=== PATIENT | female | born 1950 | race Caucasian/White ===

== ENCOUNTER 2016-10-19 22:05 | Inpatient (IN) | payer MEDICARE, OTHER ==
--- NOTE | 2016-10-19 22:26 | ERPHSYRPT ---
- History of Present Illness Time Seen by Provider: 10/19/16 22:09 Source: patient, family (grand-daughter), EMS Patient Subjective Stated Complaint: reports with c/o headache x 3 days ago et subsequent vomiting x 3-4 episodes today - reports also some dizziness et possible syncope Triage Nursing Assessment: ambulance to treatment area - lifted to cart - moves all extremities with profound weakness et discomfort. alert/oriented - grimmacing affect. skin pale/dry - no rash/injury. resps easy - non-labored Physician History: CC: headache Hx: 66 y/o patient of Dr Navarrete with hx of rheumatoid arthritis. She was brought to ER per EMS. Grand-daughter states patient has 3-4 day hx of nausea and vomiting. She has some headache that was gradual for 2-3 days. Reports some dizziness today. No fever. She has felt poorly. called family telling them she was on floor and not breathing. She was alert when the help arrived. She is mildly confused. Has taken prednisone in the past but does not take currently as best ascertained. Pt has some neck pain. Some diarrhea. No abd pain. No chest pain. Timing/Duration: day(s) (3-4) Allergies/Adverse Reactions: infliximab [From Remicade] Adverse Reaction (Intermediate, Verified 10/19/16 22: 07) MUSCLE SPASMS Home Medications: Ergocalciferol (Vitamin D2) [Vitamin D] 50,000 unit PO WEEKLY 02/11/13 [History] Methotrexate Sodium [Methotrexate] 15 mg PO WEEKLY 06/04/13 [History] Ibuprofen 200 mg [Motrin 200 mg] 800 mg PO Q12H PRN 11/05/13 [History] Adalimumab [Humira] 40 mg SQ UD 04/03/14 [History] Prednisone 20 mg [Deltasone 20 mg] 20 mg PO TID PRN 04/03/14 [History] Hx Tetanus, Diphtheria Vaccination/Date Given: Yes Hx Influenza Vaccination/Date Given: No Hx Pneumococcal Vaccination/Date Given: No Immunizations Up to Date: Yes - Review of Systems Constitutional: Chills, Fatigue, Malaise, Weakness Eyes: No Symptoms Ears, Nose, & Throat: No Symptoms Respiratory: No Cough Cardiac: Syncope, No Chest Pain Abdominal/Gastrointestinal: Nausea, Vomiting, Diarrhea, No Abdominal Pain Genitourinary Symptoms: No Dysuria Musculoskeletal: Neck Pain, Fall (?), No Joint Pain Skin: No Rash Neurological: Dizziness, Headache, No Focal Weakness, No Parasthesia All Other Systems: Reviewed and Negative - Past Medical History Pertinent Past Medical History: Yes Neurological History: No Pertinent History ENT History: No Pertinent History Cardiac History: No Pertinent History Respiratory History: Bronchitis, Pneumonia Endocrine Medical History: No Pertinent History Musculoskeletal History: Rheumatoid Arthritis GI Medical History: No Pertinent History History: No Pertinent History Psycho-Social History: No Pertinent History Female Reproductive Disorders: Other Other Medical History: right ovary fibroid - Past Surgical History Past Surgical History: Yes Neuro Surgical History: No Pertinent History Cardiac: Cardiac Catheterization Respiratory: No Pertinent History Gastrointestinal: No Pertinent History Genitourinary: No Pertinent History Musculoskeletal: No Pertinent History Female Surgical History: Other Other Surgical History: right oopherectomy - Social History Smoking Status: Former smoker How long have you smoked: 5 Exposure to second hand smoke: No Drug Use: none Patient Lives Alone: No - Female History Hx Last Menstrual Period: n/a - Nursing Vital Signs Nursing Vital Signs: Initial Vital Signs Temperature 100.8 F Temperature Source Rectal Pulse Rate 80 Respiratory Rate 16 Blood Pressure [] 101/57 Pain Intensity 6 - Physical Exam General Appearance: alert, other (lethargic, pale) Eye Exam: PERRL/EOMI Ears, Nose, Throat Exam: dry mucous membranes Neck Exam: midline tenderness Respiratory Exam: normal breath sounds Cardiovascular Exam: regular rate/rhythm Gastrointestinal/Abdomen Exam: soft, No tenderness, No distention, No mass, No guarding Extremity Exam: normal inspection, limited range of motion (due to general weakness, worse in legs) Neurologic Exam: alert, other (disoriented to year, more weakness in right leg, general weakness all over, face symmetric) Skin Exam: pale, No rash SpO2 Interpretation: normal SpO2: 98 Oxygen Delivery: Nasal Cannula - Course Nursing assessment & vital signs reviewed: Yes EKG Interpreted by Me: RATE (92), Sinus Rhythm, NORMAL AXIS, NORMAL INTERVALS ( QTc 443), Non-specific ST Changes (wity poor R wave progression) - Radiology Exams cxr X-ray Interpretation: Reviewed by me (poor inspiration, congestion) - CT Exams cervical CT Interpretation: Negative, Tele-radiologist Report head CT Interpretation: Tele-radiologist Report, No/Intracranial Hemorrhag, Other ( tiny lacunar infarct left of indeterminant age, air fluid levels i maxiallary sinuses) Ordered Tests: Active Orders 24 hr Category Date Time Status Attraction Attendant STAT Care 10/19/16 22:16 Active Cath for Specimen-Straight STAT Care 10/19/16 22:16 Active Cervical Collar Application STAT Care 10/19/16 22:18 Completed EKG-ER Only STAT Care 10/19/16 22:17 Active IV Insertion STAT Care 10/19/16 22:16 Active NPO (ED) STAT Care 10/19/16 22:17 Active Pulse Oximetry (ED) STAT Care 10/19/16 22:16 Active Rectal Temperature STAT Care 10/19/16 22:19 Active CERVICAL SPINE WO CONTRAST [CT] Stat Exams 10/19/16 22:15 Taken CHEST 1 VIEW (PORTABLE) Stat Exams 10/19/16 22:18 Taken HEAD WITHOUT CONTRAST [CT] Stat Exams 10/19/16 22:15 Taken BLOOD CULTURE Stat Lab 10/19/16 23:10 Received CBC W DIFF Stat Lab 10/19/16 22:30 Completed CK-Creatinine Phosphokinase Stat Lab 10/19/16 22:30 Completed CMP Stat Lab 10/19/16 22:30 Completed Erythrocyte Sedimentation Rate Stat Lab 10/19/16 22:30 Completed Lactic Acid Urgent Lab 10/19/16 22:16 Completed MAGNESIUM Stat Lab 10/19/16 22:30 Completed Manual Differential NC Stat Lab 10/19/16 22:30 Completed PROTIME WITH INR Stat Lab 10/19/16 22:30 Completed PTT Stat Lab 10/19/16 22:30 Completed UA W/ MICROSCOPIC Stat Lab 10/19/16 23:20 Completed VENOUS BLOOD GAS Urgent Lab 10/19/16 22:16 Completed Medication Summary Generic Name Dose Route Start Last Admin Trade Name Freq PRN Reason Stop Dose Admin Sodium Chloride 1,000 mls @ 100 mls/hr 10/19/16 22:30 10/19/16 23:10 Sodium Chloride 0.9% 1000 Ml IV 11/18/16 22:29 100 mls/hr .Q10H MARNI Administration Oseltamivir Phosphate 75 mg 10/20/16 10:00 10/20/16 00:22 Tamiflu 75mg Capsule PO 11/19/16 09:59 75 mg BID MARNI Administration Discontinued Medications Generic Name Dose Route Start Last Admin Trade Name Freq PRN Reason Stop Dose Admin Acetaminophen 650 mg 10/19/16 22:30 10/19/16 23:10 [place] 650 Mg CO 10/19/16 22:31 650 mg STAT STA Administration Acetaminophen Confirm 10/19/16 23:05 Feverall 650 Mg Administered 10/19/16 23:06 Dose 650 mg .ROUTE .STK-MED ONE Fentanyl Citrate 50 mcg 10/19/16 23:03 10/19/16 23:09 Sublimaze 100 Mcg/2 Ml IV 10/19/16 23:04 50 mcg STAT ONE Administration Fentanyl Citrate Confirm 10/19/16 23:05 Sublimaze 100 Mcg/2 Ml Administered 10/19/16 23:06 Dose 100 mcg .ROUTE .STK-MED ONE Sodium Chloride Confirm 10/19/16 23:06 Sodium Chloride 0.9% 1000 Ml Administered 10/19/16 23:07 Dose 1,000 mls @ ud .ROUTE .STK-MED ONE Ondansetron HCl 4 mg 10/19/16 22:30 10/19/16 23:10 Zofran 4 Mg/2 Ml Vial IV 10/19/16 22:31 4 mg STAT STA Administration Ondansetron HCl Confirm 10/19/16 23:05 Zofran 4 Mg/2 Ml Vial Administered 10/19/16 23:06 Dose 4 mg .ROUTE .STK-MED ONE Oseltamivir Phosphate Confirm 10/20/16 00:18 Tamiflu 75mg Capsule Administered 10/20/16 00:19 Dose 75 mg PO .STK-MED ONE Lab/Rad Data: Laboratory Result Diagrams 10/19/16 22:30 10/19/16 22:30 Laboratory Results 10/19/16 10/19/16 10/19/16 Range/Units 23:20 22:30 22:30 WBC (4.0-10.5) K/mm3 RBC (4.1-5.4) M/mm3 Hgb (12.0-16.0) gm/dl Hct (35-47) % MCV (78-100) fl MCH (26-32) pg MCHC (32-36) g/dl RDW (11.5-14.0) % Plt Count (150-450) K/mm3 MPV (6-9.5) fl Segmented Neutrophils (36.0-66.0) % Lymphocytes (Manual) (24-44) % Monocytes (Manual) (0.0-12.0) % Eosinophils (Manual) (0.00-3.0) % Differential Comment Platelet Estimate (NORMAL) ESR (0-20) mm/hr INR 1.05 (0.8-3.0) PTT 33.5 (25.3-37.0) SECONDS VBG pH (7.32-7.42) VBG pCO2 at Pat Temp (42-55) mm/Hg VBG pO2 at Pat Temp (25-40) mm/Hg VBG HCO3 (22-28) meq/L VBG O2 Sat (Milo) (95-100) VBG Base Excess (-2.0-2.0) VBG Hemoglobin VBG Carboxyhemoglobin (0.0-6.9) % T HGB POC Potassium (3.5-5.1) Sodium 134 L (136-145) mEq/L Potassium 3.7 (3.5-5.1) mEq/L Chloride 102 (98-107) mEq/L Carbon Dioxide 20.3 L (21-32) mEq/L Anion Gap 14.9 (5-15) MEQ/L BUN 21 H (9-20) mg/dL Creatinine 1.23 (0.55-1.30) mg/dl Estimated GFR 46 ML/MIN Glucose 113 H (70-110) MG/DL Lactic Acid (0.4-2.0) Calcium 8.3 L (8.5-10.1) mg/dL Magnesium 1.9 (1.8-2.4) mg/dL Total Bilirubin 0.5 (0.2-1.0) mg/dL AST 30 (15-37) U/L ALT 18 (12-78) U/L Alkaline Phosphatase 120 H (46-116) U/L Creatine Kinase 92 (26-192) U/L Serum Total Protein 6.4 (6.4-8.2) gm/dL Albumin 3.1 L (3.4-5.0) g/dL Ur Collection Type CATH Urine Color YELLOW (YELLOW) Urine Appearance CLEAR (CLEAR) Urine pH 5.5 (5-6) Ur Specific [place] >=1.030 (1.005-1.025) Urine Protein 30 (Negative) Urine Glucose (UA) NEGATIVE (NEGATIVE) mg/dL Urine Ketones SMALL-15 (NEGATIVE) Urine Nitrite NEGATIVE (NEGATIVE) Urine Bilirubin SMALL (NEGATIVE) Urine Urobilinogen 1 (0-1) mg/dL Urine WBC (Auto) NEGATIVE (NEGATIVE) Urine RBC (Auto) NEGATIVE (0-5) Beau/ul Ur Epithelial Cells RARE (FEW) /HPF Urine Bacteria FEW (NEGATIVE) /HPF Urine Mucus SLIGHT (NEGATIVE) /HPF Influenza Type A Ag (NEGATIVE) Influenza Type B Ag (NEGATIVE) RSV (PCR) (Negative) Specimen Received 10/19/16:2320 10/19/16 10/19/16 10/19/16 Range/Units 22:30 22:20 22:16 WBC 8.5 (4.0-10.5) K/mm3 RBC 5.15 (4.1-5.4) M/mm3 Hgb 15.7 (12.0-16.0) gm/dl Hct 44.8 (35-47) % MCV 87.0 (78-100) fl MCH 30.5 (26-32) pg MCHC 35.0 (32-36) g/dl RDW 14.3 H (11.5-14.0) % Plt Count 256 (150-450) K/mm3 MPV 10.3 H (6-9.5) fl Segmented Neutrophils 89 H (36.0-66.0) % Lymphocytes (Manual) 4 L (24-44) % Monocytes (Manual) 6 (0.0-12.0) % Eosinophils (Manual) 1 (0.00-3.0) % Differential Comment NORMAL Platelet Estimate NORMAL (NORMAL) ESR 12 (0-20) mm/hr INR (0.8-3.0) PTT (25.3-37.0) SECONDS VBG pH 7.38 (7.32-7.42) VBG pCO2 at Pat Temp 33 L (42-55) mm/Hg VBG pO2 at Pat Temp 63 H (25-40) mm/Hg VBG HCO3 19.5 L (22-28) meq/L VBG O2 Sat (Milo) 94.0 L (95-100) VBG Base Excess -4.6 L (-2.0-2.0) VBG Hemoglobin 15.2 VBG Carboxyhemoglobin 3.8 (0.0-6.9) % T HGB POC Potassium 3.8 (3.5-5.1) Sodium (136-145) mEq/L Potassium (3.5-5.1) mEq/L Chloride (98-107) mEq/L Carbon Dioxide (21-32) mEq/L Anion Gap (5-15) MEQ/L BUN (9-20) mg/dL Creatinine (0.55-1.30) mg/dl Estimated GFR ML/MIN Glucose (70-110) MG/DL Lactic Acid 1.1 (0.4-2.0) Calcium (8.5-10.1) mg/dL Magnesium (1.8-2.4) mg/dL Total Bilirubin (0.2-1.0) mg/dL AST (15-37) U/L ALT (12-78) U/L Alkaline Phosphatase (46-116) U/L Creatine Kinase (26-192) U/L Serum Total Protein (6.4-8.2) gm/dL Albumin (3.4-5.0) g/dL Ur Collection Type Urine Color (YELLOW) Urine Appearance (CLEAR) Urine pH (5-6) Ur Specific [place] (1.005-1.025) Urine Protein (Negative) Urine Glucose (UA) (NEGATIVE) mg/dL Urine Ketones (NEGATIVE) Urine Nitrite (NEGATIVE) Urine Bilirubin (NEGATIVE) Urine Urobilinogen (0-1) mg/dL Urine WBC (Auto) (NEGATIVE) Urine RBC (Auto) (0-5) Beau/ul Ur Epithelial Cells (FEW) /HPF Urine Bacteria (NEGATIVE) /HPF Urine Mucus (NEGATIVE) /HPF Influenza Type A Ag POSITIVE (NEGATIVE) Influenza Type B Ag NEGATIVE (NEGATIVE) RSV (PCR) NEGATIVE (Negative) Specimen Received - Progress Progress Note: 10/20/16 00:25 Shehas improved with IVF, meds. Still ill appearing. Meningitis not suspected at this time. She is at risk for infectious complications due to her rheumatoid meds. She has a fair amount of sinus disease so will cover with abtx. Called Dr Navarrete for observation. She is dehydrated. 10/20/16 00:28 She apparently is on chronic steroids at home so will cover with stress dose hydrocortisone. Will see patient in: hospital (observation) Counseled pt/family regarding: lab results, diagnosis, need for follow-up, rad results - Departure Time of Disposition: 00:27 Departure Disposition: Observation Clinical Impression: Influenza A, Syncope, Dehydration, Maxillary sinusitis, acute, Rheumatoid arthritis Condition: Fair Critical Care Time: No Referrals: KYARA NAVARRETE [Primary Care Provider] -
[2016-10-19] MEDS ORDERED: Zofran 4 MG/2 ML VIAL IV STA (22:30)
[2016-10-19] MEDS ORDERED: Sodium Chloride 0.9% 1000 ML 1,000 ML IV SCH (22:30)
[2016-10-19] MEDS ORDERED: FEVERALL 650 MG PR STA (22:30)
[2016-10-19 22:40] LABS: Mean Corpuscular Hemoglobin 30.5 pg (26-32); Mean Platelet Volume 10.3 fl (6-9.5); Platelet Count 256 K/mm3 (150-450); Red Blood Count 5.15 M/mm3 (4.1-5.4); Red Cell Distribution Width 14.3 % (11.5-14.0); White Blood Count 8.5 K/mm3 (4.0-10.5)
[2016-10-19 22:47] LABS: INR 1.05 (0.8-3.0); PROTIME 11.7 SECONDS (9.95-12.35)
[2016-10-19 22:48] LABS: Lactic Acid 1.1 (0.4-2.0); VBG BASE EXCESS -4.6 (-2.0-2.0); VBG CARBOXYHEMOGLOBIN 3.8 % T HGB (0.0-6.9); VBG HCO3- 19.5 meq/L (22-28); VBG HEMOGLOBIN 15.2; VBG POTASSIUM 3.8 (3.5-5.1); VBG pH 7.38 (7.32-7.42)
[2016-10-19 22:49] LABS: PTT 33.5 SECONDS (25.3-37.0)
[2016-10-19 22:55] LABS: ALBUMIN 3.1 g/dL (3.4-5.0); ANION GAP 14.9 MEQ/L (5-15); BILIRUBIN,TOTAL 0.5 mg/dL (0.2-1.0); Carbon Dioxide 20.3 mEq/L (21-32); MAGNESIUM 1.9 mg/dL (1.8-2.4); Potassium 3.7 mEq/L (3.5-5.1); Total Protein 6.4 gm/dL (6.4-8.2)
[2016-10-19 23:01] LABS: Erythrocyte Sedimentation Rate 12 mm/hr (0-20)
[2016-10-19] MEDS ORDERED: SUBLIMAZE 100 MCG/2 ML IV ONE (23:03)
[2016-10-19] MEDS ORDERED: Zofran 4 MG/2 ML VIAL ONE (23:05)
[2016-10-19] MEDS ORDERED: FEVERALL 650 MG ONE (23:05)
[2016-10-19] MEDS ORDERED: SUBLIMAZE 100 MCG/2 ML ONE (23:05)
[2016-10-19] MEDS ORDERED: Sodium Chloride 0.9% 1000 ML 1,000 ML ONE (23:06)
[2016-10-19 23:45] LABS: Bacteria FEW /HPF (NEGATIVE); COMPLETE URINE MICROSCOPIC? YES; Collection Type CATH; Epithelial Cells RARE /HPF (FEW); Mucus SLIGHT /HPF (NEGATIVE); Ph 5.5 (5-6)
[2016-10-19 23:51] LABS: Eosinophil 1 % (0.00-3.0); Platelet Estimate NORMAL (NORMAL); Total Cells Counted 100
[2016-10-20] MEDS ORDERED: Tamiflu 75MG Capsule PO ONE (00:18)
[2016-10-20] MEDS: Tamiflu 75MG Capsule PO SCH ×3 (00:22→22:52)
[2016-10-20] MEDS ORDERED: ROCEPHIN 1 Gm-D5w 50 ml Bag** 50 ML IV ONE ×2 (00:29→00:34)
[2016-10-20] MEDS ORDERED: solu-CORTEF 250MG ONE (00:34)
[2016-10-20] MEDS: solu-CORTEF 100MG IV SCH ×3 (00:40→17:11)
[2016-10-20] MEDS ORDERED: solu-CORTEF 250MG IV ONE (00:41)
[2016-10-20] MEDS ORDERED: TYLENOL 325 MG PO PRN (01:19)
[2016-10-20] MEDS ORDERED: Zofran 4 MG/2 ML VIAL IV PRN (01:19)
[2016-10-20] MEDS ORDERED: PROVENTIL 2.5 MG/3 ML NEB IH PRN (01:19)
[2016-10-20] MEDS: D5W/0.45NS W/ 20mEq KCl 1000 ML 1,000 ML IV SCH ×2 (02:01→11:52)
--- NOTE | 2016-10-20 09:00 | PCM.HP ---
History of Present Illness - Chief Complaint Chief Complaint: pneumonia, flu A History of Present Illness: is a 66 year old female who started feeling ill 2 nights ago with vomiting. She then started having cough and sweats. Yesterday she passed out while in her kitchen and family called EMS. She was found to have influenza A and pneumonia. - Review of Systems Constitutional: Fever, Fatigue Respiratory: Cough, Short Of Breath Cardiac: No Chest Pain Abdominal/Gastrointestinal: Nausea, Vomiting Musculoskeletal: Arthralgias All Other Systems: Reviewed and Negative Medications & Allergies Home Medications: Home Medication List Ergocalciferol (Vitamin D2) [Vitamin D] 50,000 unit PO WEEKLY 02/11/13 [History Confirmed 10/20/16] Ibuprofen 200 mg [Motrin 200 mg] 800 mg PO Q12H PRN 11/05/13 [History Confirmed 10/20/16] Albuterol Common Canister [Proventil Common Canister] 2 puff IH Q4HPRN #0 puff 01/17/14 [Rx Confirmed 10/20/16] Prednisone 20 mg [Deltasone 20 mg] 20 mg PO TID PRN 04/03/14 [History Confirmed 10/20/16] Guaifenesin/Dextromethorphan [Adult [employer]in Dm Syrup] 10 ml PO Q4H 10/20/16 [ History Confirmed 10/20/16] Hydroxychloroquine Sulfate [Plaquenil] 200 mg PO DAILY 10/20/16 [History Confirmed 10/20/16] Tofacitinib Citrate [Xeljanz] 5 mg PO BID 10/20/16 [History Confirmed 10/20/16] Allergies/Adverse Reactions: Allergies Allergy/AdvReac Type Severity Reaction Status Date / Time infliximab [From Remicade] AdvReac Intermediate MUSCLE Verified 10/19/16 22:07 SPASMS - Past Medical History Past Medical History: Yes Neurological History: No Pertinent History ENT History: No Pertinent History Cardiac History: No Pertinent History Respiratory History: Bronchitis, Pneumonia Endocrine Medical History: No Pertinent History Musculoskelatal History: Rheumatoid Arthritis GI Medical History: No Pertinent History History: No Pertinent History Pyscho-Social History: No Pertinent History Reproductive Disorders: Other Comment: right ovary fibroid - Female History Hx Last Menstrual Period: n/a Are you now?: No - Past Surgical History Past Surgical History: Yes Neuro Surgical History: No Pertinent History Cardiac History: Cardiac Catheterization Respiratory Surgery: No Pertinent History GI Surgical History: No Pertinent History Genitourinary Surgical Hx: No Pertinent History Musculskeletal Surgical Hx: No Pertinent History, Orthopedic Surgery Female Surgical History: Other Other Surgical History: right oopherectomy, carpal tunnel surgery, and rt hip replacement - Social History Smoking Status: Light tobacco smoker How long have you smoked: 5 Exposure to second hand smoke: No Alcohol: None Drug Use: none - Physical Exam Vital Signs: Vital Signs - 24 hr Temp Pulse Resp BP Pulse Ox 10/20/16 08:08 75 18 96 10/20/16 08:00 98.3 F 77 17 105/51 92 L 10/20/16 03:00 88 22 90 L 10/20/16 01:20 98.9 F 84 22 109/52 91 L 10/20/16 00:28 98 10/20/16 00:23 80 16 97 10/19/16 23:45 90 16 101/57 10/19/16 23:23 100.8 F 86 20 118/53 99 10/19/16 23:18 10.8 F 10/19/16 23:10 100.8 F 10/19/16 22:19 99 10/19/16 22:16 98.5 F 90 16 118/74 98 Oxygen-Last 24 hours O2 Percentage 2 Liters = 28% O2 Percentage 2 Liters = 28% O2 Percentage 2 Liters = 28% General Appearance: moderate distress, other (coughs throughout) Neurologic Exam: alert, oriented x 3, cooperative Eye Exam: eyes nml inspection Neck Exam: normal inspection Respiratory Exam: crackles/rales (scattered), other (good air exchange), No rhonchi, No wheezing Cardiovascular Exam: regular rate/rhythm, normal heart sounds Gastrointestinal/Abdomen Exam: soft, normal bowel sounds, No tenderness Back Exam: normal inspection Extremity Exam: normal inspection, No pedal edema, No swelling Results - Other Procedures and Tests Respiratory Therapy 10/20/16 05:44 neb [Respiratory Nebulizer] UD Assessment/Plan (1) Pneumonia Current Visit: Yes Status: Acute Qualifiers: Pneumonia type: due to unspecified organism Lung location: unspecified part of lung Assessment & Plan: Question of pneumonia, await final read. Would add vancomycin if our radiologist agrees she has PNA. Code(s): J18.9 - PNEUMONIA, UNSPECIFIED ORGANISM (2) Dehydration Current Visit: Yes Status: Acute Assessment & Plan: Recheck labs tomorrow. on 100mL/hr IV fluids. Code(s): E86.0 - DEHYDRATION (3) Influenza A Current Visit: Yes Status: Acute Assessment & Plan: on tamiflu Code(s): J10.1 - FLU DUE TO OTH IDENT INFLUENZA VIRUS W OTH RESP MANIFEST (4) Maxillary sinusitis, acute Current Visit: Yes Status: Acute Assessment & Plan: on IV rocephin Code(s): J01.00 - ACUTE MAXILLARY SINUSITIS, UNSPECIFIED (5) Rheumatoid arthritis Current Visit: Yes Status: Acute Assessment & Plan: I will speak with her hearing health technician, currently holding her plaquenil and xeljanz. Code(s): M06.9 - RHEUMATOID ARTHRITIS, UNSPECIFIED
[2016-10-20] MEDS ORDERED: PHARMACY DOSING REQUIRED: VANCOMYCIN IV ONE (09:08)
[2016-10-20] MEDS ORDERED: Phenergan 25 MG INJ IV PRN (09:09)
--- NOTE | 2016-10-20 09:16 | XRAY ---
Exam: AP portable chest film from 20 250 hours on 10/19/2016. Comparison: Two-view chest from 05/02/2016. Indication: Syncope, fall, congestion. Findings: There's been a relatively poor inspiration. The film was obtained in a lordotic projection. The heart size is normal. There is known apparent chronic interstitial lung disease judging from the appearance of the prior two-view chest from 05/02/2016. However, today's study reveals relative increased prominent interstitial markings/interstitial infiltrates within both upper lobes as well as the retrocardiac region of the left lung base. This may reflect pneumonia. Correlate clinically regarding aspiration. The right lung base appears relatively clear. The peripheral left lung base is relatively clear as well. No pneumothorax or pleural fluid is seen. The bones are grossly intact. Impression: 1. Relatively poor inspiratory chest film with increased interstitial markings/interstitial infiltrates within both upper lobes and the medial aspect of the left lung base. This is worrisome for bilateral pneumonia. Consider aspiration.
--- NOTE | 2016-10-20 09:56 | XRAY ---
Exam: CT of the head without IV contrast from 10/19/2016. CTDI: 50.14 Comparison: None. Indication: Dizziness, patient fell and passed out, pain in frontal area of head/headache. Technique: Non-IV contrast axial images were obtained to the brain. Reconstructed coronal and sagittal images were created and reviewed. Findings: The ventricles appear of unremarkable size and configuration. No focal mass effect or midline shift is seen. No acute intracranial parenchymal hemorrhage, subarachnoid hemorrhage, or abnormal extra-axial fluid collection is seen. On axial image #24, there is a tiny hypodensity at the superior margin of the caudate nucleus on the left of uncertain significance. A tiny lacunar infarct is not excluded with certainty. No other low attenuation lesions are seen to suggest an acute territorial infarction. The cornell matter-white matter interfaces appear unremarkable. Structures of the posterior fossa appear unremarkable. The cortical sulci and basilar cisterns appear unremarkable. The calvarium of the skull appears intact. The maxillary sinuses are more than half filled with bilateral air-fluid levels. I also note mild scattered mucosal thickening/soft tissue density within the anterior ethmoid air cells bilaterally. Minimal focal soft tissue density is seen within the posterior aspect of the left side of the sphenoid sinus as well. The remainder of the paranasal sinuses and mastoid air cells appears unremarkable. Impression: 1. No acute intracranial bleed is seen. 2. Tiny hypodensity at the superior margin of the caudate nucleus on the left on axial image #24 of unclear significance. A tiny lacunar infarct at this site is not excluded with certainty. Otherwise, no other acute intracranial process is seen. 3. Moderate to large bilateral maxillary sinus air-fluid levels are seen. There is also scattered soft tissue density and mucosal thickening within the anterior aspect of the ethmoid air cells bilaterally. I believe there is also some minimal mucosal thickening at the inferior posterior margin of the left side of the sphenoid sinus. Correlate clinically regarding acute sinusitis. I see no fractures by this exam to suggest trauma as an etiology.
[2016-10-20] MEDS: Zithromax 500 MG/ 250 ML NaCl Premix 250 ML IV SCH (10:10)
[2016-10-20] MEDS: Mucinex 600MG ER Tabs PO SCH ×2 (10:11→22:52)
[2016-10-20] MEDS: PROVENTIL 2.5 MG/3 ML NEB IH SCH ×4 (10:31→22:51)
[2016-10-20] MEDS ORDERED: DELTASONE 20 MG PO PRN (10:54)
[2016-10-20] MEDS ORDERED: VANCOCIN 1 GM VIAL*** 1.5 GM in Sodium Chloride 0.9% 500 ML 500 ML IV ONE (11:00)
--- NOTE | 2016-10-20 11:04 | XRAY ---
Exam: CT of the cervical spine without IV contrast from 10/19/2016. CTDI: 106.89 Comparison: None. Indication: Patient fell, dizziness, pain in posterior neck. Technique: Non-IV contrast axial images were obtained through the cervical spine. Reconstructed coronal and sagittal images were created and reviewed. Findings: There is some straightening of the cervical spine on the lateral radiograph. I see no acute cervical spine fracture, AP subluxation, or prevertebral soft tissue swelling. No jumped facets are seen. Mild to moderate degenerative disc disease is seen at C5-C6 and C6-C7 manifested by interspace narrowing, some vacuum disc phenomena, and small anterior and posterior vertebral endplate spurs. This is a bit more pronounced at C5-C6. There is also minimal degenerative disc disease seen posteriorly at C3-C4. No central canal spinal stenosis is seen. Moderate degenerative change of the uncovertebral joints is seen at C5-C6 bilaterally. Minimal degenerative change of the uncovertebral joints is seen at C6-C7. No cervical ribs are seen. There appears to be mild to moderate narrowing of the C5-C6 neural foramen bilaterally and minimal narrowing of the left C6-C7 neural foramen. The other cervical neural foramen are widely patent. There is a tiny 3.8 mm hypoattenuated nodule within the anterior lateral aspect of the upper to midportion of the right lobe of the thyroid gland. Impression: 1. No acute cervical spine fracture, AP subluxation, or prevertebral soft tissue swelling is seen. 2. There is some straightening of the cervical spine on the lateral radiograph - nonspecific. This could be due to patient positioning or spasm. 3. Moderate degenerative disc disease is seen at C5-C6 and C6-C7, a bit greater at C5-C6. See above. There is also early/mild degenerative disc disease at C3-C4. 4. Tiny right lobe thyroid gland nodule as discussed.
[2016-10-20] MEDS: Tussionex Pennkinetic Susp PO PRN (13:39)
[2016-10-20] MEDS: MOTRIN 400 MG PO PRN (16:40)
[2016-10-20] MEDS: ROCEPHIN 1 Gm-D5w 50 ml Bag** 50 ML IV SCH (22:52)
[2016-10-21] MEDS: solu-CORTEF 100MG IV SCH ×3 (00:12→22:01)
[2016-10-21] MEDS: Tussionex Pennkinetic Susp PO PRN ×4 (00:13→22:08)
[2016-10-21] MEDS: D5W/0.45NS W/ 20mEq KCl 1000 ML 1,000 ML IV SCH ×2 (02:13→17:02)
[2016-10-21] MEDS: PROVENTIL 2.5 MG/3 ML NEB IH SCH ×4 (02:44→18:32)
[2016-10-21] MEDS: Tamiflu 75MG Capsule PO SCH ×2 (08:49→22:01)
[2016-10-21] MEDS: Mucinex 600MG ER Tabs PO SCH ×2 (08:49→22:01)
[2016-10-21] MEDS: Zithromax 500 MG/ 250 ML NaCl Premix 250 ML IV SCH (08:49)
[2016-10-21] MEDS ORDERED: Tessalon Perles 100 MG PO PRN (09:58)
[2016-10-21] MEDS ORDERED: VANCOCIN 1 GM VIAL*** 1.25 GM in Sodium Chloride 0.9% 250 ML 250 ML IV SCH (10:00)
[2016-10-21] MEDS: MOTRIN 400 MG PO PRN (11:02)
[2016-10-21] MEDS ORDERED: PROVENTIL 2.5 MG/3 ML NEB IH SCH (13:00)
[2016-10-21] MEDS: ROCEPHIN 1 Gm-D5w 50 ml Bag** 50 ML IV SCH (22:00)
[2016-10-22] MEDS: PROVENTIL 2.5 MG/3 ML NEB IH SCH ×4 (06:10→13:57)
[2016-10-22] MEDS: Zithromax 500 MG/ 250 ML NaCl Premix 250 ML IV SCH (08:50)
[2016-10-22] MEDS: Mucinex 600MG ER Tabs PO SCH ×2 (08:50→22:20)
[2016-10-22] MEDS: Tamiflu 75MG Capsule PO SCH ×2 (08:51→22:20)
[2016-10-22] MEDS: solu-CORTEF 100MG IV SCH ×2 (11:08→22:20)
[2016-10-22] MEDS: PROVENTIL 2.5 MG/3 ML NEB IH PRN (20:55)
[2016-10-22] MEDS: ROCEPHIN 1 Gm-D5w 50 ml Bag** 50 ML IV SCH (22:20)
[2016-10-23 07:39] VITALS: BP 153/63
--- NOTE | 2016-10-23 08:22 | PCM.DS ---
Discharge Summary Date of Admission: 10/20/16 08:54 Admitting Physician: KYARA ARORA Primary Care Provider: KYARA ARORA Allergies Allergies infliximab [From Remicade] Adverse Reaction (Intermediate, Verified 10/19/16 22: 07) MUSCLE SPASMS Hospital Summary - Hospital Course Hospital Course: Admitted with influenza and treated for pneumonia as well. Feeling much better today. Praneeth po well. Breathing is good, off O2 since yesterday, just SOB when up and moving around. - Vitals & Intake/Output Vital Signs: Vital Signs Temperature 98.3 F 10/23/16 07:38 Pulse Rate 70 10/23/16 07:38 Respiratory Rate 18 10/23/16 07:38 Blood Pressure 153/63 10/23/16 07:38 O2 Sat by Pulse Oximetry 98 10/23/16 07:38 Oxygen-Last Documented O2 Percentage 2 Liters = 28% Intake & Output: Intake & Output 10/20/16 10/21/16 10/22/16 10/23/16 11:59 11:59 11:59 11:59 Intake Total 220 4391 1760 1580 Output Total 2600 3450 2900 Balance 220 1791 -1690 -1320 - Lab Result Diagrams: 10/19/16 22:30 10/19/16 22:30 - Procedures and Test Procedures and Tests throughout Hospitalization: Therapy Orders & Screens 10/20/16 09:07 Speech Therapy Eval & Treat [ST Eval & Treat ( Order)] .as ordered Comment: Physician Instructions: Reason For Exam: question of aspiration Evaluate: Yes Treat: Yes Reason for Eval: on CXR, question of aspiration Diagnosis: pneumonia, flu A 10/21/16 10:30 Respiratory Nebulizer Q6H Comment: Diagnosis: PNEUMONIA BILATERAL CONFIRMED BY IMAGING, INFLUENZA A 10/22/16 17:45 Respiratory Nebulizer PRN Comment: ALBUTEROL Q4PRN Diagnosis: PNEUMONIA BILATERAL CONFIRMED BY IMAGING, INFLUENZA A Discharge Exam General Appearance: no apparent distress Neurologic Exam: alert, oriented x 3, cooperative Skin Exam: normal color, warm, dry Respiratory Exam: normal breath sounds, No crackles/rales, No rhonchi, No wheezing Cardiovascular Exam: regular rate/rhythm, normal heart sounds, No murmur Extremity Exam: No pedal edema, No swelling Final Diagnosis/Problem List - Final Discharge Diagnosis/Problem (1) Pneumonia Current Visit: Yes Status: Acute Assessment & Plan: Doing great, home today, advance activities slowly. FInish abx. RTC 1 wk with another provider. (2) Dehydration Current Visit: Yes Status: Resolved (3) Influenza A Current Visit: Yes Status: Acute Assessment & Plan: Much improved. (4) Maxillary sinusitis, acute Current Visit: Yes Status: Acute Assessment & Plan: improved. (5) Rheumatoid arthritis Current Visit: Yes Status: Chronic - Discharge Disposition: Home, Self-Care Condition: Stable Prescriptions: New Amoxicillin/Potassium Clav [Augmentin 875-125 Tablet] 875 mg PO BID #20 tablet Oseltamivir 75 mg [Tamiflu 75MG Capsule] 75 mg PO BID #4 cap Hydrocod Psx/Chlor-Dmitri [Tussionex Pennkinetic Susp] 5 ml PO BID PRN PRN #4 oz PRN Reason: Cough Continue Ergocalciferol (Vitamin D2) [Vitamin D] 50,000 unit PO WEEKLY Ibuprofen 200 mg [Motrin 200 mg] 800 mg PO Q12H PRN Albuterol Common Canister [Proventil Common Canister] 2 puff IH Q4HPRN #0 puff Prednisone 20 mg [Deltasone 20 mg] 20 mg PO TID PRN PRN Reason: Pain Tofacitinib Citrate [Xeljanz] 5 mg PO BID Hydroxychloroquine Sulfate [Plaquenil] 200 mg PO DAILY Discontinued Guaifenesin/Dextromethorphan [Adult Wal-Tussin Dm Syrup] 10 ml PO Q4H Instructions: Fainting, Dehydration -- Adult, Pneumonia -- Adult, Influenza -- Adult Follow up with: KYARA ARORA [Primary Care Provider] - 11/06/16 1:00 pm Forms: Patient Portal Information
[2016-10-23] MEDS: PROVENTIL 2.5 MG/3 ML NEB IH PRN (08:31)
[2016-10-23] MEDS: Tamiflu 75MG Capsule PO SCH (08:34)
[2016-10-23] MEDS: Mucinex 600MG ER Tabs PO SCH (08:34)
[2016-10-23] MEDS: Zithromax 500 MG/ 250 ML NaCl Premix 250 ML IV SCH (08:34)
[2016-10-23] MEDS: solu-CORTEF 100MG IV SCH (08:34)
[2016-10-23 08:39] VITALS: PULSE 73; O2SAT 96
== END 2016-10-23 11:25 | disposition home or self-care (01) | DRG 195 ==
LOC: ED 22:05 → MED SURG 10-20 00:55 → OBSVTOIN 10-20 08:54
PROVIDERS: ADMIT Family Medicine; ATTEND Family Medicine
DX: J18.9 Pneumonia, unspecified organism (principal); E86.0 Dehydration; J10.1 Influenza due to other identified influenza virus with other respiratory manifestations; J01.00 Acute maxillary sinusitis, unspecified; M06.9 Rheumatoid arthritis, unspecified; Z79.899 Other long term (current) drug therapy
CPT/HCPCS: 36000; 36415; 70450; 71010; 72125; 80053; 81000; 82533; 82550; 82805; 83605; 83735; 85025; 85610; 85652; 85730; 87040; 87631; 93005; 93041; 94640; 94760; 96360; 96361; 96365; 96374; 96375; 99285; J0456; J0696; J1720; J2405; J3010; J3370; P9612

== ENCOUNTER 2020-02-18 17:47 | Inpatient (IN) | payer MEDICARE, OTHER ==
[2020-02-18] MEDS ORDERED: Zofran 4 MG/2 ML VIAL IV ONE (18:07)
[2020-02-18] MEDS ORDERED: MORPHINE SULFATE 4 MG INJ IV ONE ×2 (18:07→19:21)
[2020-02-18] MEDS ORDERED: Sodium Chloride 0.9% 1000 ML 1,000 ML IV STA (18:07)
--- NOTE | 2020-02-18 18:14 | ERPHSYRPT ---
- History of Present Illness Time Seen by Provider: 02/18/20 18:00 Source: patient, EMS Exam Limitations: no limitations Patient Subjective Stated Complaint: Syncope Triage Nursing Assessment: Patient brought into ED via EMS and transferred to bed with assist of 3. Patient A+O X3. Patient's skin flushed and sweaty. Patient states she was getting up to go to bathroom then she woke up on the floor. Patient stated she fell backwards hitting her head. Patient has small knot to the back of head. Patient complains of mid upper back pain 6/10 constant sharp pain. Physician History: 69 years old female with history of rheumatoid arthritis, Johnston disease presented in the ER after she stood up from sitting and collapsed. Patient denies any chest pain palpitations or shortness of breath, lightheadedness before the fall. There is a positive loss of consciousness for unknown amount of time. Patient woke up with a small knot on the back of her head with headache and mid back pain. Initially she was hurting more in the lower back which is better now after 100 mg of fentanyl by EMS. Patient was tachycardic, tachypneic on presentation. She is complaining of moderate to severe pain in the shoulder blade area and some pain in the flank. Denies any nausea or vomiting. Pain is aggravated with minimal movements, deep breathing. She denies any neck pain. C-collar is placed in by EMS. She has numbness in the right lower extremity which is chronic from pinched nerve the low back. Denies any focal weakness. Occurred: just prior to arrival Reason for Fall: unknown Injuries/Pain Location: head, chest, back Loss of Consciousness: unsure Quality: sharpness Severity of Pain-Max: severe Severity of Pain-Current: moderate Modifying Factors: Improves With: immobilization, movement Associated Symptoms (Fall): abdominal pain, back pain, chest pain, headache, No vomiting Allergies/Adverse Reactions: infliximab [From Remicade] Adverse Reaction (Intermediate, Verified 02/18/20 17:51) MUSCLE SPASMS Home Medications: Ergocalciferol (Vitamin D2) [Vitamin D] 50,000 unit PO WEEKLY 02/11/13 [History] Ibuprofen 200 mg [Motrin 200 mg] 800 mg PO Q12H PRN 11/05/13 [History] Prednisone 20 mg [Deltasone 20 mg] 20 mg PO TID PRN 04/03/14 [History] Hydroxychloroquine Sulfate [Plaquenil] 200 mg PO DAILY 10/20/16 [History] Tofacitinib Citrate [Xeljanz] 5 mg PO BID 10/20/16 [History] Hx Tetanus, Diphtheria Vaccination/Date Given: Yes Hx Influenza Vaccination/Date Given: Yes Hx Pneumococcal Vaccination/Date Given: No Immunizations Up to Date: Yes Travel Risk - International Travel Have you traveled outside of the country in past 3 weeks: No - Coronavirus Screening Are you exhibiting any of the following symptoms?: No Close contact with a COVID-19 positive Pt in past 14-21 Days: No - Review of Systems Constitutional: No Symptoms Eyes: No Symptoms Ears, Nose, & Throat: No Symptoms Respiratory: Dyspnea Cardiac: Chest Pain, Palpitations Abdominal/Gastrointestinal: Abdominal Pain Genitourinary Symptoms: No Symptoms Musculoskeletal: Arthralgias, Back Pain Skin: No Symptoms Neurological: Headache, Sensory Changes Psychological: No Symptoms Endocrine: No Symptoms Hematologic/Lymphatic: No Symptoms Immunological/Allergic: No Symptoms - Past Medical History Pertinent Past Medical History: Yes Neurological History: No Pertinent History ENT History: No Pertinent History Cardiac History: Arrhythmia, High Cholesterol, Hypertension Respiratory History: No Pertinent History Endocrine Medical History: Johnston's Disease Musculoskeletal History: Arthritis, Rheumatoid Arthritis GI Medical History: No Pertinent History History: No Pertinent History Psycho-Social History: No Pertinent History Female Reproductive Disorders: Other Other Medical History: Interstitial lung disease - Past Surgical History Past Surgical History: Yes Neuro Surgical History: No Pertinent History Cardiac: Cardiac Catheterization Respiratory: No Pertinent History Gastrointestinal: No Pertinent History Genitourinary: No Pertinent History Musculoskeletal: No Pertinent History, Orthopedic Surgery Female Surgical History: Other Other Surgical History: right oopherectomy, carpal tunnel surgery, and rt hip replacement - Social History Smoking Status: Former smoker How long have you smoked: 5 Exposure to second hand smoke: No Drug Use: none Patient Lives Alone: No - Female History Hx Now: No - Nursing Vital Signs Nursing Vital Signs: Initial Vital Signs Temperature 97.9 F 02/18/20 17:52 Pulse Rate 117 H 02/18/20 17:52 Respiratory Rate 18 02/18/20 17:52 Blood Pressure 112/80 02/18/20 17:52 O2 Sat by Pulse Oximetry 100 02/18/20 17:52 Pain Scale Pain Intensity 6 - Lynette Coma Score Best Eye Response ([place]): (4) open spontaneously Best Verbal Response ([place]ette): (5) oriented Best Motor Response ([place]ette): (6) obeys commands [place] Total: 15 - Physical Exam General Appearance: no apparent distress, moderate distress, alert Head Injury: swelling (Left occipitoparietal), tenderness Eye Exam: PERRL/EOMI, eyes nml inspection ENT Exam: airway nml, evidence of ENT injury Neck Exam: supple, trachea midline, normal alignment, c-collar in place Respiratory/Chest Exam: chest tenderness, normal breath sounds Cardiovascular Exam: normal heart sounds, tachycardia Gastrointestinal Exam: soft, normal bowel sounds, tenderness (Mild left flank) Back Exam: normal inspection, vertebral tenderness (Mid thoracic and lumbar), No normal range of motion Extremity Exam: other (Chronic venous stasis with spider veins) Neurologic Exam: alert, oriented x 3, cooperative, 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, normal mood/affect Skin Exam: normal color SpO2 Interpretation: O2 applied SpO2: 100 O2 Delivery: Nasal Cannula Ordered Tests: Active Orders 24 hr Category Date Time Status EKG-ER Only STAT Care 02/18/20 18:07 Active IV Insertion STAT Care 02/18/20 18:07 Active ABDOMEN AND PELVIS W/0 CONTRAS [CT] Stat Exams 02/18/20 18:05 Taken CERVICAL SPINE WO CONTRAST [CT] Stat Exams 02/18/20 18:07 Taken CHEST WITHOUT CONTRAST [CT] Stat Exams 02/18/20 18:06 Taken HEAD WITHOUT CONTRAST [CT] Stat Exams 02/18/20 18:06 Taken RECONSTRUCTION [CT] Stat Exams 02/18/20 18:06 Taken RECONSTRUCTION [CT] Stat Exams 02/18/20 18:07 Taken CBC W DIFF Stat Lab 02/18/20 17:20 Completed CMP Stat Lab 02/18/20 17:20 Completed Manual Differential NC Stat Lab 02/18/20 17:20 Completed PROTIME WITH INR Stat Lab 02/18/20 17:20 Completed PTT Stat Lab 02/18/20 17:20 Completed TROPONIN Q3H Lab 02/18/20 17:20 Completed TROPONIN Q3H Lab 02/18/20 21:15 Ordered TROPONIN Q3H Lab 02/19/20 00:15 Ordered TROPONIN Q3H Lab 06/25/20 03:15 Ordered TROPONIN Q3H Lab 02/19/20 06:15 Ordered UA W/RFX UR CULTURE Stat Lab 02/18/20 18:08 Uncollected Medication Summary Discontinued Medications Generic Name Dose Route Start Last Admin Trade Name Agusto PRN Reason Stop Dose Admin Fentanyl Citrate Confirm 02/18/20 20:02 Sublimaze 100 Mcg/2 Ml Administered 02/18/20 20:03 Dose 100 mcg .ROUTE .STK-MED ONE Sodium Chloride 1,000 mls @ 999 mls/hr 02/18/20 18:07 02/18/20 18:25 Sodium Chloride 0.9% 1000 Ml IV 02/18/20 19:07 999 mls/hr .Q1H1M STA Administration Sodium Chloride Confirm 02/18/20 18:18 Sodium Chloride 0.9% 1000 Ml Administered 02/18/20 18:19 Dose 1,000 mls @ ud .ROUTE .STK-MED ONE Morphine Sulfate 4 mg 02/18/20 18:07 02/18/20 18:25 Morphine Sulfate 4 Mg Inj IV 02/18/20 18:08 4 mg STAT ONE Administration Morphine Sulfate Confirm 02/18/20 18:17 Morphine Sulfate 4 Mg Inj Administered 02/18/20 18:18 Dose 4 mg .ROUTE .STK-MED ONE Morphine Sulfate 4 mg 02/18/20 19:21 02/18/20 19:26 Morphine Sulfate 4 Mg Inj IV 02/18/20 19:22 4 mg STAT ONE Administration Morphine Sulfate Confirm 02/18/20 19:23 Morphine Sulfate 4 Mg Inj Administered 02/18/20 19:24 Dose 4 mg .ROUTE .STK-MED ONE Ondansetron HCl 4 mg 02/18/20 18:07 02/18/20 18:25 Zofran 4 Mg/2 Ml Vial IV 02/18/20 18:08 4 mg STAT ONE Administration Ondansetron HCl Confirm 02/18/20 18:17 Zofran 4 Mg/2 Ml Vial Administered 02/18/20 18:18 Dose 4 mg .ROUTE .STK-MED ONE Lab/Rad Data: Laboratory Result Diagrams 02/18/20 17:20 02/18/20 17:20 Laboratory Results 02/18/20 02/18/20 02/18/20 Range/Units 17:20 17:20 17:20 WBC (4.0-10.5) K/mm3 RBC (4.1-5.4) M/mm3 Hgb (12.0-16.0) gm/dl Hct (35-47) % MCV (78-100) fl MCH (26-32) pg MCHC (32-36) g/dl RDW (11.5-14.0) % Plt Count (150-450) K/mm3 MPV (7.5-11.0) fl PT 10.5 (9.95-12.35) SECONDS INR 0.93 (0.8-3.0) APTT 23.7 L (25.3-37.0) SECONDS Sodium (137-145) mmol/L Potassium (3.5-5.1) mmol/L Chloride (98-107) mmol/L Carbon Dioxide (22-30) mmol/L Anion Gap (5-15) MEQ/L BUN (7-17) mg/dL Creatinine (0.52-1.04) mg/dL Estimated GFR ML/MIN Glucose (74-106) mg/dL Calcium (8.4-10.2) mg/dL Total Bilirubin (0.2-1.3) mg/dL AST (14-36) U/L ALT (0-35) U/L Alkaline Phosphatase (38-126) U/L Troponin I 0.020 (0.000-0.034) ng/mL Serum Total Protein (6.3-8.2) g/dL Albumin (3.5-5.0) g/dL 02/18/20 02/18/20 Range/Units 17:20 17:20 WBC 14.2 H (4.0-10.5) K/mm3 RBC 4.31 (4.1-5.4) M/mm3 Hgb 13.8 (12.0-16.0) gm/dl Hct 42.9 (35-47) % MCV 99.5 (78-100) fl MCH 32.0 (26-32) pg MCHC 32.2 (32-36) g/dl RDW 14.0 (11.5-14.0) % Plt Count 544 H (150-450) K/mm3 MPV 9.8 (7.5-11.0) fl PT (9.95-12.35) SECONDS INR (0.8-3.0) APTT (25.3-37.0) SECONDS Sodium 140 (137-145) mmol/L Potassium 4.3 (3.5-5.1) mmol/L Chloride 108 H (98-107) mmol/L Carbon Dioxide 25 (22-30) mmol/L Anion Gap 11.4 (5-15) MEQ/L BUN 19 H (7-17) mg/dL Creatinine 1.37 H (0.52-1.04) mg/dL Estimated GFR 40.6 ML/MIN Glucose 99 (74-106) mg/dL Calcium 9.4 (8.4-10.2) mg/dL Total Bilirubin 0.60 (0.2-1.3) mg/dL AST 37 H (14-36) U/L ALT 47 H (0-35) U/L Alkaline Phosphatase 107 (38-126) U/L Troponin I (0.000-0.034) ng/mL Serum Total Protein 6.5 (6.3-8.2) g/dL Albumin 4.1 (3.5-5.0) g/dL - Progress Progress: improved, pain not gone completely, re-examined Progress Note: 02/18/20 21:44 69 years old is evaluated for syncope and fall with headache and upper back pain. Trauma scans are done including lumbar and thoracic spines. She has a no acute finding in the CT head/neck. She has old T6 endplate fracture and old healing fracture left eighth and ninth rib but no other acute finding in the chest or abdomen. She is given multiple doses of pain medication and on reevaluation feeling better. C-collar is removed and she is able to move her neck in all direction without any limitation. She has a white count of 14 and mild acute kidney injury, given IV fluids. Patient still have pain with movement especially in the midthoracic area. Nonfocal neuro exam otherwise. Do not know the exact cause of her syncope could be orthostatic but needs further evaluation and work-up for that. Discussed with Dr. Arreola and patient is being admitted. Plan discussed with patient and family in detail who understand and agree with it. Discussed with : Nadiya Will see patient in: hospital (observation) Counseled pt/family regarding: lab results, diagnosis, rad results - Departure Departure Disposition: Observation Clinical Impression: Mid-back pain, acute Syncope Qualifiers: Syncope type: unspecified Qualified Code(s): R55 - Syncope and collapse Contusion of scalp Qualifiers: Encounter type: initial encounter Qualified Code(s): S00.03XA - Contusion of scalp, initial encounter Fall Qualifiers: Encounter type: initial encounter Qualified Code(s): W19.XXXA - Unspecified fall, initial encounter Condition: Good Critical Care Time: Yes Critical Care Time(excluding separately billable procedures): Critical 75-104 mins Referrals: KYARA ARORA [Primary Care Provider] -
[2020-02-18] MEDS ORDERED: MORPHINE SULFATE 4 MG INJ ONE ×2 (18:17→19:23)
[2020-02-18] MEDS ORDERED: Zofran 4 MG/2 ML VIAL ONE (18:17)
[2020-02-18] MEDS ORDERED: Sodium Chloride 0.9% 1000 ML 1,000 ML ONE (18:18)
[2020-02-18 18:33] LABS: Hematocrit 42.9 % (35-47); Hemoglobin 13.8 gm/dl (12.0-16.0); Mean Cell Volume 99.5 fl (78-100); Mean Corpuscular Hgb Concent. 32.2 g/dl (32-36); Mean Platelet Volume 9.8 fl (7.5-11.0); Platelet Count 544 K/mm3 (150-450); Red Blood Count 4.31 M/mm3 (4.1-5.4); White Blood Count 14.2 K/mm3 (4.0-10.5)
[2020-02-18 18:42] LABS: INR 0.93 (0.8-3.0); PROTIME 10.5 SECONDS (9.95-12.35)
[2020-02-18 18:47] LABS: ALBUMIN 4.1 g/dL (3.5-5.0); ANION GAP 11.4 MEQ/L (5-15); BILIRUBIN,TOTAL 0.6 mg/dL (0.2-1.3); Calcium 9.4 mg/dL (8.4-10.2); Creatinine 1 1.37 mg/dL (0.52-1.04); Potassium 4.3 mmol/L (3.5-5.1); Total Protein 6.5 g/dL (6.3-8.2)
[2020-02-18] MEDS ORDERED: SUBLIMAZE 100 MCG/2 ML ONE (20:02)
[2020-02-18] MEDS ORDERED: Zofran 4 MG/2 ML VIAL IV PRN (22:23)
[2020-02-18] MEDS ORDERED: TYLENOL 325 MG PO PRN (22:23)
[2020-02-18] MEDS ORDERED: HUMALOG SQ PRN (22:23)
[2020-02-18] MEDS ORDERED: DUONEB 0.5-3 MG/3 ml Neb IH PRN (22:23)
[2020-02-18 22:42] LABS: Lymphocytes 18 % (24-44); Monocyte 3 % (0.0-12.0); Neutrophils 79 % (36.0-66.0); Platelet Estimate INCREASED (NORMAL); Total Cells Counted 100
[2020-02-18] MEDS: Sodium Chloride 0.9% 1000 ML 1,000 ML IV SCH (22:45)
[2020-02-18] MEDS: MORPHINE SULFATE 4 MG INJ IV PRN (22:55)
[2020-02-19] MEDS: MORPHINE SULFATE 4 MG INJ IV PRN ×5 (03:22→15:45)
[2020-02-19 05:13] LABS: Hemoglobin 13.2 gm/dl (12.0-16.0); Mean Corpuscular Hemoglobin 32.2 pg (26-32); Mean Corpuscular Hgb Concent. 32.2 g/dl (32-36); Mean Platelet Volume 9.8 fl (7.5-11.0); Platelet Count 492 K/mm3 (150-450); Red Cell Distribution Width 14.5 % (11.5-14.0); White Blood Count 15.7 K/mm3 (4.0-10.5)
[2020-02-19 05:35] LABS: ALBUMIN 3.8 g/dL (3.5-5.0); ANION GAP 6.9 MEQ/L (5-15); BILIRUBIN,TOTAL 0.7 mg/dL (0.2-1.3); Calcium 8.9 mg/dL (8.4-10.2); Creatinine 1 1.41 mg/dL (0.52-1.04); Potassium 3.9 mmol/L (3.5-5.1); Total Protein 6.3 g/dL (6.3-8.2)
[2020-02-19] MEDS: MOTRIN 400 MG PO PRN ×2 (06:46→20:56)
[2020-02-19] MEDS: LIORESAL 10 MG PO PRN ×2 (06:46→20:56)
[2020-02-19 06:54] LABS: Lymphocytes 20 % (24-44); Monocyte 4 % (0.0-12.0); Neutrophils 76 % (36.0-66.0); Platelet Estimate NORMAL (NORMAL); Total Cells Counted 100
[2020-02-19] MEDS ORDERED: PATIENT OWN MEDICATION IH SCH ×2 (07:00→13:01)
[2020-02-19] MEDS ORDERED: Sodium Chloride 0.9% 1000 ML 1,000 ML ONE (07:53)
[2020-02-19] MEDS: Sodium Chloride 0.9% 1000 ML 1,000 ML IV SCH (07:54)
--- NOTE | 2020-02-19 08:31 | XRAY ---
Indication: Status post fall. Syncope. Multiple contiguous axial images obtained through the head without contrast. Comparison: October 19, 2016. Stable age-appropriate global atrophy and minimal periventricular degenerative micro-ischemia. No acute intracranial hemorrhage, abnormal extra-axial fluid collection, or mass effect. Fourth ventricle is midline without hydrocephalus. Bony calvarium intact. Paranasal sinuses and mastoid air cells are clear. Impression: Continued nonacute senile brain.
--- NOTE | 2020-02-19 08:35 | XRAY ---
Indication: Status post fall. Multiple contiguous axial images obtained through the cervical spine. Sagittal and coronal reformatted images obtained. Comparison: October 19, 2016. Stable osteopenia. Axial images again negative for acute fracture, suspicious bony lesions, or spinal canal stenosis. Stable mild C5-C7 degenerative endplate spurring and minimal bilateral degenerative facet hypertrophy. Sagittal and coronal reformatted images again demonstrates lordotic straightening, positional versus paraspinal spasm. Stable C5-C7 disc space narrowing. No acute compression fracture, saltation, or jumped facet. Normal appearing craniocervical junction. Visualized noncontrasted soft tissues again demonstrates minimal carotid calcifications bilaterally. CT head and CT chest reported separately. Impression: 1. Again negative acute fracture/subluxation. 2. Stable cervical lordotic straightening, osteopenia, and C5-C7 degenerative changes.
--- NOTE | 2020-02-19 08:49 | XRAY ---
Indication: Pain following fall. COPD. Multiple contiguous axial images obtained through the chest without contrast as ordered. Comparison: None. Lungs inflated with diffuse scattered fibrosis/scarring and mild bilateral dependent atelectasis. Tiny medial left lower lobe calcified granuloma and minimal right base calcified pleural plaquing. No suspicious pulmonary mass/nodule, infiltrate, or effusion. Heart is not enlarged. Mild scattered aortic calcifications without aneurysm. Tiny left infrahilar calcified nodes. No pathologic mediastinal lymphadenopathy. Small hiatal hernia. Bony thorax demonstrates osteopenia, mild degenerative changes throughout the spine, remote T6 inferior endplate fracture with 25% height loss, and nondisplaced healing posterior left 8/[address] abdomen/pelvis reported separately. Impression: 1. No acute cardiopulmonary abnormalities on this noncontrast exam. 2. Scattered pulmonary fibrosis/scarring, right base calcified pleural plaquing, small hiatal hernia, and evidence for old granulomatous disease. 3. Osteopenia, multilevel degenerative spondylosis, remote T6 endplate fracture, and healing left 8/9 rib fractures.
--- NOTE | 2020-02-19 08:51 | XRAY ---
Indication: Pain following fall. Axial, coronal, and sagittal reformatted images of the thoracic spine obtained using the raw data from CT chest study of the same day. Comparison: Thoracic radiograph February 11, 2020. Stable osteopenia, mild degenerative changes throughout the spine, and remote T6 inferior endplate fracture with 25% height loss. No acute fracture, suspicious bony lesions, or spinal canal stenosis. CT chest/abdomen/pelvis reported separately. Impression: 1. Stable osteopenia, multilevel degenerative spondylosis, and remote T6 endplate fracture. 2. Remaining CT thoracic spine is negative.
--- NOTE | 2020-02-19 08:55 | XRAY ---
Indication: Pain following fall. Multiple contiguous axial images obtained through the abdomen and pelvis without contrast as ordered. Comparison: None. CT chest reported separately. Noncontrasted stomach and bowel loops appear nonobstructed. Normal appendix. There is mild diffuse scattered colonic fecal debris throughout. A few bilateral renal cysts, largest left lower pole measuring 3 cm. Hepatic/splenic calcified granulomas. Remaining liver, gallbladder, pancreas, spleen, adrenal glands, kidneys, ureters, bladder, and uterus appear unremarkable for noncontrast exam. Mild scattered aortoiliac calcifications without AAA. Osseous structures intact with age-appropriate osteopenia, mild multilevel degenerative spondylosis, mild dextroscoliosis centered at thoracolumbar junction, and right hip arthroplasty with intact bipolar prosthesis. Impression: 1. Fecal stasis without obstruction, bilateral renal cysts, and evidence for old granulomatous disease. 2. Osteopenia, multilevel degenerative spondylosis, scoliosis, and intact right total hip arthroplasty. 3. Remaining CT abdomen/pelvis without contrast exam is negative.
--- NOTE | 2020-02-19 08:59 | XRAY ---
Indication: Pain following fall. Axial, coronal, and sagittal reformatted images of the lumbar spine obtained using the raw data from the CT abdomen/pelvis of the same day. Comparison: Lumbar radiograph February 11, 2020. Stable osteopenia, mild multilevel degenerative spondylosis, and mild dextroscoliosis centered at thoracolumbar junction. L3-L5 broad-based disc bulge and L3-L4 degenerative vacuum disc phenomena. No acute fracture, suspicious bony lesions, subluxation, or spinal canal stenosis. CT thoracic spine/abdomen/pelvis reported separately. Impression: 1. Negative for acute fracture or subluxation. 2. Stable osteopenia, multilevel degenerative spondylosis, and scoliosis. 3. L3-L5 broad-based disc bulge better evaluated with outpatient MRI.
[2020-02-19] MEDS ORDERED: PROTONIX 40 MG IV IV SCH (10:00)
[2020-02-19 11:22] LABS: Appearance CLEAR (CLEAR); Bilirubin NEGATIVE (NEGATIVE); Blood NEGATIVE Ery/ul (0-5); Epithelial Cells RARE /HPF (FEW); Glucose NEGATIVE (NEGATIVE); Hyaline Casts 0-2 /LPF (0-2); Ketones NEGATIVE (NEGATIVE); Leukocyte Esterase NEGATIVE (NEGATIVE); Mucus SLIGHT /HPF (NEGATIVE); Nitrite NEGATIVE (NEGATIVE); Protein,Urine Dip NEGATIVE (Negative); RBC 0-2 /HPF (0-2); Specific Gravity 1.014 (1.005-1.025); Urobilinogen NEGATIVE mg/dL (0-1); WBC 0-2 /HPF (0-5)
[2020-02-19] MEDS ORDERED: Klor Con 10 MEQ PO PRN (12:52)
[2020-02-19] MEDS ORDERED: ZOFRAN ODT 4 MG PO PRN (12:52)
[2020-02-19] MEDS ORDERED: LASIX 20 MG PO PRN (12:52)
[2020-02-19] MEDS ORDERED: PROVENTIL 2.5 MG/3 ML NEB IH PRN (12:52)
[2020-02-19] MEDS ORDERED: MEDICATION INTERVENTION MC SCH (13:15)
[2020-02-19] MEDS: BACTRIM DS TABLET PO SCH (14:11)
[2020-02-19] MEDS: FOLATE 1 MG PO SCH (14:12)
[2020-02-19] MEDS: Zestril 10 MG PO SCH (14:12)
[2020-02-19] MEDS: Cymbalta 30 MG Capsule PO SCH (14:12)
[2020-02-19] MEDS: hydroDIURIL 25 MG PO SCH (14:13)
[2020-02-19] MEDS: ZOCOR 20MG PO SCH (14:13)
[2020-02-19] MEDS: PATIENT OWN MEDICATION PO SCH (14:14)
[2020-02-19] MEDS: HYDROCORTISONE PO SCH ×2 (15:46→21:17)
[2020-02-19] MEDS ORDERED: DILAUDID 2 MG INJECTION IV PRN (16:51)
--- NOTE | 2020-02-19 19:59 | PCM.HP ---
History of Present Illness - Chief Complaint Chief Complaint: syncope Date: 02/19/20 History of Present Illness: is a 69 year old female seen and examined following admission from ER for syncope and intractable back pain. Patient reports that she had gotten up to walk and had walked about 10 steps and fell down. She does not remember getting dizzy or tripping on anything when she fell. She reports that she fell about 3 months ago. That time it was a mechanical fall. Patient reports that she hurt her back that time as well. She states she hit her head and has a headache as well. She reports that she has had some lower extremity swelling and her toes have been cold and a little discolored as well. Patient's daughter is present and reports that she noticed her mother's legs almost looked mottled in appearance. Patient's daughter reports that patient has been to see a back surgeon and due to her osteopenia she is currently not a candidate for surgery as the hardware would not hold. Patient is taking steroids for her RA which has led to worsening osteopenia. She is also on medication to help with the osteopenia. Patient reports she was unaware she had the remote fx of her back that was noted on CT. She denies any lower extremity weakness or problems with voiding or stooling. She reports that she has gained a significant amount of weight also due to the steroids. Patient wants to avoid taking pain medication on a routine basis. She has been unable to tolerate the back pain and is unable to get comfortable. No other reported concerns at this time. - Review of Systems Constitutional: Other (Weight gain), No Fever, No Fatigue, No Weakness Eyes: No Symptoms Ears, Nose, & Throat: No Symptoms Respiratory: Short Of Breath, No Cough, No Wheezing Cardiac: Edema, Syncope, No Chest Pain, No Palpitations Abdominal/Gastrointestinal: No Abdominal Pain, No Nausea, No Vomiting, No Diarrhea, No Constipation Genitourinary Symptoms: No Dysuria, No Frequency Musculoskeletal: Back Pain, Fall, Injury, Joint Pain, Other (Patient reports toes are usually cold. Daughter reports some discoloration of lower extremities) Skin: No Symptoms, No Rash Neurological: Headache, No Dizziness, No Focal Weakness Psychological: No Symptoms Endocrine: No Symptoms Hematologic/Lymphatic: Easy Bruising Medications & Allergies Home Medications: Home Medication List Ibuprofen 200 mg [Motrin 200 mg] 800 mg PO Q12H PRN 11/05/13 [History Confirmed 02/18/20] Albuterol 2.5 mg/3 ml Neb [Proventil 2.5 mg/3 ml Neb] 2.5 mg IH Q4H PRN PRN 02/18/20 [History Confirmed 02/18/20] Atorvastatin Calcium [Lipitor 20MG Tablet] 20 mg PO DAILY 02/18/20 [History Confirmed 02/18/20] Duloxetine HCl 120 mg PO DAILY 02/18/20 [History Confirmed 02/18/20] Folic Acid 1 mg [Folate 1 mg] 1 mg PO DAILY 02/18/20 [History Confirmed 02/18/20] Hydrocortisone 30 mg PO TID 02/18/20 [History Confirmed 02/18/20] Lisinopril/Hydrochlorothiazide [Lisinopril-Hctz 10-12.5 mg Tab] 1 tab PO DAILY 02/18/20 [History Confirmed 02/18/20] Omeprazole 40 mg PO DAILY 02/18/20 [History Confirmed 02/18/20] Ondansetron [Ondansetron Odt] 4 mg PO Q4H PRN PRN 02/18/20 [History Confirmed 02/18/20] Sulfamethoxazole/Trimethoprim [Sulfamethoxazole-Tmp Ds Tablet] 1 tab PO DAILY 02/18/20 [History Confirmed 02/18/20] Teriparatide [Forteo] 2.4 ml SQ DAILY 02/18/20 [History Confirmed 02/18/20] Tiotropium Br/Olodaterol HCl [Stiolto Respimat Inhal [place]] 4 gm IH DAILY 02/18/20 [History Confirmed 02/18/20] Upadacitinib [Rinvoq] 15 mg PO DAILY 02/18/20 [History Confirmed 02/18/20] Cyclobenzaprine HCl 5 mg PO TID PRN 10 Days #30 tablet 02/22/20 [Rx] Docusate Sodium 100 mg [Colace 100 MG] 100 mg PO BID 10 Days #20 capsule 02/22/20 [Rx] Furosemide 20 mg [Lasix 20 mg] 20 mg PO DAILY #0 02/22/20 [Rx Confirmed 02/18/20] Potassium Chloride 10 mg PO DAILY #0 02/22/20 [Rx Confirmed 02/18/20] fentaNYL [Duragesic 12MCG Patch] 12 mcg TOP Q3D 1 Days #1 adh..patch MDD 1 02/22/20 [Rx] Allergies/Adverse Reactions: Allergies Allergy/AdvReac Type Severity Reaction Status Date / Time infliximab [From Remicade] AdvReac Intermediate MUSCLE Verified 02/18/20 17:51 SPASMS mycophenolate mofetil AdvReac Intermediate Muscle Verified 02/18/20 22:58 [From CellCept] Contraction, Pain - Past Medical History Past Medical History: Yes Neurological History: No Pertinent History ENT History: No Pertinent History Cardiac History: Arrhythmia, High Cholesterol, Hypertension Respiratory History: COPD Endocrine Medical History: Mono's Disease Musculoskelatal History: Arthritis, Rheumatoid Arthritis GI Medical History: No Pertinent History History: No Pertinent History Pyscho-Social History: No Pertinent History Reproductive Disorders: Other Comment: Interstitial lung disease - Female History Are you now?: No - Past Surgical History Past Surgical History: Yes Neuro Surgical History: No Pertinent History Cardiac History: Cardiac Catheterization Respiratory Surgery: No Pertinent History GI Surgical History: No Pertinent History Genitourinary Surgical Hx: No Pertinent History Musculskeletal Surgical Hx: No Pertinent History, Orthopedic Surgery Female Surgical History: Other Other Surgical History: right oopherectomy, carpal tunnel surgery, and rt hip replacement, lung biopsy 2019 - Social History Smoking Status: Former smoker How long have you smoked: 5 Exposure to second hand smoke: No Alcohol: None Drug Use: none - Physical Exam Vital Signs: Vital Signs - 24 hr Temp Pulse Resp BP Pulse Ox 02/19/20 19:36 97.4 F 97 H 20 141/71 94 L 02/19/20 16:55 112 H 109/73 02/19/20 16:54 107 H 101/68 02/19/20 16:00 97.8 F 94 H 22 111/71 96 02/19/20 12:00 18 02/19/20 11:19 97.7 F 97 H 18 131/63 97 02/19/20 07:56 20 02/19/20 07:28 98 F 104 H 20 118/51 95 02/19/20 07:00 101 H 24 95 02/19/20 04:00 97.5 F 97 H 18 150/67 92 L 02/19/20 00:00 97.8 F 99 H 24 139/84 02/18/20 23:30 99 H 24 02/18/20 23:27 97.8 F 99 H 24 139/84 02/18/20 21:48 100 Oxygen-Last 24 hours Oxygen Flowrate (L/min)-RT 2 General Appearance: severe distress, obese, other (Patient appears to be unable to get comfortable) Neurologic Exam: alert, oriented x 3, cooperative, normal mood/affect, other (contusion posterior scalp), No disoriented, No confusion, No agitation Eye Exam: eyes nml inspection, No scleral icterus Ears, Nose, Throat Exam: moist mucous membranes Neck Exam: normal inspection Respiratory Exam: normal breath sounds, lungs clear, No diminished breath sounds, No wheezing Cardiovascular Exam: regular rate/rhythm, normal heart sounds, No murmur, No friction rub, No gallop Gastrointestinal/Abdomen Exam: soft, normal bowel sounds, No tenderness, No distention Pelvic Exam: not done Rectal Exam: not done Back Exam: normal inspection, point tenderness (T6-t9), No CVA tenderness Extremity Exam: pedal edema, swelling, other (Toes were cold to touch. Decreased pedal pulses and required doppler) Skin Exam: warm, dry, mottled, No rash Results - Labs Lab/Micro Results: Accuchecks Date 02/19/20 Date 02/19/20 Date 02/19/20 Time 16:30 Time 11:30 Time 07:30 Accucheck Value: 125 Accucheck Value: 86 Accucheck Value: 80 Lab Results-Last 24 Hours 02/18/20 02/18/20 02/19/20 Range/Units 17:20 21:40 00:15 WBC (4.0-10.5) K/mm3 RBC (4.1-5.4) M/mm3 Hgb (12.0-16.0) gm/dl Hct (35-47) % MCV (78-100) fl MCH (26-32) pg MCHC (32-36) g/dl RDW (11.5-14.0) % Plt Count (150-450) K/mm3 MPV (7.5-11.0) fl Segmented Neutrophils 79 H (36.0-66.0) % Lymphocytes (Manual) 18 L (24-44) % Monocytes (Manual) 3 (0.0-12.0) % Platelet Estimate INCREASED (NORMAL) RBC Morphology NORMAL Sodium (137-145) mmol/L Potassium (3.5-5.1) mmol/L Chloride (98-107) mmol/L Carbon Dioxide (22-30) mmol/L Anion Gap (5-15) MEQ/L BUN (7-17) mg/dL Creatinine (0.52-1.04) mg/dL Estimated GFR ML/MIN Glucose (74-106) mg/dL Hemoglobin A1c (4.5-6.0) % Calcium (8.4-10.2) mg/dL Total Bilirubin (0.2-1.3) mg/dL AST (14-36) U/L ALT (0-35) U/L Alkaline Phosphatase (38-126) U/L Troponin I 0.022 0.024 (0.000-0.034) ng/mL Serum Total Protein (6.3-8.2) g/dL Albumin (3.5-5.0) g/dL Urine Color (YELLOW) Urine Appearance (CLEAR) Urine pH (5-6) Ur Specific [place] (1.005-1.025) Urine Protein (Negative) Urine Ketones (NEGATIVE) Urine Blood (0-5) Beau/ul Urine Nitrite (NEGATIVE) Urine Bilirubin (NEGATIVE) Urine Urobilinogen (0-1) mg/dL Ur Leukocyte Esterase (NEGATIVE) Urine WBC (Auto) (0-5) /HPF Urine RBC (Auto) (0-2) /HPF U Hyaline Cast (Auto) (0-2) /LPF U Epithel Cells (Auto) (FEW) /HPF Urine Bacteria (Auto) (NEGATIVE) /HPF Urine Mucus (Auto) (NEGATIVE) /HPF Urine Culture Reflexed (NO) Urine Glucose (NEGATIVE) mg/dL 02/19/20 02/19/20 02/19/20 Range/Units 04:45 04:45 04:45 WBC 15.7 H (4.0-10.5) K/mm3 RBC 4.10 (4.1-5.4) M/mm3 Hgb 13.2 (12.0-16.0) gm/dl Hct 41.0 (35-47) % MCV 100.0 (78-100) fl MCH 32.2 H (26-32) pg MCHC 32.2 (32-36) g/dl RDW 14.5 H (11.5-14.0) % Plt Count 492 H (150-450) K/mm3 MPV 9.8 (7.5-11.0) fl Segmented Neutrophils 76 H (36.0-66.0) % Lymphocytes (Manual) 20 L (24-44) % Monocytes (Manual) 4 (0.0-12.0) % Platelet Estimate NORMAL (NORMAL) RBC Morphology NORMAL Sodium 140 (137-145) mmol/L Potassium 3.9 (3.5-5.1) mmol/L Chloride 106 (98-107) mmol/L Carbon Dioxide 31 H (22-30) mmol/L Anion Gap 6.9 (5-15) MEQ/L BUN 25 H (7-17) mg/dL Creatinine 1.41 H (0.52-1.04) mg/dL Estimated GFR 39.3 ML/MIN Glucose 98 (74-106) mg/dL Hemoglobin A1c (4.5-6.0) % Calcium 8.9 (8.4-10.2) mg/dL Total Bilirubin 0.70 (0.2-1.3) mg/dL AST 33 (14-36) U/L ALT 46 H (0-35) U/L Alkaline Phosphatase 103 (38-126) U/L Troponin I 0.023 (0.000-0.034) ng/mL Serum Total Protein 6.3 (6.3-8.2) g/dL Albumin 3.8 (3.5-5.0) g/dL Urine Color (YELLOW) Urine Appearance (CLEAR) Urine pH (5-6) Ur Specific [place] (1.005-1.025) Urine Protein (Negative) Urine Ketones (NEGATIVE) Urine Blood (0-5) Beau/ul Urine Nitrite (NEGATIVE) Urine Bilirubin (NEGATIVE) Urine Urobilinogen (0-1) mg/dL Ur Leukocyte Esterase (NEGATIVE) Urine WBC (Auto) (0-5) /HPF Urine RBC (Auto) (0-2) /HPF U Hyaline Cast (Auto) (0-2) /LPF U Epithel Cells (Auto) (FEW) /HPF Urine Bacteria (Auto) (NEGATIVE) /HPF Urine Mucus (Auto) (NEGATIVE) /HPF Urine Culture Reflexed (NO) Urine Glucose (NEGATIVE) mg/dL 02/19/20 02/19/20 02/19/20 Range/Units 05:00 07:35 10:00 WBC (4.0-10.5) K/mm3 RBC (4.1-5.4) M/mm3 Hgb (12.0-16.0) gm/dl Hct (35-47) % MCV (78-100) fl MCH (26-32) pg MCHC (32-36) g/dl RDW (11.5-14.0) % Plt Count (150-450) K/mm3 MPV (7.5-11.0) fl Segmented Neutrophils (36.0-66.0) % Lymphocytes (Manual) (24-44) % Monocytes (Manual) (0.0-12.0) % Platelet Estimate (NORMAL) RBC Morphology Sodium (137-145) mmol/L Potassium (3.5-5.1) mmol/L Chloride (98-107) mmol/L Carbon Dioxide (22-30) mmol/L Anion Gap (5-15) MEQ/L BUN (7-17) mg/dL Creatinine (0.52-1.04) mg/dL Estimated GFR ML/MIN Glucose (74-106) mg/dL Hemoglobin A1c 6.71 H (4.5-6.0) % Calcium (8.4-10.2) mg/dL Total Bilirubin (0.2-1.3) mg/dL AST (14-36) U/L ALT (0-35) U/L Alkaline Phosphatase (38-126) U/L Troponin I 0.020 (0.000-0.034) ng/mL Serum Total Protein (6.3-8.2) g/dL Albumin (3.5-5.0) g/dL Urine Color YELLOW (YELLOW) Urine Appearance CLEAR (CLEAR) Urine pH 6.0 (5-6) Ur Specific [place] 1.014 (1.005-1.025) Urine Protein NEGATIVE (Negative) Urine Ketones NEGATIVE (NEGATIVE) Urine Blood NEGATIVE (0-5) Beau/ul Urine Nitrite NEGATIVE (NEGATIVE) Urine Bilirubin NEGATIVE (NEGATIVE) Urine Urobilinogen NEGATIVE (0-1) mg/dL Ur Leukocyte Esterase NEGATIVE (NEGATIVE) Urine WBC (Auto) 0-2 (0-5) /HPF Urine RBC (Auto) 0-2 (0-2) /HPF U Hyaline Cast (Auto) 0-2 (0-2) /LPF U Epithel Cells (Auto) RARE (FEW) /HPF Urine Bacteria (Auto) NONE (NEGATIVE) /HPF Urine Mucus (Auto) SLIGHT (NEGATIVE) /HPF Urine Culture Reflexed NO (NO) Urine Glucose NEGATIVE (NEGATIVE) mg/dL Accuchecks Date 02/19/20 Date 02/19/20 Date 02/19/20 Time 16:30 Time 11:30 Time 07:30 Accucheck Value: 125 Accucheck Value: 86 Accucheck Value: 80 - Radiology Impressions Radiology Exams & Impressions: Radiology Procedures Category Date Time Status ABDOMEN AND PELVIS W/0 CONTRAS [CT] Stat Exams 02/18/20 18:05 Completed CERVICAL SPINE WO CONTRAST [CT] Stat Exams 02/18/20 18:07 Completed CHEST WITHOUT CONTRAST [CT] Stat Exams 02/18/20 18:06 Completed HEAD WITHOUT CONTRAST [CT] Stat Exams 02/18/20 18:06 Completed RECONSTRUCTION [CT] Stat Exams 02/18/20 18:06 Completed RECONSTRUCTION [CT] Stat Exams 02/18/20 18:07 Completed - Other Procedures and Tests Respiratory Therapy 02/18/20 23:28 Oxygen Nasal Cannula 2 lpm 02/18/20 23:29 Respiratory Therapy Assessment DAILY 02/19/20 07:00 Incentive Spirometry TID Respiratory MDI UD Assessment/Plan (1) Mid-back pain, acute Status: Acute Assessment & Plan: Patient has acute mid back pain from recent fall. She was noted to have stable osteopenia, mild degenerative changes throughout the spine, and remote T6 inferior endplate fracture with 25% height loss. No acute fracture, Will continue to manage her pain with pain medication. She does not appear to be responding to the morphine so we will have to consider another medication likely diuladid. Daughter wanted to have patient transferred to [facility]. I called them and they would not accept the admission as they did not have the type of specialist patient needed. Code(s): M54.9 - DORSALGIA, UNSPECIFIED (2) Contusion of scalp Status: Acute Qualifiers: Encounter type: initial encounter Qualified Code(s): S00.03XA - Contusion of scalp, initial encounter Assessment & Plan: Mildly tender with palpation. No bleeding present. Mild headache. Code(s): S00.03XA - CONTUSION OF SCALP, INITIAL ENCOUNTER (3) Fall Status: Acute Qualifiers: Encounter type: initial encounter Qualified Code(s): W19.XXXA - Unspecified fall, initial encounter Code(s): W19.XXXA - UNSPECIFIED FALL, INITIAL ENCOUNTER (4) PVD (peripheral vascular disease) Status: Acute Assessment & Plan: Concern for pvd. Will get SHANNON ordered and plan to follow up with vascular surgeon for additional testing. Patient has a solid state tester she sees and will attempt to refer there first. Code(s): I73.9 - PERIPHERAL VASCULAR DISEASE, UNSPECIFIED (5) Syncope Status: Acute Qualifiers: Syncope type: unspecified Qualified Code(s): R55 - Syncope and collapse Assessment & Plan: Patient denies getting dizzy prior. She did have orthostatic vitals done which did show a component of orthostatic hypotension. Discussed with patient how she needs to managed that. Code(s): R55 - SYNCOPE AND COLLAPSE (6) Rheumatoid arthritis Status: Chronic Assessment & Plan: On steroids for her RA. Patient has a rheum specialist as well Code(s): M06.9 - RHEUMATOID ARTHRITIS, UNSPECIFIED
[2020-02-19] MEDS: SUBLIMAZE 100 MCG/2 ML IV PRN ×2 (21:16→23:19)
[2020-02-20] MEDS: SUBLIMAZE 100 MCG/2 ML IV PRN ×7 (02:36→19:56)
[2020-02-20] MEDS: Sodium Chloride 0.9% 1000 ML 1,000 ML IV SCH ×2 (05:28→15:21)
[2020-02-20] MEDS ORDERED: PATIENT OWN MEDICATION IH SCH (07:00)
[2020-02-20] MEDS: PATIENT OWN MEDICATION IH SCH (07:45)
[2020-02-20] MEDS: LIORESAL 10 MG PO PRN (08:12)
[2020-02-20] MEDS ORDERED: TERIPARATIDE SQ SCH (10:00)
[2020-02-20] MEDS ORDERED: NON-FORMULARY ITEM (Atorvastatin Calcium 20 MG) PO SCH (10:00)
[2020-02-20] MEDS ORDERED: UPADACITINIB 15 MG PO SCH (10:00)
[2020-02-20] MEDS ORDERED: DULOXETINE HCL 120 MG PO SCH (10:00)
[2020-02-20] MEDS ORDERED: Oxycontin 10 MG ER PO SCH ×2 (10:00→22:00)
[2020-02-20] MEDS ORDERED: NON-FORMULARY ITEM (Omeprazole [Omeprazole] 40 MG) PO SCH (10:00)
[2020-02-20] MEDS ORDERED: NON-FORMULARY ITEM (Lisinopril/Hydrochlorothiazide [Lisinopril-Hctz 10-12.5 Mg Tab] 1 TAB) PO SCH (10:00)
[2020-02-20] MEDS: Protonix 40MG Tablet PO SCH (10:12)
[2020-02-20] MEDS: Cymbalta 30 MG Capsule PO SCH (10:13)
[2020-02-20] MEDS: hydroDIURIL 25 MG PO SCH (10:13)
[2020-02-20] MEDS: BACTRIM DS TABLET PO SCH (10:13)
[2020-02-20] MEDS: ZOCOR 20MG PO SCH (10:15)
[2020-02-20] MEDS: Zestril 10 MG PO SCH (10:15)
[2020-02-20] MEDS: FOLATE 1 MG PO SCH (10:15)
[2020-02-20] MEDS: HYDROCORTISONE PO SCH ×3 (10:16→22:00)
[2020-02-20] MEDS: PATIENT OWN MEDICATION PO SCH (10:24)
--- NOTE | 2020-02-20 12:24 | XRAY ---
Indication: Decreased pedal pulse. Bilateral ankle brachial index exam performed. Comparison: None Right arm brachial pressure is 117. Right ankle pressure is 124. Ankle brachial index is 1.1, normal. Left arm brachial pressure is 116. Left ankle pressure is 136. Ankle brachial index is 1.2, normal. Impression: Left and right ABIs are normal.
[2020-02-20] MEDS ORDERED: SUBLIMAZE 100 MCG/2 ML IV ONE (16:14)
--- NOTE | 2020-02-20 19:54 | PCM.NOTE ---
Date and Time: 02/20/201943 Subjective Assessment: 69 yr old female seen and examined today. Patient reports that her pain is about the same. Of the pain medications patient has been given she reports that fentanyl has worked the best. No other reported concerns at this time. - Review of Systems Constitutional: No Symptoms Eyes: No Symptoms Ears, Nose, & Throat: No Symptoms Respiratory: No Symptoms Cardiac: Edema, Syncope (When orthostatics were performed patient had orthostatic hypotension), No Palpitations Abdominal/Gastrointestinal: No Symptoms Genitourinary Symptoms: No Symptoms Musculoskeletal: Back Pain (Back pain thoracic area level of t6-t8), Other (Cold discolored toes. RA with osteopenia) Skin: Other (bruising bilateral knees and mottled appearance of lower extremities) Neurological: No Dizziness, No Headache Psychological: No Symptoms Objective Exam General Appearance: severe distress, alert, anxiety, obese Neurologic Exam: alert, oriented x 3, cooperative, normal mood/affect, No motor deficits Skin Exam: mottled (Knees bilaterally appear mottled. Toes bilaterally appear slightly bluish/pale in color.) Eye Exam: No scleral icterus, No pale conjunctivae Ears, Nose, Throat Exam: moist mucous membranes Neck Exam: normal inspection Respiratory Exam: normal breath sounds, lungs clear, No chest tenderness, No respiratory distress, No diminished breath sounds, No wheezing Cardiovascular Exam: regular rate/rhythm, normal heart sounds, No normal peripheral pulses (required doppler to appreciate pulses and distal feet had weak pulses unable to appreciate closer to the toes), No murmur, No friction rub, No gallop Gastrointestinal/Abdomen Exam: soft, normal bowel sounds, distention, No tenderness Extremity Exam: pedal edema, other (bilateral knee bruises) Back Exam: vertebral tenderness, decreased range of motion, point tenderness OBJECTIVE DATA Vital Signs: Vital Signs - 24 hr Temp Pulse Resp BP Pulse Ox 02/20/20 16:28 20 02/20/20 16:00 98.4 F 95 H 19 135/61 90 L 02/20/20 12:00 20 02/20/20 11:56 97.3 F 94 H 20 134/71 96 02/20/20 08:00 98.3 F 97 H 20 144/67 95 02/20/20 07:45 94 H 18 97 02/20/20 04:00 97.8 F 96 H 18 130/63 95 02/19/20 23:46 97.4 F 97 H 24 108/60 96 02/19/20 22:10 97 H 20 95 Oxygen-Last 24 hours Oxygen Flowrate (L/min)-RT 2 Oxygen Flowrate (L/min)-RT 2 Pain Assessment - Last Documented Pain Intensity 4 Pain Scale Used 0-10 Pain Scale Intake and Output: Intake & Output 02/18/20 02/19/20 02/20/20 02/21/20 11:59 11:59 11:59 11:59 Intake Total 1177 3200 1510 Output Total 700 850 Balance 477 2350 1510 Weight 102.4 kg 102.9 kg Lab Results: Accuchecks Date 02/20/20 Date 02/20/20 Date 02/20/20 Time 16:30 Time 11:30 Time 07:30 Accucheck Value: 123 Accucheck Value: 127 Accucheck Value: 106 Accucheck Value: 143 Radiology Exams: Radiology Procedures Category Date Time Status SHANNON/LIMB PRESSURES BILATERAL [US] Urgent Exams 02/20/20 12:14 Completed Multi-Disciplinary Progress Notes: Multi-Disciplinary Progress Notes 02/20/20 14:20 Physical Therapy Note by Veronica Zelaya PATIENT SEEN IN P.M. FOR ADL TRAINING INCLUDING CHAIR TRANSFERS AND AMBULATION WITH ASSISTIVE DEVICE. PATIENT DEMONSTRATED ABILITY TO DO BSC AND BED TRANSFERS WITH [facility] FOR EQUIPMENT MANAGEMENT ONLY. IN BED RECEIVED 30 MINUTES BIPHASIC E- STIM JUST ABOVE SENSORY THRESHOLD TO RIGHT THORACIC PARASPINAL REGION. PATIENT REPORTED E-STIM FEELS GOOD. HAS TENS UNIT AT HOME AND FAMILY MEMBER TO BRING IT IN FOR USE WHILE IN HOSPITAL. PATIENT REPORTS PAIN WITH TRANSFERS 9-10/10 AND A FTER STIMULATION 6/10. Initialized on 02/20/20 14:20 - END OF NOTE 02/20/20 10:18 Case Management Note by Sindy Vaca FAXED INFORMATION TO [employer] FOR TLSO BACK BRACE PER MD ORDER. Initialized on 02/20/20 10:18 - END OF NOTE 02/20/20 09:59 Case Management Note by Vivian Ferreira DR. WOULD LIKE PATIENT TO HAVE A TLCO BACK BRACE. THIS IS CONSIDERED DME AND WILL NOT BE ABLE TO BE OBTAINED DURING HER STAY HERE. THIS BRACE ALSO REQUIRES PATIENT TO BE FITTED. I CALLED AND CHECK WITH [facility]- THEY HAVE THE BRACE. D/T PATIENT BEING TRADITIONAL MEDICARE PATIENT WILL NEED THE SCRIPT AND SUPPORTING DOCUMENTATION FOR THE INSURANCE TO BE BILLED. PRIMARY RN NOTIFIED- SHE WILL LET DR. CHAVEZ KNOW Initialized on 02/20/20 09:59 - END OF NOTE 02/20/20 09:25 Case Management Note by Vivian Ferreira PATIENT CONTINUES TO DENY ANY NEEDS REGARDING DC AT THIS TIME. PATIENT CURRENTLY ON OXYGEN BUT LIKELY D/T RECEIVING NARCOTICS. PATIENT DOES NOT WEAR OXYGEN AT HOME. PATIENT PLANS TO RETURN HOME WITH HER TO ASSIST NEEDED. PATIENT DENIES THE NEED FOR ANY EQUIPMENT OR SERVICE NEEDS AT THIS TIME Initialized on 02/20/20 09:25 - END OF NOTE 02/19/20 20:17 Respiratory Note by Ben Lynn NURSING REQUESTED I LET PT REST AND GIVE PT STIOLTO AT A LATER TIME. PT HAS BEEN IN A LOT OF PAIN AND IS JUST NOW ABLE TO REST. ASKED NURSING TO CALL ME WHEN PT WAS AWAKE AND ABLE TO DO TX. I ADDED HUMIDITY TO PT O2. Initialized on 02/19/20 20:17 - END OF NOTE Assessment/Plan (1) Mid-back pain, acute Current Visit: Yes Status: Acute Assessment & Plan: Patient had a remote t6 endplate fx noted on CT. She also had some old healed rib fxs. Her pain has been difficult to manage. We have tried different pain medications and patient continues to have pain. Patient's back doctor was sent the images and recommended a TLSO brace PT and pain medication and reported this was a non surgical injury. Will work on pain control and PT. Patient will have to go to medical supply store to be fitted for this brace. Code(s): M54.9 - DORSALGIA, UNSPECIFIED (2) Contusion of scalp Current Visit: Yes Status: Acute Qualifiers: Encounter type: initial encounter Qualified Code(s): S00.03XA - Contusion of scalp, initial encounter Assessment & Plan: Barely palpable. Mild tenderness. CT was neg for any fx or bleed Code(s): S00.03XA - CONTUSION OF SCALP, INITIAL ENCOUNTER (3) Fall Current Visit: Yes Status: Acute Qualifiers: Encounter type: initial encounter Qualified Code(s): W19.XXXA - Unspecified fall, initial encounter Assessment & Plan: Patient had syncope episode that led to fall with back injury and back of head injury. This was caused by a syncopal episode. Patient now has intractable back pain because of the fall. Patient will require assistance to get up. Code(s): W19.XXXA - UNSPECIFIED FALL, INITIAL ENCOUNTER (4) Syncope Current Visit: Yes Status: Acute Qualifiers: Syncope type: unspecified Qualified Code(s): R55 - Syncope and collapse Assessment & Plan: Multifactorial in etiology. Patient had orthostatic hypotension. Her CT head was neg for pathology. Could be cardiac in nature. Patient was also found to have domenic and could have been dehydrated which could have caused the syncopal episode. If patient continues to have syncopal episodes she may require holter or tilt table study Code(s): R55 - SYNCOPE AND COLLAPSE (5) Rheumatoid arthritis Current Visit: No Status: Chronic Assessment & Plan: Patient has hx of RA. Will continue her routine home meds Code(s): M06.9 - RHEUMATOID ARTHRITIS, UNSPECIFIED (6) PVD (peripheral vascular disease) Current Visit: Yes Status: Acute Assessment & Plan: SHANNON was performed and was normal. Patient has diminished pedal pulses that required doppler to appreciate. Will have patient follow up with urban gardening specialist to have further evaluation Code(s): I73.9 - PERIPHERAL VASCULAR DISEASE, UNSPECIFIED
[2020-02-20] MEDS: MOTRIN 400 MG PO PRN (21:07)
[2020-02-20] MEDS: Colace 100 MG PO SCH (21:08)
[2020-02-21] MEDS: SUBLIMAZE 100 MCG/2 ML IV PRN ×3 (00:02→06:21)
[2020-02-21] MEDS: Sodium Chloride 0.9% 1000 ML 1,000 ML IV SCH ×2 (01:25→11:26)
[2020-02-21] MEDS: Protonix 40MG Tablet PO SCH (09:57)
[2020-02-21] MEDS: FOLATE 1 MG PO SCH (09:57)
[2020-02-21] MEDS: BACTRIM DS TABLET PO SCH (09:57)
[2020-02-21] MEDS: HYDROCORTISONE PO SCH ×3 (09:57→21:38)
[2020-02-21] MEDS: Cymbalta 30 MG Capsule PO SCH (09:58)
[2020-02-21] MEDS: Zestril 10 MG PO SCH (09:58)
[2020-02-21] MEDS: Colace 100 MG PO SCH ×2 (09:58→21:37)
[2020-02-21] MEDS: ZOCOR 20MG PO SCH (09:58)
[2020-02-21] MEDS: hydroDIURIL 25 MG PO SCH (09:59)
[2020-02-21] MEDS: PATIENT OWN MEDICATION PO SCH (10:20)
[2020-02-21] MEDS ORDERED: APRESOLINE 20 MG/ML INJ IV ONE (12:59)
[2020-02-21] MEDS ORDERED: APRESOLINE 20 MG/ML INJ ONE (13:12)
[2020-02-21] MEDS: LIORESAL 10 MG PO PRN (13:35)
--- NOTE | 2020-02-21 14:07 | PCM.NOTE ---
Date and Time: 02/21/20 1400 Subjective Assessment: 69 yr old female seen and examined this am. Patient reports that her back pain is still present. She reports it might be a little better from when she was first admitted but it is still very painful. She reports that a lot of the pain has to do with certain movements. She reports that she had a headache and believes its from hitting her head. She still feels the fentanyl has been the best medication to manage her pain. No other reported concerns this am. - Review of Systems Constitutional: No Fever, No Weakness, No Weight Loss Eyes: No Symptoms Ears, Nose, & Throat: No Symptoms Respiratory: Short Of Breath, No Cough, No Wheezing Cardiac: Edema, Syncope, No Chest Pain, No Palpitations Abdominal/Gastrointestinal: Other (Patient feels she could have a BM this am), No Abdominal Pain, No Nausea, No Vomiting, No Diarrhea, No Constipation Genitourinary Symptoms: No Dysuria, No Frequency Musculoskeletal: Back Pain, Joint Pain Skin: No Cellulitis, No Rash Neurological: Headache Psychological: No Symptoms Hematologic/Lymphatic: Easy Bruising Objective Exam General Appearance: severe distress, alert Neurologic Exam: oriented x 3, cooperative, normal mood/affect, other (small contusion still present posterior skull), No confusion Skin Exam: normal color, warm, dry, ecchymosis (Patient has ecchymosis bilateral knees) Eye Exam: eyes nml inspection, No scleral icterus Ears, Nose, Throat Exam: moist mucous membranes Neck Exam: normal inspection Respiratory Exam: normal breath sounds, other, No chest tenderness, No diminished breath sounds, No wheezing Cardiovascular Exam: regular rate/rhythm, normal heart sounds, edema, pulse deficit (SHANNON test was wnl), other (Toes appear purplish in color and cold to touch.), No normal peripheral pulses, No murmur, No friction rub, No gallop Gastrointestinal/Abdomen Exam: soft, normal bowel sounds, No tenderness, No distention, No mass, No guarding, No rebound Extremity Exam: contusions, pedal edema, swelling, other (Patient has knee high compression socks on) Back Exam: point tenderness (Level of T6-T8) Pelvic Exam: deferred Rectal Exam: deferred OBJECTIVE DATA Vital Signs: Vital Signs - 24 hr Temp Pulse Resp BP Pulse Ox 02/21/20 11:57 97.9 F 99 H 16 175/95 93 L 06/27/20 07:38 100 H 20 95 02/21/20 07:15 97 F 108 H 19 138/80 95 02/21/20 04:00 20 02/21/20 03:47 97.7 F 102 H 20 137/76 98 02/21/20 00:00 98.2 F 103 H 22 126/81 99 02/20/20 20:05 104 H 24 94 L 02/20/20 20:00 98.4 F 103 H 22 133/79 97 02/20/20 16:28 20 02/20/20 16:00 98.4 F 95 H 19 135/61 90 L Pain Assessment - Last Documented Pain Intensity 5 Pain Scale Used 0-10 Pain Scale Intake and Output: Intake & Output 02/19/20 02/20/20 02/21/20 02/22/20 11:59 11:59 11:59 11:59 Intake Total 1177 3200 3489 480 Output Total 700 850 800 Balance 477 6250 2689 480 Weight 102.4 kg 102.9 kg 106 kg Lab Results: Accuchecks Date 02/20/20 Time 16:30 Accucheck Value: 122 Accucheck Value: 123 Radiology Exams: Radiology Procedures Category Date Time Status SHANNON/LIMB PRESSURES BILATERAL [US] Urgent Exams 02/20/20 12:14 Completed Multi-Disciplinary Progress Notes: Multi-Disciplinary Progress Notes 02/20/20 14:20 Physical Therapy Note by Veronica Zelaya PATIENT SEEN IN P.M. FOR ADL TRAINING INCLUDING CHAIR TRANSFERS AND AMBULATION WITH ASSISTIVE DEVICE. PATIENT DEMONSTRATED ABILITY TO DO BSC AND BED TRANSFERS WITH [facility] FOR EQUIPMENT MANAGEMENT ONLY. IN BED RECEIVED 30 MINUTES BIPHASIC E- STIM JUST ABOVE SENSORY THRESHOLD TO RIGHT THORACIC PARASPINAL REGION. PATIENT REPORTED E-STIM FEELS GOOD. HAS TENS UNIT AT HOME AND FAMILY MEMBER TO BRING IT IN FOR USE WHILE IN HOSPITAL. PATIENT REPORTS PAIN WITH TRANSFERS 9-10/10 AND AFTER STIMULATION 6/10. Initialized on 02/20/20 14:20 - END OF NOTE Assessment/Plan (1) Mid-back pain, acute Status: Acute Assessment & Plan: Back pain has been difficult to control. Patient is narcotic naive. I have attempted to give her morphine, diuladid, oxycontin fentanyl and finally a fent anyl patch. Patient was requiring more pain medication especially with the addition of PT. Once her analgesia was a little more controlled she developed abnormal vital signs including tachycardia and hypertension. Patient is requiring additional monitoring on this medication to see if her vitals signs will normalize. Once her VS are stable the plan would be to discharge patient to go to medical supply store to be fitted for TLSO brace and start with routine PT Code(s): M54.9 - DORSALGIA, UNSPECIFIED (2) Contusion of scalp Status: Acute Qualifiers: Encounter type: initial encounter Qualified Code(s): S00.03XA - Contusion of scalp, initial encounter Assessment & Plan: Patient was still complaining of headache this am. There is still a small contusion present. Initial CT of head showed no bleed Code(s): S00.03XA - CONTUSION OF SCALP, INITIAL ENCOUNTER (3) Fall Status: Acute Qualifiers: Encounter type: initial encounter Qualified Code(s): W19.XXXA - Unspecified fall, initial encounter Assessment & Plan: Patient has had recurrent falls over the past few months. CT reconstructs show old T6 endplate fx and some healing ribs as well. The fall three months ago was mechanical in nature. This recent fall was a syncopal episode. Patient is extremely high risk for fx as she has osteopenia from steroids for her RA. Patient was recently started on baclofen which can lead to syncope. Patient has orthostatic hypotension as well. So fall could be multifactorial. Will switch this medication at discharge. Code(s): W19.XXXA - UNSPECIFIED FALL, INITIAL ENCOUNTER (4) PVD (peripheral vascular disease) Status: Acute Code(s): I73.9 - PERIPHERAL VASCULAR DISEASE, UNSPECIFIED (5) Syncope Status: Acute Qualifiers: Syncope type: unspecified Qualified Code(s): R55 - Syncope and collapse Assessment & Plan: Unsure etiology: Patient had orthostatic hypotension. Patient is also taking baclofen. That has a side effect of syncope. Will continue to monitor for syncope and discontinue this medication. Code(s): R55 - SYNCOPE AND COLLAPSE (6) Rheumatoid arthritis Status: Chronic Assessment & Plan: Will continue with routine home meds Code(s): M06.9 - RHEUMATOID ARTHRITIS, UNSPECIFIED (7) Uncontrolled hypertension Status: Acute Assessment & Plan: Patient was tachycardic and hypertensive. Her VS were unstable enough that it was unsafe to discharge patient until they were better controlled. She was given lasix which helped her bp improve. Her bnp was not elevated. Code(s): I10 - ESSENTIAL (PRIMARY) HYPERTENSION
[2020-02-21 14:17] LABS: Hematocrit 41.5 % (35-47); Hemoglobin 13.1 gm/dl (12.0-16.0); Mean Cell Volume 100.7 fl (78-100); Mean Corpuscular Hemoglobin 31.8 pg (26-32); Mean Corpuscular Hgb Concent. 31.6 g/dl (32-36); Platelet Count 380 K/mm3 (150-450); Red Blood Count 4.12 M/mm3 (4.1-5.4); Red Cell Distribution Width 14.1 % (11.5-14.0); White Blood Count 12.5 K/mm3 (4.0-10.5)
[2020-02-21 14:41] LABS: ALBUMIN 4.1 g/dL (3.5-5.0); ALKALINE PHOSPHATASE 123 U/L (38-126); ANION GAP 12.6 MEQ/L (5-15); BLOOD UREA NITROGEN 18 mg/dL (7-17); CHLORIDE 107 mmol/L (98-107); Calcium 9.2 mg/dL (8.4-10.2); Carbon Dioxide 22 mmol/L (22-30); Creatinine 1 0.69 mg/dL (0.52-1.04); Glucose 118 mg/dL (74-106); Potassium 3.7 mmol/L (3.5-5.1); SGOT/AST 45 U/L (14-36); SGPT/ALT 43 U/L (0-35); SODIUM 137 mmol/L (137-145)
[2020-02-21 14:45] LABS: TROPONIN < 0.012 ng/mL (0.000-0.034)
[2020-02-21] MEDS ORDERED: Lasix 20 MG/2 ML IV ONE (17:24)
[2020-02-21] MEDS ORDERED: Klor Con 10 MEQ PO ONE (17:24)
[2020-02-21] MEDS ORDERED: Lasix 20 MG/2 ML ONE (17:27)
[2020-02-21] MEDS: ENOXAPARIN SODIUM SQ SCH (17:36)
[2020-02-21] MEDS ORDERED: TRANDATE 20 MG/5 ML SYRINGE IV ONE (20:59)
[2020-02-22] MEDS: MOTRIN 400 MG PO PRN (02:32)
[2020-02-22] MEDS ORDERED: TRANDATE 20 MG/5 ML SYRINGE IV PRN (07:14)
[2020-02-22] MEDS: PATIENT OWN MEDICATION IH SCH (09:41)
[2020-02-22] MEDS: FOLATE 1 MG PO SCH (10:26)
[2020-02-22] MEDS: Protonix 40MG Tablet PO SCH (10:26)
[2020-02-22] MEDS: HYDROCORTISONE PO SCH (10:26)
[2020-02-22] MEDS: Colace 100 MG PO SCH (10:27)
[2020-02-22] MEDS: hydroDIURIL 25 MG PO SCH (10:27)
[2020-02-22] MEDS: BACTRIM DS TABLET PO SCH (10:27)
[2020-02-22] MEDS: Zestril 10 MG PO SCH (10:28)
[2020-02-22] MEDS: ZOCOR 20MG PO SCH (10:28)
[2020-02-22] MEDS: Cymbalta 30 MG Capsule PO SCH (10:29)
[2020-02-22] MEDS: PATIENT OWN MEDICATION PO SCH (10:36)
[2020-02-22] MEDS: ENOXAPARIN SODIUM SQ SCH (10:36)
[2020-02-22 12:05] VITALS: BP 133/78; PULSE 91; O2SAT 96
--- NOTE | 2020-02-22 13:19 | PCM.DS ---
Discharge Summary Date of Admission: 02/19/20 22:23 Date of Discharge: 02/22/20 Admitting Physician: JOSEPH CHAVEZ MD Primary Care Provider: KYARA ARORA Allergies Allergies infliximab [From Remicade] Adverse Reaction (Intermediate, Verified 02/18/20 17:51) MUSCLE SPASMS mycophenolate mofetil [From CellCept] Adverse Reaction (Intermediate, Verified 02/18/20 22:58) Muscle Contraction, Pain Hospital Summary - Hospital Course Hospital Course: is a 69 year old female seen and examined following admission from ER for syncope and intractable back pain. Patient reports that she had gotten up to walk and had walked about 10 steps and fell down. She does not remember getting dizzy or tripping on anything when she fell. She reports that she fell about 3 months ago. That time it was a mechanical fall. Patient reports that she hurt her back that time as well. She states she hit her head and has a headache as well. She reports that she has had some lower extremity swelling and her toes have been cold and a little discolored as well. Patient's daughter is present and reports that she noticed her mother's legs almost looked mottled in appearance. Patient's daughter reports that patient has been to see a back surgeon and due to her osteopenia she is currently not a candidate for surgery as the hardware would not hold. Patient is taking steroids for her RA which has led to worsening osteopenia. She is also on medication to help with the osteopenia. Patient reports she was unaware she had the remote fx of her back that was noted on CT. She denies any lower extremity weakness or problems with voiding or stooling. She reports that she has gained a significant amount of weight also due to the steroids. Patient wants to avoid taking narcotic pain medication on a routine basis. She has been unable to tolerate the back pain and is unable to get comfortable. Patient was admitted for observation. She was started on morphine for the pain however back pain has been difficult to control. Family wanted patient transferred to [facility]. I attempted to transfer patient but they did not have the specialist needed to treat patient. Patient is narcotic naive. I have attempted to give her morphine, diuladid, oxycontin fentanyl and finally a fentanyl patch. Patient was requiring more pain medication especially with the addition of PT. Patient's back doctor was notified about patient and images were sent for him to review. He felt this was non surgical and recommended TLSO brace and PT and to follow up. Patient also had SHANNON studies performed to address poor lower extremity circulation. ABIs were normal and patient will be able to follow up with a vascular surgeon for further evaluation following discharge. She was scheduled with Dr Wilber clemens. Once her analgesia was a little more controlled she developed abnormal vital signs including tachycardia and hypertension. Patient is requiring additional monitoring on this medication to see if her vitals signs will normalize. Once her VS are stable the plan is to discharge patient to go to medical supply store to be fitted for TLSO brace and start with routine outpatient PT - Vitals & Intake/Output Vital Signs: Vital Signs Temperature 98.6 F 02/22/20 11:00 Pulse Rate 91 H 02/22/20 11:00 Respiratory Rate 18 02/22/20 11:00 Blood Pressure 133/78 02/22/20 11:00 O2 Sat by Pulse Oximetry 96 02/22/20 11:00 Intake & Output: Intake & Output 02/20/20 02/21/20 02/22/20 02/23/20 11:59 11:59 11:59 11:59 Intake Total 3200 3489 1780 Output Total 997 874 9726 Balance 2350 2689 -1120 Weight 102.9 kg 106 kg - Lab Result Diagrams: 02/21/20 13:24 02/21/20 13:21 Lab Results-Last 24 Hrs: Accuchecks Date 02/22/20 Date 02/22/20 Date 02/21/20 Time 11:30 Time 07:30 Time 14:30 Accucheck Value: 84 Accucheck Value: 95 Accucheck Value: 167 Accucheck Value: 110 Lab Results-Last 24 Hours 02/21/20 02/21/20 02/21/20 Range/Units 13:21 13:21 13:24 WBC 12.5 H (4.0-10.5) K/mm3 RBC 4.12 (4.1-5.4) M/mm3 Hgb 13.1 (12.0-16.0) gm/dl Hct 41.5 (35-47) % MCV 100.7 H (78-100) fl MCH 31.8 (26-32) pg MCHC 31.6 L (32-36) g/dl RDW 14.1 H (11.5-14.0) % Plt Count 380 (150-450) K/mm3 MPV 10.0 (7.5-11.0) fl Sodium 137 (137-145) mmol/L Potassium 3.7 (3.5-5.1) mmol/L Chloride 107 (98-107) mmol/L Carbon Dioxide 22 (22-30) mmol/L Anion Gap 12.6 (5-15) MEQ/L BUN 18 H (7-17) mg/dL Creatinine 0.69 (0.52-1.04) mg/dL Estimated GFR > 60.0 ML/MIN Glucose 118 H (74-106) mg/dL Calcium 9.2 (8.4-10.2) mg/dL Total Bilirubin 0.90 (0.2-1.3) mg/dL AST 45 H (14-36) U/L ALT 43 H (0-35) U/L Alkaline Phosphatase 123 (38-126) U/L Troponin I < 0.012 (0.000-0.034) ng/mL NT-Pro-B Natriuret Pep 144 (0-900) pg/mL Serum Total Protein 7.0 (6.3-8.2) g/dL Albumin 4.1 (3.5-5.0) g/dL Micro Results-Entire Visit: Accuchecks Date 02/22/20 Date 02/22/20 Date 02/21/20 Time 11:30 Time 07:30 Time 14:30 Accucheck Value: 84 Accucheck Value: 95 Accucheck Value: 167 Accucheck Value: 110 - Radiology Exams Ordered Rad Exams-Entire Visit: Radiology Procedures Category Date Time Status SHANNON/LIMB PRESSURES BILATERAL [US] Urgent Exams 02/20/20 12:14 Completed - Procedures and Test Procedures and Tests throughout Hospitalization: Therapy Orders & Screens 02/18/20 23:28 Oxygen Nasal Cannula 2 lpm Comment: Diagnosis: syncope 02/18/20 23:29 Respiratory Therapy Assessment DAILY Comment: Diagnosis: syncope 02/18/20 23:50 OT Screen per Nursing Assess ONCE Comment: Protocol Order Physician Instructions: Greater than 3 points order OT Admission Screening Reason For Exam: Triggered on Admission Diagnosis: syncope Open Wound/Cellutlitis/Pressure Ulcers: No Acute Fx/ORIF/Change in wt bearing status: No Severe MUSCULOSKELETAL pain: No ADL Dysfunction: Yes Acute CVA w/Hemiparesis/Hemiplegia: No Decreased Functional Mobility/Strength: Yes Sprain/Strain: No Acute Post-op Mobility Dysfunction: No Total Points: 4 PT Screen per Nursing Assess ONCE Comment: Protocol Order Physician Instructions: Greater than 3 points order PT Admission Screenin Reason For Exam: Triggered on Admission Diagnosis: syncope Open Wound/Cellutlitis/Pressure Ulcers: No Acute Fx/ORIF/Change in wt bearing status: No Severe MUSCULOSKELETAL pain: No ADL Dysfunction: Yes Acute CVA w/Hemiparesis/Hemiplegia: No Decreased Functional Mobility/Strength: Yes Sprain/Strain: No Acute Post-op Mobility Dysfunction: No Total Points: 4 02/19/20 07:00 Incentive Spirometry TID Comment: Diagnosis: syncope Respiratory MDI UD Comment: Diagnosis: syncope 02/20/20 09:18 PT Eval & Treat (MD Order) ROUTINE Reason for Eval:: limited range of motion related to pain Diagnosis: syncope 02/21/20 13:21 EKG ROUTINE Comment: Diagnosis: syncope Discharge Exam General Appearance: no apparent distress, obese Neurologic Exam: alert, oriented x 3, cooperative, normal mood/affect, other, No confusion, No agitation Eye Exam: eyes nml inspection, No scleral icterus Ears, Nose, Throat Exam: normal ENT inspection, moist mucous membranes Neck Exam: normal inspection Respiratory Exam: lungs clear, diminished breath sounds, No chest tenderness, No respiratory distress, No crackles/rales, No wheezing Cardiovascular Exam: regular rate/rhythm, normal heart sounds, edema, No normal peripheral pulses, No murmur, No friction rub, No gallop Gastrointestinal/Abdomen Exam: soft, normal bowel sounds, No tenderness, No distention, No mass Back Exam: normal inspection, point tenderness (T6-T8 point tenderness) Extremity Exam: pedal edema, swelling, other (Toes are discolored bilaterally) Skin Exam: warm, dry, No rash Final Diagnosis/Problem List - Final Discharge Diagnosis/Problem (1) Mid-back pain, acute Status: Acute Assessment & Plan: Patient has finally been stable on pain medication with the duragesic patch. She has not required additional medications for her pain. She has had uncontrolled bp and with this patch on had to be monitored as it can cause hypotension. She will be able to be discharged today on this medication with one refill. She will follow up with physical therapy as outpatient and get fitted for TLSO brace outpatient as well. Code(s): M54.9 - DORSALGIA, UNSPECIFIED (2) Contusion of scalp Status: Acute Assessment & Plan: Patient reports some tenderness in the area but reports that the pain on the posterior portion of her head has improved. Code(s): S00.03XA - CONTUSION OF SCALP, INITIAL ENCOUNTER (3) Fall Status: Acute Assessment & Plan: Patient did have orthostatic hypotension during evaluation. She also was started on baclofen 3 weeks ago. Although she reports this was an isolated incident, I did discuss with patient that baclofen has syncope listed as a side effect. Will switch patient from this medication at this time. Will continue to monitor patient for syncopal episodes. Code(s): W19.XXXA - UNSPECIFIED FALL, INITIAL ENCOUNTER (4) PVD (peripheral vascular disease) Status: Acute Assessment & Plan: Patient has diminished pulses in both feet and required doppler closer to the proximal end of her toes. She has purplish discoloration of her toes and some lower extremity mottling. She had SHANNON studies performed which were wnl. Patient will follow up with vascular doctor for consultation to see if she needs any additional studies or further workup Code(s): I73.9 - PERIPHERAL VASCULAR DISEASE, UNSPECIFIED (5) Syncope Status: Acute Assessment & Plan: Same plan for fall Code(s): R55 - SYNCOPE AND COLLAPSE (6) Rheumatoid arthritis Status: Chronic Assessment & Plan: Will continue with routine home medications Code(s): M06.9 - RHEUMATOID ARTHRITIS, UNSPECIFIED (7) Uncontrolled hypertension Status: Acute Assessment & Plan: Patient's bp was elevated and then had episodes of hypo especially diastolic readings. She is opiod naive and was trialed on multiple opiod medications until one was identified to help consistently. Patient became tachycardic and hypertensive after this medication was initiative and reacted the opposite of what was expected. Her vitals were too variable to discharge patient safely. She required PRN doses of bp meds that finally managed her bp well. She required more bp monitoring freq. She also was monitor for hypotension due to the d uragesic patch. BP appears well regulated at this time and plan to DC patient today Code(s): I10 - ESSENTIAL (PRIMARY) HYPERTENSION (8) Shortness of breath Status: Acute Assessment & Plan: Patient was reporting significant SOB especially with ambulation. She was evaluated for oxygen desaturations and she was saturating 97% with ambulation. She was given a dose of lasix which improved her symptoms. Patient had bnp drawn which was not elevated. Will have patient take additional doses of lasix as outpatient along with potassium supplementation Code(s): R06.02 - SHORTNESS OF BREATH - Discharge Disposition: HOME HEALTH SERVICE Condition: Stable Prescriptions: New fentaNYL [Duragesic 12MCG Patch] 12 mcg TOP Q3D 1 Days #1 adh..patch MDD 1 Docusate Sodium 100 mg [Colace 100 MG] 100 mg PO BID 10 Days #20 capsule Cyclobenzaprine HCl 5 mg PO TID PRN 10 Days #30 tablet PRN Reason: muscle spasms Continue Ibuprofen 200 mg [Motrin 200 mg] 800 mg PO Q12H PRN Lisinopril/Hydrochlorothiazide [Lisinopril-Hctz 10-12.5 mg Tab] 1 tab PO DAILY Ondansetron [Ondansetron Odt] 4 mg PO Q4H PRN PRN PRN Reason: Nausea Tiotropium Br/Olodaterol HCl [Stiolto Respimat Inhal [place]] 4 gm IH DAILY Teriparatide [Forteo] 2.4 ml SQ DAILY Sulfamethoxazole/Trimethoprim [Sulfamethoxazole-Tmp Ds Tablet] 1 tab PO DAILY Omeprazole 40 mg PO DAILY Folic Acid 1 mg [Folate 1 mg] 1 mg PO DAILY Duloxetine HCl 120 mg PO DAILY Atorvastatin Calcium [Lipitor 20MG Tablet] 20 mg PO DAILY Albuterol 2.5 mg/3 ml Neb [Proventil 2.5 mg/3 ml Neb] 2.5 mg IH Q4H PRN PRN PRN Reason: Shortness Of Breath Hydrocortisone 30 mg PO TID Upadacitinib [Rinvoq] 15 mg PO DAILY Changed Furosemide 20 mg [Lasix 20 mg] 20 mg PO DAILY #0 Potassium Chloride 10 mg PO DAILY #0 Discontinued Baclofen 10 mg PO Q6H PRN PRN PRN Reason: Pain Outpatient Orders: Physical Therapy Eval & Treat Time Frame: 02/23/20, Facility: [facility], Location: PHYSICAL THERAPY Instructions: Syncope (Fainting), Preventing Falls, Fentanyl Additional Instructions: Patient will need to follow up with the vascular dr pcp and her back dr. Patient will need to go and get fitted for TLSO brace Follow up with: BERRY LLANES MD [NON-STAFF PHY W/O PRIVILEGES] - 03/19/20 1:40 pm Forms: Outpatient Follow-up Labs/Proc
[2020-02-22] MEDS ORDERED: Lasix 20 MG/2 ML IV ONE (17:24)
== END 2020-02-22 13:55 | disposition home health service (06) | DRG 552 ==
LOC: ED 17:47 → MED SURG 22:20 → OBSVTOIN 02-19 22:23
PROVIDERS: ADMIT Family Medicine; ATTEND Family Medicine
DX: M54.9 Dorsalgia, unspecified (principal); E27.1 Primary adrenocortical insufficiency; S00.03XA Contusion of scalp, initial encounter; I73.9 Peripheral vascular disease, unspecified; R55 Syncope and collapse; M06.9 Rheumatoid arthritis, unspecified; I10 Essential (primary) hypertension; R51 Headache; E78.00 Pure hypercholesterolemia, unspecified; J44.9 Chronic obstructive pulmonary disease, unspecified; R06.02 Shortness of breath; W19.XXXA Unspecified fall, initial encounter; Y92.009 Unspecified place in unspecified non-institutional (private) residence as the place of occurrence of the external cause; Z79.899 Other long term (current) drug therapy
CPT/HCPCS: 36415; 70450; 71250; 72125; 74176; 76376; 80053; 81001; 82962; 83036; 83880; 84484; 85025; 85027; 85610; 85730; 93005; 93268; 93922; 94640; 94760; 94762; 96360; 96374; 96375; 96376; 97161; 97530; 99291; 99292; G0283; G0378; 97014; 99285; J0360; J1170; J1650; J1940; J2270; J2405; J3010; A9270-GY

== ENCOUNTER 2022-01-04 10:33 | Emergency (ER) | payer MEDICARE, OTHER ==
[2022-01-04] MEDS ORDERED: SUBLIMAZE 100 MCG/2 ML IV ONE (10:54)
[2022-01-04] MEDS ORDERED: Zofran 4 MG/2 ML VIAL IV ONE (11:00)
[2022-01-04] MEDS ORDERED: Sodium Chloride 0.9% 1000 ML 1,000 ML IV SCH (11:00)
[2022-01-04] MEDS ORDERED: CLONIDINE 0.1 MG TABLET PO ONE (11:00)
[2022-01-04] MEDS ORDERED: Zofran 4 MG/2 ML VIAL ONE (11:01)
[2022-01-04] MEDS ORDERED: SUBLIMAZE 100 MCG/2 ML ONE (11:01)
[2022-01-04] MEDS ORDERED: Sodium Chloride 0.9% 1000 ML 1,000 ML ONE (11:02)
[2022-01-04] MEDS ORDERED: ENALAPRILAT 2.5 MG INJECTION IV ONE (11:04)
[2022-01-04] MEDS ORDERED: CLONIDINE 0.1 MG TABLET ONE (11:04)
[2022-01-04] MEDS: ENALAPRILAT 2.5 MG INJECTION IV ONE ×2 (11:05→13:40)
[2022-01-04 11:17] LABS: Absolute Neutrophil Ct (ANC) 8.26 (1.4-6.9); Basophil (Absolute #) 0.03 (0-0.4); Eosinophil (Absolute #) 0.11 (0-0.5); Hematocrit 43.8 % (35-47); Lymphocyte (Absolute #) 1.33 (1.0-4.6); Lymphocytes % 12.2 % (24.0-44.0); Mean Cell Volume 100.9 fl (78-100); Mean Corpuscular Hemoglobin 32.3 pg (26-32); Monocyte (Absolute #) 1.17 (0.0-1.3); Monocytes % 10.7 % (0.0-12.0); Neutrophil % 75.8 % (36.0-66.0); Platelet Count 610 K/mm3 (150-450); Red Blood Count 4.34 M/mm3 (4.1-5.4); Red Cell Distribution Width 15.3 % (11.5-14.0); White Blood Count 10.9 K/mm3 (4.0-10.5)
--- NOTE | 2022-01-04 11:29 | XRAY ---
Indication: Stroke. Headache, dizziness, and high blood pressure. Multiple contiguous axial images obtained through the head without contrast. Comparison: February 18, 2020. Grossly stable age-appropriate global atrophy, minimal periventricular degenerative micro-ischemia, and remote lacunar infarct left external capsule. No acute intracranial hemorrhage, abnormal extra-axial fluid collection, or mass effect. Fourth ventricle is midline without hydrocephalus. Sauer-white matter differentiation preserved. Bony calvarium intact. Paranasal sinuses and mastoid air cells are clear. Impression: Continued nonacute senile brain with remote lacunar infarct left external capsule.
--- NOTE | 2022-01-04 11:31 | XRAY ---
Indication: Chest pain. Comparison: January 07, 2021. Portable chest is clear again with right costophrenic angle suture material. Heart not enlarged. Bony thorax intact again with osteopenia, degenerative changes, and epidural stimulator device/leads. Impression: Nonacute chest with chronic features.
--- NOTE | 2022-01-04 11:32 | ERPHSYRPT ---
- History of Present Illness Time Seen by Provider: 01/04/22 10:40 Source: patient, family Exam Limitations: no limitations Patient Subjective Stated Complaint: Hypertension Triage Nursing Assessment: Patient brought back to ED per w/c and transferred self to bed. Patient A+O x3. Patient's skin flushed, warm and dry. Patient states she was at an appointment at [facility] and her blood pressure had read high. Patient went ahead and saw dr and after started vomiting and not feeling well. Patient complains of N/V, but denies pain or discomfort. Physician History: Patient is a 71-year-old white female who has multiple medical problems including some COPD and hypertension as well as adrenal insufficiency. She was feeling bad this morning she noted her blood pressure to be elevated in the 188/110 range she spoke with her nurse practitioner who is her primary care shortly after that conversation ended she started to be nauseated and repeatedly vomited. She also complains of a headache. The granddaughter states that she is followed by Dr. Dung Judd and press setup operator in [place] and she presently takes Cortef in the a.m. 20 in the p.m. when she gets the headache and the nausea and the blood pressure gets out of control Timing/Duration: today Severity: severe Allergies/Adverse Reactions: infliximab [From Remicade] Adverse Reaction (Intermediate, Verified 01/04/22 10:35) MUSCLE SPASMS mycophenolate mofetil [From CellCept] Adverse Reaction (Intermediate, Verified 01/04/22 10:35) Muscle Contraction, Pain Home Medications: Atorvastatin Calcium [Lipitor 20MG Tablet] 20 mg PO DAILY 02/18/20 [History] Duloxetine HCl 120 mg PO DAILY 02/18/20 [History] Folic Acid 1 mg [Folate 1 mg] 1 mg PO DAILY 02/18/20 [History] Hydrocortisone 30 mg PO TID 02/18/20 [History] Omeprazole 40 mg PO DAILY 02/18/20 [History] Hx Tetanus, Diphtheria Vaccination/Date Given: Yes Hx Influenza Vaccination/Date Given: Yes Hx Pneumococcal Vaccination/Date Given: No Immunizations Up to Date: Yes Travel Risk - International Travel Have you traveled outside of the country in past 3 weeks: No - Coronavirus Screening Are you exhibiting any of the following symptoms?: No - Vaccine Status Have you recieved a Covid-19 vaccination: Yes Knitted Goods Shaper: Pfizer - Vaccination Dates Date of 2cond Vaccination (if applicable): Sep 2020 - Review of Systems Constitutional: No Fever, No Chills Eyes: No Symptoms Ears, Nose, & Throat: No Symptoms Respiratory: No Cough, No Dyspnea Cardiac: No Chest Pain, No Edema, No Syncope Abdominal/Gastrointestinal: Nausea, Vomiting, No Abdominal Pain, No Diarrhea Genitourinary Symptoms: No Dysuria Musculoskeletal: No Back Pain, No Neck Pain Skin: No Rash Neurological: Headache, No Dizziness, No Focal Weakness, No Sensory Changes Psychological: No Symptoms Endocrine: No Symptoms All Other Systems: Reviewed and Negative - Past Medical History Pertinent Past Medical History: Yes Neurological History: No Pertinent History ENT History: No Pertinent History Cardiac History: High Cholesterol, Hypertension, Peripheral Vascular Disease Respiratory History: COPD Endocrine Medical History: No Pertinent History, Haines's Disease, Diabetes Type II Musculoskeletal History: Arthritis, Degenerative Disk Disease, Fractures, Osteoarthritis, Rheumatoid Arthritis GI Medical History: No Pertinent History History: No Pertinent History Psycho-Social History: No Pertinent History Female Reproductive Disorders: Other Other Medical History: OOPHORECTOMY RIGHT 1991. RIGHT HIP REPLACEMENT 2013. NERVE BLOCK FOR LUMBAR REGION 2017. LUNG BIOPSY 2018. YUNG'S DISEASE. - Past Surgical History Past Surgical History: Yes Neuro Surgical History: No Pertinent History Cardiac: Cardiac Catheterization Respiratory: No Pertinent History Gastrointestinal: No Pertinent History Genitourinary: No Pertinent History Musculoskeletal: No Pertinent History, Orthopedic Surgery Female Surgical History: Other Other Surgical History: right oopherectomy, carpal tunnel surgery, and rt hip replacement, lung biopsy 2019 - Social History Smoking Status: Former smoker How long have you smoked: 5 Exposure to second hand smoke: No Drug Use: none Patient Lives Alone: No - Nursing Vital Signs Nursing Vital Signs: Initial Vital Signs Temperature 98.2 F 01/04/22 10:36 Pulse Rate 115 H 01/04/22 10:36 Respiratory Rate 20 01/04/22 10:36 Blood Pressure 134/103 01/04/22 10:36 O2 Sat by Pulse Oximetry 93 L 01/04/22 10:36 Pain Scale Pain Intensity 8 - Physical Exam General Appearance: moderate distress Eye Exam: PERRL/EOMI, eyes nml inspection Ears, Nose, Throat Exam: normal ENT inspection, TMs normal, pharynx normal, moist mucous membranes Neck Exam: normal inspection, non-tender, supple, full range of motion Respiratory Exam: normal breath sounds, lungs clear, No respiratory distress Cardiovascular Exam: regular rate/rhythm, normal heart sounds, normal peripheral pulses Gastrointestinal/Abdomen Exam: soft, normal bowel sounds, No tenderness, No mass Back Exam: normal inspection, normal range of motion, No CVA tenderness, No vertebral tenderness Extremity Exam: normal inspection, normal range of motion, pelvis stable Neurologic Exam: alert, oriented x 3, cooperative, normal mood/affect, nml cerebellar function, nml station & gait, sensation nml, No motor deficits Skin Exam: normal color, warm, dry, No rash Lymphatic Exam: No adenopathy SpO2: 95 - Course Nursing assessment & vital signs reviewed: Yes EKG Interpreted by Me: RATE, Sinus Tach, Other (There are multiple premature complexes ventricular and supraventricular aberrant complexes noted left axis deviation low voltage in the extremity leads) - Radiology Exams Chest X-ray Interpretation: Negative - CT Exams Head CT Interpretation: Negative (No acute changes just the remote lacunar infarct) Ordered Tests: Active Orders 24 hr Category Date Time Status Order Management Specialist STAT Care 01/04/22 10:54 Active EKG-ER Only STAT Care 01/04/22 10:53 Active NPO (ED) STAT Care 01/04/22 10:53 Active CHEST 1 VIEW (PORTABLE) Stat Exams 01/04/22 10:55 Completed HEAD WITHOUT CONTRAST [CT] Stat Exams 01/04/22 11:07 Completed CBC W DIFF Stat Lab 01/04/22 11:00 Completed CMP Stat Lab 01/04/22 11:00 Completed NT PRO BNP Stat Lab 01/04/22 11:00 Completed PROTIME WITH INR Stat Lab 01/04/22 11:00 Completed PTT Stat Lab 01/04/22 11:00 Completed TROPONIN Q3H Lab 01/04/22 11:00 Completed TROPONIN Q3H Lab 01/04/22 14:00 Ordered TROPONIN Q3H Lab 01/04/22 17:00 Ordered TROPONIN Q3H Lab 01/04/22 20:00 Ordered TROPONIN Q3H Lab 01/04/22 23:00 Ordered UA W/RFX CULTURE Stat Lab 01/04/22 12:36 Ordered Medication Summary Generic Name Dose Route Start Last Admin Trade Name Freq PRN Reason Stop Dose Admin Sodium Chloride 1,000 mls @ 50 mls/hr 01/04/22 11:00 01/04/22 11:02 Sodium Chloride 0.9% 1000 Ml IV 02/03/22 10:59 50 mls/hr .Q20H MARNI Administration Discontinued Medications Generic Name Dose Route Start Last Admin Trade Name Agusto PRMary Reason Stop Dose Admin Clonidine 0.1 mg 01/04/22 11:00 01/04/22 11:04 Clonidine Hcl 0.1 Mg Tablet PO 01/04/22 11:01 0.1 mg STAT ONE Administration Clonidine Confirm 01/04/22 11:04 Clonidine Hcl 0.1 Mg Tablet Administered 01/04/22 11:05 Dose 0.1 mg .ROUTE .STK-MED ONE Enalaprilat 2.5 mg 01/04/22 10:59 01/04/22 11:05 Enalaprilat 2.5 Mg Injection IV 01/04/22 11:00 2.5 mg STAT ONE Administration Enalaprilat Confirm 01/04/22 11:04 Enalaprilat 2.5 Mg Injection Administered 01/04/22 11:05 Dose 2.5 mg IV .STK-MED ONE Fentanyl Citrate 25 mcg 01/04/22 10:54 01/04/22 11:03 Fentanyl Citrate 100 Mcg/2 Ml* Vial IV 01/04/22 10:55 25 mcg STAT ONE Administration Fentanyl Citrate Confirm 01/04/22 11:01 Fentanyl Citrate 100 Mcg/2 Ml* Vial Administered 01/04/22 11:02 Dose 100 mcg .ROUTE .STK-MED ONE Ondansetron HCl 4 mg 01/04/22 11:00 01/04/22 11:03 Ondansetron Hcl 4 Mg/2 Ml Vial IV 01/04/22 11:01 4 mg STAT ONE Administration Ondansetron HCl Confirm 01/04/22 11:01 Ondansetron Hcl 4 Mg/2 Ml Vial Administered 01/04/22 11:02 Dose 4 mg .ROUTE .STK-MED ONE Lab/Rad Data: Laboratory Result Diagrams 01/04/22 11:00 01/04/22 11:00 Laboratory Results 01/04/22 01/04/22 01/04/22 Range/Units 11:00 11:00 11:00 WBC (4.0-10.5) K/mm3 RBC (4.1-5.4) M/mm3 Hgb (12.0-16.0) gm/dl Hct (35-47) % MCV (78-100) fl MCH (26-32) pg MCHC (32-36) g/dl RDW (11.5-14.0) % Plt Count (150-450) K/mm3 MPV (7.5-11.0) fl Gran % (36.0-66.0) % Eos # (Auto) (0-0.5) Absolute Lymphs (auto) (1.0-4.6) Absolute Monos (auto) (0.0-1.3) Lymphocytes % (24.0-44.0) % Monocytes % (0.0-12.0) % Eosinophils % (0.00-5.0) % Basophils % (0.0-0.4) % Absolute Granulocytes (1.4-6.9) Basophils # (0-0.4) PT 10.4 (9.4-12.5) SECONDS INR 0.87 (0.8-3.0) APTT 27.8 (25.1-36.5) SECONDS Sodium 140 (137-145) mmol/L Potassium 3.8 (3.5-5.1) mmol/L Chloride 101 (98-107) mmol/L Carbon Dioxide 28 (22-30) mmol/L Anion Gap 14.5 (5-15) MEQ/L BUN 22 H (7-17) mg/dL Creatinine 1.02 (0.52-1.04) mg/dL Estimated GFR 56.8 ML/MIN Glucose 112 H (74-106) mg/dL Calcium 10.4 H (8.4-10.2) mg/dL Total Bilirubin 1.20 (0.2-1.3) mg/dL AST 41 H (14-36) U/L ALT 40 H (0-35) U/L Alkaline Phosphatase 84 (38-126) U/L Troponin I < 0.012 (0.000-0.034) ng/mL NT-Pro-B Natriuret Pep 72.4 (0-900) pg/mL Serum Total Protein 6.6 (6.3-8.2) g/dL Albumin 4.3 (3.5-5.0) g/dL 01/04/22 Range/Units 11:00 WBC 10.9 H (4.0-10.5) K/mm3 RBC 4.34 (4.1-5.4) M/mm3 Hgb 14.0 (12.0-16.0) gm/dl Hct 43.8 (35-47) % MCV 100.9 H (78-100) fl MCH 32.3 H (26-32) pg MCHC 32.0 (32-36) g/dl RDW 15.3 H (11.5-14.0) % Plt Count 610 H (150-450) K/mm3 MPV 10.0 (7.5-11.0) fl Gran % 75.8 H (36.0-66.0) % Eos # (Auto) 0.11 (0-0.5) Absolute Lymphs (auto) 1.33 (1.0-4.6) Absolute Monos (auto) 1.17 (0.0-1.3) Lymphocytes % 12.2 L (24.0-44.0) % Monocytes % 10.7 (0.0-12.0) % Eosinophils % 1.0 (0.00-5.0) % Basophils % 0.3 (0.0-0.4) % Absolute Granulocytes 8.26 H (1.4-6.9) Basophils # 0.03 (0-0.4) PT (9.4-12.5) SECONDS INR (0.8-3.0) APTT (25.1-36.5) SECONDS Sodium (137-145) mmol/L Potassium (3.5-5.1) mmol/L Chloride (98-107) mmol/L Carbon Dioxide (22-30) mmol/L Anion Gap (5-15) MEQ/L BUN (7-17) mg/dL Creatinine (0.52-1.04) mg/dL Estimated GFR ML/MIN Glucose (74-106) mg/dL Calcium (8.4-10.2) mg/dL Total Bilirubin (0.2-1.3) mg/dL AST (14-36) U/L ALT (0-35) U/L Alkaline Phosphatase (38-126) U/L Troponin I (0.000-0.034) ng/mL NT-Pro-B Natriuret Pep (0-900) pg/mL Serum Total Protein (6.3-8.2) g/dL Albumin (3.5-5.0) g/dL - Progress Progress: improved Discussed with Dr.: Other (Discussed with patient's press setup operator Dr. Trejo) - Departure Departure Disposition: Home Clinical Impression: Hypertension Condition: Stable Critical Care Time: No Referrals: KYARA DAWN [Primary Care Provider] - Follow up/PCP as directed Instructions: Malignant Hypertension (DC)
[2022-01-04 11:49] LABS: ALBUMIN 4.3 g/dL (3.5-5.0); ANION GAP 14.5 MEQ/L (5-15); BILIRUBIN,TOTAL 1.2 mg/dL (0.2-1.3); Calcium 10.4 mg/dL (8.4-10.2); Creatinine 1 1.02 mg/dL (0.52-1.04); EST GLOMERULAR FILTRATION RATE 56.8 ML/MIN; NT PRO BNP 72.4 pg/mL (0-900); Potassium 3.8 mmol/L (3.5-5.1); Total Protein 6.6 g/dL (6.3-8.2)
[2022-01-04 12:34] LABS: INR 0.87 (0.8-3.0)
[2022-01-04 12:37] LABS: PTT 27.8 SECONDS (25.1-36.5)
[2022-01-04 12:38] LABS: PROTIME 10.4 SECONDS (9.4-12.5)
[2022-01-04 12:39] VITALS: PULSE 102
[2022-01-04 13:04] VITALS: BP 132/91
[2022-01-04 13:05] VITALS: O2SAT 95
[2022-01-04 13:46] LABS: Appearance CLEAR (CLEAR); Bacteria RARE /HPF (NEGATIVE); Bilirubin NEGATIVE (NEGATIVE); Epithelial Cells RARE /HPF (FEW); Glucose NEGATIVE (NEGATIVE); Mucus SLIGHT /HPF (NEGATIVE); RBC 0-2 /HPF (0-2); WBC 0-2 /HPF (0-5)
[2022-01-04 13:47] LABS: Dipstick done @ ? MAIN LAB; Ketones NEGATIVE (NEGATIVE); Nitrite NEGATIVE (NEGATIVE); Protein,Urine Dip NEGATIVE (Negative); RBC TRACE-INTACT Ery/ul (0-5); Urine Cultured Indicated? YES; Urobilinogen 0.2 mg/dL (0-1)
== END 2022-01-04 13:11 | disposition home or self-care (01) ==
LOC: ED 10:33
DX: I10 Essential (primary) hypertension (principal); R11.2 Nausea with vomiting, unspecified; R51.9 Headache, unspecified; E78.5 Hyperlipidemia, unspecified; J44.9 Chronic obstructive pulmonary disease, unspecified; E11.9 Type 2 diabetes mellitus without complications; E27.1 Primary adrenocortical insufficiency; Z79.899 Other long term (current) drug therapy; I73.9 Peripheral vascular disease, unspecified
CPT/HCPCS: 36415; 70450; 71045; 80053; 81015; 83880; 84484; 85025; 85610; 85730; 87086; 93005; 93041; 96374; 96375; 99284; J2405; J3010; A9270-GY

== ENCOUNTER 2022-06-20 11:05 | Observation (INO) | payer MEDICARE, OTHER ==
--- NOTE | 2022-06-20 12:11 | XRAY ---
Indication: Acute mental status change. Fatigue, dysphagia, nausea. Comparison: January 04, 2022 Portable chest again demonstrates minimal left base subsegmental atelectasis/scarring and right costophrenic angle suture material. No focal infiltrate, consolidation, or large effusion. Heart not enlarged again with tortuous descending aorta. Bony thorax intact again with osteopenia, degenerative changes, and epidural stimulator device/leads. Impression: Continued nonacute chest with chronic features.
[2022-06-20 12:16] LABS: Basophil (Absolute #) 0.04 x10^3/uL (0-0.4); Eosinophil % 0.8 % (0.00-5.0); Eosinophil (Absolute #) 0.06 x10^3/uL (0-0.5); Hematocrit 40.3 % (35-47); Hemoglobin 13.7 g/dL (12.0-16.0); Lymphocyte (Absolute #) 0.52 x10^3/uL (1.0-4.6); Lymphocytes % 6.7 % (24.0-44.0); Mean Cell Volume 93.7 fL (78-100); Mean Corpuscular Hemoglobin 31.9 pg (26-32); Mean Platelet Volume 9.3 fL (7.5-11.0); Monocyte (Absolute #) 0.52 x10^3/uL (0.0-1.3); Monocytes % 6.7 % (0.0-12.0); Platelet Count 659 x10^3/uL (150-450); Red Cell Distribution Width 14.2 % (11.5-14.0); White Blood Count 7.8 x10^3/uL (4.0-10.5)
[2022-06-20 12:46] LABS: ALBUMIN 3.7 g/dL (3.5-5.0); ANION GAP 9.4 MEQ/L (5-15); BILIRUBIN,TOTAL 1.2 mg/dL (0.2-1.3); Calcium 8.2 mg/dL (8.4-10.2); Creatinine 1 1.06 mg/dL (0.52-1.04); EST GLOMERULAR FILTRATION RATE 54.3 ML/MIN; PROCALCITONIN 0.257 ng/mL (0.030-0.080); Total Protein 6.4 g/dL (6.3-8.2)
[2022-06-20 12:56] LABS: Potassium 2.5 mmol/L (3.5-5.1); TROPONIN 0.045 ng/mL (0.000-0.034)
[2022-06-20] MEDS ORDERED: Zofran 4 MG/2 ML VIAL IV PRN (12:57)
[2022-06-20] MEDS ORDERED: solu-CORTEF 100MG IV ONE (13:00)
[2022-06-20 13:04] LABS: INFLUENZA A NEGATIVE (NEGATIVE); INFLUENZA B NEGATIVE (NEGATIVE); RESPIRATORY SYNCTIAL VIRUS NEGATIVE (Negative); SARS-CoV-2 Xpert Express NEGATIVE (NEGATIVE)
[2022-06-20] MEDS: POTASSIUM CHLORIDE 20 mEq IN WATER 100ML 20 MEQ/100 ML BAG IV SCH ×4 (13:30→22:08)
[2022-06-20] MEDS: Sodium Chloride 0.9% 1000 ML 1,000 ML IV SCH ×2 (13:44→16:14)
--- NOTE | 2022-06-20 14:30 | XRAY ---
Indication: Acute mental status change. Fatigue and nausea. Cholecystectomy June 05, 2022. Multiple contiguous axial images obtained through the abdomen and pelvis without contrast. Comparison: February 18, 2020 Lung bases again demonstrates scattered fibrosis/scarring. No infiltrate or effusion. Heart not enlarged. Stable small hiatal hernia. New left lower back epidural stimulator device produces beam artifact. Again right total hip arthroplasty produces extensive beam artifact limiting this level. Noncontrasted stomach and bowel loops appear nonobstructed with normal appendix. Interval cholecystectomy. Gallbladder fossa demonstrates 3.8 x 2.6 x 2.6 cm fluid collection concerning for biloma. Abscess not completely excluded on this noncontrast exam. No free air. Again multiple tiny hepatic/splenic calcified granulomas and small left renal cyst. Remaining liver, pancreas, spleen, adrenal glands, kidneys, ureters, bladder, and uterus grossly unremarkable for noncontrast exam. There remains mild scattered aortoiliac calcifications without AAA. Osseous structures again demonstrates osteopenia, mild/moderate multilevel thoracolumbar degenerative spondylosis, and mild double curvature scoliosis. New finding remote T7 superior endplate fracture with approximately 25-50% height loss. Also new epidural stimulator leads terminates at T6-T7. New small supraumbilical fatty ventral hernia. Impression: 1. Status post cholecystectomy. Small fluid collection in gallbladder fossa as detailed concerning for biloma versus abscess. 2. Chronic findings including small hiatal hernia, left renal cyst, arteriosclerotic disease, chronic bony findings, and small fatty ventral hernia.
[2022-06-20 14:36] LABS: Slide Review 1 YES
[2022-06-20] MEDS ORDERED: MEDICATION INTERVENTION MC SCH ×3 (15:30)
[2022-06-20] MEDS ORDERED: Reglan 10 MG/2 ML IV ONE (15:52)
[2022-06-20] MEDS ORDERED: Pepcid 20 MG VIAL IV ONE (15:52)
[2022-06-20] MEDS: solu-CORTEF 100MG IV SCH (17:59)
[2022-06-20] MEDS: Lactated Ringers 1,000 ML IV SCH ×2 (18:15→22:08)
[2022-06-20] MEDS ORDERED: DIPRIVAN 200 MG/20 ML IV ONE (19:28)
[2022-06-20] MEDS: Cymbalta 30 MG Capsule PO SCH (20:11)
[2022-06-20] MEDS: Abilify 10 MG PO SCH (20:11)
[2022-06-20] MEDS: CLARITIN 10 MG PO SCH (20:12)
[2022-06-20] MEDS: PROTONIX 40 MG IV IV SCH (20:15)
[2022-06-20] MEDS ORDERED: NON-FORMULARY ITEM (Cyclobenzaprine Hcl [Cyclobenzaprine Hcl] 5 MG Tablet) PO SCH (22:00)
[2022-06-20] MEDS ORDERED: NON-FORMULARY ITEM (Budesonide/Glycopyr/Formoterol [Breztri Aerosphere Inhaler] 10.7 GM Hf IH SCH (22:00)
[2022-06-20] MEDS ORDERED: Cyclobenzaprine 10 MG PO PRN (22:00)
[2022-06-20] MEDS ORDERED: NON-FORMULARY ITEM (Atorvastatin Calcium 20 MG Tab) PO SCH (22:00)
[2022-06-20] MEDS: ZOCOR 20MG PO SCH (22:05)
[2022-06-20] MEDS: TYLENOL 325 MG PO PRN (22:53)
[2022-06-21] MEDS: solu-CORTEF 100MG IV SCH ×5 (00:31→23:56)
[2022-06-21 03:12] LABS: MAGNESIUM 1.7 mg/dL (1.6-2.3); Potassium 3.9 mmol/L (3.5-5.1)
[2022-06-21] MEDS: Lactated Ringers 1,000 ML IV SCH ×3 (03:59→21:32)
--- NOTE | 2022-06-21 06:41 | PCM.HP.ADD ---
Addendum to History & Physical - History & Physical Addendum Addendum to History & Physical: This certifies that the History & Physical in the electronic chart reflects the current health status of the patient. If there are changes in the H&P these changes/exceptions are listed as follows.
--- NOTE | 2022-06-21 08:06 | CONS ---
CONSULT DATE: 06/20/2022 HISTORY: She is a 71-year-old female had some problems with nausea, problems swallowing upper esophagus. She became dehydrated. Asked for upper endoscopy possible dilatation. She feels like things are getting caught in upper esophagus. PAST MEDICAL HISTORY: Diabetes. Reflux. History of thrombocytopenia in the past. She had been a smoker in the past. Chronic renal insufficiency, rheumatoid arthritis, degenerative joint disease, osteoarthritis. History of some anxiety and depression in the past. PAST SURGICAL HISTORY: Cholecystectomy. Nerve stimulator. Lung biopsy. Hip replacement in the past. Endoscopy in the past. HOME MEDICATIONS: She has been on albuterol, amlodipine, aripiprazole, atorvastatin, cyclobenzaprine, Breztri, Nintedanib, duloxetine, folic acid, furosemide, acetaminophen, hydrochlorothiazide, hydrocodone, hydrocortisone, loratadine, Metformin, OFEV, omeprazole, oyster shell calcium, potassium chloride, Rinvoq, Synjardy XR, tiotropium. ALLERGIES: CELLCEPT. MYCOPHENOLATE. INFLIXIMAB. REMICADE. WELLBUTRIN. FAMILY HISTORY: Negative in regards to this specific problem. SOCIAL HISTORY: History of smoking in the past. REVIEW OF SYSTEMS: Fourteen systems reviewed per admission assessment, negative or noncontributory as above and per preadmission questionnaire. PHYSICAL EXAMINATION: GENERAL: A chronically ill female. HEENT: Sclera nonicteric. NECK: No JVD. CHEST: Equal excursion, nonlabored breathing. ABDOMEN: Soft. EXTREMITIES: No significant edema. NEURO: Alert. PSYCH: Appropriate mood and affect. LAB DATA AND TESTS: CT was reviewed. CBC platelets are okay. She had some thrombocytosis. Liver function test noted. CMP with ammonia less than 1. IMPRESSION: Dysphagia, some nausea, needs upper endoscopy possible biopsy possible dilatation. General risk of bleeding or infection, risk of bowel injury or perforation possibly requiring open procedure, risk of missed or nondiagnosis but not limited to. Risk of perforation possibly requiring other procedures. Consent obtained. Will proceed when OR time is available.
--- NOTE | 2022-06-21 08:25 | OP ---
SURGERY DATE/TIME: 06/20/20221906 PREOPERATIVE DIAGNOSIS: Nausea and dysphagia. POSTOPERATIVE DIAGNOSES: 1) Some minimal to mild gastritis. 2) Proximal esophageal narrowing and spasm. PROCEDURES: 1) EGD with cold biopsy of the small bowel to evaluate for celiac sprue. 2) Cold biopsy of the antrum to evaluate for Helicobacter pylori. 3) Cold biopsy distal esophagus to evaluate for very short segment early inflammation versus normal variation of gastroesophageal junction. 4) Cold biopsy mid esophagus to evaluate for eosinophilic esophagitis. 5) Proximal esophageal dilatation (size 20 balloon dilator). 6) ASA Class III. SURGEON: Dr. Juarez Ariza. ANESTHESIA: MAC. ESTIMATED BLOOD LOSS: Minimal. INDICATIONS: As noted above. Risks and benefits explained in detail and not limited to and consent was obtained. DESCRIPTION OF PROCEDURE AND FINDINGS: The patient is taken to the endoscopy room. MAC anesthesia introduced. Bite block positioned. After official time out and no disagreement with planned procedure, video gastroscope easily passed down the oropharynx. There was some proximal esophageal narrowing and spasm. She is having problems with things sticking in this area. It was felt it was narrow enough and given her symptoms it warranted a trial of dilatation. The scope was able to be passed through here through the gastroesophageal junction to the patent pylorus. Third, second and first portion of the duodenum fairly unremarkable. Given her complaints of nausea and symptoms, it was felt she warranted biopsy for celiac. Cold biopsy taken from small bowel to evaluate for celiac sprue. Scope pulled back into the stomach. She did have some gastric erythema and congestion, possible some minimal to mild gastritis. Cold biopsy is taken to evaluate for Helicobacter pylori. Good hemostasis noted. On retroflex, the gastroesophageal junction snug against the scope. No signs of any large hiatal hernia. The scope pulled back. The gastroesophageal junction there is a little bit of salmon-pink mucosa 0.5 mm or so just right above the gastroesophageal junction. Whether this is normal variation versus early inflammation or esophagitis cold biopsy is taken. Good hemostasis noted. Otherwise because of her esophageal swallowing issues, random cold biopsies taken in mid esophagus to evaluate for eosinophilic esophagitis. The scope pulled back up to the narrowed proximal esophagus and this was smooth. No signs of any obvious masses just some benign extrinsic spasm and narrowing. Given her symptoms, it was felt this warranted dilating. The scope passed back down in the stomach. A 20 balloon dilator carefully inserted and pulled back and inflated first stage for 30 seconds, second stage 30 seconds, final stage 2 minutes size 20 balloon dilator. The balloon was then decompressed and withdrawn. The scope much more easily passed down through here and into the stomach and carefully withdrawn. Good hemostasis noted. There were no signs of any full thickness issues or injury secondary to dilatation. The patient tolerated the procedure well.
[2022-06-21] MEDS ORDERED: NINTEDANIB ESYLATE 150 MG PO SCH (10:00)
[2022-06-21] MEDS ORDERED: UPADACITINIB 15 MG PO SCH (10:00)
[2022-06-21] MEDS ORDERED: NON-FORMULARY ITEM (Duloxetine Hcl [Duloxetine Hcl] 60 MG Capsule.Dr) PO SCH (10:00)
[2022-06-21] MEDS: CLARITIN 10 MG PO SCH (10:58)
[2022-06-21] MEDS: Abilify 10 MG PO SCH (10:58)
[2022-06-21] MEDS: Cymbalta 30 MG Capsule PO SCH (10:59)
[2022-06-21] MEDS: PROTONIX 40 MG IV IV SCH (10:59)
[2022-06-21] MEDS: PIPERACILLIN/TAZOBACTAM 3.375 GM in Sodium Chloride 100ML MINI-BAG PLUS 100 ML IV SCH ×3 (10:59→23:55)
[2022-06-21] MEDS: PATIENT OWN MEDICATION PO SCH ×2 (11:12→18:16)
[2022-06-21] MEDS: PATIENT OWN MEDICATION IH SCH ×2 (12:47→18:57)
[2022-06-21 13:17] LABS: ACTH, Plasma 22.6 pg/mL (7.2-63.3)
--- NOTE | 2022-06-21 15:09 | PCM.NOTE ---
Date and Time: 06/21/22 1500 Subjective Assessment: Pt is feeling much better this morning. Has been alert and oriented for staff. Tolerating PO and would like to eat more. Had EGD yesterday and it appears to me that they may have dilated the esophagus, but await confirmation. CT yesterday showed biloma vs abscess at the GB fossa. Started pt on IV ant ibiotic this morning. - Review of Systems Constitutional: No Fever Abdominal/Gastrointestinal: No Vomiting Objective Exam General Appearance: no apparent distress, alert Neurologic Exam: oriented x 3, cooperative Skin Exam: normal color, warm, dry, No rash Eye Exam: eyes nml inspection Ears, Nose, Throat Exam: moist mucous membranes Neck Exam: normal inspection, supple Respiratory Exam: normal breath sounds, lungs clear, No crackles/rales, No rhonchi, No wheezing Cardiovascular Exam: regular rate/rhythm, normal heart sounds, No murmur Gastrointestinal/Abdomen Exam: soft, normal bowel sounds, No tenderness, No distention, No mass, No guarding, No rebound Extremity Exam: normal inspection, swelling (RUE edema with small defect (site of previous IV)), No pedal edema OBJECTIVE DATA Vital Signs: Vital Signs - 24 hr Temp Pulse Resp BP Pulse Ox 06/21/22 12:49 104 H 16 95 06/21/22 11:00 97.0 F 95 H 16 123/73 96 06/21/22 07:00 97.0 F 88 16 130/73 92 L 06/21/22 03:00 97.1 F 95 H 20 100/54 96 06/20/22 23:20 97.1 F 95 H 14 117/82 98 06/20/22 22:20 97.9 F 98 H 20 112/70 97 06/20/22 21:10 106 H 18 119/65 98 06/20/22 20:40 98.5 F 101 H 17 118/74 95 06/20/22 20:10 101 H 18 115/73 95 06/20/22 19:55 97.0 F 100 H 16 129/79 94 L 06/20/22 16:35 97.1 F 101 H 16 116/57 94 L 06/20/22 16:00 98.8 F 96 H 16 131/67 95 Pain Assessment - Last Documented Pain Intensity 0 Pain Scale Used 0-10 Pain Scale Intake and Output: Intake & Output 06/19/22 06/20/22 06/21/22 06/22/22 11:59 11:59 11:59 11:59 Intake Total 2182 240 Output Total 1800 Balance 382 240 Weight 86.1 kg 86.1 kg Lab Results: Lab Results-Last 24 Hours 06/20/22 06/20/22 06/20/22 Range/Units 12:10 15:00 17:55 Potassium (3.5-5.1) mmol/L Magnesium (1.6-2.3) mg/dL Troponin I 0.042 H* 0.039 H* (0.000-0.034) ng/mL Cortisol 12.8 (.) ug/dL ACTH 22.6 (7.2-63.3) pg/mL 06/20/22 06/21/22 Range/Units 21:30 02:25 Potassium 3.9 D (3.5-5.1) mmol/L Magnesium 1.7 (1.6-2.3) mg/dL Troponin I 0.028 (0.000-0.034) ng/mL Cortisol (.) ug/dL ACTH (7.2-63.3) pg/mL Radiology Exams: Radiology Procedures Category Date Time Status ABDOMEN AND PELVIS W/0 CONTRAS [CT] Urgent Exams 06/20/22 11:50 Completed CHEST 1 VIEW (PORTABLE) Urgent Exams 06/20/22 11:50 Completed Assessment/Plan (1) Altered mental state Current Visit: Yes Status: Resolved Qualifiers: Altered mental status type: disorientation Qualified Code(s): R41.0 - Disorientation, unspecified Assessment & Plan: Appears to have resolved. Unsure etiology. Possible: Intraabdominal infection, Mono's crisis, dehydration. Code(s): R41.82 - ALTERED MENTAL STATUS, UNSPECIFIED (2) Hypotension Current Visit: Yes Status: Resolved Qualifiers: Hypotension type: hypotension due to hypovolemia Qualified Code(s): I95.89 - Other hypotension; E86.1 - Hypovolemia Assessment & Plan: Likely not drinking enough due to dysphagia; had esophagus dilated yesterday by surgery, thank you. Code(s): I95.9 - HYPOTENSION, UNSPECIFIED (3) Biloma Current Visit: Yes Status: Acute Assessment & Plan: vs intra-abdominal infection. Her procalcitonin was a bit elevated - went ahead and started her on IV zosyn. Have a call in to surgery about these CT results. 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 ACTH and serum cortisol were nl yesterday on admission. I have a call in to Dr. Trejo. (7) Chronic kidney disease, stage 3 Current Visit: Yes Status: Chronic Qualifiers: Chronic kidney disease stage 3 subtype: stage 3a (GFR 45-59) Qualified C ode(s): N18.31 - Chronic kidney disease, stage 3a Code(s): N18.30 - CHRONIC KIDNEY DISEASE, STAGE 3 UNSPECIFIED (8) Diabetes mellitus type II, controlled Current Visit: Yes Status: Chronic Qualifiers: Diabetes mellitus shelter insulin use: without termite treater helper use Diabetes mellitus complication status: with kidney complications Diabetes mellitus complication detail: with chronic kidney disease Chronic kidney disease stage: stage 3 (moderate) Qualified Code(s): E11.22 - Type 2 diabetes mellitus with diabetic chronic kidney disease; N18.30 - Chronic kidney disease, stage 3 unspecified Code(s): E11.9 - TYPE 2 DIABETES MELLITUS WITHOUT COMPLICATIONS (9) Tobacco abuse Current Visit: Yes Status: Chronic Code(s): Z72.0 - TOBACCO USE (10) Rheumatoid arthritis Current Visit: No Status: Chronic Qualifiers: Rheumatoid arthritis location: multiple sites Rheumatoid factor presence: unspecified presence Qualified Code(s): M06.9 - Rheumatoid arthritis, unspecified Code(s): M06.9 - RHEUMATOID ARTHRITIS, UNSPECIFIED
--- NOTE | 2022-06-21 17:51 | PCM.NOTE ---
Date and Time: 06/21/221747 Subjective Assessment: S: pt feels much better. no n/v. cathy diet. + flatus. cathy oob. mild abd pain. O: vss nad nonlabrod resps c/d/i mild ttp ruq no r/g. labs ok. a/p: s/p egd with dilation, also post [place] small fluid collection in the gallbladder fossa seems just postsurgical. -would treat with 5 days of abx in case there was infected seroma there but it really doesn't act that way. -discussed with patient the much less risk of bile leak. -if she is worsening in any way let us know. otherwise diet as tolerated, abx, f/u in office 1 week. OBJECTIVE DATA Vital Signs: Vital Signs - 24 hr Temp Pulse Resp BP Pulse Ox 06/21/22 15:00 97.0 F 99 H 16 127/60 95 06/21/22 12:49 104 H 16 95 06/21/22 11:00 97.0 F 95 H 16 123/73 96 06/21/22 07:00 97.0 F 88 16 130/73 92 L 06/21/22 03:00 97.1 F 95 H 20 100/54 96 06/20/22 23:20 97.1 F 95 H 14 117/82 98 06/20/22 22:20 97.9 F 98 H 20 112/70 97 06/20/22 21:10 106 H 18 119/65 98 06/20/22 20:40 98.5 F 101 H 17 118/74 95 06/20/22 20:10 101 H 18 115/73 95 06/20/22 19:55 97.0 F 100 H 16 129/79 94 L Pain Assessment - Last Documented Pain Intensity 0 Pain Scale Used 0-10 Pain Scale Intake and Output: Intake & Output 06/19/22 06/20/22 06/21/22 06/22/22 11:59 11:59 11:59 11:59 Intake Total 2182 240 Output Total 1800 Balance 382 240 Weight 86.1 kg 86.1 kg Lab Results: Lab Results-Last 24 Hours 06/20/22 06/20/22 06/20/22 Range/Units 12:10 17:55 21:30 Potassium (3.5-5.1) mmol/L Magnesium (1.6-2.3) mg/dL Troponin I 0.039 H* 0.028 (0.000-0.034) ng/mL Cortisol 12.8 (.) ug/dL ACTH 22.6 (7.2-63.3) pg/mL 06/21/22 Range/Units 02:25 Potassium 3.9 D (3.5-5.1) mmol/L Magnesium 1.7 (1.6-2.3) mg/dL Troponin I (0.000-0.034) ng/mL Cortisol (.) ug/dL ACTH (7.2-63.3) pg/mL Radiology Exams: Radiology Procedures Category Date Time Status ABDOMEN AND PELVIS W/0 CONTRAS [CT] Urgent Exams 06/20/22 11:50 Completed CHEST 1 VIEW (PORTABLE) Urgent Exams 06/20/22 11:50 Completed
[2022-06-21] MEDS: ZOCOR 20MG PO SCH (21:45)
[2022-06-22] MEDS: TYLENOL 325 MG PO PRN ×2 (02:29→07:59)
[2022-06-22] MEDS: Lactated Ringers 1,000 ML IV SCH (05:42)
[2022-06-22] MEDS: PATIENT OWN MEDICATION IH SCH (06:12)
[2022-06-22] MEDS: solu-CORTEF 100MG IV SCH (06:16)
[2022-06-22] MEDS: PIPERACILLIN/TAZOBACTAM 3.375 GM in Sodium Chloride 100ML MINI-BAG PLUS 100 ML IV SCH ×2 (06:21→12:11)
[2022-06-22] MEDS ORDERED: solu-CORTEF 100MG IV SCH (07:00)
[2022-06-22] MEDS: PATIENT OWN MEDICATION PO SCH ×2 (08:08→10:03)
--- NOTE | 2022-06-22 08:40 | PCM.DS ---
Discharge Summary Date of Admission: 06/20/22 11:13 Admitting Physician: KYARA DAWN Consults: Consults on Case 06/20/22 11:40 Consult Surgery ROUTINE Primary Care Provider: KYARA DAWN Allergies Allergies bupropion [From Wellbutrin] Adverse Reaction (Intermediate, Verified 06/20/22 11:56) Muscle Aches infliximab [From Remicade] Adverse Reaction (Intermediate, Verified 01/04/22 10:35) MUSCLE SPASMS mycophenolate mofetil [From CellCept] Adverse Reaction (Intermediate, Verified 01/04/22 10:35) Muscle Contraction, Pain Hospital Summary - Hospital Course Hospital Course: Pt is 71 yo female pt of mine with Mono's dz, RA, DMII admitted directly through office for hypotension and AMS. Unsure etiology, but found to be dehydrated, have esophageal stricture, possible intra-abdominal infection, and possible addisonian crisis. She was having issues swallowing; had EGD and esophageal dilation. She improved quickly with IV fluids. CT abd/pelvis with biloma vs abscess in GB fossa (her GB was removed last month). She was also placed on hydrocortisone, 100mg IV x 1 then 50mg IV q6h. Her BP was last low (100 systolic) >24 hours ago; has been in the 120s-140 systolic since. Decreased steroid to 25mg IV q8h; if doing well today, will plan on sending home on po steroid after supper today. She will watch her BP at home and decrease her steroid accordingly. - Vitals & Intake/Output Vital Signs: Vital Signs Temperature 98.1 F 06/22/22 07:00 Pulse Rate 106 H 06/22/22 07:00 Respiratory Rate 16 06/22/22 07:00 Blood Pressure 176/82 06/22/22 07:00 O2 Sat by Pulse Oximetry 97 06/22/22 07:00 Intake & Output: Intake & Output 06/19/22 06/20/22 06/21/22 06/22/22 11:59 11:59 11:59 11:59 Intake Total 2182 4436 Output Total 1800 2550 Balance 382 1886 Weight 86.1 kg 86.1 kg - Lab Result Diagrams: 06/20/22 12:10 06/21/22 02:25 Lab Results-Last 24 Hrs: Lab Results-Last 24 Hours 06/20/22 06/21/22 06/22/22 Range/Units 12:10 21:20 07:34 POC Glucometer 139 H 101 (74 to 106) mg/dL Cortisol 12.8 (.) ug/dL ACTH 22.6 (7.2-63.3) pg/mL Micro Results-Entire Visit: Accuchecks Date 06/22/22 Time 07:48 - Radiology Exams Ordered Rad Exams-Entire Visit: Radiology Procedures Category Date Time Status ABDOMEN AND PELVIS W/0 CONTRAS [CT] Urgent Exams 06/20/22 11:50 Completed CHEST 1 VIEW (PORTABLE) Urgent Exams 06/20/22 11:50 Completed - Procedures and Test Procedures and Tests throughout Hospitalization: Therapy Orders & Screens 06/20/22 11:50 EKG ROUTINE Comment: Diagnosis: AMS, FATIGUE, DYSPHAGIA, HYPOTENSION 06/21/22 12:49 Respiratory Therapy Assessment DAILY Comment: Diagnosis: AMS, FATIGUE, DYSPHAGIA, HYPOTENSION 06/21/22 19:00 Respiratory MDI BID Comment: BREZTRI BID Diagnosis: AMS, FATIGUE, DYSPHAGIA, HYPOTENSION Discharge Exam General Appearance: no apparent distress, alert Neurologic Exam: oriented x 3, cooperative Eye Exam: eyes nml inspection Ears, Nose, Throat Exam: moist mucous membranes Neck Exam: normal inspection Respiratory Exam: normal breath sounds, lungs clear, No crackles/rales, No rhonchi, No wheezing Cardiovascular Exam: regular rate/rhythm, normal heart sounds, No murmur Gastrointestinal/Abdomen Exam: soft, normal bowel sounds, No tenderness Extremity Exam: normal inspection, No pedal edema, No swelling Skin Exam: normal color, warm, dry, No rash Final Diagnosis/Problem List - Final Discharge Diagnosis/Problem (1) Dehydration Current Visit: No Status: Resolved Assessment & Plan: Resolved with fluids. Hypotension resolved. Code(s): E86.0 - DEHYDRATION (2) Esophageal stricture Current Visit: Yes Status: Acute Code(s): K22.2 - ESOPHAGEAL OBSTRUCTION (3) Biloma Current Visit: Yes Status: Acute Assessment & Plan: Per DR. Morales, thank you, likely post surgical. Will go home on 3d antibiotic (to finish 5d total). Code(s): K66.8 - OTHER SPECIFIED DISORDERS OF PERITONEUM (4) Dysphagia Current Visit: Yes Status: Resolved Assessment & Plan: Had EGD with esophageal dilation while here. 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 (6) Chronic kidney disease, stage 3 Current Visit: Yes Status: Chronic Code(s): N18.30 - CHRONIC KIDNEY DISEASE, STAGE 3 UNSPECIFIED (7) Diabetes mellitus type II, controlled Current Visit: Yes Status: Chronic Code(s): E11.9 - TYPE 2 DIABETES MELLITUS WITHOUT COMPLICATIONS (8) Tobacco abuse Current Visit: Yes Status: Chronic Code(s): Z72.0 - TOBACCO USE (9) Rheumatoid arthritis Current Visit: No Status: Chronic Code(s): M06.9 - RHEUMATOID ARTHRITIS, UNSPECIFIED - Discharge Disposition: Home, Self-Care Condition: Good Prescriptions: New Lactobacillus Acidophilus [Acidophilus TABLET] 1 tab PO BID #6 tablet Amox Tr/Potass Clav. 875 mg [Augmentin 875-125 Tablet] 875 mg PO BID #6 tablet Prednisone 20 mg [Deltasone 20 mg] 20 mg PO DAILY #4 tablet Continue Omeprazole 40 mg PO DAILY Folic Acid 1 mg [Folate 1 mg] 1 mg PO DAILY Duloxetine HCl 120 mg PO DAILY Atorvastatin Calcium [Lipitor 20MG Tablet] 40 mg PO QHS Hydrocortisone 30 mg PO QAM Hydrocodone/Acetaminophen [Hydrocodone-Acetamin 7.5-325] 1 each PO BID Hydrochlorothiazide 25 mg [hydroDIURIL 25 MG] 25 mg PO DAILY Aspirin EC 81 mg [Ecotrin 81 mg] 81 mg PO DAILY Loratadine 10 mg [Claritin 10 mg] 10 mg PO DAILY Aripiprazole 10 mg [Abilify 10 MG] 5 mg PO DAILY Budesonide/Glycopyr/Formoterol [Breztri Aerosphere Inhaler] 2 puff IH BID Nintedanib Esylate [Ofev] 300 mg PO DAILY Empagliflozin/Metformin HCl [Synjardy Xr 10-1,000 mg Tablet] 1 each PO DAILY Calcium Carbonate/Vitamin D3 [Oyster Shell Calcium-Vit D Tab] 1 each PO DAILY Hydrocortisone 10 mg PO DINNER Upadacitinib [Rinvoq] 15 mg PO DAILY Potassium Chloride 30 mg PO DAILY Furosemide 20 mg [Lasix 20 mg] 40 mg PO DAILY Cyclobenzaprine HCl 10 mg PO BID Follow up with: KYARA DAWN [Primary Care Provider] - CRISTIAN MORALES [Family Provider] -
[2022-06-22] MEDS: PROTONIX 40 MG IV IV SCH (09:52)
[2022-06-22] MEDS: Abilify 10 MG PO SCH (09:59)
[2022-06-22] MEDS: Cymbalta 30 MG Capsule PO SCH (09:59)
[2022-06-22] MEDS: CLARITIN 10 MG PO SCH (09:59)
[2022-06-22 12:06] VITALS: BP 132/65; PULSE 108; O2SAT 96
[2022-06-22 15:38] LABS: Basophil (Absolute #) 0.02 x10^3/uL (0-0.4); Eosinophil (Absolute #) 0 x10^3/uL (0-0.5); Hematocrit 35.3 % (35-47); Hemoglobin 11.5 g/dL (12.0-16.0); Lymphocyte (Absolute #) 0.61 x10^3/uL (1.0-4.6); Lymphocytes % 6.6 % (24.0-44.0); Mean Corpuscular Hemoglobin 31.6 pg (26-32); Mean Corpuscular Hgb Concent. 32.6 g/dL (32-36); Mean Platelet Volume 9.2 fL (7.5-11.0); Monocyte (Absolute #) 0.65 x10^3/uL (0.0-1.3); Neutrophil % 85.3 % (36.0-66.0); Platelet Count 599 x10^3/uL (150-450); Red Blood Count 3.64 x10^6/uL (4.1-5.4); Red Cell Distribution Width 14.7 % (11.5-14.0); White Blood Count 9.3 x10^3/uL (4.0-10.5)
[2022-06-22 15:55] LABS: ANION GAP 6.9 MEQ/L (5-15); BLOOD UREA NITROGEN 9 mg/dL (7-17); CHLORIDE 107 mmol/L (98-107); Calcium 7.2 mg/dL (8.4-10.2); Carbon Dioxide 30 mmol/L (22-30); Creatinine 1 0.67 mg/dL (0.52-1.04); EST GLOMERULAR FILTRATION RATE > 60.0 ML/MIN; Glucose 87 mg/dL (74-106); SODIUM 142 mmol/L (137-145)
[2022-06-22 16:17] LABS: Potassium 2.5 mmol/L (3.5-5.1)
== END 2022-06-22 15:57 | disposition home or self-care (01) ==
LOC: MED SURG 11:13
PROVIDERS: ADMIT Family Medicine; ATTEND Family Medicine
DX: E86.0 Dehydration (principal); K22.2 Esophageal obstruction; K66.8 Other specified disorders of peritoneum; R13.10 Dysphagia, unspecified; E27.1 Primary adrenocortical insufficiency; E11.22 Type 2 diabetes mellitus with diabetic chronic kidney disease; N18.30 Chronic kidney disease, stage 3 unspecified; M06.9 Rheumatoid arthritis, unspecified; I95.9 Hypotension, unspecified; K29.70 Gastritis, unspecified, without bleeding; E86.1 Hypovolemia; R11.0 Nausea; R41.82 Altered mental status, unspecified; Z72.0 Tobacco use; Z79.899 Other long term (current) drug therapy; Z20.828 Contact with and (suspected) exposure to other viral communicable diseases
CPT/HCPCS: 00731; 0241U; 36415; 43239; 43249; 71045; 74176; 80048; 80053; 82024; 82140; 82533; 82947; 83605; 83735; 84132; 84145; 84484; 85025; 87040; 87086; 93005; 93268; 94640; 94760; 99100; G0378; C1726; J1720; J2704; J3480; A9270-GY

== ENCOUNTER 2022-06-22 17:25 | Observation (INO) | payer MEDICARE, OTHER ==
[2022-06-22] MEDS: PATIENT OWN MEDICATION IH SCH (19:42)
[2022-06-22] MEDS: POTASSIUM CHLORIDE 20 mEq IN WATER 100ML 100 ML IV SCH ×2 (19:43→23:00)
[2022-06-22] MEDS ORDERED: xanAX 0.5 MG PO PRN (21:47)
[2022-06-22] MEDS ORDERED: MAG-OX 400 PO ONE (22:00)
[2022-06-22] MEDS ORDERED: NON-FORMULARY ITEM PO ONE (22:00)
[2022-06-22] MEDS ORDERED: ZOCOR 20MG PO ONE (22:00)
[2022-06-22] MEDS ORDERED: Augmentin 875-125 Tablet PO ONE (22:00)
[2022-06-22] MEDS ORDERED: Cyclobenzaprine 10 MG PO ONE (22:00)
[2022-06-22] MEDS ORDERED: HYDROCORTISONE PO ONE (22:00)
[2022-06-23] MEDS: PATIENT OWN MEDICATION IH SCH (07:47)
[2022-06-23] MEDS ORDERED: K-LYTE PO ONE (08:40)
--- NOTE | 2022-06-23 08:41 | PCM.HP ---
History of Present Illness - Chief Complaint Chief Complaint: hypokalemia History of Present Illness: is a 71 year old female who was released from the hospital with a pending lab then found to have hypokalemia so readmitted, she has no complaints today. she is tolerating po, no chest pain, no dizziness, no lightheadedness. feels well and is hoepful to go home as soon as possible. - Review of Systems Constitutional: No Fever, No Chills Respiratory: No Cough, No Short Of Breath Cardiac: No Chest Pain, No Edema, No Syncope Abdominal/Gastrointestinal: No Abdominal Pain, No Nausea, No Vomiting, No Diarrhea Genitourinary Symptoms: No Dysuria Skin: No Rash All Other Systems: Reviewed and Negative Medications & Allergies Home Medications: Home Medication List Atorvastatin Calcium [Lipitor 20MG Tablet] 40 mg PO QHS 02/18/20 [History Confirmed 06/22/22] Duloxetine HCl 120 mg PO DAILY 02/18/20 [History Confirmed 06/22/22] Folic Acid 1 mg [Folate 1 mg] 1 mg PO DAILY 02/18/20 [History Confirmed 06/22/22] Hydrocortisone 30 mg PO QAM 02/18/20 [History Confirmed 06/22/22] Omeprazole 40 mg PO DAILY 02/18/20 [History Confirmed 06/22/22] Aripiprazole 10 mg [Abilify 10 MG] 5 mg PO DAILY 06/20/22 [History Confirmed 06/22/22] Budesonide/Glycopyr/Formoterol [Breztri Aerosphere Inhaler] 2 puff IH BID 06/20/22 [History Confirmed 06/22/22] Calcium Carbonate/Vitamin D3 [Oyster Shell Calcium-Vit D Tab] 1 each PO DAILY 06/20/22 [History Confirmed 06/22/22] Cyclobenzaprine HCl 10 mg PO BID 06/20/22 [History Confirmed 06/22/22] Empagliflozin/Metformin HCl [Synjardy Xr 10-1,000 mg Tablet] 1 each PO DAILY 06/20/22 [History Confirmed 06/22/22] Furosemide 20 mg [Lasix 20 mg] 40 mg PO DAILY 06/20/22 [History Confirmed 06/22/22] Hydrochlorothiazide 25 mg [hydroDIURIL 25 MG] 25 mg PO DAILY 06/20/22 [History Confirmed 06/22/22] Hydrocodone/Acetaminophen [Hydrocodone-Acetamin 7.5-325] 1 each PO BID 06/20/22 [History Confirmed 06/22/22] Hydrocortisone 10 mg PO DINNER 06/20/22 [History Confirmed 06/22/22] Loratadine 10 mg [Claritin 10 mg] 10 mg PO DAILY 06/20/22 [History Confirmed 06/22/22] Nintedanib Esylate [Ofev] 150 mg PO BID 06/20/22 [History Confirmed 06/22/22] Potassium Chloride 30 mg PO DAILY 06/20/22 [History Confirmed 06/22/22] Upadacitinib [Rinvoq] 15 mg PO DAILY 06/20/22 [History Confirmed 06/22/22] Amox Tr/Potass Clav. 875 mg [Augmentin 875-125 Tablet] 875 mg PO BID #6 tablet 06/22/22 [Rx Confirmed 06/22/22] Lactobacillus Acidophilus [Acidophilus TABLET] 1 tab PO BID #6 tablet 06/22/22 [Rx Confirmed 06/22/22] Prednisone 20 mg [Deltasone 20 mg] 20 mg PO DAILY #4 tablet 06/22/22 [Rx Confirmed 06/22/22] Allergies/Adverse Reactions: Allergies Allergy/AdvReac Type Severity Reaction Status Date / Time bupropion [From Wellbutrin] AdvReac Intermediate Muscle Verified 06/20/22 11:56 Aches infliximab [From Remicade] AdvReac Intermediate MUSCLE Verified 01/04/22 10:35 SPASMS mycophenolate mofetil AdvReac Intermediate Muscle Verified 01/04/22 10:35 [From CellCept] Contraction, Pain - Past Medical History Past Medical History: Yes Neurological History: No Pertinent History ENT History: No Pertinent History Cardiac History: High Cholesterol, Hypertension, Peripheral Vascular Disease Respiratory History: COPD Endocrine Medical History: No Pertinent History, Hooper's Disease, Diabetes Type II Musculoskelatal History: Arthritis, Degenerative Disk Disease, Fractures, Osteoarthritis, Rheumatoid Arthritis GI Medical History: No Pertinent History History: No Pertinent History Pyscho-Social History: No Pertinent History Reproductive Disorders: Other Comment: OOPHORECTOMY RIGHT 1991. RIGHT HIP REPLACEMENT 2013. NERVE BLOCK FOR LUMBAR REGION 2018. LUNG BIOPSY 2019. YUNG'S DISEASE. - Female History Are you now?: No - Past Surgical History Past Surgical History: Yes Neuro Surgical History: No Pertinent History Cardiac History: Cardiac Catheterization Respiratory Surgery: No Pertinent History GI Surgical History: Cholecystectomy Genitourinary Surgical Hx: No Pertinent History Musculskeletal Surgical Hx: No Pertinent History, Orthopedic Surgery Female Surgical History: Other Other Surgical History: right oopherectomy, carpal tunnel surgery, and rt hip replacement, lung biopsy 2019 - Social History Smoking Status: Former smoker How long have you smoked: 5 Exposure to second hand smoke: No Alcohol: None Drug Use: none - Physical Exam Vital Signs: Vital Signs - 24 hr Temp Pulse Resp BP Pulse Ox 06/23/22 08:00 97.8 F 98 H 18 120/65 96 06/23/22 07:57 14 06/23/22 07:50 90 14 97 06/23/22 04:00 97.5 F 86 20 128/87 97 06/23/22 00:00 20 06/22/22 23:45 97.3 F 98 H 20 140/88 98 06/22/22 20:00 97.7 F 99 H 18 161/91 96 06/22/22 19:45 97.7 F 99 H 18 161/91 96 06/22/22 19:42 85 16 98 General Appearance: no apparent distress, alert Neurologic Exam: alert, oriented x 3, cooperative, normal mood/affect, nml cerebellar function, nml station & gait, sensation nml, No motor deficits Respiratory Exam: normal breath sounds, lungs clear, No respiratory distress Cardiovascular Exam: regular rate/rhythm, normal heart sounds, normal peripheral pulses Gastrointestinal/Abdomen Exam: soft, normal bowel sounds, No tenderness, No mass Extremity Exam: normal inspection, normal range of motion, pelvis stable Skin Exam: normal color, warm, dry, No rash Results - Labs Lab/Micro Results: Lab Results-Last 24 Hours 06/22/22 06/23/22 Range/Units 19:15 04:40 Potassium 2.6 L* (3.5-5.1) mmol/L Magnesium 1.5 L (1.6-2.3) mg/dL - Other Procedures and Tests Respiratory Therapy 06/22/22 19:00 Respiratory MDI BID 06/22/22 20:25 Respiratory Therapy Assessment DAILY Assessment/Plan (1) Hypokalemia Current Visit: Yes Status: Acute Assessment & Plan: IV and PO replacement potassium ordered after mag replacement. electrolyte problems likely secondary to her yung's Code(s): E87.6 - HYPOKALEMIA (2) Hypertension Current Visit: No Status: Acute Assessment & Plan: well controlled Code(s): I10 - ESSENTIAL (PRIMARY) HYPERTENSION (3) Addisons disease Current Visit: No Status: Chronic Assessment & Plan: continue po steroids Code(s): E27.1 - PRIMARY ADRENOCORTICAL INSUFFICIENCY (4) Diabetes mellitus type II, controlled Current Visit: No Status: Chronic Qualifiers: Code(s): E11.9 - TYPE 2 DIABETES MELLITUS WITHOUT COMPLICATIONS
[2022-06-23] MEDS ORDERED: Sodium Chloride 0.9% 1000 ML 1,000 ML ONE (08:53)
[2022-06-23] MEDS: Magnesium 1 Gm / 100 Ml D5W*** 100 ML IV SCH ×2 (08:57→09:46)
[2022-06-23] MEDS: POTASSIUM CHLORIDE 20 mEq IN WATER 100ML 20 MEQ/100 ML BAG IV SCH ×2 (08:58→10:55)
[2022-06-23] MEDS ORDERED: Sodium Chloride 0.9% 1000 ML 1,000 ML IV SCH (09:00)
[2022-06-23] MEDS ORDERED: NON-FORMULARY ITEM (Duloxetine Hcl [Duloxetine Hcl] 60 MG Capsule.Dr) PO SCH (10:00)
[2022-06-23] MEDS ORDERED: PATIENT OWN MEDICATION PO SCH ×2 (10:00)
[2022-06-23] MEDS ORDERED: DELTASONE 20 MG PO SCH (10:00)
[2022-06-23] MEDS ORDERED: NINTEDANIB ESYLATE 150 MG PO SCH (10:00)
[2022-06-23] MEDS ORDERED: Augmentin 875-125 Tablet PO SCH (10:00)
[2022-06-23] MEDS ORDERED: HYDROCORTISONE PO SCH ×2 (10:00→17:00)
[2022-06-23] MEDS ORDERED: Cymbalta 30 MG Capsule PO SCH (10:00)
[2022-06-23] MEDS ORDERED: NON-FORMULARY ITEM (Omeprazole [Omeprazole] 40 MG Capsule.Dr) PO SCH (10:00)
[2022-06-23] MEDS ORDERED: UPADACITINIB 15 MG PO SCH (10:00)
[2022-06-23] MEDS ORDERED: Abilify 10 MG PO SCH (10:00)
[2022-06-23] MEDS ORDERED: NORCO 7.5/325 MG TAB PO SCH (10:00)
[2022-06-23] MEDS ORDERED: MAG-OX 400 PO SCH (10:00)
[2022-06-23] MEDS ORDERED: Protonix 40MG Tablet PO SCH (10:00)
[2022-06-23 15:52] LABS: MAGNESIUM 2.1 mg/dL (1.6-2.3)
[2022-06-23 16:06] LABS: Potassium 3.7 mmol/L (3.5-5.1)
[2022-06-23 17:09] VITALS: BP 164/93; PULSE 104; O2SAT 96
== END 2022-06-23 17:16 | disposition home or self-care (01) ==
LOC: MED SURG 18:15
PROVIDERS: ADMIT Family Medicine; ATTEND Family Medicine
DX: E87.6 Hypokalemia (principal); I10 Essential (primary) hypertension; E27.1 Primary adrenocortical insufficiency; E11.9 Type 2 diabetes mellitus without complications; E78.5 Hyperlipidemia, unspecified; Z79.899 Other long term (current) drug therapy; Z20.828 Contact with and (suspected) exposure to other viral communicable diseases
CPT/HCPCS: 36415; 83735; 84132; 93268; 94640; 94760; J3475; J3480; A9270-GY; G0378

== ENCOUNTER 2022-07-05 07:23 | Inpatient (IN) | payer MEDICARE, OTHER ==
[2022-07-05] MEDS ORDERED: Zofran 4 MG/2 ML VIAL IV ONE (07:31)
[2022-07-05] MEDS ORDERED: Hydromorphone 1 mg/ml Injection IV ONE ×2 (07:31→09:04)
[2022-07-05] MEDS ORDERED: Sodium Chloride 0.9% 1000 ML 1,000 ML IV STA ×2 (07:31→09:18)
--- NOTE | 2022-07-05 07:31 | ERPHSYRPT ---
- History of Present Illness Time Seen by Provider: 07/05/22 07:31 Historian: patient, EMS Exam Limitations: no limitations Physician History: This is a 71-year-old white female patient of Dr. Joce Mckeon who was operated on 06/21/[address] Miranda. She underwent laparoscopic cholecystectomy. Postoperatively, it is known that the patient had a fluid collection in the gallbladder fossa. It was felt that this was postsurgical in nature. Patient was placed on 5 days of antibiotics to help prevent a infection formation within that fluid collection. Last evening, the patient had increased right upper quadrant abdominal pain and this morning the pain was worse. She is nauseated. Patient was brought into the emergency department by the ambulance service. Patient had a follow-up appointment to see her general surgeon tomorrow. Timing/Duration: yesterday, worse Activities at Onset: none Quality: sharpness, stabbing Abdominal Pain Onset Location: RUQ Severity of Pain-Max: moderate Severity of Pain-Current: moderate Modifying Factors: Improves With: nothing Associated Symptoms: nausea Previous symptoms: no prior history, recently treated Allergies/Adverse Reactions: bupropion [From Wellbutrin] Adverse Reaction (Intermediate, Verified 06/29/22 10:45) Muscle Aches infliximab [From Remicade] Adverse Reaction (Intermediate, Verified 06/29/22 10:45) MUSCLE SPASMS mycophenolate mofetil [From CellCept] Adverse Reaction (Intermediate, Verified 06/29/22 10:45) Muscle Contraction, Pain Home Medications: Atorvastatin Calcium [Lipitor 20MG Tablet] 40 mg PO QHS 02/18/20 [History] Duloxetine HCl 120 mg PO DAILY 02/18/20 [History] Folic Acid 1 mg [Folate 1 mg] 1 mg PO DAILY 02/18/20 [History] Hydrocortisone 30 mg PO QAM 02/18/20 [History] Omeprazole 40 mg PO DAILY 02/18/20 [History] Aripiprazole 10 mg [Abilify 10 MG] 5 mg PO DAILY 06/20/22 [History] Budesonide/Glycopyr/Formoterol [Breztri Aerosphere Inhaler] 2 puff IH BID 06/20/22 [History] Calcium Carbonate/Vitamin D3 [Oyster Shell Calcium-Vit D Tab] 1 each PO DAILY 06/20/22 [History] Cyclobenzaprine HCl 10 mg PO BID 06/20/22 [History] Empagliflozin/Metformin HCl [Synjardy Xr 10-1,000 mg Tablet] 1 each PO DAILY 06/20/22 [History] Furosemide 20 mg [Lasix 20 mg] 40 mg PO DAILY 06/20/22 [History] Hydrochlorothiazide 25 mg [hydroDIURIL 25 MG] 25 mg PO DAILY 06/20/22 [History] Hydrocodone/Acetaminophen [Hydrocodone-Acetamin 7.5-325] 1 each PO BID 06/20/22 [History] Hydrocortisone 10 mg PO DINNER 06/20/22 [History] Loratadine 10 mg [Claritin 10 mg] 10 mg PO DAILY 06/20/22 [History] Nintedanib Esylate [Ofev] 150 mg PO BID 06/20/22 [History] Potassium Chloride 30 mg PO DAILY 06/20/22 [History] Upadacitinib [Rinvoq] 15 mg PO DAILY 06/20/22 [History] Hx Tetanus, Diphtheria Vaccination/Date Given: Yes Hx Influenza Vaccination/Date Given: Yes Hx Pneumococcal Vaccination/Date Given: No Travel Risk - International Travel Have you traveled outside of the country in past 3 weeks: No - Coronavirus Screening Are you exhibiting any of the following symptoms?: No Close contact with a COVID-19 positive Pt in past 14-21 Days: No - Vaccine Status Have you recieved a Covid-19 vaccination: Yes Poultry H[employer]: [employer] - Vaccination Dates Date of 2cond Vaccination (if applicable): Sep 2020 - Review of Systems Constitutional: No Symptoms Eyes: No Symptoms Ears, Nose, & Throat: No Symptoms Respiratory: No Symptoms Cardiac: No Symptoms Abdominal/Gastrointestinal: Abdominal Pain (Right upper quadrant), Nausea, No Vomiting, No Diarrhea, No Constipation Genitourinary Symptoms: No Symptoms Musculoskeletal: No Symptoms Skin: No Symptoms Neurological: No Symptoms Psychological: No Symptoms Endocrine: No Symptoms Hematologic/Lymphatic: No Symptoms Immunological/Allergic: No Symptoms All Other Systems: Reviewed and Negative - Past Medical History Pertinent Past Medical History: Yes Neurological History: No Pertinent History ENT History: No Pertinent History Cardiac History: High Cholesterol, Hypertension, Peripheral Vascular Disease Respiratory History: COPD Endocrine Medical History: No Pertinent History, Diabetes Type II, Aviston's Disease Musculoskeletal History: Fractures, Arthritis, Rheumatoid Arthritis, Osteoarthritis, Degenerative Disk Disease GI Medical History: No Pertinent History History: No Pertinent History Psycho-Social History: No Pertinent History Female Reproductive Disorders: Other Other Medical History: OOPHORECTOMY RIGHT 1991. RIGHT HIP REPLACEMENT 2013. NERVE BLOCK FOR LUMBAR REGION 2017. LUNG BIOPSY 2019. YUNG'S DISEASE. - Past Surgical History Past Surgical History: Yes Neuro Surgical History: No Pertinent History Cardiac: Cardiac Catheterization Respiratory: No Pertinent History Gastrointestinal: Cholecystectomy Genitourinary: No Pertinent History Musculoskeletal: No Pertinent History, Orthopedic Surgery Female Surgical History: Other Other Surgical History: right oopherectomy, carpal tunnel surgery, and rt hip replacement, lung biopsy 2019 - Social History Smoking Status: Former smoker How long have you smoked: 5 Exposure to second hand smoke: No Drug Use: none Patient Lives Alone: No - Nursing Vital Signs Nursing Vital Signs: Initial Vital Signs Temperature 98.2 F 07/05/22 07:24 Pulse Rate 124 H 07/05/22 07:24 Respiratory Rate 20 07/05/22 07:24 Blood Pressure 133/89 07/05/22 07:24 O2 Sat by Pulse Oximetry 96 07/05/22 07:24 Pain Scale Pain Intensity 10 - Physical Exam General Appearance: mild distress, alert, anxiety, obese Eye Exam: PERRL/EOMI, eyes nml inspection Ears, Nose, Throat Exam: normal ENT inspection, moist mucous membranes Neck Exam: normal inspection, non-tender, supple, full range of motion Respiratory Exam: normal breath sounds, lungs clear, airway intact, No chest tenderness, No respiratory distress Cardiovascular Exam: tachycardia Gastrointestinal/Abdomen Exam: soft, normal bowel sounds, tenderness (Right upper quadrant), guarding (Right upper quadrant), rebound Pelvic Exam: not done Rectal Exam: not done Back Exam: normal inspection, normal range of motion, No CVA tenderness, No vertebral tenderness Extremity Exam: normal inspection, normal range of motion, pelvis stable Neurologic Exam: alert, oriented x 3, cooperative, picking belt operator II-XII nml as tested, normal mood/affect, nml cerebellar function, nml station & gait, sensation nml Skin Exam: normal color, warm, dry Lymphatic Exam: No adenopathy SpO2 Interpretation: normal O2 Delivery: Room Air - Course Nursing assessment & vital signs reviewed: Yes Ordered Tests: Active Orders 24 hr Category Date Time Status IV Insertion STAT Care 07/05/22 07:31 Active ABDOMEN AND PELVIS W/0 CONTRAS [CT] Stat Exams 07/05/22 07:32 Completed AMYLASE Stat Lab 07/05/22 07:46 Completed CBC W DIFF Stat Lab 07/05/22 07:46 Completed CMP Stat Lab 07/05/22 07:46 Completed CULTURE,URINE Stat Lab 07/05/22 07:46 Received LIPASE Stat Lab 07/05/22 07:46 Completed Lactic Acid Stat Lab 07/05/22 07:50 Completed UA W/RFX CULTURE Stat Lab 07/05/22 07:46 Completed Transfer Order Routine Transfer 07/05/22 Ordered Medication Summary Generic Name Dose Route Start Last Admin Trade Name Freq PRN Reason Stop Dose Admin Sodium Chloride 1,000 mls @ 999 mls/hr 07/05/22 09:18 07/05/22 09:34 Sodium Chloride 0.9% 1000 Ml IV 07/05/22 10:18 999 mls/hr .Q1H1M STA Administration Piperacillin Sod/Tazobactam 100 mls @ 200 mls/hr 07/05/22 09:30 Sod 3.375 gm/ Sodium Chloride IV 07/05/22 09:59 STAT ONE Discontinued Medications Generic Name Dose Route Start Last Admin Trade Name Freq PRN Reason Stop Dose Admin Hydrocortisone Sodium Succinate 100 mg 07/05/22 09:26 Hydrocortisone Sod Succinate 100 Mg/Vial Vial IV 07/05/22 09:27 STAT ONE Hydromorphone HCl 1 mg 07/05/22 07:31 07/05/22 07:41 Hydromorphone 1 Mg/1ml Inj 1 Mg/Ml Syringe IV 07/05/22 07:32 1 mg STAT ONE Administration Hydromorphone HCl Confirm 07/05/22 07:37 Hydromorphone 1 Mg/1ml Inj 1 Mg/Ml Syringe Administered 07/05/22 07:38 Dose 1 mg .ROUTE .STK-MED ONE Hydromorphone HCl 1 mg 07/05/22 09:04 07/05/22 09:06 Hydromorphone 1 Mg/1ml Inj 1 Mg/Ml Syringe IV 07/05/22 09:05 1 mg STAT ONE Administration Hydromorphone HCl Confirm 07/05/22 09:05 Hydromorphone 1 Mg/1ml Inj 1 Mg/Ml Syringe Administered 07/05/22 09:06 Dose 1 mg .ROUTE .STK-MED ONE Sodium Chloride 1,000 mls @ 999 mls/hr 07/05/22 07:31 07/05/22 08:48 Sodium Chloride 0.9% 1000 Ml IV 07/05/22 08:31 Infused .Q1H1M STA Infusion Sodium Chloride Confirm 07/05/22 07:37 Sodium Chloride 0.9% 1000 Ml Administered 07/05/22 07:38 Dose 1,000 mls @ ud .ROUTE .STK-MED ONE Sodium Chloride Confirm 07/05/22 09:21 Sodium Chloride 0.9% 1000 Ml Administered 07/05/22 09:22 Dose 1,000 mls @ ud .ROUTE .STK-MED ONE Ketorolac Tromethamine 30 mg 07/05/22 09:18 07/05/22 09:21 Ketorolac Tromethamine 30 Mg/Ml Inj IV 07/05/22 09:19 30 mg STAT ONE Administration Ketorolac Tromethamine Confirm 07/05/22 09:21 Ketorolac Tromethamine 30 Mg/Ml Inj Administered 07/05/22 09:22 Dose 30 mg .ROUTE .STK-MED ONE Ondansetron HCl 4 mg 07/05/22 07:31 07/05/22 07:40 Ondansetron Hcl 4 Mg/2 Ml Vial IV 07/05/22 07:32 4 mg STAT ONE Administration Ondansetron HCl Confirm 07/05/22 07:37 Ondansetron Hcl 4 Mg/2 Ml Vial Administered 07/05/22 07:38 Dose 4 mg .ROUTE .STK-MED ONE Lab/Rad Data: Laboratory Result Diagrams 07/05/22 07:46 07/05/22 07:46 Laboratory Results 07/05/22 07/05/22 07/05/22 Range/Units 07:55 07:50 07:46 WBC (4.0-10.5) x10^3/uL RBC (4.1-5.4) x10^6/uL Hgb (12.0-16.0) g/dL Hct (35-47) % MCV (78-100) fL MCH (26-32) pg MCHC (32-36) g/dL RDW (11.5-14.0) % Plt Count (150-450) x10^3/uL MPV (7.5-11.0) fL Gran % (36.0-66.0) % Immature Gran % (Auto) (0.00-0.4) % Nucleat RBC Rel Count (0.00-0.1) % Eos # (Auto) (0-0.5) x10^3/uL Immature Gran # (Auto) (0.00-0.03) x10^3u/L Absolute Lymphs (auto) (1.0-4.6) x10^3/uL Absolute Monos (auto) (0.0-1.3) x10^3/uL Absolute Nucleated RBC (0.00-0.01) x10^3u/L Lymphocytes % (24.0-44.0) % Monocytes % (0.0-12.0) % Eosinophils % (0.00-5.0) % Basophils % (0.0-0.4) % Absolute Granulocytes (1.4-6.9) x10^3/uL Basophils # (0-0.4) x10^3/uL Sodium (137-145) mmol/L Potassium (3.5-5.1) mmol/L Chloride (98-107) mmol/L Carbon Dioxide (22-30) mmol/L Anion Gap (5-15) MEQ/L BUN (7-17) mg/dL Creatinine (0.52-1.04) mg/dL Estimated GFR ML/MIN Glucose (74-106) mg/dL Lactic Acid 1.6 (0.4-2.0) Calcium (8.4-10.2) mg/dL Total Bilirubin (0.2-1.3) mg/dL AST (14-36) U/L ALT (0-35) U/L Alkaline Phosphatase (38-126) U/L Serum Total Protein (6.3-8.2) g/dL Albumin (3.5-5.0) g/dL Amylase (30-110) U/L Lipase (23-300) U/L Urinalys Dipstick Clnc MAIN LAB Urine Color YELLOW (YELLOW) Urine Appearance CLEAR (CLEAR) Urine pH 7.0 (5-6) Ur Specific [place] 1.020 (1.005-1.025) POC Urine Protein Conf 30 A (Negative) Urine Ketones TRACE A (NEGATIVE) Urine Nitrite NEGATIVE (NEGATIVE) Urine Bilirubin SMALL A (NEGATIVE) Urine Urobilinogen 1 A (0-1) mg/dL Urine Leukocytes NEGATIVE (NEGATIVE) Urine WBC (Auto) 0-2 (0-5) /HPF Urine RBC (Auto) NONE (0-2) /HPF U Epithel Cells (Auto) NONE (FEW) /HPF Urine Bacteria (Auto) RARE (NEGATIVE) /HPF Urine RBC NEGATIVE (0-5) Beau/ul Urine Mucus (Auto) SLIGHT A (NEGATIVE) /HPF Ur Culture Indicated? YES Urine Glucose >=1000 A (NEGATIVE) mg/dL Influenza Type A Ag NEGATIVE (NEGATIVE) Influenza Type B Ag NEGATIVE (NEGATIVE) RSV (PCR) NEGATIVE (Negative) SARS-CoV-2 (PCR) NEGATIVE (NEGATIVE) 07/05/22 07/05/22 Range/Units 07:46 07:46 WBC 9.4 (4.0-10.5) x10^3/uL RBC 3.74 L (4.1-5.4) x10^6/uL Hgb 11.9 L (12.0-16.0) g/dL Hct 38.2 (35-47) % MCV 102.1 H (78-100) fL MCH 31.8 (26-32) pg MCHC 31.2 L (32-36) g/dL RDW 16.4 H (11.5-14.0) % Plt Count 432 (150-450) x10^3/uL MPV 9.3 (7.5-11.0) fL Gran % 83.2 H (36.0-66.0) % Immature Gran % (Auto) 0.4 (0.00-0.4) % Nucleat RBC Rel Count 0.0 (0.00-0.1) % Eos # (Auto) 0.05 (0-0.5) x10^3/uL Immature Gran # (Auto) 0.04 H (0.00-0.03) x10^3u/L Absolute Lymphs (auto) 0.84 L (1.0-4.6) x10^3/uL Absolute Monos (auto) 0.64 (0.0-1.3) x10^3/uL Absolute Nucleated RBC 0.00 (0.00-0.01) x10^3u/L Lymphocytes % 9.0 L (24.0-44.0) % Monocytes % 6.8 (0.0-12.0) % Eosinophils % 0.5 (0.00-5.0) % Basophils % 0.1 (0.0-0.4) % Absolute Granulocytes 7.78 H (1.4-6.9) x10^3/uL Basophils # 0.01 (0-0.4) x10^3/uL Sodium 137 (137-145) mmol/L Potassium 4.8 (3.5-5.1) mmol/L Chloride 103 (98-107) mmol/L Carbon Dioxide 30 (22-30) mmol/L Anion Gap 9.5 (5-15) MEQ/L BUN 12 (7-17) mg/dL Creatinine 0.88 (0.52-1.04) mg/dL Estimated GFR > 60.0 ML/MIN Glucose 91 (74-106) mg/dL Lactic Acid (0.4-2.0) Calcium 8.9 (8.4-10.2) mg/dL Total Bilirubin 1.30 (0.2-1.3) mg/dL AST 32 (14-36) U/L ALT 32 (0-35) U/L Alkaline Phosphatase 120 (38-126) U/L Serum Total Protein 5.9 L (6.3-8.2) g/dL Albumin 3.6 (3.5-5.0) g/dL Amylase 91 (30-110) U/L Lipase 67 (23-300) U/L Urinalys Dipstick Clnc Urine Color (YELLOW) Urine Appearance (CLEAR) Urine pH (5-6) Ur Specific [place] (1.005-1.025) POC Urine Protein Conf (Negative) Urine Ketones (NEGATIVE) Urine Nitrite (NEGATIVE) Urine Bilirubin (NEGATIVE) Urine Urobilinogen (0-1) mg/dL Urine Leukocytes (NEGATIVE) Urine WBC (Auto) (0-5) /HPF Urine RBC (Auto) (0-2) /HPF U Epithel Cells (Auto) (FEW) /HPF Urine Bacteria (Auto) (NEGATIVE) /HPF Urine RBC (0-5) Beau/ul Urine Mucus (Auto) (NEGATIVE) /HPF Ur Culture Indicated? Urine Glucose (NEGATIVE) mg/dL Influenza Type A Ag (NEGATIVE) Influenza Type B Ag (NEGATIVE) RSV (PCR) (Negative) SARS-CoV-2 (PCR) (NEGATIVE) - Progress Progress: improved, pain not gone completely Progress Note: 07/05/22 08:59 CAT scan of the abdomen pelvis without contrast shows status postcholecystectomy with increased fluid collection in the gallbladder fossabiloma versus abscess. There is also new jejunal bowel wall thickening favoring enteritis. On 06/21/2022 fluid collection measured 3.8 cm x 2.6 cm x 2.6 cm. On today's CAT scan of the abdomen pelvis the measurements of the fluid within the gallbladder fossa measures 4.9 cm x 3.5 cm x 2.5 cm 07/05/22 09:27 Medical decision making: This patient has significant pain postoperatively. There is increasing amount of fluid in the gallbladder fossa. Biloma versus abscess. There is also new jejunal bowel wall thickening favoring enteritis. I spoke with Dr. Kaiser Morales and reviewed the patient history as well as physical findings and results of the CAT scan of the abdomen pelvis. Their group will consult. I spoke with the patient's primary care provider, Dr. 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 The general surgery group will be consulted. Counseled pt/family regarding: lab results, diagnosis, rad results - Departure Departure Disposition: In-patient Admission Clinical Impression: Postoperative pain, Fluid collection at surgical site, Enteritis Condition: Stable Critical Care Time: No Referrals: KYARA DAWN [Primary Care Provider] - Follow up/PCP as directed
[2022-07-05] MEDS ORDERED: Sodium Chloride 0.9% 1000 ML 1,000 ML ONE ×2 (07:37→09:21)
[2022-07-05] MEDS ORDERED: Hydromorphone 1 mg/ml Injection ONE ×2 (07:37→09:05)
[2022-07-05] MEDS ORDERED: Zofran 4 MG/2 ML VIAL ONE (07:37)
[2022-07-05 08:00] LABS: Absolute Neutrophil Ct (ANC) 7.78 x10^3/uL (1.4-6.9); Basophil (Absolute #) 0.01 x10^3/uL (0-0.4); Eosinophil % 0.5 % (0.00-5.0); Eosinophil (Absolute #) 0.05 x10^3/uL (0-0.5); Hematocrit 38.2 % (35-47); Hemoglobin 11.9 g/dL (12.0-16.0); Lymphocyte (Absolute #) 0.84 x10^3/uL (1.0-4.6); Mean Cell Volume 102.1 fL (78-100); Mean Corpuscular Hemoglobin 31.8 pg (26-32); Mean Corpuscular Hgb Concent. 31.2 g/dL (32-36); Mean Platelet Volume 9.3 fL (7.5-11.0); Monocyte (Absolute #) 0.64 x10^3/uL (0.0-1.3); Monocytes % 6.8 % (0.0-12.0); Neutrophil % 83.2 % (36.0-66.0); Platelet Count 432 x10^3/uL (150-450); Red Blood Count 3.74 x10^6/uL (4.1-5.4); Red Cell Distribution Width 16.4 % (11.5-14.0); White Blood Count 9.4 x10^3/uL (4.0-10.5)
[2022-07-05 08:14] LABS: Appearance CLEAR (CLEAR); Bilirubin SMALL (NEGATIVE); Dipstick done @ ? MAIN LAB; Glucose >=1000 mg/dL (NEGATIVE); Ketones TRACE (NEGATIVE); Nitrite NEGATIVE (NEGATIVE); Protein,Urine Dip 30 (Negative); RBC NEGATIVE Ery/ul (0-5); Urobilinogen 1 mg/dL (0-1)
[2022-07-05 08:21] LABS: Bacteria RARE /HPF (NEGATIVE); Mucus SLIGHT /HPF (NEGATIVE); WBC 0-2 /HPF (0-5)
[2022-07-05 08:22] LABS: ALBUMIN 3.6 g/dL (3.5-5.0); ALKALINE PHOSPHATASE 120 U/L (38-126); AMYLASE 91 U/L (30-110); ANION GAP 9.5 MEQ/L (5-15); BLOOD UREA NITROGEN 12 mg/dL (7-17); CHLORIDE 103 mmol/L (98-107); Calcium 8.9 mg/dL (8.4-10.2); Carbon Dioxide 30 mmol/L (22-30); Creatinine 1 0.88 mg/dL (0.52-1.04); EST GLOMERULAR FILTRATION RATE > 60.0 ML/MIN; Glucose 91 mg/dL (74-106); LIPASE 67 U/L (23-300); Potassium 4.8 mmol/L (3.5-5.1); SGOT/AST 32 U/L (14-36); SGPT/ALT 32 U/L (0-35); SODIUM 137 mmol/L (137-145); Total Protein 5.9 g/dL (6.3-8.2); Urine Cultured Indicated? YES
[2022-07-05 08:50] LABS: INFLUENZA A NEGATIVE (NEGATIVE); INFLUENZA B NEGATIVE (NEGATIVE); RESPIRATORY SYNCTIAL VIRUS NEGATIVE (Negative); SARS-CoV-2 Xpert Express NEGATIVE (NEGATIVE)
--- NOTE | 2022-07-05 08:52 | XRAY ---
Indication: Right upper quadrant pain, nausea, and abdominal distention. Status post cholecystectomy last month. Multiple contiguous axial images obtained through the abdomen and pelvis without contrast. Comparison: June 20, 2022 Lung bases again demonstrate scattered fibrosis/scarring and right costophrenic angle suture material. Heart not enlarged. Stable small hiatal hernia. Again beam artifact from left lower back epidural stimulator device and right hip arthroplasty. Again cholecystectomy clips present with increasing fluid collection in gallbladder fossa measuring at least 4.9 x 3.5 x 2.5 cm. This previously measured 3.8 x 2.6 x 2.6 cm. Findings again concerning for biloma versus abscess. No free air. Stomach is now mildly distended with fluid. Noncontrasted stomach and bowel loops appear nonobstructed. Several jejunal bowel loops are now mildly distended with moderate circumferential wall thickening favoring enteritis. Increasing moderate fecal debris predominantly in the ascending and transverse colon. Again incidental tiny hepatic/splenic calcified granulomas and left renal cyst. Remaining liver, pancreas, spleen, adrenal glands, kidneys, ureters, bladder, and uterus are grossly unremarkable for noncontrast exam. Again mild scattered aortoiliac calcification without AAA. Osseous structures again demonstrate osteopenia, multilevel degenerative spondylosis, mild double curvature scoliosis, remote T7 endplate fracture, and epidural stimulator leads terminating T7. Stable small subumbilical fatty ventral hernia Impression: 1. Again status post cholecystectomy with increasing fluid collection in gallbladder fossa. Again rule out biloma versus abscess. 2. New jejunal bowel wall thickening favoring enteritis. Also increasing right hemicolon fecal stasis. 3. Stable chronic findings including small hiatal hernia, left renal cyst, arteriosclerotic disease, chronic bony findings, fatty ventral hernia, and old granulomatous disease.
[2022-07-05] MEDS ORDERED: TORAdol 30 mg Injection IV ONE (09:18)
[2022-07-05] MEDS ORDERED: TORAdol 30 mg Injection ONE (09:21)
[2022-07-05] MEDS ORDERED: solu-CORTEF 100MG IV ONE (09:26)
[2022-07-05] MEDS ORDERED: PIPERACILLIN/TAZOBACTAM 3.375 GM in Sodium Chloride 100ML MINI-BAG PLUS 100 ML IV ONE (09:30)
[2022-07-05] MEDS ORDERED: solu-CORTEF 100MG ONE (09:39)
[2022-07-05] MEDS ORDERED: Sodium Chloride 100ML MINI-BAG PLUS 100 ML IV ONE (09:40)
[2022-07-05] MEDS ORDERED: PIPERACILLIN/TAZOBACTAM IV ONE (09:40)
[2022-07-05] MEDS ORDERED: FEVERALL 650 MG PR PRN (10:14)
[2022-07-05] MEDS ORDERED: DILAUDID 1 MG/1ML PCA SYRINGE IV PRN (10:14)
[2022-07-05] MEDS: Sodium Chloride 0.9% 1000 ML 1,000 ML IV SCH ×2 (11:51→20:18)
--- NOTE | 2022-07-05 12:47 | PCM.HP ---
History of Present Illness - Chief Complaint Chief Complaint: Abd pain, s/p lap choley jun 05 2022. History of Present Illness: is a 71 year old female pt of mine from [facility] with PMHx RA, Mono's disease, and HTN who was admitted through ER with abdominal pain. She had a cholecystectomy on 06/21/22. DId have a hospital admission after that that showed biloma in the gallbladder fossa; surgery felt it was just post-surgical. She was doing well until yesterday when she started having RUQ pain; initially 4/10 but quickly escalated until it was severe. She first thought she pulled a muscle or broke a rib. Has had no fall or trauma however. Hx per granddaughter, at bedside. Pt got 1 mg dilaudid in ER; was still in severe pain, so another mg given (first given 0740, second at 0906) and dilaudid SCRATCHER ordered. Toradol also given at 0920. Pt did not get to start dilaudid SCRATCHER as she is now very somnolent. - Review of Systems Abdominal/Gastrointestinal: Abdominal Pain All Other Systems: Unable due to condition Medications & Allergies Home Medications: Home Medication List Atorvastatin Calcium [Lipitor 20MG Tablet] 40 mg PO QHS 02/18/20 [History Confirmed 07/05/22] Duloxetine HCl 120 mg PO DAILY 02/18/20 [History Confirmed 07/05/22] Folic Acid 1 mg [Folate 1 mg] 1 mg PO DAILY 02/18/20 [History Confirmed 07/05/22] Hydrocortisone 30 mg PO QAM 02/18/20 [History Confirmed 07/05/22] Omeprazole 40 mg PO DAILY 02/18/20 [History Confirmed 07/05/22] Aripiprazole 10 mg [Abilify 10 MG] 5 mg PO DAILY 06/20/22 [History Confirmed 07/05/22] Budesonide/Glycopyr/Formoterol [Breztri Aerosphere Inhaler] 2 puff IH BID 06/20/22 [History Confirmed 07/05/22] Calcium Carbonate/Vitamin D3 [Oyster Shell Calcium-Vit D Tab] 1 each PO BID 06/20/22 [History Confirmed 07/05/22] Cyclobenzaprine HCl 10 mg PO BID 06/20/22 [History Confirmed 07/05/22] Empagliflozin/Metformin HCl [Synjardy Xr 10-1,000 mg Tablet] 1 each PO DAILY 06/20/22 [History Confirmed 07/05/22] Furosemide 20 mg [Lasix 20 mg] 40 mg PO DAILY 06/20/22 [History Confirmed 07/05/22] Hydrochlorothiazide 25 mg [hydroDIURIL 25 MG] 25 mg PO DAILY 06/20/22 [History Confirmed 07/05/22] Hydrocodone/Acetaminophen [Hydrocodone-Acetamin 7.5-325] 1 each PO BID 06/20/22 [History Confirmed 07/05/22] Hydrocortisone 10 mg PO DINNER 06/20/22 [History Confirmed 07/05/22] Loratadine 10 mg [Claritin 10 mg] 10 mg PO DAILY 06/20/22 [History Confirmed 07/05/22] Nintedanib Esylate [Ofev] 150 mg PO BID 06/20/22 [History Confirmed 07/05/22] Potassium Chloride 40 mg PO DAILY 06/20/22 [History Confirmed 07/05/22] Upadacitinib [Rinvoq] 15 mg PO DAILY 06/20/22 [History Confirmed 07/05/22] Allergies/Adverse Reactions: Allergies Allergy/AdvReac Type Severity Reaction Status Date / Time bupropion [From Wellbutrin] AdvReac Intermediate Muscle Verified 07/05/22 10:45 Aches infliximab [From Remicade] AdvReac Intermediate MUSCLE Verified 07/05/22 10:45 SPASMS mycophenolate mofetil AdvReac Intermediate Muscle Verified 07/05/22 10:45 [From CellCept] Contraction, Pain - Past Medical History Past Medical History: Yes Neurological History: No Pertinent History ENT History: No Pertinent History Cardiac History: High Cholesterol, Hypertension, Peripheral Vascular Disease Respiratory History: COPD Endocrine Medical History: No Pertinent History, Diabetes Type II, Mora's Disease Musculoskelatal History: Fractures, Arthritis, Rheumatoid Arthritis, Osteoarthritis, Degenerative Disk Disease GI Medical History: No Pertinent History History: No Pertinent History Pyscho-Social History: No Pertinent History Reproductive Disorders: Other Comment: OOPHORECTOMY RIGHT 1991. RIGHT HIP REPLACEMENT 2013. NERVE BLOCK FOR LUMBAR REGION 2018. LUNG BIOPSY 2019. MONO'S DISEASE. - Female History Are you now?: No - Past Surgical History Past Surgical History: Yes Neuro Surgical History: No Pertinent History Cardiac History: Cardiac Catheterization Respiratory Surgery: No Pertinent History GI Surgical History: Cholecystectomy Genitourinary Surgical Hx: No Pertinent History Musculskeletal Surgical Hx: No Pertinent History, Orthopedic Surgery Female Surgical History: Other Other Surgical History: right oopherectomy, carpal tunnel surgery, and rt hip replacement, lung biopsy 2018 - Social History Smoking Status: Former smoker How long have you smoked: 5 Exposure to second hand smoke: No Alcohol: None Drug Use: none - Physical Exam Vital Signs: Vital Signs - 24 hr Temp Pulse Resp BP Pulse Ox 07/05/22 11:41 97.0 F 107 H 17 135/85 96 07/05/22 10:22 97.0 F 107 H 17 135/85 96 07/05/22 10:03 97.9 F 112 H 20 127/91 97 07/05/22 09:14 124 H 33 H 109/76 95 07/05/22 08:46 98.2 F 113 H 20 137/79 91 L 07/05/22 07:24 98.2 F 124 H 20 133/89 96 General Appearance: no apparent distress, other (somnolent; rouses briefly for lab, at bedside.) Ears, Nose, Throat Exam: moist mucous membranes Neck Exam: normal inspection Respiratory Exam: normal breath sounds, lungs clear, No crackles/rales, No rhonchi, No wheezing Cardiovascular Exam: normal heart sounds, tachycardia, No murmur Gastrointestinal/Abdomen Exam: soft, normal bowel sounds, distention (possibly chronic), other (pt evidences no tenderness during (admittedly gentle) exam.), No mass, No guarding, No rebound Extremity Exam: normal inspection, No pedal edema, No swelling, No tenderness Skin Exam: normal color, warm, dry, No rash Results - Labs Lab/Micro Results: Lab Results-Last 24 Hours 07/05/22 07/05/22 07/05/22 Range/Units 07:46 07:46 07:46 WBC 9.4 (4.0-10.5) x10^3/uL RBC 3.74 L (4.1-5.4) x10^6/uL Hgb 11.9 L (12.0-16.0) g/dL Hct 38.2 (35-47) % MCV 102.1 H (78-100) fL MCH 31.8 (26-32) pg MCHC 31.2 L (32-36) g/dL RDW 16.4 H (11.5-14.0) % Plt Count 432 (150-450) x10^3/uL MPV 9.3 (7.5-11.0) fL Gran % 83.2 H (36.0-66.0) % Immature Gran % (Auto) 0.4 (0.00-0.4) % Nucleat RBC Rel Count 0.0 (0.00-0.1) % Eos # (Auto) 0.05 (0-0.5) x10^3/uL Immature Gran # (Auto) 0.04 H (0.00-0.03) x10^3u/L Absolute Lymphs (auto) 0.84 L (1.0-4.6) x10^3/uL Absolute Monos (auto) 0.64 (0.0-1.3) x10^3/uL Absolute Nucleated RBC 0.00 (0.00-0.01) x10^3u/L Lymphocytes % 9.0 L (24.0-44.0) % Monocytes % 6.8 (0.0-12.0) % Eosinophils % 0.5 (0.00-5.0) % Basophils % 0.1 (0.0-0.4) % Absolute Granulocytes 7.78 H (1.4-6.9) x10^3/uL Basophils # 0.01 (0-0.4) x10^3/uL Sodium 137 (137-145) mmol/L Potassium 4.8 (3.5-5.1) mmol/L Chloride 103 (98-107) mmol/L Carbon Dioxide 30 (22-30) mmol/L Anion Gap 9.5 (5-15) MEQ/L BUN 12 (7-17) mg/dL Creatinine 0.88 (0.52-1.04) mg/dL Estimated GFR > 60.0 ML/MIN Glucose 91 (74-106) mg/dL Lactic Acid (0.4-2.0) Calcium 8.9 (8.4-10.2) mg/dL Total Bilirubin 1.30 (0.2-1.3) mg/dL AST 32 (14-36) U/L ALT 32 (0-35) U/L Alkaline Phosphatase 120 (38-126) U/L Serum Total Protein 5.9 L (6.3-8.2) g/dL Albumin 3.6 (3.5-5.0) g/dL Amylase 91 (30-110) U/L Lipase 67 (23-300) U/L Urinalys Dipstick Clnc MAIN LAB Urine Color YELLOW (YELLOW) Urine Appearance CLEAR (CLEAR) Urine pH 7.0 (5-6) Ur Specific Fielding 1.020 (1.005-1.025) POC Urine Protein Conf 30 A (Negative) Urine Ketones TRACE A (NEGATIVE) Urine Nitrite NEGATIVE (NEGATIVE) Urine Bilirubin SMALL A (NEGATIVE) Urine Urobilinogen 1 A (0-1) mg/dL Urine Leukocytes NEGATIVE (NEGATIVE) Urine WBC (Auto) 0-2 (0-5) /HPF Urine RBC (Auto) NONE (0-2) /HPF U Epithel Cells (Auto) NONE (FEW) /HPF Urine Bacteria (Auto) RARE (NEGATIVE) /HPF Urine RBC NEGATIVE (0-5) Beau/ul Urine Mucus (Auto) SLIGHT A (NEGATIVE) /HPF Ur Culture Indicated? YES Urine Glucose >=1000 A (NEGATIVE) mg/dL Influenza Type A Ag (NEGATIVE) Influenza Type B Ag (NEGATIVE) RSV (PCR) (Negative) SARS-CoV-2 (PCR) (NEGATIVE) 07/05/22 07/05/22 Range/Units 07:50 07:55 WBC (4.0-10.5) x10^3/uL RBC (4.1-5.4) x10^6/uL Hgb (12.0-16.0) g/dL Hct (35-47) % MCV (78-100) fL MCH (26-32) pg MCHC (32-36) g/dL RDW (11.5-14.0) % Plt Count (150-450) x10^3/uL MPV (7.5-11.0) fL Gran % (36.0-66.0) % Immature Gran % (Auto) (0.00-0.4) % Nucleat RBC Rel Count (0.00-0.1) % Eos # (Auto) (0-0.5) x10^3/uL Immature Gran # (Auto) (0.00-0.03) x10^3u/L Absolute Lymphs (auto) (1.0-4.6) x10^3/uL Absolute Monos (auto) (0.0-1.3) x10^3/uL Absolute Nucleated RBC (0.00-0.01) x10^3u/L Lymphocytes % (24.0-44.0) % Monocytes % (0.0-12.0) % Eosinophils % (0.00-5.0) % Basophils % (0.0-0.4) % Absolute Granulocytes (1.4-6.9) x10^3/uL Basophils # (0-0.4) x10^3/uL Sodium (137-145) mmol/L Potassium (3.5-5.1) mmol/L Chloride (98-107) mmol/L Carbon Dioxide (22-30) mmol/L Anion Gap (5-15) MEQ/L BUN (7-17) mg/dL Creatinine (0.52-1.04) mg/dL Estimated GFR ML/MIN Glucose (74-106) mg/dL Lactic Acid 1.6 (0.4-2.0) Calcium (8.4-10.2) mg/dL Total Bilirubin (0.2-1.3) mg/dL AST (14-36) U/L ALT (0-35) U/L Alkaline Phosphatase (38-126) U/L Serum Total Protein (6.3-8.2) g/dL Albumin (3.5-5.0) g/dL Amylase (30-110) U/L Lipase (23-300) U/L Urinalys Dipstick Clnc Urine Color (YELLOW) Urine Appearance (CLEAR) Urine pH (5-6) Ur Specific Fielding (1.005-1.025) POC Urine Protein Conf (Negative) Urine Ketones (NEGATIVE) Urine Nitrite (NEGATIVE) Urine Bilirubin (NEGATIVE) Urine Urobilinogen (0-1) mg/dL Urine Leukocytes (NEGATIVE) Urine WBC (Auto) (0-5) /HPF Urine RBC (Auto) (0-2) /HPF U Epithel Cells (Auto) (FEW) /HPF Urine Bacteria (Auto) (NEGATIVE) /HPF Urine RBC (0-5) Beau/ul Urine Mucus (Auto) (NEGATIVE) /HPF Ur Culture Indicated? Urine Glucose (NEGATIVE) mg/dL Influenza Type A Ag NEGATIVE (NEGATIVE) Influenza Type B Ag NEGATIVE (NEGATIVE) RSV (PCR) NEGATIVE (Negative) SARS-CoV-2 (PCR) NEGATIVE (NEGATIVE) - Radiology Impressions Radiology Exams & Impressions: Radiology Procedures Category Date Time Status ABDOMEN AND PELVIS W/0 CONTRAS [CT] Stat Exams 07/05/22 07:32 Completed Assessment/Plan (1) RUQ pain Current Visit: Yes Status: Acute Assessment & Plan: Worry for post surgical bile leak. Surgery consulting today. Pt is NPO. Amylase and lipase nl, and AST/ALT/AP all nl. 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
[2022-07-05] MEDS ORDERED: MEDICATION INTERVENTION MC SCH ×2 (14:15)
[2022-07-05] MEDS: Protonix 40MG Tablet PO SCH (15:56)
[2022-07-05] MEDS: Abilify 10 MG PO SCH (15:56)
[2022-07-05] MEDS: hydroDIURIL 25 MG PO SCH (15:56)
[2022-07-05] MEDS: CLARITIN 10 MG PO SCH (15:56)
[2022-07-05] MEDS: FOLATE 1 MG PO SCH (15:56)
[2022-07-05] MEDS: PIPERACILLIN/TAZOBACTAM 3.375 GM in Sodium Chloride 100ML MINI-BAG PLUS 100 ML IV SCH ×2 (18:26→23:43)
[2022-07-05] MEDS: HYDROCORTISONE PO SCH (18:32)
[2022-07-05] MEDS ORDERED: PATIENT OWN MEDICATION IH SCH (19:00)
[2022-07-05] MEDS: Hydromorphone 1 mg/ml Injection IV PRN ×2 (19:38→23:42)
[2022-07-05] MEDS: PATIENT OWN MEDICATION IH SCH ×2 (19:43→21:24)
[2022-07-05] MEDS: Cyclobenzaprine 10 MG PO SCH (21:02)
[2022-07-05] MEDS: ZOCOR 20MG PO SCH (21:02)
[2022-07-05] MEDS: NORCO 7.5/325 MG TAB PO SCH (21:02)
[2022-07-05] MEDS ORDERED: NINTEDANIB ESYLATE 150 MG PO SCH (22:00)
[2022-07-05] MEDS ORDERED: NON-FORMULARY ITEM IH SCH (22:00)
[2022-07-05] MEDS ORDERED: NON-FORMULARY ITEM (Atorvastatin Calcium 20 MG Tab) PO SCH (22:00)
[2022-07-05] MEDS ORDERED: NON-FORMULARY ITEM PO SCH (22:00)
[2022-07-05] MEDS ORDERED: NON-FORMULARY ITEM (Budesonide/Glycopyr/Formoterol [Breztri Aerosphere Inhaler] 10.7 GM Hf IH SCH (22:00)
[2022-07-05] MEDS ORDERED: NON-FORMULARY ITEM (Cyclobenzaprine Hcl [Cyclobenzaprine Hcl] 5 MG Tablet) PO SCH (22:00)
[2022-07-06] MEDS ORDERED: DILAUDID 1 MG/1ML PCA SYRINGE IV PRN (02:25)
[2022-07-06 05:47] LABS: Absolute Neutrophil Ct (ANC) 5.97 x10^3/uL (1.4-6.9); Basophil (Absolute #) 0.02 x10^3/uL (0-0.4); Eosinophil % 1.4 % (0.00-5.0); Hematocrit 33.3 % (35-47); Hemoglobin 9.9 g/dL (12.0-16.0); Lymphocyte (Absolute #) 0.64 x10^3/uL (1.0-4.6); Lymphocytes % 8.6 % (24.0-44.0); Mean Cell Volume 105.4 fL (78-100); Mean Corpuscular Hemoglobin 31.3 pg (26-32); Mean Corpuscular Hgb Concent. 29.7 g/dL (32-36); Mean Platelet Volume 9.8 fL (7.5-11.0); Monocyte (Absolute #) 0.65 x10^3/uL (0.0-1.3); Monocytes % 8.8 % (0.0-12.0); Neutrophil % 80.6 % (36.0-66.0); Platelet Count 356 x10^3/uL (150-450); Red Blood Count 3.16 x10^6/uL (4.1-5.4); Red Cell Distribution Width 16.6 % (11.5-14.0); White Blood Count 7.4 x10^3/uL (4.0-10.5)
[2022-07-06] MEDS: Sodium Chloride 0.9% 1000 ML 1,000 ML IV SCH (06:16)
[2022-07-06] MEDS: PIPERACILLIN/TAZOBACTAM 3.375 GM in Sodium Chloride 100ML MINI-BAG PLUS 100 ML IV SCH ×3 (06:16→18:36)
[2022-07-06 06:19] LABS: ALKALINE PHOSPHATASE 95 U/L (38-126); ANION GAP 8.9 MEQ/L (5-15); BLOOD UREA NITROGEN 13 mg/dL (7-17); CHLORIDE 107 mmol/L (98-107); Calcium 7.2 mg/dL (8.4-10.2); Carbon Dioxide 25 mmol/L (22-30); Creatinine 1 0.97 mg/dL (0.52-1.04); EST GLOMERULAR FILTRATION RATE > 60.0 ML/MIN; Glucose 74 mg/dL (74-106); Potassium 4.5 mmol/L (3.5-5.1); SGOT/AST 28 U/L (14-36); SGPT/ALT 29 U/L (0-35); SODIUM 136 mmol/L (137-145); Total Protein 5.5 g/dL (6.3-8.2)
--- NOTE | 2022-07-06 07:48 | CONS ---
CONSULT DATE: 07/05/2022 HISTORY: Miss Salgado had a cholecystectomy one month ago. She did well. She had absolutely no issues for over three to four weeks. Yesterday, she had right upper quadrant pain and about the time she went to bed and subsequently woke up in the morning it was killing her. She presented to the hospital. She had labs and the labs were all reviewed. Amylase normal. Lipase normal. Liver functions normal. Total bilirubin normal. White count normal. BUN and creatinine normal. Glucose normal. She had a CT scan showed a small amount of postoperative fluid in the fossa. Her temperature is normal. Her vital signs are stable. Her pain is much better although she has had pain medication. IMPRESSION: She is quite late for complication. She is about a month out. There is a small fluid collection this would not be unexpected. She had quite a significant cholecystitis originally. We are not seeing any major signs of infection here. She could be passing some material that is not showing up on her enzymes. PLAN: We will observe. Hopefully her pain will improve and she will be able to work herself to discharge.
[2022-07-06] MEDS: PATIENT OWN MEDICATION IH SCH ×2 (07:50→18:39)
[2022-07-06] MEDS ORDERED: Hydromorphone 1 mg/ml Injection IV PRN (08:30)
[2022-07-06] MEDS ORDERED: Hydromorphone 1 mg/ml Injection IV ONE ×3 (08:30→09:20)
--- NOTE | 2022-07-06 08:59 | PCM.NOTE ---
Date and Time: 07/06/2254 Subjective Assessment: Pt slept until 5 pm yesterday and had no pain meds. Dr. Kaiser Morales evaluated her, thank you, and discussed possibility of having had a stone that passed. At 3 am she awoke in uncontrollable pain. She was started on Dilaudid METAL WORKER and early this morning her pain was at a 7, and at the time of my exam was at a 9/10. RUQ. - Review of Systems Constitutional: No Fever Abdominal/Gastrointestinal: Abdominal Pain Objective Exam General Appearance: moderate distress, obese Neurologic Exam: oriented x 3, cooperative Skin Exam: normal color, warm, dry, No rash Eye Exam: eyes nml inspection Ears, Nose, Throat Exam: moist mucous membranes Respiratory Exam: normal breath sounds, lungs clear, No crackles/rales, No rhonchi, No wheezing Cardiovascular Exam: regular rate/rhythm, normal heart sounds, murmur Gastrointestinal/Abdomen Exam: tenderness (particularly in RUQ), guarding, other (her abd is firm but not hard.), No mass, No rebound Extremity Exam: No pedal edema, No swelling OBJECTIVE DATA Vital Signs: Vital Signs - 24 hr Temp Pulse Resp BP Pulse Ox 07/06/22 08:00 96.2 F 107 H 18 137/76 100 07/06/22 07:52 96 H 16 94 L 07/06/22 06:49 18 100 07/06/22 04:00 97.0 F 99 H 19 101/68 98 07/06/22 02:49 20 98 07/05/22 23:51 97.6 F 93 H 20 107/60 96 07/05/22 20:00 97.1 F 91 H 22 131/84 97 07/05/22 19:43 89 16 97 07/05/22 16:00 96.9 F 87 17 107/58 98 07/05/22 11:41 97.0 F 107 H 17 135/85 96 07/05/22 10:22 97.0 F 107 H 17 135/85 96 07/05/22 10:03 97.9 F 112 H 20 127/91 97 07/05/22 09:54 116 H 16 97 07/05/22 09:14 124 H 33 H 109/76 95 Pain Assessment - Last Documented Pain Intensity 10 Pain Scale Used 0-10 Pain Scale Intake and Output: Intake & Output 07/03/22 07/04/22 07/05/22 07/06/22 11:59 11:59 11:59 11:59 Intake Total 3834 Output Total 425 Balance 3409 Weight 92.5 kg Lab Results: Lab Results-Last 24 Hours 07/05/22 07/05/22 07/05/22 Range/Units 07:55 16:15 21:29 WBC (4.0-10.5) x10^3/uL RBC (4.1-5.4) x10^6/uL Hgb (12.0-16.0) g/dL Hct (35-47) % MCV (78-100) fL MCH (26-32) pg MCHC (32-36) g/dL RDW (11.5-14.0) % Plt Count (150-450) x10^3/uL MPV (7.5-11.0) fL Gran % (36.0-66.0) % Immature Gran % (Auto) (0.00-0.4) % Nucleat RBC Rel Count (0.00-0.1) % Eos # (Auto) (0-0.5) x10^3/uL Immature Gran # (Auto) (0.00-0.03) x10^3u/L Absolute Lymphs (auto) (1.0-4.6) x10^3/uL Absolute Monos (auto) (0.0-1.3) x10^3/uL Absolute Nucleated RBC (0.00-0.01) x10^3u/L Lymphocytes % (24.0-44.0) % Monocytes % (0.0-12.0) % Eosinophils % (0.00-5.0) % Basophils % (0.0-0.4) % Absolute Granulocytes (1.4-6.9) x10^3/uL Basophils # (0-0.4) x10^3/uL Sodium (137-145) mmol/L Potassium (3.5-5.1) mmol/L Chloride (98-107) mmol/L Carbon Dioxide (22-30) mmol/L Anion Gap (5-15) MEQ/L BUN (7-17) mg/dL Creatinine (0.52-1.04) mg/dL Estimated GFR ML/MIN Glucose (74-106) mg/dL POC Glucometer 117 H 185 H (74 to 106) mg/dL Calcium (8.4-10.2) mg/dL Total Bilirubin (0.2-1.3) mg/dL AST (14-36) U/L ALT (0-35) U/L Alkaline Phosphatase (38-126) U/L Serum Total Protein (6.3-8.2) g/dL Albumin (3.5-5.0) g/dL Influenza Type A Ag NEGATIVE (NEGATIVE) Influenza Type B Ag NEGATIVE (NEGATIVE) RSV (PCR) NEGATIVE (Negative) SARS-CoV-2 (PCR) NEGATIVE (NEGATIVE) 07/06/22 07/06/22 07/06/22 Range/Units 04:40 04:40 07:37 WBC 7.4 (4.0-10.5) x10^3/uL RBC 3.16 L (4.1-5.4) x10^6/uL Hgb 9.9 L (12.0-16.0) g/dL Hct 33.3 L (35-47) % MCV 105.4 H (78-100) fL MCH 31.3 (26-32) pg MCHC 29.7 L (32-36) g/dL RDW 16.6 H (11.5-14.0) % Plt Count 356 (150-450) x10^3/uL MPV 9.8 (7.5-11.0) fL Gran % 80.6 H (36.0-66.0) % Immature Gran % (Auto) 0.3 (0.00-0.4) % Nucleat RBC Rel Count 0.0 (0.00-0.1) % Eos # (Auto) 0.10 (0-0.5) x10^3/uL Immature Gran # (Auto) 0.02 (0.00-0.03) x10^3u/L Absolute Lymphs (auto) 0.64 L (1.0-4.6) x10^3/uL Absolute Monos (auto) 0.65 (0.0-1.3) x10^3/uL Absolute Nucleated RBC 0.00 (0.00-0.01) x10^3u/L Lymphocytes % 8.6 L (24.0-44.0) % Monocytes % 8.8 (0.0-12.0) % Eosinophils % 1.4 (0.00-5.0) % Basophils % 0.3 (0.0-0.4) % Absolute Granulocytes 5.97 (1.4-6.9) x10^3/uL Basophils # 0.02 (0-0.4) x10^3/uL Sodium 136 L (137-145) mmol/L Potassium 4.5 (3.5-5.1) mmol/L Chloride 107 (98-107) mmol/L Carbon Dioxide 25 (22-30) mmol/L Anion Gap 8.9 (5-15) MEQ/L BUN 13 (7-17) mg/dL Creatinine 0.97 (0.52-1.04) mg/dL Estimated GFR > 60.0 ML/MIN Glucose 74 (74-106) mg/dL POC Glucometer 81 (74 to 106) mg/dL Calcium 7.2 L D (8.4-10.2) mg/dL Total Bilirubin 1.30 (0.2-1.3) mg/dL AST 28 (14-36) U/L ALT 29 (0-35) U/L Alkaline Phosphatase 95 (38-126) U/L Serum Total Protein 5.5 L (6.3-8.2) g/dL Albumin 3.0 L (3.5-5.0) g/dL Influenza Type A Ag (NEGATIVE) Influenza Type B Ag (NEGATIVE) RSV (PCR) (Negative) SARS-CoV-2 (PCR) (NEGATIVE) Radiology Exams: Radiology Procedures Category Date Time Status ABDOMEN AND PELVIS W/0 CONTRAS [CT] Stat Exams 07/05/22 07:32 Completed Assessment/Plan (1) RUQ pain Current Visit: Yes Status: Acute Assessment & Plan: With some firmness to her abdomen. Checking KUB stat. Will get liver #s and lactate, procalcitonin. Surgery has been notified to see pt again. 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
[2022-07-06] MEDS: Hydromorphone 1 mg/ml Injection IV SCH ×7 (09:55→22:47)
[2022-07-06] MEDS ORDERED: NON-FORMULARY ITEM (Duloxetine Hcl [Duloxetine Hcl] 60 MG Capsule.Dr) PO SCH (10:00)
[2022-07-06] MEDS ORDERED: NON-FORMULARY ITEM (Omeprazole [Omeprazole] 40 MG Capsule.Dr) PO SCH (10:00)
--- NOTE | 2022-07-06 10:17 | XRAY ---
Indication: Acute pain. Comparison: None. KUB demonstrates nonspecific nonobstructed bowel gas pattern further detailed on CT one day earlier. Solid organs unremarkable. Osseous structures intact with osteopenia, degenerative changes, scoliosis, partially visualized epidural stimulator device/lead, and right hip arthroplasty.
[2022-07-06] MEDS: NORCO 7.5/325 MG TAB PO SCH ×2 (10:34→22:15)
[2022-07-06] MEDS: HYDROCORTISONE PO SCH ×3 (10:34→18:02)
[2022-07-06] MEDS: Abilify 10 MG PO SCH (10:34)
[2022-07-06] MEDS: PATIENT OWN MEDICATION PO SCH ×2 (10:34→22:18)
[2022-07-06] MEDS: Cyclobenzaprine 10 MG PO SCH ×2 (10:34→22:16)
[2022-07-06] MEDS: CLARITIN 10 MG PO SCH (10:34)
[2022-07-06] MEDS: hydroDIURIL 25 MG PO SCH ×2 (10:34→22:16)
[2022-07-06] MEDS: Cymbalta 30 MG Capsule PO SCH (10:34)
[2022-07-06] MEDS: FOLATE 1 MG PO SCH (10:34)
[2022-07-06] MEDS: Protonix 40MG Tablet PO SCH (10:35)
--- NOTE | 2022-07-06 14:18 | XRAY ---
Indication: Right upper quadrant pain. Multiple contiguous images obtained through the abdomen and pelvis using 80 cc Isovue 370 contrast. Comparison: July 05, 2022 Lung bases again demonstrates scattered fibrosis/scarring and right costophrenic angle suture material. Heart not enlarged. Stable small hiatal hernia. Again beam artifact from left lower back epidural stimulator device and right hip arthroplasty. Again cholecystectomy with small nonenhancing fluid collection in the gallbladder fossa slightly smaller than before. No new free fluid/air. Urinary bladder is empty with new Johns balloon catheter in situ. Noncontrasted stomach and bowel loops nonobstructed. Previous fluid distended jejunal bowel loops have progressed distally into the ileum also with fluid leveling favoring ileus versus enteritis. Stable fatty liver and tiny hepatic/splenic calcific granulomas and left renal cyst. Remaining liver, pancreas, spleen, adrenal glands, kidneys, ureters, and bladder are unremarkable. There remains mild scattered aortoiliac calcifications without AAA or pathologic retroperitoneal lymphadenopathy. Impression: 1. Again status post cholecystectomy with a smaller fluid collection in gallbladder fossa. Again primary differential is for biloma versus abscess. Perhaps nuclear medicine HIDA scan may help differentiate. 2. Again fluid distended distal small bowel loops, ileus versus enteritis. 3. Stable chronic findings including pulmonary fibrosis/scarring, small hiatal hernia, left renal cyst, fatty liver, arteriosclerotic disease, and old granulomatous disease.
[2022-07-06] MEDS: HOLD METFORMIN PRODUCTS FOR 48 HOURS MC SCH (14:30)
[2022-07-06] MEDS: Dextrose 5% -0.45 NaCl 1000 ML 1,000 ML IV SCH (18:28)
[2022-07-06] MEDS: ZOCOR 20MG PO SCH (22:16)
[2022-07-07] MEDS: Hydromorphone 1 mg/ml Injection IV SCH ×12 (00:25→22:51)
[2022-07-07] MEDS: PIPERACILLIN/TAZOBACTAM 3.375 GM in Sodium Chloride 100ML MINI-BAG PLUS 100 ML IV SCH ×4 (00:26→17:17)
[2022-07-07] MEDS: Dextrose 5% -0.45 NaCl 1000 ML 1,000 ML IV SCH (05:29)
[2022-07-07] MEDS: PATIENT OWN MEDICATION IH SCH ×3 (08:08→19:35)
--- NOTE | 2022-07-07 08:10 | PCM.NOTE ---
Date and Time: 07/07/22 08 Subjective Assessment: patient continues to have severe pain in her RUQ requiring narcotics to control, might be slightly better today. ct reviewed from yesterday, again fluid collection in gallbladder fossa biloma vs abscess. she has no fever, covering with zosyn Objective Exam General Appearance: no apparent distress Neurologic Exam: alert, oriented x 3 Respiratory Exam: normal breath sounds, lungs clear, No respiratory distress Cardiovascular Exam: regular rate/rhythm, normal heart sounds Gastrointestinal/Abdomen Exam: tenderness (RUQ), No guarding, No rebound Extremity Exam: normal inspection, normal range of motion OBJECTIVE DATA Vital Signs: Vital Signs - 24 hr Temp Pulse Resp BP Pulse Ox 07/07/22 07:51 97.3 F 71 17 134/71 94 L 07/07/22 04:00 97.1 F 105 H 19 117/78 92 L 07/06/22 23:34 97.0 F 115 H 20 101/60 100 07/06/22 20:00 97.6 F 106 H 21 126/69 97 07/06/22 18:39 109 H 18 92 L 07/06/22 16:00 97.1 F 119 H 24 137/86 99 07/06/22 12:00 96.6 F 114 H 18 117/76 100 Pain Assessment - Last Documented Pain Intensity 5 Pain Scale Used 0-10 Pain Scale Intake and Output: Intake & Output 07/04/22 07/05/22 07/06/22 07/07/22 11:59 11:59 11:59 11:59 Intake Total 3834 1350 Output Total 425 250 Balance 3409 1100 Weight 92.5 kg 92.5 kg Lab Results: Lab Results-Last 24 Hours 07/06/22 07/06/22 07/06/22 Range/Units 05:05 09:20 12:01 POC Glucometer 91 (74 to 106) mg/dL Lactic Acid 1.2 (0.4-2.0) Procalcitonin 0.101 H (0.030-0.080) ng/mL 07/06/22 07/06/22 07/07/22 Range/Units 17:21 21:51 07:12 POC Glucometer 66 L 97 77 (74 to 106) mg/dL Lactic Acid (0.4-2.0) Procalcitonin (0.030-0.080) ng/mL Radiology Exams: Radiology Procedures Category Date Time Status ABDOMEN AND PELVIS W CONTRAST [CT] Stat Exams 07/06/22 11:43 Completed ABDOMEN AND PELVIS W/0 CONTRAS [CT] Stat Exams 07/05/22 07:32 Completed KUB Stat Exams 07/06/22 08:54 Completed Multi-Disciplinary Progress Notes: Multi-Disciplinary Progress Notes 07/06/22 10:56 Case Management Note by Vivian Ferreira S/W PATIENTS DAUGHTER- SHE IS CONCERNED THAT PATIENT WONT BE ABLE TO REST AT HOME D/T FEELING LIKE SHE NEEDS TO CARE FOR HER WHO IS ON HOSPICE. DAUGHTER INTERESTED IN EITHER ADDING OR HHC OR SEEING IF PATIENT WOULD DO A REHAB STAY UNTIL SHE GETS ALL HER STRENGTH BACK. DAUGHTER ALSO GOING TO CONTACT PATIENT'S HUSBANDS HOSPICE COMPANY TO SEE ABOUT ADDING ADDITIONAL SERVICES TO HELP WHILE PATIENT IS RECOVERING. S/W PATIENT- SHE WILL CONSIDER REHAB AT [facility]- STATED FOR ME TO GO AHEAD AND SEND THE REFERRAL. REFERRAL FAXED AT THIS TIME. CALLED AND S/W PRAKASH AT [facility]- NOTIFIED TO EXPECT REFERRAL Initialized on 07/06/22 10:56 - END OF NOTE Assessment/Plan (1) RUQ pain Current Visit: Yes Status: Acute Assessment & Plan: recommend MRCP to further evaluate fluid collection in ruq, r/o CBD stone as her pain is more severe than expected. 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
[2022-07-07] MEDS ORDERED: Ativan 2 MG/1 ML VIAL IV SCH (08:12)
[2022-07-07 09:55] LABS: Absolute Neutrophil Ct (ANC) 4.29 x10^3/uL (1.4-6.9); Basophil (Absolute #) 0.02 x10^3/uL (0-0.4); Eosinophil % 3.5 % (0.00-5.0); Hematocrit 33.7 % (35-47); Hemoglobin 10.1 g/dL (12.0-16.0); Lymphocyte (Absolute #) 0.56 x10^3/uL (1.0-4.6); Lymphocytes % 9.9 % (24.0-44.0); Mean Cell Volume 106.6 fL (78-100); Mean Platelet Volume 8.9 fL (7.5-11.0); Monocyte (Absolute #) 0.56 x10^3/uL (0.0-1.3); Monocytes % 9.9 % (0.0-12.0); Neutrophil % 75.9 % (36.0-66.0); Platelet Count 328 x10^3/uL (150-450); Red Blood Count 3.16 x10^6/uL (4.1-5.4); Red Cell Distribution Width 16.7 % (11.5-14.0); White Blood Count 5.7 x10^3/uL (4.0-10.5)
[2022-07-07 10:08] LABS: ALBUMIN 3.2 g/dL (3.5-5.0); ANION GAP 9.9 MEQ/L (5-15); BILIRUBIN,TOTAL 1.7 mg/dL (0.2-1.3); Calcium 7.3 mg/dL (8.4-10.2); Creatinine 1 1.02 mg/dL (0.52-1.04); EST GLOMERULAR FILTRATION RATE 56.8 ML/MIN; Potassium 4.1 mmol/L (3.5-5.1)
[2022-07-07 10:54] LABS: Slide Review 1 YES
[2022-07-07] MEDS: NORCO 7.5/325 MG TAB PO SCH ×2 (12:11→22:43)
[2022-07-07] MEDS: hydroDIURIL 25 MG PO SCH (12:33)
[2022-07-07] MEDS: HYDROCORTISONE PO SCH ×2 (12:36→17:16)
[2022-07-07] MEDS: Cymbalta 30 MG Capsule PO SCH (12:38)
[2022-07-07] MEDS: Abilify 10 MG PO SCH (12:38)
[2022-07-07] MEDS: Protonix 40MG Tablet PO SCH (12:42)
[2022-07-07] MEDS: CLARITIN 10 MG PO SCH (12:51)
[2022-07-07] MEDS: Cyclobenzaprine 10 MG PO SCH ×2 (12:51→22:43)
[2022-07-07] MEDS: FOLATE 1 MG PO SCH (12:51)
[2022-07-07] MEDS: HOLD METFORMIN PRODUCTS FOR 48 HOURS MC SCH (12:52)
[2022-07-07] MEDS: PATIENT OWN MEDICATION PO SCH ×2 (12:54→22:43)
[2022-07-07] MEDS: TYLENOL 325 MG PO PRN (16:53)
[2022-07-07] MEDS: ZOCOR 20MG PO SCH (22:43)
[2022-07-08] MEDS: PIPERACILLIN/TAZOBACTAM 3.375 GM in Sodium Chloride 100ML MINI-BAG PLUS 100 ML IV SCH ×4 (00:04→17:36)
[2022-07-08] MEDS: Dextrose 5% -0.45 NaCl 1000 ML 1,000 ML IV SCH ×2 (00:07→17:42)
[2022-07-08] MEDS: Hydromorphone 1 mg/ml Injection IV SCH ×6 (01:58→15:14)
[2022-07-08 06:05] LABS: Absolute Neutrophil Ct (ANC) 3.67 x10^3/uL (1.4-6.9); Basophil (Absolute #) 0.01 x10^3/uL (0-0.4); Eosinophil % 1.8 % (0.00-5.0); Eosinophil (Absolute #) 0.08 x10^3/uL (0-0.5); Hematocrit 31.9 % (35-47); Hemoglobin 9.6 g/dL (12.0-16.0); Lymphocyte (Absolute #) 0.31 x10^3/uL (1.0-4.6); Lymphocytes % 6.8 % (24.0-44.0); Mean Cell Volume 103.6 fL (78-100); Mean Corpuscular Hemoglobin 31.2 pg (26-32); Mean Corpuscular Hgb Concent. 30.1 g/dL (32-36); Mean Platelet Volume 9.1 fL (7.5-11.0); Monocyte (Absolute #) 0.45 x10^3/uL (0.0-1.3); Monocytes % 9.9 % (0.0-12.0); Neutrophil % 80.9 % (36.0-66.0); Platelet Count 270 x10^3/uL (150-450); Red Blood Count 3.08 x10^6/uL (4.1-5.4); Red Cell Distribution Width 16.4 % (11.5-14.0); White Blood Count 4.5 x10^3/uL (4.0-10.5)
[2022-07-08] MEDS ORDERED: Hydromorphone 1 mg/ml Injection ONE (06:14)
[2022-07-08 06:47] LABS: ALBUMIN 2.7 g/dL (3.5-5.0); ALKALINE PHOSPHATASE 123 U/L (38-126); ANION GAP 6.8 MEQ/L (5-15); BLOOD UREA NITROGEN 8 mg/dL (7-17); CHLORIDE 106 mmol/L (98-107); Calcium 7.8 mg/dL (8.4-10.2); Carbon Dioxide 28 mmol/L (22-30); Creatinine 1 0.82 mg/dL (0.52-1.04); EST GLOMERULAR FILTRATION RATE > 60.0 ML/MIN; Glucose 122 mg/dL (74-106); Potassium 3.3 mmol/L (3.5-5.1); SGOT/AST 30 U/L (14-36); SGPT/ALT 30 U/L (0-35); SODIUM 137 mmol/L (137-145); Total Protein 5.1 g/dL (6.3-8.2)
[2022-07-08] MEDS: PATIENT OWN MEDICATION IH SCH ×2 (07:38→19:04)
[2022-07-08] MEDS: PROVENTIL 2.5 MG/3 ML NEB IH PRN (07:38)
[2022-07-08] MEDS: Cymbalta 30 MG Capsule PO SCH (09:22)
[2022-07-08] MEDS: Abilify 10 MG PO SCH (09:23)
[2022-07-08] MEDS: Cyclobenzaprine 10 MG PO SCH ×2 (09:23→21:07)
[2022-07-08] MEDS: NORCO 7.5/325 MG TAB PO SCH ×2 (09:25→21:07)
[2022-07-08] MEDS: CLARITIN 10 MG PO SCH (09:25)
[2022-07-08] MEDS: Protonix 40MG Tablet PO SCH (09:26)
[2022-07-08] MEDS: FOLATE 1 MG PO SCH (09:26)
[2022-07-08] MEDS: hydroDIURIL 25 MG PO SCH (09:26)
[2022-07-08] MEDS: PATIENT OWN MEDICATION PO SCH ×2 (09:27→21:08)
[2022-07-08] MEDS: HYDROCORTISONE PO SCH ×2 (09:27→17:36)
[2022-07-08] MEDS ORDERED: Klor Con PO SCH (11:00)
[2022-07-08 11:01] LABS: Slide Review 1 YES
[2022-07-08] MEDS: ENOXAPARIN SODIUM SQ SCH (14:37)
[2022-07-08 15:39] LABS: ANION GAP 6.8 MEQ/L (5-15); BLOOD UREA NITROGEN 6 mg/dL (7-17); CHLORIDE 106 mmol/L (98-107); Calcium 8.2 mg/dL (8.4-10.2); Carbon Dioxide 29 mmol/L (22-30); Creatinine 1 0.85 mg/dL (0.52-1.04); EST GLOMERULAR FILTRATION RATE > 60.0 ML/MIN; Glucose 130 mg/dL (74-106); Potassium 3.1 mmol/L (3.5-5.1); SODIUM 138 mmol/L (137-145)
--- NOTE | 2022-07-08 16:12 | XRAY ---
Indication: Right upper quadrant pain. Status post cholecystectomy last month. Multiple contiguous images obtained through the chest without contrast. Comparison: February 18, 2020 Lungs again demonstrates diffuse scattered fibrosis/scarring, minimal right costophrenic calcified pleural plaquing, and tiny medial left lower lobe calcified granuloma. No new pulmonary mass/nodule, infiltrate, consolidation, effusion, or pneumothorax. Heart not enlarged. Aorta remains mildly arteriosclerotic without aneurysm. Stable tiny left hilar calcified nodes. No pathologic mediastinal lymphadenopathy. Bony thorax again demonstrates osteopenia, mild degenerative changes throughout the spine, and remote T6 fracture. New findings for T7 remote superior endplate fracture with 25-50% height loss, epidural stimulator lead terminating T6-T7, and old left 3-[address] and MRI abdomen performed one day earlier. Impression: 1. Again scattered pulmonary fibrosis/scarring, right base callus or pleural plaquing, chronic bony findings, and old granulomatous disease. 2. Remaining CT chest without contrast exam is negative. Comment: Preliminary interpretation by [facility]. No critical discrepancy.
[2022-07-08] MEDS: Zofran 4 MG/2 ML VIAL IV PRN (17:46)
[2022-07-08] MEDS: ZOCOR 20MG PO SCH (21:08)
[2022-07-09] MEDS: ENOXAPARIN SODIUM SQ SCH ×3 (00:35→22:48)
[2022-07-09] MEDS: PIPERACILLIN/TAZOBACTAM 3.375 GM in Sodium Chloride 100ML MINI-BAG PLUS 100 ML IV SCH ×4 (00:35→18:33)
[2022-07-09] MEDS: Dextrose 5% -0.45 NaCl 1000 ML 1,000 ML IV SCH ×2 (04:38→19:33)
[2022-07-09] MEDS: PATIENT OWN MEDICATION IH SCH ×2 (07:43→18:38)
[2022-07-09] MEDS: PROVENTIL 2.5 MG/3 ML NEB IH PRN (07:43)
[2022-07-09] MEDS: Zofran 4 MG/2 ML VIAL IV PRN (09:05)
[2022-07-09 10:30] LABS: ANION GAP 5.8 MEQ/L (5-15); BLOOD UREA NITROGEN 5 mg/dL (7-17); CHLORIDE 103 mmol/L (98-107); Calcium 7.7 mg/dL (8.4-10.2); Carbon Dioxide 31 mmol/L (22-30); Creatinine 1 0.73 mg/dL (0.52-1.04); EST GLOMERULAR FILTRATION RATE > 60.0 ML/MIN; Glucose 95 mg/dL (74-106); SODIUM 137 mmol/L (137-145)
[2022-07-09 10:46] LABS: Potassium 2.7 mmol/L (3.5-5.1)
[2022-07-09] MEDS ORDERED: POTASSIUM CHLORIDE 20 mEq IN WATER 100ML 20 MEQ/100 ML BAG IV ONE (11:00)
[2022-07-09] MEDS ORDERED: Klor Con PO ONE (11:01)
[2022-07-09] MEDS ORDERED: Compazine 10 MG/2 ML IV ONE (11:07)
[2022-07-09] MEDS: HYDROCORTISONE PO SCH ×2 (11:31→18:34)
[2022-07-09] MEDS: FOLATE 1 MG PO SCH (11:31)
[2022-07-09] MEDS: Abilify 10 MG PO SCH (11:32)
[2022-07-09] MEDS: Cyclobenzaprine 10 MG PO SCH ×2 (11:36→22:48)
[2022-07-09] MEDS: hydroDIURIL 25 MG PO SCH (11:36)
[2022-07-09] MEDS: CLARITIN 10 MG PO SCH (11:36)
[2022-07-09] MEDS: Protonix 40MG Tablet PO SCH (11:36)
[2022-07-09] MEDS: Cymbalta 30 MG Capsule PO SCH (11:37)
[2022-07-09] MEDS: PATIENT OWN MEDICATION PO SCH ×2 (11:39→22:49)
[2022-07-09] MEDS: NORCO 7.5/325 MG TAB PO SCH ×2 (11:44→22:49)
[2022-07-09] MEDS: Hydromorphone 1 mg/ml Injection IV SCH (17:22)
[2022-07-09] MEDS: Klor Con PO SCH (22:48)
[2022-07-09] MEDS: ZOCOR 20MG PO SCH (22:49)
[2022-07-10] MEDS: PIPERACILLIN/TAZOBACTAM 3.375 GM in Sodium Chloride 100ML MINI-BAG PLUS 100 ML IV SCH ×3 (00:35→11:09)
[2022-07-10 04:43] LABS: Absolute Neutrophil Ct (ANC) 3.06 x10^3/uL (1.4-6.9); Basophil (Absolute #) 0.01 x10^3/uL (0-0.4); Eosinophil % 2.6 % (0.00-5.0); Hematocrit 32.6 % (35-47); Lymphocyte (Absolute #) 0.39 x10^3/uL (1.0-4.6); Lymphocytes % 10.1 % (24.0-44.0); Mean Cell Volume 103.2 fL (78-100); Mean Corpuscular Hemoglobin 31.6 pg (26-32); Mean Corpuscular Hgb Concent. 30.7 g/dL (32-36); Monocyte (Absolute #) 0.28 x10^3/uL (0.0-1.3); Monocytes % 7.3 % (0.0-12.0); Neutrophil % 79.2 % (36.0-66.0); Platelet Count 302 x10^3/uL (150-450); Red Blood Count 3.16 x10^6/uL (4.1-5.4); Red Cell Distribution Width 17.3 % (11.5-14.0); White Blood Count 3.9 x10^3/uL (4.0-10.5)
[2022-07-10] MEDS: Dextrose 5% -0.45 NaCl 1000 ML 1,000 ML IV SCH (05:08)
[2022-07-10 05:10] LABS: ANION GAP 8.2 MEQ/L (5-15); BLOOD UREA NITROGEN 5 mg/dL (7-17); CHLORIDE 105 mmol/L (98-107); Calcium 7.1 mg/dL (8.4-10.2); Carbon Dioxide 27 mmol/L (22-30); Creatinine 1 0.71 mg/dL (0.52-1.04); EST GLOMERULAR FILTRATION RATE > 60.0 ML/MIN; Glucose 130 mg/dL (74-106); Potassium 3.2 mmol/L (3.5-5.1); SODIUM 137 mmol/L (137-145)
[2022-07-10] MEDS: PATIENT OWN MEDICATION IH SCH (06:07)
[2022-07-10 06:59] LABS: Slide Review 1 YES
[2022-07-10] MEDS: Cyclobenzaprine 10 MG PO SCH (07:47)
[2022-07-10] MEDS: Hydromorphone 1 mg/ml Injection IV SCH ×13 (08:07→16:20)
[2022-07-10] MEDS: HOLD METFORMIN PRODUCTS FOR 48 HOURS MC SCH (08:22)
--- NOTE | 2022-07-10 09:08 | PCM.DS ---
Discharge Summary Date of Admission: 07/05/22 10:10 Admitting Physician: KYARA DAWN Consults: Consults on Case 07/05/22 10:14 Consult Surgery ROUTINE Primary Care Provider: KYARA DAWN Allergies Allergies bupropion [From Wellbutrin] Adverse Reaction (Intermediate, Verified 07/05/22 10:45) Muscle Aches infliximab [From Remicade] Adverse Reaction (Intermediate, Verified 07/05/22 10:45) MUSCLE SPASMS mycophenolate mofetil [From CellCept] Adverse Reaction (Intermediate, Verified 07/05/22 10:45) Muscle Contraction, Pain Hospital Summary - Hospital Course Hospital Course: is a 71 year old female pt of mine from [facility] with PMHx RA, Mono's disease, and HTN who was admitted through ER with RUQ pain. She had a cholecystectomy on 06/21/22. Did have a hospital admission after that that showed biloma in the gallbladder fossa; surgery felt it was just post-surgical. She was doing well until the day before admission when she started having RUQ pain; initially 4/10 but quickly escalated until it was severe. She first thought she pulled a muscle or broke a rib. Has had no fall or trauma however. She had a repeat CT x 2 with no acute changes. Her AST and ALT were normal thro ughout, but her Tbili did increase x 1 day slightly then returned to normal. Surgery consulted, thank you. Currently we are trying to rule out PE; CT was unable to be done last night due to equipment issues, apparently, so is supposed to be done this morning. Her pain is improved; currently in no pain (just received dilaudid as she is concerned about her upcoming test). Otherwise pain is 4/10. Tolerating po well. Potassium is a bit low, 3.2 this morning. WBC are 3.9. Hgb is 10.0 which is stable. Addend: This afternoon, PE is neg on CT chest. Dr. Edward Morales saw pt and is okay with her being discharged to home. She will f/u with me in 1 week and with surgery if directed. - Vitals & Intake/Output Vital Signs: Vital Signs Temperature 97.9 F 07/10/22 07:48 Pulse Rate 90 07/10/22 07:48 Respiratory Rate 16 07/10/22 07:48 Blood Pressure 162/81 07/10/22 07:48 O2 Sat by Pulse Oximetry 96 07/10/22 07:48 Intake & Output: Intake & Output 07/07/22 07/08/22 07/09/22 07/10/22 11:59 11:59 11:59 11:59 Intake Total 1350 3351 3608 360 Output Total 250 4100 Balance 1100 -749 3608 360 Weight 92.8 kg 96.1 kg 97 kg 96.8 kg - Lab Result Diagrams: 07/10/22 04:45 07/10/22 04:45 Lab Results-Last 24 Hrs: Lab Results-Last 24 Hours 07/09/22 07/09/22 07/09/22 Range/Units 10:16 11:44 15:19 WBC (4.0-10.5) x10^3/uL RBC (4.1-5.4) x10^6/uL Hgb (12.0-16.0) g/dL Hct (35-47) % MCV (78-100) fL MCH (26-32) pg MCHC (32-36) g/dL RDW (11.5-14.0) % Plt Count (150-450) x10^3/uL MPV (7.5-11.0) fL Gran % (36.0-66.0) % Immature Gran % (Auto) (0.00-0.4) % Nucleat RBC Rel Count (0.00-0.1) % Eos # (Auto) (0-0.5) x10^3/uL Immature Gran # (Auto) (0.00-0.03) x10^3u/L Absolute Lymphs (auto) (1.0-4.6) x10^3/uL Absolute Monos (auto) (0.0-1.3) x10^3/uL Absolute Nucleated RBC (0.00-0.01) x10^3u/L Lymphocytes % (24.0-44.0) % Monocytes % (0.0-12.0) % Eosinophils % (0.00-5.0) % Basophils % (0.0-0.4) % Absolute Granulocytes (1.4-6.9) x10^3/uL Basophils # (0-0.4) x10^3/uL Sodium 137 (137-145) mmol/L Potassium 2.7 L* 2.9 L* (3.5-5.1) mmol/L Chloride 103 (98-107) mmol/L Carbon Dioxide 31 H (22-30) mmol/L Anion Gap 5.8 (5-15) MEQ/L BUN 5 L (7-17) mg/dL Creatinine 0.73 (0.52-1.04) mg/dL Estimated GFR > 60.0 ML/MIN Glucose 95 (74-106) mg/dL POC Glucometer 89 (74 to 106) mg/dL Calcium 7.7 L (8.4-10.2) mg/dL Slides for Path Review 07/09/22 07/09/22 07/10/22 Range/Units 16:55 20:47 04:45 WBC 3.9 L (4.0-10.5) x10^3/uL RBC 3.16 L (4.1-5.4) x10^6/uL Hgb 10.0 L (12.0-16.0) g/dL Hct 32.6 L (35-47) % MCV 103.2 H (78-100) fL MCH 31.6 (26-32) pg MCHC 30.7 L (32-36) g/dL RDW 17.3 H (11.5-14.0) % Plt Count 302 (150-450) x10^3/uL MPV 10.0 (7.5-11.0) fL Gran % 79.2 H (36.0-66.0) % Immature Gran % (Auto) 0.5 H (0.00-0.4) % Nucleat RBC Rel Count 0.5 H (0.00-0.1) % Eos # (Auto) 0.10 (0-0.5) x10^3/uL Immature Gran # (Auto) 0.02 (0.00-0.03) x10^3u/L Absolute Lymphs (auto) 0.39 L (1.0-4.6) x10^3/uL Absolute Monos (auto) 0.28 (0.0-1.3) x10^3/uL Absolute Nucleated RBC 0.02 H (0.00-0.01) x10^3u/L Lymphocytes % 10.1 L (24.0-44.0) % Monocytes % 7.3 (0.0-12.0) % Eosinophils % 2.6 (0.00-5.0) % Basophils % 0.3 (0.0-0.4) % Absolute Granulocytes 3.06 (1.4-6.9) x10^3/uL Basophils # 0.01 (0-0.4) x10^3/uL Sodium (137-145) mmol/L Potassium (3.5-5.1) mmol/L Chloride (98-107) mmol/L Carbon Dioxide (22-30) mmol/L Anion Gap (5-15) MEQ/L BUN (7-17) mg/dL Creatinine (0.52-1.04) mg/dL Estimated GFR ML/MIN Glucose (74-106) mg/dL POC Glucometer 116 H 128 H (74 to 106) mg/dL Calcium (8.4-10.2) mg/dL Slides for Path Review YES 07/10/22 07/10/22 Range/Units 04:45 07:42 WBC (4.0-10.5) x10^3/uL RBC (4.1-5.4) x10^6/uL Hgb (12.0-16.0) g/dL Hct (35-47) % MCV (78-100) fL MCH (26-32) pg MCHC (32-36) g/dL RDW (11.5-14.0) % Plt Count (150-450) x10^3/uL MPV (7.5-11.0) fL Gran % (36.0-66.0) % Immature Gran % (Auto) (0.00-0.4) % Nucleat RBC Rel Count (0.00-0.1) % Eos # (Auto) (0-0.5) x10^3/uL Immature Gran # (Auto) (0.00-0.03) x10^3u/L Absolute Lymphs (auto) (1.0-4.6) x10^3/uL Absolute Monos (auto) (0.0-1.3) x10^3/uL Absolute Nucleated RBC (0.00-0.01) x10^3u/L Lymphocytes % (24.0-44.0) % Monocytes % (0.0-12.0) % Eosinophils % (0.00-5.0) % Basophils % (0.0-0.4) % Absolute Granulocytes (1.4-6.9) x10^3/uL Basophils # (0-0.4) x10^3/uL Sodium 137 (137-145) mmol/L Potassium 3.2 L (3.5-5.1) mmol/L Chloride 105 (98-107) mmol/L Carbon Dioxide 27 (22-30) mmol/L Anion Gap 8.2 (5-15) MEQ/L BUN 5 L (7-17) mg/dL Creatinine 0.71 (0.52-1.04) mg/dL Estimated GFR > 60.0 ML/MIN Glucose 130 H (74-106) mg/dL POC Glucometer 87 (74 to 106) mg/dL Calcium 7.1 L (8.4-10.2) mg/dL Slides for Path Review Micro Results-Entire Visit: Microbiology 07/05/22 11:50 Blood Culture Gram Stain - Final Blood Not Reportable Blood Culture - Final NO GROWTH 07/05/22 11:51 Blood Culture Gram Stain - Final Blood Not Reportable Blood Culture - Final NO GROWTH 07/05/22 07:46 Urine Culture - Final Catherized NO GROWTH Accuchecks Date 07/10/22 Date 07/09/22 Date 07/09/22 Date 07/09/22 Time 07:48 Time 21:00 Time 11:44 - Radiology Exams Ordered Rad Exams-Entire Visit: Radiology Procedures Category Date Time Status CHEST WITH CONTRAST [CT] Routine Exams 07/10/22 08:00 Ordered CHEST WITHOUT CONTRAST [CT] Routine Exams 07/08/22 10:40 Completed - Procedures and Test Procedures and Tests throughout Hospitalization: Therapy Orders & Screens 07/05/22 13:06 Oxygen Nasal Cannula 2 lpm Comment: Diagnosis: Abd pain, s/p lap choley jun 05 2022. 07/05/22 13:09 Respiratory Therapy Assessment DAILY Comment: Diagnosis: Abd pain, s/p lap choley jun 05 2022. 07/07/22 00:06 Respiratory MDI BID Comment: Diagnosis: Abd pain, s/p lap choley jun 05 2022. Discharge Exam General Appearance: no apparent distress, alert Neurologic Exam: oriented x 3, cooperative Eye Exam: eyes nml inspection Ears, Nose, Throat Exam: moist mucous membranes Neck Exam: normal inspection Respiratory Exam: normal breath sounds, lungs clear, No crackles/rales, No rhonchi, No wheezing Cardiovascular Exam: regular rate/rhythm, normal heart sounds, No murmur Gastrointestinal/Abdomen Exam: No distention Back Exam: normal inspection, No rash Extremity Exam: normal inspection, swelling (LLE trace pretibial edema bilat) Skin Exam: normal color, warm, dry, No rash Final Diagnosis/Problem List - Final Discharge Diagnosis/Problem (1) RUQ pain Current Visit: Yes Status: Acute Assessment & Plan: will r/o PE today, if neg will d/c pt to home. 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 875 mg [Augmentin 875-125 Tablet] 875 mg PO BID #6 tablet Potassium Chloride Tab* [Klor Con] 40 meq PO BID #60 tablet Continue Omeprazole 40 mg PO DAILY Folic Acid 1 mg [Folate 1 mg] 1 mg PO DAILY Duloxetine HCl 120 mg PO DAILY Atorvastatin Calcium [Lipitor 20MG Tablet] 40 mg PO QHS Hydrocortisone 30 mg PO QAM Hydrocodone/Acetaminophen [Hydrocodone-Acetamin 7.5-325] 1 each PO BID Hydrochlorothiazide 25 mg [hydroDIURIL 25 MG] 25 mg PO DAILY Loratadine 10 mg [Claritin 10 mg] 10 mg PO DAILY Aripiprazole 10 mg [Abilify 10 MG] 5 mg PO DAILY Budesonide/Glycopyr/Formoterol [Breztri Aerosphere Inhaler] 2 puff IH BID Nintedanib Esylate [Ofev] 150 mg PO BID Empagliflozin/Metformin HCl [Synjardy Xr 10-1,000 mg Tablet] 1 each PO DAILY Calcium Carbonate/Vitamin D3 [Oyster Shell Calcium-Vit D Tab] 1 each PO BID Hydrocortisone 10 mg PO DINNER Upadacitinib [Rinvoq] 15 mg PO DAILY Furosemide 20 mg [Lasix 20 mg] 40 mg PO DAILY Cyclobenzaprine HCl 10 mg PO BID Discontinued Potassium Chloride 40 mg PO DAILY Additional Instructions: REFERRAL WAS SENT TO [facility]. THEY WILL REACH OUT TO SCHEDULED A TIME TO COME SEE YOU. THEIR PHONE NUMBER IS [phone] Follow up with: CRISTIAN MORALES [Family Provider] - KYARA DAWN [Primary Care Provider] -
[2022-07-10] MEDS: CLARITIN 10 MG PO SCH (09:25)
[2022-07-10] MEDS: Cymbalta 30 MG Capsule PO SCH (09:25)
[2022-07-10] MEDS: Klor Con PO SCH (09:25)
[2022-07-10] MEDS: hydroDIURIL 25 MG PO SCH (09:25)
[2022-07-10] MEDS: Abilify 10 MG PO SCH (09:25)
[2022-07-10] MEDS: NORCO 7.5/325 MG TAB PO SCH (09:25)
[2022-07-10] MEDS: FOLATE 1 MG PO SCH (09:25)
[2022-07-10] MEDS: ENOXAPARIN SODIUM SQ SCH (09:26)
[2022-07-10] MEDS: Protonix 40MG Tablet PO SCH (09:26)
[2022-07-10] MEDS: HYDROCORTISONE PO SCH ×2 (09:26→17:39)
[2022-07-10] MEDS: PATIENT OWN MEDICATION PO SCH (09:27)
--- NOTE | 2022-07-10 09:48 | PROG NOTE ---
HISTORY: Miss Salgado had a cholecystectomy by Dr. Ariza in the last month. She was seen and examined yesterday by me. She is still having abdominal pain. The pain is very specific right upper quadrant. She did say no symptomatology from her post-gallbladder course and then she developed this right upper quadrant tenderness. A CT scan shows 3.8 x 2.8 x 1.8 cm fluid-filled area in the gallbladder fossa. These films were reviewed and does not look very impressive. The biliary tree is of normal size. Bilirubin was 1.3 yesterday and now it is up to 1.7. She did have a MRCP today which was basically read as normal. IMPRESSION: She was seen and examined at the bedside. She is sitting in a chair. She is doing pretty well during the day. She has worse pain at night. She has not had a HIDA scan today and we did not know the exact nature of the fluid in the gallbladder fossa yet. Her daughter is present and her questions are answered. In general, she is doing fairly well. She has slight trace of bilirubin elevation. We probably do need to check her HIDA scan which is not available until Sunday. Consideration at least of needle aspiration of the right upper quadrant fluid collection. PLAN: We will follow her over the weekend. We may need to transfer her to [facility] for drainage of this on Sunday.
[2022-07-10 12:07] VITALS: O2SAT 95
--- NOTE | 2022-07-10 13:03 | XRAY ---
Indication: Elevated d-dimer. Multiple contiguous axial images obtained through the chest using 100 cc Isovue 370 contrast and PE protocol. Comparison: July 08, 2022 Good opacification of the pulmonary arteries to include the lobar and segmental branches. No pulmonary embolus. Heart not enlarged. Aorta remains mildly atherosclerotic without aneurysm/dissection. Stable tiny left hilar calcified nodes. No pathologic mediastinal/hilar lymphadenopathy. Incidental small hiatal hernia. Lungs again demonstrates diffuse scattered fibrosis/scarring, minimal right costophrenic angle calcified pleural plaquing, and medial left lower lobe calcified granuloma. No new pulmonary mass, infiltrate, or effusion. Bony thorax intact again with osteopenia, degenerative changes of the spine, remote T6/T7 fractures, old left rib fractures, and 2 epidural stimulator leads. Limited upper abdomen again demonstrates cholecystectomy clips with small fluid collection in the gallbladder fossa, fatty liver, and tiny hepatic/splenic calcified granulomas. Impression: 1. Negative pulmonary embolus. No new/acute cardiopulmonary abnormalities. 2. Chronic findings including pulmonary fibrosis/scarring, right base calcified pleural plaquing, small hiatal hernia, chronic bony findings, fatty liver, and old granulomatous disease. 3. Again cholecystectomy with small fluid collection in the gallbladder fossa.
[2022-07-10 16:12] VITALS: BP 133/87; PULSE 92
[2022-07-10] MEDS: TYLENOL 325 MG PO PRN (16:17)
--- NOTE | 2022-07-12 08:16 | XRAY ---
Indication: Pain. Status post cholecystectomy June 05, 2022. Conventional MRCP performed. Comparison: None No abnormal biliary or pancreatic duct dilatation. Common bile duct measures 4 mm. No choledochal stone. Gallbladder surgically with fluid collection in the gallbladder fossa measuring at least 3.7 x 2.7 x 1.8 cm. Visualized stomach and bowel loops appear nonobstructed. 2.9 cm left lower renal cyst. Remaining visualized liver, pancreas, spleen, adrenal glands, kidneys, and aorta/IVC are unremarkable. No abnormal bone marrow signal. Impression: 1. Cholecystectomy without abnormal biliary distention. 2. Small fluid collection in the gallbladder fossa as detailed. As reported on recent CT, rule out abscess versus biloma. As mentioned previously, nuclear medicine HIDA scan may help differentiate.
== END 2022-07-10 18:30 | disposition home or self-care (01) | DRG 392 ==
LOC: ED 07:23 → MED SURG 10:10
PROVIDERS: ADMIT Family Medicine; ATTEND Family Medicine
DX: R10.11 Right upper quadrant pain (principal); E27.1 Primary adrenocortical insufficiency; E87.6 Hypokalemia; I73.9 Peripheral vascular disease, unspecified; I12.9 Hypertensive chronic kidney disease with stage 1 through stage 4 chronic kidney disease, or unspecified chronic kidney disease; E11.22 Type 2 diabetes mellitus with diabetic chronic kidney disease; N18.30 Chronic kidney disease, stage 3 unspecified; M06.9 Rheumatoid arthritis, unspecified; T88.8XXA Other specified complications of surgical and medical care, not elsewhere classified, initial encounter; Z79.899 Other long term (current) drug therapy; Z20.828 Contact with and (suspected) exposure to other viral communicable diseases
CPT/HCPCS: 0241U; 36000; 36415; 71250; 71260; 74018; 74176; 74177; 74181; 80048; 80053; 81015; 82150; 82947; 83605; 83690; 84132; 84145; 85025; 85379; 87040; 87086; 94640; 94760; 94762; 96360; 96365; 96374; 96375; 96376; 99285; P9612; J1170; J1650; J1720; J1885; J2405; J3480; J7609; A9270-GY

== ENCOUNTER 2022-08-07 14:26 | Observation (INO) | payer MEDICARE, OTHER ==
[2022-08-07 15:28] LABS: Absolute Neutrophil Ct (ANC) 5.17 x10^3/uL (1.4-6.9); Basophil (Absolute #) 0.01 x10^3/uL (0-0.4); Eosinophil (Absolute #) 0 x10^3/uL (0-0.5); Hematocrit 38.8 % (35-47); Lymphocyte (Absolute #) 0.36 x10^3/uL (1.0-4.6); Lymphocytes % 6.1 % (24.0-44.0); Mean Cell Volume 100.5 fL (78-100); Mean Corpuscular Hemoglobin 31.1 pg (26-32); Mean Corpuscular Hgb Concent. 30.9 g/dL (32-36); Mean Platelet Volume 9.7 fL (7.5-11.0); Monocyte (Absolute #) 0.33 x10^3/uL (0.0-1.3); Monocytes % 5.6 % (0.0-12.0); Neutrophil % 87.6 % (36.0-66.0); Platelet Count 366 x10^3/uL (150-450); Red Blood Count 3.86 x10^6/uL (4.1-5.4); Red Cell Distribution Width 15.9 % (11.5-14.0); White Blood Count 5.9 x10^3/uL (4.0-10.5)
[2022-08-07 15:38] LABS: ALBUMIN 3.2 g/dL (3.5-5.0); ANION GAP 10.2 MEQ/L (5-15); BILIRUBIN,TOTAL 0.5 mg/dL (0.2-1.3); Calcium 7.9 mg/dL (8.4-10.2); Creatinine 1 1.07 mg/dL (0.52-1.04); EST GLOMERULAR FILTRATION RATE 53.7 ML/MIN; MAGNESIUM 1.7 mg/dL (1.6-2.3); Potassium 3.9 mmol/L (3.5-5.1); Total Protein 5.9 g/dL (6.3-8.2)
[2022-08-07 15:53] LABS: Slide Review 1 YES
--- NOTE | 2022-08-07 16:19 | XRAY ---
Indication: Short of breath. Positive Covid 19. Comparison: June 20, 2022 Portable chest less inflated with stable minimal left base subsegmental atelectasis/scarring and right costophrenic angle suture material. Remaining heart and lungs unremarkable. Bony thorax intact again with osteopenia, degenerative changes, old left 6 rib fracture, and epidural stimulator device/leads. Impression: Continued nonacute chest with chronic features.
--- NOTE | 2022-08-07 17:03 | ERPHSYRPT ---
- History of Present Illness Time Seen by Provider: 08/07/22 17:02 Source: patient Patient Subjective Stated Complaint: Pt c/o of covid symptoms of SOB and body aches, Sunday of covid contributing to his lung disease and she would like to attend his service Triage Nursing Assessment: Pt brought to the ER by her son, vitals wnl, rates generalized pain/achiness as 4/10, white thick sputum cough, covid + on but not symptomatic until Sunday, on Sunday due to covid contributing to his illness, pulses normal, skin n/w/d, appears tired, has been wearing 2L NC of her husbands at home due to her oxygen was in the high 80's Physician History: Patient 71-year-old female presents to our emergency department for evaluation status post COVID positivity. Patient complaining of shortness of breath and body aches. Patient states she assessed her O2 sat at home and it was in the high 80s. Patient applied home oxygen that belonged to her recently . Patient experiencing diffuse myalgias. Patient not in any respiratory distress during this evaluation. Patient denies pain otherwise. No chest pain. No nausea vomiting or diaphoresis. Symptoms are mild to moderate in intensity. No specific worsening improving factors. Patient voices no other complaints or concerns at this time. Portions of this note were created with voice recognition technology. There may be grammatical, spelling, punctuation or sound alike errors Timing/Duration: yesterday Severity: moderate Modifying Factors: Improves With: nothing Associated Symptoms: denies symptoms, No nausea, No vomiting, No abdominal pain, No heartburn, No fever, No headaches, No syncope, No seizure, No weakness Allergies/Adverse Reactions: bupropion [From Wellbutrin] Adverse Reaction (Intermediate, Verified 07/05/22 10:45) Muscle Aches infliximab [From Remicade] Adverse Reaction (Intermediate, Verified 07/05/22 10:45) MUSCLE SPASMS mycophenolate mofetil [From CellCept] Adverse Reaction (Intermediate, Verified 07/05/22 10:45) Muscle Contraction, Pain Home Medications: Atorvastatin Calcium [Lipitor 20MG Tablet] 40 mg PO QHS 02/18/20 [History] Duloxetine HCl 120 mg PO DAILY 02/18/20 [History] Folic Acid 1 mg [Folate 1 mg] 1 mg PO DAILY 02/18/20 [History] Hydrocortisone 30 mg PO QAM 02/18/20 [History] Aripiprazole 10 mg [Abilify 10 MG] 5 mg PO DAILY 06/20/22 [History] Budesonide/Glycopyr/Formoterol [Breztri Aerosphere Inhaler] 2 puff IH BID 06/20/22 [History] Calcium Carbonate/Vitamin D3 [Oyster Shell Calcium-Vit D Tab] 2 each PO DAILY 06/20/22 [History] Empagliflozin/Metformin HCl [Synjardy Xr 10-1,000 mg Tablet] 1 each PO DAILY 1 [History] Furosemide 20 mg [Lasix 20 mg] 40 mg PO DAILY 06/20/22 [History] Hydrocodone/Acetaminophen [Hydrocodone-Acetamin 7.5-325] 1 each PO QIDPRN PRN 06/20/22 [History] Hydrocortisone 10 mg PO DINNER 06/20/22 [History] Loratadine 10 mg [Claritin 10 mg] 10 mg PO DAILY 06/20/22 [History] Nintedanib Esylate [Ofev] 300 mg PO DAILY 06/20/22 [History] Upadacitinib [Rinvoq] 15 mg PO DAILY 06/20/22 [History] Aspirin EC 81 mg [Ecotrin 81 mg] 81 mg PO DAILY 08/07/22 [History] Cyclobenzaprine HCl 10 mg [Cyclobenzaprine 10 MG] 10 mg PO QIDPRN PRN 08/07/22 [History] Omeprazole Magnesium [Prilosec Otc] 40 mg PO DAILY 08/07/22 [History] Potassium Chloride Tab* [Klor Con] 40 meq PO DAILY 08/07/22 [History] Hx Tetanus, Diphtheria Vaccination/Date Given: Yes Hx Influenza Vaccination/Date Given: Yes Hx Pneumococcal Vaccination/Date Given: No Travel Risk - International Travel Have you traveled outside of the country in past 3 weeks: No - Coronavirus Screening Are you exhibiting any of the following symptoms?: Yes Symptoms: Fever, Cough: New Onset, Shortness of Breath, Vomiting/Diarrhea, Headaches/Body Aches/Fatigue Close contact with a COVID-19 positive Pt in past 14-21 Days: Yes - Vaccine Status Have you recieved a Covid-19 vaccination: Yes [employer]: [employer] - Vaccination Dates Date of 2cond Vaccination (if applicable): 2020 - Review of Systems Constitutional: No Symptoms, No Fever, No Chills Eyes: No Symptoms Ears, Nose, & Throat: No Symptoms Respiratory: No Symptoms, No Cough, No Dyspnea Cardiac: No Symptoms, No Chest Pain, No Edema, No Syncope Abdominal/Gastrointestinal: No Symptoms, No Abdominal Pain, No Nausea, No Vomiting, No Diarrhea Genitourinary Symptoms: No Symptoms, No Dysuria Musculoskeletal: No Symptoms, No Back Pain, No Neck Pain Skin: No Symptoms, No Rash Neurological: No Symptoms, No Dizziness, No Focal Weakness, No Sensory Changes Psychological: No Symptoms Endocrine: No Symptoms Hematologic/Lymphatic: No Symptoms Immunological/Allergic: No Symptoms All Other Systems: Reviewed and Negative - Past Medical History Pertinent Past Medical History: Yes Neurological History: No Pertinent History ENT History: No Pertinent History Cardiac History: High Cholesterol, Hypertension, Peripheral Vascular Disease Respiratory History: COPD Endocrine Medical History: No Pertinent History, Diabetes Type II, Yung's Disease Musculoskeletal History: Fractures, Arthritis, Rheumatoid Arthritis, Osteoarthritis, Degenerative Disk Disease GI Medical History: No Pertinent History History: No Pertinent History Psycho-Social History: No Pertinent History Female Reproductive Disorders: Other Other Medical History: OOPHORECTOMY RIGHT 1991. RIGHT HIP REPLACEMENT 2013. NERVE BLOCK FOR LUMBAR REGION 2017. LUNG BIOPSY 2019. YUNG'S DISEASE. - Past Surgical History Past Surgical History: Yes Neuro Surgical History: No Pertinent History Cardiac: Cardiac Catheterization Respiratory: No Pertinent History Gastrointestinal: Cholecystectomy Genitourinary: No Pertinent History Musculoskeletal: No Pertinent History, Orthopedic Surgery Female Surgical History: Other Other Surgical History: right oopherectomy, carpal tunnel surgery, and rt hip replacement, lung biopsy 2019 - Social History Smoking Status: Former smoker How long have you smoked: 5 Exposure to second hand smoke: No Drug Use: none Patient Lives Alone: No - Nursing Vital Signs Nursing Vital Signs: Initial Vital Signs Temperature 98.0 F 08/07/22 14:34 Pulse Rate 95 H 08/07/22 14:34 Respiratory Rate 15 08/07/22 14:34 Blood Pressure 119/63 08/07/22 14:34 O2 Sat by Pulse Oximetry 98 08/07/22 14:34 Pain Scale Pain Intensity 0 - Physical Exam General Appearance: no apparent distress, alert Eye Exam: PERRL/EOMI, eyes nml inspection Ears, Nose, Throat Exam: normal ENT inspection, TMs normal, pharynx normal, moist mucous membranes Neck Exam: normal inspection, non-tender, supple, full range of motion Respiratory Exam: normal breath sounds, lungs clear, airway intact, No respirat ory distress Cardiovascular Exam: regular rate/rhythm, normal heart sounds, normal peripheral pulses Gastrointestinal/Abdomen Exam: soft, normal bowel sounds, No tenderness, No mass Back Exam: normal inspection, normal range of motion, No CVA tenderness, No vertebral tenderness Extremity Exam: normal inspection, normal range of motion, pelvis stable Neurologic Exam: alert, oriented x 3, cooperative, normal mood/affect, nml cerebellar function, nml station & gait, sensation nml, No motor deficits Skin Exam: normal color, warm, dry, No rash Lymphatic Exam: No adenopathy SpO2 Interpretation: normal SpO2: 95 O2 Delivery: Room Air - Course Nursing assessment & vital signs reviewed: Yes - Radiology Exams Chest X-ray Interpretation: Teleradiologist Report (Nonacute chest with chronic features) - CT Exams Chest CT Interpretation: Tele-radiologist Report (No change compared to 07/10/2022. C ontinue negative PE. No new acute findings) Ordered Tests: Active Orders 24 hr Category Date Time Status Bedrest with BRP/BSC ROUTINE Activity 08/07/22 20:22 Active Brush Clearer Surveying ROUTINE Care 08/07/22 20:22 Active Brush Clearer Surveying STAT Care 08/07/22 15:23 Completed EKG-ER Only STAT Care 08/07/22 15:21 Completed IV Insertion STAT Care 08/07/22 15:21 Completed Isolation, Initiate & Maintain Q6H Care 08/07/22 20:22 Active Neuro Checks Q4H Care 08/07/22 20:[address] in Observation ROUTINE Care 08/07/22 20:22 Active Pulse Oximetry (ED) STAT Care 08/07/22 15:21 Completed Telemetry q4h Care 08/07/22 20:22 Active Vital Signs Q4H Care 08/07/22 20:22 Completed Consistent Carbohydrate Diet 1800 Calorie Diet 08/08/22 Breakfast Active CHEST 1 VIEW (PORTABLE) Stat Exams 08/07/22 15:30 Completed CHEST WITH CONTRAST [CT] Stat Exams 08/07/22 18:20 Taken BNP [NT PRO BNP] Stat Lab 08/07/22 17:50 Completed CBC W DIFF AM.LAB Lab 08/08/22 04:00 Ordered CBC W DIFF Stat Lab 08/07/22 15:29 Completed CMP AM.LAB Lab 08/08/22 04:00 Ordered CMP Stat Lab 08/07/22 15:29 Completed CULTURE,URINE Stat Lab 08/07/22 19:08 Received D-DIMER QUANTITATIVE AM.LAB Lab 08/08/22 04:00 Ordered D-DIMER QUANTITATIVE Stat Lab 08/07/22 17:50 Completed MAGNESIUM Stat Lab 08/07/22 15:29 Completed TROPONIN Q4H Lab 08/07/22 15:29 Completed TROPONIN Q4H Lab 08/07/22 18:15 Completed TROPONIN Q4H Lab 08/07/22 23:25 Received UA W/RFX CULTURE Stat Lab 08/07/22 19:08 Completed Pulse Oximetry ROUTINE RT 08/07/22 20:22 Completed Respiratory Therapy Consult ROUTINE RT 08/07/22 20:22 Completed Transfer Order Routine Transfer 08/07/22 Completed Medication Summary Generic Name Dose Route Start Last Admin Trade Name Freq PRN Reason Stop Dose Admin Acetaminophen 650 mg 08/07/22 20:22 Acetaminophen 325 Mg Tablet PO 09/06/22 20:21 Q4H PRN PRN PAIN AND/OR FEVER Hydrocodone Bitart/Acetaminophen 1 tab 08/07/22 22:04 Hydrocodone /Apap 7.5/325 Mg 1 Each Tablet PO 08/12/22 22:03 QID PRN PRN PAIN Albuterol Sulfate 4 puff 08/07/22 20:22 Albuterol Common Canister Inhaler IH 09/06/22 20:21 Q4H PRN PRN SHORTNESS OF BREATH/WHEEZING Cyclobenzaprine HCl 10 mg 08/07/22 22:03 Cyclobenzaprine Hcl 10 Mg Tablet PO 08/07/22 22:04 QID PRN ONE Dexamethasone Sodium Phosphate 6 mg 08/08/22 10:00 Dexamethasone Sod Phosphate 10 Mg/Ml IV 08/12/22 09:59 DAILY MARNI Enoxaparin Sodium 40 mg 08/08/22 10:00 Enoxaparin Sodium 40 Mg/0.4 Ml Syringe SQ 09/07/22 09:59 DAILY MARNI Sodium Chloride 1,000 mls @ 0 mls/hr 08/07/22 20:22 Sodium Chloride 0.9% 1000 Ml IV 09/06/22 20:21 .Q0M MARNI KVO Pantoprazole Sodium 40 mg 08/08/22 10:00 Pantoprazole 40 Mg Vial IV 09/07/22 09:59 Q24H10 MARNI Patient Own Medication 2 each 08/08/22 07:00 Patient Own Med Misc IH 09/07/22 06:59 BIDRT MARNI Simvastatin 40 mg 08/08/22 22:00 08/07/22 22:13 Simvastatin 20 Mg Tablet PO 09/07/22 21:59 40 mg HS MARNI Administration Discontinued Medications Generic Name Dose Route Start Last Admin Trade Name Freq PRN Reason Stop Dose Admin Albuterol Sulfate 2.5 mg 08/07/22 17:40 08/07/22 17:49 Albuterol Sulfate 2.5 Mg/3 Ml Neb IH 08/07/22 17:41 2.5 mg STAT ONE Administration Albuterol Sulfate Confirm 08/07/22 17:46 Albuterol Sulfate 2.5 Mg/3 Ml Neb Administered 08/07/22 17:47 Dose 2.5 mg IH .STK-MED ONE Dexamethasone Sodium Phosphate 6 mg 08/07/22 17:38 08/07/22 17:55 Dexamethasone Sod Phosphate 10 Mg/Ml IV 08/07/22 17:39 6 mg STAT ONE Administration Dexamethasone Sodium Phosphate Confirm 08/07/22 17:50 Dexamethasone Sod Phosphate 10 Mg/Ml Administered 08/07/22 17:51 Dose 10 mg .ROUTE .STK-MED ONE Sodium Chloride 1,000 mls @ 100 mls/hr 08/07/22 17:45 08/07/22 17:55 Sodium Chloride 0.9% 1000 Ml IV 09/06/22 17:44 100 mls/hr .Q10H MARNI Administration Remdesivir 200 mg/ Sodium 250 mls @ 125 mls/hr 08/07/22 17:51 Chloride IV 08/07/22 19:50 ONCE ONE Sodium Chloride Confirm 08/07/22 17:50 Sodium Chloride 0.9% 1000 Ml Administered 08/07/22 17:51 Dose 1,000 mls @ ud .ROUTE .STK-MED ONE Simvastatin Confirm 08/07/22 22:10 Simvastatin 20 Mg Tablet Administered 08/07/22 22:11 Dose 40 mg .ROUTE .STK-MED ONE Lab/Rad Data: Laboratory Result Diagrams 08/07/22 15:29 08/07/22 15:29 Laboratory Results 08/07/22 08/07/22 08/07/22 Range/Units 19:08 18:15 18:15 WBC (4.0-10.5) x10^3/uL RBC (4.1-5.4) x10^6/uL Hgb (12.0-16.0) g/dL Hct (35-47) % MCV (78-100) fL MCH (26-32) pg MCHC (32-36) g/dL RDW (11.5-14.0) % Plt Count (150-450) x10^3/uL MPV (7.5-11.0) fL Gran % (36.0-66.0) % Immature Gran % (Auto) (0.00-0.4) % Nucleat RBC Rel Count (0.00-0.1) % Eos # (Auto) (0-0.5) x10^3/uL Immature Gran # (Auto) (0.00-0.03) x10^3u/L Absolute Lymphs (auto) (1.0-4.6) x10^3/uL Absolute Monos (auto) (0.0-1.3) x10^3/uL Absolute Nucleated RBC (0.00-0.01) x10^3u/L Lymphocytes % (24.0-44.0) % Monocytes % (0.0-12.0) % Eosinophils % (0.00-5.0) % Basophils % (0.0-0.4) % Absolute Granulocytes (1.4-6.9) x10^3/uL Basophils # (0-0.4) x10^3/uL D-Dimer (0.0-0.50) mg/L Sodium (137-145) mmol/L Potassium (3.5-5.1) mmol/L Chloride (98-107) mmol/L Carbon Dioxide (22-30) mmol/L Anion Gap (5-15) MEQ/L BUN (7-17) mg/dL Creatinine (0.52-1.04) mg/dL Estimated GFR ML/MIN Glucose (74-106) mg/dL Calcium (8.4-10.2) mg/dL Magnesium (1.6-2.3) mg/dL Total Bilirubin (0.2-1.3) mg/dL AST (14-36) U/L ALT (0-35) U/L Alkaline Phosphatase (38-126) U/L Troponin I < 0.012 (0.000-0.034) ng/mL NT-Pro-B Natriuret Pep (0-900) pg/mL Serum Total Protein (6.3-8.2) g/dL Albumin (3.5-5.0) g/dL Urinalys Dipstick Clnc MAIN LAB Urine Color YELLOW (YELLOW) Urine Appearance SLIGHTLY CLOUDY A (CLEAR) Urine pH 6.0 (5-6) Ur Specific Harwood 1.010 (1.005-1.025) POC Urine Protein Conf NEGATIVE (Negative) Urine Ketones NEGATIVE (NEGATIVE) Urine Nitrite NEGATIVE (NEGATIVE) Urine Bilirubin NEGATIVE (NEGATIVE) Urine Urobilinogen 0.2 (0-1) mg/dL Urine Leukocytes MODERATE A (NEGATIVE) Urine WBC (Auto) 11-15 A (0-5) /HPF Urine RBC (Auto) 3-5 A (0-2) /HPF U Epithel Cells (Auto) FEW (FEW) /HPF Urine Bacteria (Auto) RARE (NEGATIVE) /HPF Urine RBC NEGATIVE (0-5) Beau/ul Urine Mucus (Auto) SLIGHT A (NEGATIVE) /HPF Ur Culture Indicated? YES Urine Glucose 500 A (NEGATIVE) mg/dL Influenza Type A Ag NEGATIVE (NEGATIVE) Influenza Type B Ag NEGATIVE (NEGATIVE) RSV (PCR) NEGATIVE (Negative) SARS-CoV-2 (PCR) POSITIVE A (NEGATIVE) Slides for Path Review 08/07/22 08/07/22 08/07/22 Range/Units 17:50 17:50 15:29 WBC (4.0-10.5) x10^3/uL RBC (4.1-5.4) x10^6/uL Hgb (12.0-16.0) g/dL Hct (35-47) % MCV (78-100) fL MCH (26-32) pg MCHC (32-36) g/dL RDW (11.5-14.0) % Plt Count (150-450) x10^3/uL MPV (7.5-11.0) fL Gran % (36.0-66.0) % Immature Gran % (Auto) (0.00-0.4) % Nucleat RBC Rel Count (0.00-0.1) % Eos # (Auto) (0-0.5) x10^3/uL Immature Gran # (Auto) (0.00-0.03) x10^3u/L Absolute Lymphs (auto) (1.0-4.6) x10^3/uL Absolute Monos (auto) (0.0-1.3) x10^3/uL Absolute Nucleated RBC (0.00-0.01) x10^3u/L Lymphocytes % (24.0-44.0) % Monocytes % (0.0-12.0) % Eosinophils % (0.00-5.0) % Basophils % (0.0-0.4) % Absolute Granulocytes (1.4-6.9) x10^3/uL Basophils # (0-0.4) x10^3/uL D-Dimer 0.76 H* (0.0-0.50) mg/L Sodium (137-145) mmol/L Potassium (3.5-5.1) mmol/L Chloride (98-107) mmol/L Carbon Dioxide (22-30) mmol/L Anion Gap (5-15) MEQ/L BUN (7-17) mg/dL Creatinine (0.52-1.04) mg/dL Estimated GFR ML/MIN Glucose (74-106) mg/dL Calcium (8.4-10.2) mg/dL Magnesium (1.6-2.3) mg/dL Total Bilirubin (0.2-1.3) mg/dL AST (14-36) U/L ALT (0-35) U/L Alkaline Phosphatase (38-126) U/L Troponin I 0.013 (0.000-0.034) ng/mL NT-Pro-B Natriuret Pep 54.6 (0-900) pg/mL Serum Total Protein (6.3-8.2) g/dL Albumin (3.5-5.0) g/dL Urinalys Dipstick Clnc Urine Color (YELLOW) Urine Appearance (CLEAR) Urine pH (5-6) Ur Specific Harwood (1.005-1.025) POC Urine Protein Conf (Negative) Urine Ketones (NEGATIVE) Urine Nitrite (NEGATIVE) Urine Bilirubin (NEGATIVE) Urine Urobilinogen (0-1) mg/dL Urine Leukocytes (NEGATIVE) Urine WBC (Auto) (0-5) /HPF Urine RBC (Auto) (0-2) /HPF U Epithel Cells (Auto) (FEW) /HPF Urine Bacteria (Auto) (NEGATIVE) /HPF Urine RBC (0-5) Beau/ul Urine Mucus (Auto) (NEGATIVE) /HPF Ur Culture Indicated? Urine Glucose (NEGATIVE) mg/dL Influenza Type A Ag (NEGATIVE) Influenza Type B Ag (NEGATIVE) RSV (PCR) (Negative) SARS-CoV-2 (PCR) (NEGATIVE) Slides for Path Review 08/07/22 08/07/22 Range/Units 15:29 15:29 WBC 5.9 (4.0-10.5) x10^3/uL RBC 3.86 L (4.1-5.4) x10^6/uL Hgb 12.0 (12.0-16.0) g/dL Hct 38.8 (35-47) % MCV 100.5 H (78-100) fL MCH 31.1 (26-32) pg MCHC 30.9 L (32-36) g/dL RDW 15.9 H (11.5-14.0) % Plt Count 366 (150-450) x10^3/uL MPV 9.7 (7.5-11.0) fL Gran % 87.6 H (36.0-66.0) % Immature Gran % (Auto) 0.5 H (0.00-0.4) % Nucleat RBC Rel Count 0.0 (0.00-0.1) % Eos # (Auto) 0 (0-0.5) x10^3/uL Immature Gran # (Auto) 0.03 (0.00-0.03) x10^3u/L Absolute Lymphs (auto) 0.36 L (1.0-4.6) x10^3/uL Absolute Monos (auto) 0.33 (0.0-1.3) x10^3/uL Absolute Nucleated RBC 0.00 (0.00-0.01) x10^3u/L Lymphocytes % 6.1 L (24.0-44.0) % Monocytes % 5.6 (0.0-12.0) % Eosinophils % 0.0 (0.00-5.0) % Basophils % 0.2 (0.0-0.4) % Absolute Granulocytes 5.17 (1.4-6.9) x10^3/uL Basophils # 0.01 (0-0.4) x10^3/uL D-Dimer (0.0-0.50) mg/L Sodium 131 L (137-145) mmol/L Potassium 3.9 (3.5-5.1) mmol/L Chloride 98 (98-107) mmol/L Carbon Dioxide 26 (22-30) mmol/L Anion Gap 10.2 (5-15) MEQ/L BUN 18 H (7-17) mg/dL Creatinine 1.07 H (0.52-1.04) mg/dL Estimated GFR 53.7 ML/MIN Glucose 105 (74-106) mg/dL Calcium 7.9 L (8.4-10.2) mg/dL Magnesium 1.7 (1.6-2.3) mg/dL Total Bilirubin 0.50 (0.2-1.3) mg/dL AST 43 H (14-36) U/L ALT 25 (0-35) U/L Alkaline Phosphatase 99 (38-126) U/L Troponin I (0.000-0.034) ng/mL NT-Pro-B Natriuret Pep (0-900) pg/mL Serum Total Protein 5.9 L (6.3-8.2) g/dL Albumin 3.2 L (3.5-5.0) g/dL Urinalys Dipstick Clnc Urine Color (YELLOW) Urine Appearance (CLEAR) Urine pH (5-6) Ur Specific Harwood (1.005-1.025) POC Urine Protein Conf (Negative) Urine Ketones (NEGATIVE) Urine Nitrite (NEGATIVE) Urine Bilirubin (NEGATIVE) Urine Urobilinogen (0-1) mg/dL Urine Leukocytes (NEGATIVE) Urine WBC (Auto) (0-5) /HPF Urine RBC (Auto) (0-2) /HPF U Epithel Cells (Auto) (FEW) /HPF Urine Bacteria (Auto) (NEGATIVE) /HPF Urine RBC (0-5) Beau/ul Urine Mucus (Auto) (NEGATIVE) /HPF Ur Culture Indicated? Urine Glucose (NEGATIVE) mg/dL Influenza Type A Ag (NEGATIVE) Influenza Type B Ag (NEGATIVE) RSV (PCR) (Negative) SARS-CoV-2 (PCR) (NEGATIVE) Slides for Path Review YES - Progress Progress: improved Progress Note: Patient reassessed. Patient ambulated throughout our ED. Patient O2 sat dropped to the high 80s. Patient became significantly short of breath. Decadron administered. Breathing treatment administered. IV fluids administered. Patient mildly hyponatremic. Patient is not ready for discharge. Case discussed with Dr. Santos. Remdesivir ordered. We added a D-dimer and a BNP. Plan of care discussed with patient. She agrees to admission at [facility] for further evaluation and treatment. Portions of this note were created with voice recognition technology. There may be grammatical, spelling, punctuation or sound alike errors 08/07/22 17:54 Discussed with DrPebbles: Kyree Will see patient in: hospital (observation) Counseled pt/family regarding: lab results, diagnosis, rad results - Departure Departure Disposition: Observation Clinical Impression: Hypoxia, Shortness of breath, Generalized weakness, COVID-19, Hyponatremia Condition: Stable Critical Care Time: No
[2022-08-07] MEDS ORDERED: DECADRON 10MG INJ. IV ONE (17:38)
[2022-08-07] MEDS ORDERED: PROVENTIL 2.5 MG/3 ML NEB IH ONE ×2 (17:40→17:46)
[2022-08-07] MEDS ORDERED: Sodium Chloride 0.9% 1000 ML 1,000 ML IV SCH ×2 (17:45→20:22)
[2022-08-07] MEDS ORDERED: Sodium Chloride 0.9% 1000 ML 1,000 ML ONE (17:50)
[2022-08-07] MEDS ORDERED: DECADRON 10MG INJ. ONE (17:50)
[2022-08-07] MEDS ORDERED: REMDESIVIR 200 MG in Sodium Chloride 0.9% 250 ML 250 ML IV ONE (17:51)
[2022-08-07 18:56] LABS: INFLUENZA A NEGATIVE (NEGATIVE); INFLUENZA B NEGATIVE (NEGATIVE); RESPIRATORY SYNCTIAL VIRUS NEGATIVE (Negative)
[2022-08-07 19:00] LABS: SARS-CoV-2 Xpert Express POSITIVE (NEGATIVE)
[2022-08-07 20:19] LABS: Appearance SLIGHTLY CLOUDY (CLEAR); Bilirubin NEGATIVE (NEGATIVE); Dipstick done @ ? MAIN LAB; Glucose 500 mg/dL (NEGATIVE); Ketones NEGATIVE (NEGATIVE); Nitrite NEGATIVE (NEGATIVE); Protein,Urine Dip NEGATIVE (Negative); RBC NEGATIVE Ery/ul (0-5); Urobilinogen 0.2 mg/dL (0-1)
[2022-08-07 20:21] LABS: Bacteria RARE /HPF (NEGATIVE); Epithelial Cells FEW /HPF (FEW); Mucus SLIGHT /HPF (NEGATIVE)
[2022-08-07 20:22] LABS: Urine Cultured Indicated? YES
[2022-08-07] MEDS ORDERED: VENTOLIN COMMON CANISTER IH PRN (20:22)
[2022-08-07] MEDS ORDERED: TYLENOL 325 MG PO PRN (20:22)
[2022-08-07] MEDS ORDERED: Cyclobenzaprine 10 MG PO ONE (22:03)
[2022-08-07] MEDS ORDERED: NORCO 7.5/325 MG TAB PO PRN (22:04)
[2022-08-07] MEDS ORDERED: ZOCOR 20MG ONE (22:10)
[2022-08-08 05:43] LABS: Absolute Neutrophil Ct (ANC) 2.03 x10^3/uL (1.4-6.9); Basophil (Absolute #) 0 x10^3/uL (0-0.4); Eosinophil (Absolute #) 0 x10^3/uL (0-0.5); Hematocrit 37.3 % (35-47); Hemoglobin 11.7 g/dL (12.0-16.0); Lymphocyte (Absolute #) 0.22 x10^3/uL (1.0-4.6); Lymphocytes % 9.2 % (24.0-44.0); Mean Cell Volume 100.3 fL (78-100); Mean Corpuscular Hemoglobin 31.5 pg (26-32); Mean Corpuscular Hgb Concent. 31.4 g/dL (32-36); Mean Platelet Volume 9.8 fL (7.5-11.0); Monocyte (Absolute #) 0.12 x10^3/uL (0.0-1.3); Neutrophil % 85.4 % (36.0-66.0); Platelet Count 370 x10^3/uL (150-450); Red Blood Count 3.72 x10^6/uL (4.1-5.4); Red Cell Distribution Width 16.3 % (11.5-14.0); White Blood Count 2.4 x10^3/uL (4.0-10.5)
[2022-08-08 06:01] LABS: ALBUMIN 3.2 g/dL (3.5-5.0); ANION GAP 11.5 MEQ/L (5-15); BILIRUBIN,TOTAL 0.4 mg/dL (0.2-1.3); Calcium 7.9 mg/dL (8.4-10.2); Creatinine 1 1.03 mg/dL (0.52-1.04); EST GLOMERULAR FILTRATION RATE 56.1 ML/MIN; Potassium 4.1 mmol/L (3.5-5.1); Total Protein 5.9 g/dL (6.3-8.2)
[2022-08-08] MEDS ORDERED: PATIENT OWN MEDICATION IH SCH (07:00)
[2022-08-08] MEDS ORDERED: Cyclobenzaprine 10 MG PO PRN (07:13)
[2022-08-08] MEDS ORDERED: MEDICATION INTERVENTION MC SCH (07:30)
[2022-08-08 08:00] LABS: Slide Review 1 YES
[2022-08-08] MEDS ORDERED: JARDIANCE PO SCH (08:00)
[2022-08-08] MEDS ORDERED: Glucophage 500 MG PO SCH (08:00)
--- NOTE | 2022-08-08 08:41 | XRAY ---
Indication: Short of breath. Elevated d-dimer. Multiple contiguous axial images obtained through the chest using 80 cc Isovue 370 contrast and PE protocol. Comparison: July 10, 2022 Good opacification of the pulmonary arteries to include the lobar and segmental branches. No pulmonary embolus. Heart not enlarged. Aorta remains mildly arteriosclerotic without aneurysm/dissection. Stable tiny left hilar calcified nodes. No pathologic mediastinal/hilar lymphadenopathy. Again small hiatal hernia. Lungs again demonstrates diffuse scattered fibrosis/scarring, minimal right costophrenic angle calcified pleural plaquing, and tiny left lower lobe calcified granuloma. No suspicious pulmonary mass, infiltrate, effusion, or pneumothorax. Bony thorax intact again with osteopenia, degenerative changes throughout the spine, remote T6/T7 fractures, old left rib fractures, and epidural stimulator leads. Limited upper abdomen again demonstrates fatty liver and tiny hepatic/splenic calcified granulomas. Also cholecystectomy with grossly stable small fluid collection in the gallbladder fossa. Impression: 1. Continued negative pulmonary embolus. No new/acute cardiopulmonary abnormalities. 2. Again incidental cholecystectomy with grossly stable indeterminant small fluid collection in the gallbladder fossa. 3. Chronic findings including pulmonary fibrosis/scarring, right base calcified pleural plaquing, small hiatal hernia, chronic bony findings, fatty liver, and old granulomatous disease.
--- NOTE | 2022-08-08 08:59 | PCM.SSS ---
History of Present Illness - Chief Complaint Chief Complaint: SHORTNESS OF BREATH, HYPOXIA, COVID POSITVE History of Present Illness: is a 71 year old female pt of mine with Silverlake's disease, HTN, DMII, OA, RA, and hyperlipidemia who was admitted through ER with Covid. She had been SOB and achy, with O2 sats in the high 80s at home, so family convinced her to come to the ER. She states today that her main symptom was being tired. She did have decreased appetite and decreased po intake. Her was chronically ill and also got Covid and unfortunately 3d ago. She is actually feeling better this morning and would like to go home so she can work on arrangements. She did not get remdesivir in the ER; she was actually interested in Paxlovid but it interacts with four of her medications so she will get remdesivir first dose here, with dexamethasone, and then be discharged to home and get remdesivir outpatient for the next 2 days for total 3 doses. Her UA in ER had 11-15 WBC, and UCx is pending. She is aware we may add an antibiotic later if that is positive. On CBC, WBC were 5.9 initially and 2.4 today. She is currently on room air. Her eGFR was 53.7 on admission and is 56.1 this morning. - Review of Systems Constitutional: Fatigue, No Fever (temp to 99.5) Respiratory: Short Of Breath Abdominal/Gastrointestinal: Abdominal Pain, Nausea, Diarrhea, Appetite Changes Psychological: Anxiety, Depression, No Suicidal Ideations All Other Systems: Reviewed and Negative Medications & Allergies Home Medications: Home Medication List Atorvastatin Calcium [Lipitor 20MG Tablet] 40 mg PO QHS 02/18/20 [History Confirmed 08/07/22] Duloxetine HCl 120 mg PO DAILY 02/18/20 [History Confirmed 08/07/22] Folic Acid 1 mg [Folate 1 mg] 1 mg PO DAILY 02/18/20 [History Confirmed 08/07/22] Hydrocortisone 30 mg PO QAM 02/18/20 [History Confirmed 08/07/22] Aripiprazole 10 mg [Abilify 10 MG] 5 mg PO DAILY 06/20/22 [History Confirmed 08/07/22] Budesonide/Glycopyr/Formoterol [Breztri Aerosphere Inhaler] 2 puff IH BID 06/20/22 [History Confirmed 08/07/22] Calcium Carbonate/Vitamin D3 [Oyster Shell Calcium-Vit D Tab] 2 each PO DAILY 06/20/22 [History Confirmed 08/07/22] Empagliflozin/Metformin HCl [Synjardy Xr 10-1,000 mg Tablet] 1 each PO DAILY [History Confirmed 08/07/22] Furosemide 20 mg [Lasix 20 mg] 40 mg PO DAILY 06/20/22 [History Confirmed 08/07/22] Hydrocodone/Acetaminophen [Hydrocodone-Acetamin 7.5-325] 1 each PO QIDPRN PRN 06/20/22 [History Confirmed 08/07/22] Hydrocortisone 10 mg PO DINNER 06/20/22 [History Confirmed 08/07/22] Loratadine 10 mg [Claritin 10 mg] 10 mg PO DAILY 06/20/22 [History Confirmed 08/07/22] Nintedanib Esylate [Ofev] 300 mg PO DAILY 06/20/22 [History Confirmed 08/07/22] Upadacitinib [Rinvoq] 15 mg PO DAILY 06/20/22 [History Confirmed 08/07/22] Aspirin EC 81 mg [Ecotrin 81 mg] 81 mg PO DAILY 08/07/22 [History Confirmed 08/07/22] Cyclobenzaprine HCl 10 mg [Cyclobenzaprine 10 MG] 10 mg PO QIDPRN PRN 08/07/22 [History Confirmed 08/07/22] Omeprazole Magnesium [Prilosec Otc] 40 mg PO DAILY 08/07/22 [History Confirmed 08/07/22] Potassium Chloride Tab* [Klor Con] 40 meq PO DAILY 08/07/22 [History Confirmed 08/07/22] Cephalexin Mh 500 mg [Keflex 500 mg] 500 mg PO Q6H 4 Days #20 cap 08/08/22 [Rx] Allergies/Adverse Reactions: Allergies Allergy/AdvReac Type Severity Reaction Status Date / Time bupropion [From Wellbutrin] AdvReac Intermediate Muscle Verified 07/05/22 10:45 Aches infliximab [From Remicade] AdvReac Intermediate MUSCLE Verified 07/05/22 10:45 SPASMS mycophenolate mofetil AdvReac Intermediate Muscle Verified 07/05/22 10:45 [From CellCept] Contraction, Pain - Past Medical History Past Medical History: Yes Neurological History: No Pertinent History ENT History: No Pertinent History Cardiac History: High Cholesterol, Hypertension, Peripheral Vascular Disease Respiratory History: COPD Endocrine Medical History: No Pertinent History, Diabetes Type II, Lucho's Disease Musculoskelatal History: Fractures, Arthritis, Rheumatoid Arthritis, Osteoarthritis, Degenerative Disk Disease GI Medical History: No Pertinent History History: No Pertinent History Pyscho-Social History: No Pertinent History Reproductive Disorders: Other Comment: OOPHORECTOMY RIGHT 1991. RIGHT HIP REPLACEMENT 2013. NERVE BLOCK FOR LUMBAR REGION 2017. LUNG BIOPSY 2019. LUCHO'S DISEASE. - Past Surgical History Past Surgical History: Yes Neuro Surgical History: No Pertinent History Cardiac History: Cardiac Catheterization Respiratory Surgery: No Pertinent History GI Surgical History: Cholecystectomy Genitourinary Surgical Hx: No Pertinent History Musculskeletal Surgical Hx: No Pertinent History, Orthopedic Surgery Female Surgical History: Other Other Surgical History: right oopherectomy, carpal tunnel surgery, and rt hip replacement, lung biopsy 2019 - Social History Smoking Status: Former smoker How long have you smoked: 5 Exposure to second hand smoke: No Alcohol: None Drug Use: none - Physical Exam Vital Signs: Vital Signs - 24 hr Temp Pulse Resp BP Pulse Ox 08/08/22 07:49 18 08/08/22 07:41 96 H 18 94 L 08/08/22 07:22 98.5 F 104 H 16 102/64 96 08/08/22 04:00 96.9 F 99 H 18 143/83 94 L 08/08/22 00:00 96.8 F 103 H 21 125/71 96 08/07/22 23:46 95 08/07/22 21:49 97.6 F 87 20 127/61 96 08/07/22 21:28 83 18 96 08/07/22 20:22 96 H 96 08/07/22 20:00 89 14 105/58 94 L 08/07/22 19:26 85 18 131/89 95 08/07/22 17:52 99 H 20 98 08/07/22 15:21 95 08/07/22 14:34 98.0 F 95 H 21 119/63 95 General Appearance: no apparent distress, alert Neurologic Exam: oriented x 3, cooperative Eye Exam: eyes nml inspection Ears, Nose, Throat Exam: moist mucous membranes Neck Exam: normal inspection, non-tender, No lymphadenopathy, No thyromegaly Respiratory Exam: diminished breath sounds (fair to good air exchange), No crackles/rales, No rhonchi, No wheezing Cardiovascular Exam: regular rate/rhythm, normal heart sounds, No murmur Gastrointestinal/Abdomen Exam: soft, normal bowel sounds, tenderness (RLQ mild ttp), No distention, No mass, No guarding, No rebound Back Exam: normal inspection, No rash Extremity Exam: normal inspection, No pedal edema, No swelling Skin Exam: normal color, warm, dry, No rash Results - Labs Lab/Micro Results: Lab Results-Last 24 Hours 08/07/22 08/07/22 08/07/22 Range/Units 15:29 15:29 15:29 WBC 5.9 (4.0-10.5) x10^3/uL RBC 3.86 L (4.1-5.4) x10^6/uL Hgb 12.0 (12.0-16.0) g/dL Hct 38.8 (35-47) % MCV 100.5 H (78-100) fL MCH 31.1 (26-32) pg MCHC 30.9 L (32-36) g/dL RDW 15.9 H (11.5-14.0) % Plt Count 366 (150-450) x10^3/uL MPV 9.7 (7.5-11.0) fL Gran % 87.6 H (36.0-66.0) % Immature Gran % (Auto) 0.5 H (0.00-0.4) % Nucleat RBC Rel Count 0.0 (0.00-0.1) % Eos # (Auto) 0 (0-0.5) x10^3/uL Immature Gran # (Auto) 0.03 (0.00-0.03) x10^3u/L Absolute Lymphs (auto) 0.36 L (1.0-4.6) x10^3/uL Absolute Monos (auto) 0.33 (0.0-1.3) x10^3/uL Absolute Nucleated RBC 0.00 (0.00-0.01) x10^3u/L Lymphocytes % 6.1 L (24.0-44.0) % Monocytes % 5.6 (0.0-12.0) % Eosinophils % 0.0 (0.00-5.0) % Basophils % 0.2 (0.0-0.4) % Absolute Granulocytes 5.17 (1.4-6.9) x10^3/uL Basophils # 0.01 (0-0.4) x10^3/uL D-Dimer (0.0-0.50) mg/L Sodium 131 L (137-145) mmol/L Potassium 3.9 (3.5-5.1) mmol/L Chloride 98 (98-107) mmol/L Carbon Dioxide 26 (22-30) mmol/L Anion Gap 10.2 (5-15) MEQ/L BUN 18 H (7-17) mg/dL Creatinine 1.07 H (0.52-1.04) mg/dL Estimated GFR 53.7 ML/MIN Glucose 105 (74-106) mg/dL Calcium 7.9 L (8.4-10.2) mg/dL Magnesium 1.7 (1.6-2.3) mg/dL Total Bilirubin 0.50 (0.2-1.3) mg/dL AST 43 H (14-36) U/L ALT 25 (0-35) U/L Alkaline Phosphatase 99 (38-126) U/L Troponin I 0.013 (0.000-0.034) ng/mL NT-Pro-B Natriuret Pep (0-900) pg/mL Serum Total Protein 5.9 L (6.3-8.2) g/dL Albumin 3.2 L (3.5-5.0) g/dL Urinalys Dipstick Clnc Urine Color (YELLOW) Urine Appearance (CLEAR) Urine pH (5-6) Ur Specific [place] (1.005-1.025) POC Urine Protein Conf (Negative) Urine Ketones (NEGATIVE) Urine Nitrite (NEGATIVE) Urine Bilirubin (NEGATIVE) Urine Urobilinogen (0-1) mg/dL Urine Leukocytes (NEGATIVE) Urine WBC (Auto) (0-5) /HPF Urine RBC (Auto) (0-2) /HPF U Epithel Cells (Auto) (FEW) /HPF Urine Bacteria (Auto) (NEGATIVE) /HPF Urine RBC (0-5) Beau/ul Urine Mucus (Auto) (NEGATIVE) /HPF Ur Culture Indicated? Urine Glucose (NEGATIVE) mg/dL Influenza Type A Ag (NEGATIVE) Influenza Type B Ag (NEGATIVE) RSV (PCR) (Negative) SARS-CoV-2 (PCR) (NEGATIVE) Slides for Path Review YES 08/07/22 08/07/22 08/07/22 Range/Units 17:50 17:50 18:15 WBC (4.0-10.5) x10^3/uL RBC (4.1-5.4) x10^6/uL Hgb (12.0-16.0) g/dL Hct (35-47) % MCV (78-100) fL MCH (26-32) pg MCHC (32-36) g/dL RDW (11.5-14.0) % Plt Count (150-450) x10^3/uL MPV (7.5-11.0) fL Gran % (36.0-66.0) % Immature Gran % (Auto) (0.00-0.4) % Nucleat RBC Rel Count (0.00-0.1) % Eos # (Auto) (0-0.5) x10^3/uL Immature Gran # (Auto) (0.00-0.03) x10^3u/L Absolute Lymphs (auto) (1.0-4.6) x10^3/uL Absolute Monos (auto) (0.0-1.3) x10^3/uL Absolute Nucleated RBC (0.00-0.01) x10^3u/L Lymphocytes % (24.0-44.0) % Monocytes % (0.0-12.0) % Eosinophils % (0.00-5.0) % Basophils % (0.0-0.4) % Absolute Granulocytes (1.4-6.9) x10^3/uL Basophils # (0-0.4) x10^3/uL D-Dimer 0.76 H* (0.0-0.50) mg/L Sodium (137-145) mmol/L Potassium (3.5-5.1) mmol/L Chloride (98-107) mmol/L Carbon Dioxide (22-30) mmol/L Anion Gap (5-15) MEQ/L BUN (7-17) mg/dL Creatinine (0.52-1.04) mg/dL Estimated GFR ML/MIN Glucose (74-106) mg/dL Calcium (8.4-10.2) mg/dL Magnesium (1.6-2.3) mg/dL Total Bilirubin (0.2-1.3) mg/dL AST (14-36) U/L ALT (0-35) U/L Alkaline Phosphatase (38-126) U/L Troponin I < 0.012 (0.000-0.034) ng/mL NT-Pro-B Natriuret Pep 54.6 (0-900) pg/mL Serum Total Protein (6.3-8.2) g/dL Albumin (3.5-5.0) g/dL Urinalys Dipstick Clnc Urine Color (YELLOW) Urine Appearance (CLEAR) Urine pH (5-6) Ur Specific [place] (1.005-1.025) POC Urine Protein Conf (Negative) Urine Ketones (NEGATIVE) Urine Nitrite (NEGATIVE) Urine Bilirubin (NEGATIVE) Urine Urobilinogen (0-1) mg/dL Urine Leukocytes (NEGATIVE) Urine WBC (Auto) (0-5) /HPF Urine RBC (Auto) (0-2) /HPF U Epithel Cells (Auto) (FEW) /HPF Urine Bacteria (Auto) (NEGATIVE) /HPF Urine RBC (0-5) Beau/ul Urine Mucus (Auto) (NEGATIVE) /HPF Ur Culture Indicated? Urine Glucose (NEGATIVE) mg/dL Influenza Type A Ag (NEGATIVE) Influenza Type B Ag (NEGATIVE) RSV (PCR) (Negative) SARS-CoV-2 (PCR) (NEGATIVE) Slides for Path Review 08/07/22 08/07/22 08/07/22 Range/Units 18:15 19:08 23:25 WBC (4.0-10.5) x10^3/uL RBC (4.1-5.4) x10^6/uL Hgb (12.0-16.0) g/dL Hct (35-47) % MCV (78-100) fL MCH (26-32) pg MCHC (32-36) g/dL RDW (11.5-14.0) % Plt Count (150-450) x10^3/uL MPV (7.5-11.0) fL Gran % (36.0-66.0) % Immature Gran % (Auto) (0.00-0.4) % Nucleat RBC Rel Count (0.00-0.1) % Eos # (Auto) (0-0.5) x10^3/uL Immature Gran # (Auto) (0.00-0.03) x10^3u/L Absolute Lymphs (auto) (1.0-4.6) x10^3/uL Absolute Monos (auto) (0.0-1.3) x10^3/uL Absolute Nucleated RBC (0.00-0.01) x10^3u/L Lymphocytes % (24.0-44.0) % Monocytes % (0.0-12.0) % Eosinophils % (0.00-5.0) % Basophils % (0.0-0.4) % Absolute Granulocytes (1.4-6.9) x10^3/uL Basophils # (0-0.4) x10^3/uL D-Dimer (0.0-0.50) mg/L Sodium (137-145) mmol/L Potassium (3.5-5.1) mmol/L Chloride (98-107) mmol/L Carbon Dioxide (22-30) mmol/L Anion Gap (5-15) MEQ/L BUN (7-17) mg/dL Creatinine (0.52-1.04) mg/dL Estimated GFR ML/MIN Glucose (74-106) mg/dL Calcium (8.4-10.2) mg/dL Magnesium (1.6-2.3) mg/dL Total Bilirubin (0.2-1.3) mg/dL AST (14-36) U/L ALT (0-35) U/L Alkaline Phosphatase (38-126) U/L Troponin I < 0.012 (0.000-0.034) ng/mL NT-Pro-B Natriuret Pep (0-900) pg/mL Serum Total Protein (6.3-8.2) g/dL Albumin (3.5-5.0) g/dL Urinalys Dipstick Clnc MAIN LAB Urine Color YELLOW (YELLOW) Urine Appearance SLIGHTLY CLOUDY A (CLEAR) Urine pH 6.0 (5-6) Ur Specific [place] 1.010 (1.005-1.025) POC Urine Protein Conf NEGATIVE (Negative) Urine Ketones NEGATIVE (NEGATIVE) Urine Nitrite NEGATIVE (NEGATIVE) Urine Bilirubin NEGATIVE (NEGATIVE) Urine Urobilinogen 0.2 (0-1) mg/dL Urine Leukocytes MODERATE A (NEGATIVE) Urine WBC (Auto) 11-15 A (0-5) /HPF Urine RBC (Auto) 3-5 A (0-2) /HPF U Epithel Cells (Auto) FEW (FEW) /HPF Urine Bacteria (Auto) RARE (NEGATIVE) /HPF Urine RBC NEGATIVE (0-5) Beau/ul Urine Mucus (Auto) SLIGHT A (NEGATIVE) /HPF Ur Culture Indicated? YES Urine Glucose 500 A (NEGATIVE) mg/dL Influenza Type A Ag NEGATIVE (NEGATIVE) Influenza Type B Ag NEGATIVE (NEGATIVE) RSV (PCR) NEGATIVE (Negative) SARS-CoV-2 (PCR) POSITIVE A (NEGATIVE) Slides for Path Review 08/08/22 08/08/22 08/08/22 Range/Units 04:00 05:10 05:10 WBC 2.4 L (4.0-10.5) x10^3/uL RBC 3.72 L (4.1-5.4) x10^6/uL Hgb 11.7 L (12.0-16.0) g/dL Hct 37.3 (35-47) % MCV 100.3 H (78-100) fL MCH 31.5 (26-32) pg MCHC 31.4 L (32-36) g/dL RDW 16.3 H (11.5-14.0) % Plt Count 370 (150-450) x10^3/uL MPV 9.8 (7.5-11.0) fL Gran % 85.4 H (36.0-66.0) % Immature Gran % (Auto) 0.4 (0.00-0.4) % Nucleat RBC Rel Count 0.0 (0.00-0.1) % Eos # (Auto) 0 (0-0.5) x10^3/uL Immature Gran # (Auto) 0.01 (0.00-0.03) x10^3u/L Absolute Lymphs (auto) 0.22 L (1.0-4.6) x10^3/uL Absolute Monos (auto) 0.12 (0.0-1.3) x10^3/uL Absolute Nucleated RBC 0.00 (0.00-0.01) x10^3u/L Lymphocytes % 9.2 L (24.0-44.0) % Monocytes % 5.0 (0.0-12.0) % Eosinophils % 0.0 (0.00-5.0) % Basophils % 0.0 (0.0-0.4) % Absolute Granulocytes 2.03 (1.4-6.9) x10^3/uL Basophils # 0 (0-0.4) x10^3/uL D-Dimer 0.76 H* (0.0-0.50) mg/L Sodium 135 L (137-145) mmol/L Potassium 4.1 (3.5-5.1) mmol/L Chloride 101 (98-107) mmol/L Carbon Dioxide 27 (22-30) mmol/L Anion Gap 11.5 (5-15) MEQ/L BUN 19 H (7-17) mg/dL Creatinine 1.03 (0.52-1.04) mg/dL Estimated GFR 56.1 ML/MIN Glucose 111 H (74-106) mg/dL Calcium 7.9 L (8.4-10.2) mg/dL Magnesium (1.6-2.3) mg/dL Total Bilirubin 0.40 (0.2-1.3) mg/dL AST 38 H (14-36) U/L ALT 25 (0-35) U/L Alkaline Phosphatase 87 (38-126) U/L Troponin I (0.000-0.034) ng/mL NT-Pro-B Natriuret Pep (0-900) pg/mL Serum Total Protein 5.9 L (6.3-8.2) g/dL Albumin 3.2 L (3.5-5.0) g/dL Urinalys Dipstick Clnc Urine Color (YELLOW) Urine Appearance (CLEAR) Urine pH (5-6) Ur Specific [place] (1.005-1.025) POC Urine Protein Conf (Negative) Urine Ketones (NEGATIVE) Urine Nitrite (NEGATIVE) Urine Bilirubin (NEGATIVE) Urine Urobilinogen (0-1) mg/dL Urine Leukocytes (NEGATIVE) Urine WBC (Auto) (0-5) /HPF Urine RBC (Auto) (0-2) /HPF U Epithel Cells (Auto) (FEW) /HPF Urine Bacteria (Auto) (NEGATIVE) /HPF Urine RBC (0-5) Beau/ul Urine Mucus (Auto) (NEGATIVE) /HPF Ur Culture Indicated? Urine Glucose (NEGATIVE) mg/dL Influenza Type A Ag (NEGATIVE) Influenza Type B Ag (NEGATIVE) RSV (PCR) (Negative) SARS-CoV-2 (PCR) (NEGATIVE) Slides for Path Review YES - Radiology Impressions Radiology Exams & Impressions: Radiology Procedures Category Date Time Status CHEST 1 VIEW (PORTABLE) Stat Exams 08/07/22 15:30 Completed CHEST WITH CONTRAST [CT] Stat Exams 08/07/22 18:20 Completed - Other Procedures and Tests Respiratory Therapy 08/07/22 17:51 Respiratory Therapy Assessment DAILY 08/08/22 07:00 Respiratory MDI BID Assessment/Plan (1) COVID-19 Current Visit: Yes Status: Acute Assessment & Plan: Feeling much better. Has O2 at home if needed, but has been on room air here on med surg. Will give remdesivir today and for the next 2d she will go to outpatient infusion for it. Give dexamethasone here. Did get lovenox here, but per up to date will not need to send her home with thromboprophylaxis. No need to continue dexamethasone at home (and pt on chron ic steroids). Code(s): U07.1 - COVID-19 (2) Generalized weakness Current Visit: Yes Status: Resolved Assessment & Plan: She is better, although she should certainly delegate what responsibilities she can to her family and rest. 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 Code(s): E27.1 - PRIMARY ADRENOCORTICAL INSUFFICIENCY (5) Chronic kidney disease, stage 3 Current Visit: No Status: Chronic Qualifiers: Chronic kidney disease stage 3 subtype: stage 3a (GFR 45-59) Qualified Code(s): N18.31 - Chronic kidney disease, stage 3a Code(s): N18.30 - CHRONIC KIDNEY DISEASE, STAGE 3 UNSPECIFIED (6) Diabetes mellitus type II, controlled Current Visit: No Status: Chronic Qualifiers: Code(s): E11.9 - TYPE 2 DIABETES MELLITUS WITHOUT COMPLICATIONS (7) Hypertension Current Visit: No Status: Chronic Qualifiers: Hypertension type: primary hypertension Qualified Code(s): I10 - Essential (primary) hypertension Code(s): I10 - ESSENTIAL (PRIMARY) HYPERTENSION (8) Rheumatoid arthritis Current Visit: No Status: Chronic Qualifiers: Rheumatoid arthritis location: multiple sites Rheumatoid factor presence: unspecified presence Qualified Code(s): M06.9 - Rheumatoid arthritis, unspecified Code(s): M06.9 - RHEUMATOID ARTHRITIS, UNSPECIFIED Hospital Summary - Hospital Course Hospital Course: Pt is 71 yo female with lucho's disease, DM II and HTN admitted for covid. Her was chronically ill and also got Covid and unfortunately 3d ago. She is actually feeling better this morning and would like to go home so she can work on arrangements. She did not get remdesivir in the ER; she was actually interested in Paxlovid but it interacts with four of her medic ations so she will get remdesivir first dose here, with dexamethasone, and then be discharged to home and get remdesivir outpatient for the next 2 days for total 3 doses. Her UA in ER had 11-15 WBC, and UCx is pending. She is aware we may add an antibiotic later if that is positive. On CBC, WBC were 5.9 initially and 2.4 today. She is currently on room air. Her eGFR was 53.7 on admission and is 56.1 this morning. - Vitals & Intake/Output Vital Signs: Vital Signs Temperature 98.5 F 08/08/22 07:22 Pulse Rate 96 H 08/08/22 07:41 Respiratory Rate 18 08/08/22 07:49 Blood Pressure 102/64 08/08/22 07:22 O2 Sat by Pulse Oximetry 94 L 08/08/22 07:41 Intake & Output: Intake & Output 08/05/22 08/06/22 08/07/22 08/08/22 11:59 11:59 11:59 11:59 Intake Total 120 Balance 120 Weight 84 kg - Lab Result Diagrams: 08/08/22 04:00 08/08/22 05:10 Lab Results-Last 24 Hrs: Lab Results-Last 24 Hours 08/07/22 08/07/22 08/07/22 Range/Units 15:29 15:29 15:29 WBC 5.9 (4.0-10.5) x10^3/uL RBC 3.86 L (4.1-5.4) x10^6/uL Hgb 12.0 (12.0-16.0) g/dL Hct 38.8 (35-47) % MCV 100.5 H (78-100) fL MCH 31.1 (26-32) pg MCHC 30.9 L (32-36) g/dL RDW 15.9 H (11.5-14.0) % Plt Count 366 (150-450) x10^3/uL MPV 9.7 (7.5-11.0) fL Gran % 87.6 H (36.0-66.0) % Immature Gran % (Auto) 0.5 H (0.00-0.4) % Nucleat RBC Rel Count 0.0 (0.00-0.1) % Eos # (Auto) 0 (0-0.5) x10^3/uL Immature Gran # (Auto) 0.03 (0.00-0.03) x10^3u/L Absolute Lymphs (auto) 0.36 L (1.0-4.6) x10^3/uL Absolute Monos (auto) 0.33 (0.0-1.3) x10^3/uL Absolute Nucleated RBC 0.00 (0.00-0.01) x10^3u/L Lymphocytes % 6.1 L (24.0-44.0) % Monocytes % 5.6 (0.0-12.0) % Eosinophils % 0.0 (0.00-5.0) % Basophils % 0.2 (0.0-0.4) % Absolute Granulocytes 5.17 (1.4-6.9) x10^3/uL Basophils # 0.01 (0-0.4) x10^3/uL D-Dimer (0.0-0.50) mg/L Sodium 131 L (137-145) mmol/L Potassium 3.9 (3.5-5.1) mmol/L Chloride 98 (98-107) mmol/L Carbon Dioxide 26 (22-30) mmol/L Anion Gap 10.2 (5-15) MEQ/L BUN 18 H (7-17) mg/dL Creatinine 1.07 H (0.52-1.04) mg/dL Estimated GFR 53.7 ML/MIN Glucose 105 (74-106) mg/dL Calcium 7.9 L (8.4-10.2) mg/dL Magnesium 1.7 (1.6-2.3) mg/dL Total Bilirubin 0.50 (0.2-1.3) mg/dL AST 43 H (14-36) U/L ALT 25 (0-35) U/L Alkaline Phosphatase 99 (38-126) U/L Troponin I 0.013 (0.000-0.034) ng/mL NT-Pro-B Natriuret Pep (0-900) pg/mL Serum Total Protein 5.9 L (6.3-8.2) g/dL Albumin 3.2 L (3.5-5.0) g/dL Urinalys Dipstick Clnc Urine Color (YELLOW) Urine Appearance (CLEAR) Urine pH (5-6) Ur Specific [place] (1.005-1.025) POC Urine Protein Conf (Negative) Urine Ketones (NEGATIVE) Urine Nitrite (NEGATIVE) Urine Bilirubin (NEGATIVE) Urine Urobilinogen (0-1) mg/dL Urine Leukocytes (NEGATIVE) Urine WBC (Auto) (0-5) /HPF Urine RBC (Auto) (0-2) /HPF U Epithel Cells (Auto) (FEW) /HPF Urine Bacteria (Auto) (NEGATIVE) /HPF Urine RBC (0-5) Beau/ul Urine Mucus (Auto) (NEGATIVE) /HPF Ur Culture Indicated? Urine Glucose (NEGATIVE) mg/dL Influenza Type A Ag (NEGATIVE) Influenza Type B Ag (NEGATIVE) RSV (PCR) (Negative) SARS-CoV-2 (PCR) (NEGATIVE) Slides for Path Review YES 08/07/22 08/07/22 08/07/22 Range/Units 17:50 17:50 18:15 WBC (4.0-10.5) x10^3/uL RBC (4.1-5.4) x10^6/uL Hgb (12.0-16.0) g/dL Hct (35-47) % MCV (78-100) fL MCH (26-32) pg MCHC (32-36) g/dL RDW (11.5-14.0) % Plt Count (150-450) x10^3/uL MPV (7.5-11.0) fL Gran % (36.0-66.0) % Immature Gran % (Auto) (0.00-0.4) % Nucleat RBC Rel Count (0.00-0.1) % Eos # (Auto) (0-0.5) x10^3/uL Immature Gran # (Auto) (0.00-0.03) x10^3u/L Absolute Lymphs (auto) (1.0-4.6) x10^3/uL Absolute Monos (auto) (0.0-1.3) x10^3/uL Absolute Nucleated RBC (0.00-0.01) x10^3u/L Lymphocytes % (24.0-44.0) % Monocytes % (0.0-12.0) % Eosinophils % (0.00-5.0) % Basophils % (0.0-0.4) % Absolute Granulocytes (1.4-6.9) x10^3/uL Basophils # (0-0.4) x10^3/uL D-Dimer 0.76 H* (0.0-0.50) mg/L Sodium (137-145) mmol/L Potassium (3.5-5.1) mmol/L Chloride (98-107) mmol/L Carbon Dioxide (22-30) mmol/L Anion Gap (5-15) MEQ/L BUN (7-17) mg/dL Creatinine (0.52-1.04) mg/dL Estimated GFR ML/MIN Glucose (74-106) mg/dL Calcium (8.4-10.2) mg/dL Magnesium (1.6-2.3) mg/dL Total Bilirubin (0.2-1.3) mg/dL AST (14-36) U/L ALT (0-35) U/L Alkaline Phosphatase (38-126) U/L Troponin I < 0.012 (0.000-0.034) ng/mL NT-Pro-B Natriuret Pep 54.6 (0-900) pg/mL Serum Total Protein (6.3-8.2) g/dL Albumin (3.5-5.0) g/dL Urinalys Dipstick Clnc Urine Color (YELLOW) Urine Appearance (CLEAR) Urine pH (5-6) Ur Specific [place] (1.005-1.025) POC Urine Protein Conf (Negative) Urine Ketones (NEGATIVE) Urine Nitrite (NEGATIVE) Urine Bilirubin (NEGATIVE) Urine Urobilinogen (0-1) mg/dL Urine Leukocytes (NEGATIVE) Urine WBC (Auto) (0-5) /HPF Urine RBC (Auto) (0-2) /HPF U Epithel Cells (Auto) (FEW) /HPF Urine Bacteria (Auto) (NEGATIVE) /HPF Urine RBC (0-5) Beau/ul Urine Mucus (Auto) (NEGATIVE) /HPF Ur Culture Indicated? Urine Glucose (NEGATIVE) mg/dL Influenza Type A Ag (NEGATIVE) Influenza Type B Ag (NEGATIVE) RSV (PCR) (Negative) SARS-CoV-2 (PCR) (NEGATIVE) Slides for Path Review 08/07/22 08/07/22 08/07/22 Range/Units 18:15 19:08 23:25 WBC (4.0-10.5) x10^3/uL RBC (4.1-5.4) x10^6/uL Hgb (12.0-16.0) g/dL Hct (35-47) % MCV (78-100) fL MCH (26-32) pg MCHC (32-36) g/dL RDW (11.5-14.0) % Plt Count (150-450) x10^3/uL MPV (7.5-11.0) fL Gran % (36.0-66.0) % Immature Gran % (Auto) (0.00-0.4) % Nucleat RBC Rel Count (0.00-0.1) % Eos # (Auto) (0-0.5) x10^3/uL Immature Gran # (Auto) (0.00-0.03) x10^3u/L Absolute Lymphs (auto) (1.0-4.6) x10^3/uL Absolute Monos (auto) (0.0-1.3) x10^3/uL Absolute Nucleated RBC (0.00-0.01) x10^3u/L Lymphocytes % (24.0-44.0) % Monocytes % (0.0-12.0) % Eosinophils % (0.00-5.0) % Basophils % (0.0-0.4) % Absolute Granulocytes (1.4-6.9) x10^3/uL Basophils # (0-0.4) x10^3/uL D-Dimer (0.0-0.50) mg/L Sodium (137-145) mmol/L Potassium (3.5-5.1) mmol/L Chloride (98-107) mmol/L Carbon Dioxide (22-30) mmol/L Anion Gap (5-15) MEQ/L BUN (7-17) mg/dL Creatinine (0.52-1.04) mg/dL Estimated GFR ML/MIN Glucose (74-106) mg/dL Calcium (8.4-10.2) mg/dL Magnesium (1.6-2.3) mg/dL Total Bilirubin (0.2-1.3) mg/dL AST (14-36) U/L ALT (0-35) U/L Alkaline Phosphatase (38-126) U/L Troponin I < 0.012 (0.000-0.034) ng/mL NT-Pro-B Natriuret Pep (0-900) pg/mL Serum Total Protein (6.3-8.2) g/dL Albumin (3.5-5.0) g/dL Urinalys Dipstick Clnc MAIN LAB Urine Color YELLOW (YELLOW) Urine Appearance SLIGHTLY CLOUDY A (CLEAR) Urine pH 6.0 (5-6) Ur Specific [place] 1.010 (1.005-1.025) POC Urine Protein Conf NEGATIVE (Negative) Urine Ketones NEGATIVE (NEGATIVE) Urine Nitrite NEGATIVE (NEGATIVE) Urine Bilirubin NEGATIVE (NEGATIVE) Urine Urobilinogen 0.2 (0-1) mg/dL Urine Leukocytes MODERATE A (NEGATIVE) Urine WBC (Auto) 11-15 A (0-5) /HPF Urine RBC (Auto) 3-5 A (0-2) /HPF U Epithel Cells (Auto) FEW (FEW) /HPF Urine Bacteria (Auto) RARE (NEGATIVE) /HPF Urine RBC NEGATIVE (0-5) Beau/ul Urine Mucus (Auto) SLIGHT A (NEGATIVE) /HPF Ur Culture Indicated? YES Urine Glucose 500 A (NEGATIVE) mg/dL Influenza Type A Ag NEGATIVE (NEGATIVE) Influenza Type B Ag NEGATIVE (NEGATIVE) RSV (PCR) NEGATIVE (Negative) SARS-CoV-2 (PCR) POSITIVE A (NEGATIVE) Slides for Path Review 08/08/22 08/08/22 08/08/22 Range/Units 04:00 05:10 05:10 WBC 2.4 L (4.0-10.5) x10^3/uL RBC 3.72 L (4.1-5.4) x10^6/uL Hgb 11.7 L (12.0-16.0) g/dL Hct 37.3 (35-47) % MCV 100.3 H (78-100) fL MCH 31.5 (26-32) pg MCHC 31.4 L (32-36) g/dL RDW 16.3 H (11.5-14.0) % Plt Count 370 (150-450) x10^3/uL MPV 9.8 (7.5-11.0) fL Gran % 85.4 H (36.0-66.0) % Immature Gran % (Auto) 0.4 (0.00-0.4) % Nucleat RBC Rel Count 0.0 (0.00-0.1) % Eos # (Auto) 0 (0-0.5) x10^3/uL Immature Gran # (Auto) 0.01 (0.00-0.03) x10^3u/L Absolute Lymphs (auto) 0.22 L (1.0-4.6) x10^3/uL Absolute Monos (auto) 0.12 (0.0-1.3) x10^3/uL Absolute Nucleated RBC 0.00 (0.00-0.01) x10^3u/L Lymphocytes % 9.2 L (24.0-44.0) % Monocytes % 5.0 (0.0-12.0) % Eosinophils % 0.0 (0.00-5.0) % Basophils % 0.0 (0.0-0.4) % Absolute Granulocytes 2.03 (1.4-6.9) x10^3/uL Basophils # 0 (0-0.4) x10^3/uL D-Dimer 0.76 H* (0.0-0.50) mg/L Sodium 135 L (137-145) mmol/L Potassium 4.1 (3.5-5.1) mmol/L Chloride 101 (98-107) mmol/L Carbon Dioxide 27 (22-30) mmol/L Anion Gap 11.5 (5-15) MEQ/L BUN 19 H (7-17) mg/dL Creatinine 1.03 (0.52-1.04) mg/dL Estimated GFR 56.1 ML/MIN Glucose 111 H (74-106) mg/dL Calcium 7.9 L (8.4-10.2) mg/dL Magnesium (1.6-2.3) mg/dL Total Bilirubin 0.40 (0.2-1.3) mg/dL AST 38 H (14-36) U/L ALT 25 (0-35) U/L Alkaline Phosphatase 87 (38-126) U/L Troponin I (0.000-0.034) ng/mL NT-Pro-B Natriuret Pep (0-900) pg/mL Serum Total Protein 5.9 L (6.3-8.2) g/dL Albumin 3.2 L (3.5-5.0) g/dL Urinalys Dipstick Clnc Urine Color (YELLOW) Urine Appearance (CLEAR) Urine pH (5-6) Ur Specific [place] (1.005-1.025) POC Urine Protein Conf (Negative) Urine Ketones (NEGATIVE) Urine Nitrite (NEGATIVE) Urine Bilirubin (NEGATIVE) Urine Urobilinogen (0-1) mg/dL Urine Leukocytes (NEGATIVE) Urine WBC (Auto) (0-5) /HPF Urine RBC (Auto) (0-2) /HPF U Epithel Cells (Auto) (FEW) /HPF Urine Bacteria (Auto) (NEGATIVE) /HPF Urine RBC (0-5) Beau/ul Urine Mucus (Auto) (NEGATIVE) /HPF Ur Culture Indicated? Urine Glucose (NEGATIVE) mg/dL Influenza Type A Ag (NEGATIVE) Influenza Type B Ag (NEGATIVE) RSV (PCR) (Negative) SARS-CoV-2 (PCR) (NEGATIVE) Slides for Path Review YES - Radiology Exams Ordered Rad Exams-Entire Visit: Radiology Procedures Category Date Time Status CHEST 1 VIEW (PORTABLE) Stat Exams 08/07/22 15:30 Completed CHEST WITH CONTRAST [CT] Stat Exams 08/07/22 18:20 Completed - Procedures and Test Procedures and Tests throughout Hospitalization: Therapy Orders & Screens 08/07/22 17:51 Respiratory Therapy Assessment DAILY Comment: 08/07/22 20:22 Respiratory Therapy Consult ROUTINE Comment: Reason For Exam: 08/08/22 07:00 Respiratory MDI BID Comment: Diagnosis: SHORTNESS OF BREATH, HYPOXIA, COVID POSITVE - Discharge Disposition: Home, Self-Care Condition: Good Prescriptions: New Cephalexin Mh 500 mg [Keflex 500 mg] 500 mg PO Q6H 4 Days #20 cap Continue Folic Acid 1 mg [Folate 1 mg] 1 mg PO DAILY Duloxetine HCl 120 mg PO DAILY Atorvastatin Calcium [Lipitor 20MG Tablet] 40 mg PO QHS Hydrocortisone 30 mg PO QAM Hydrocodone/Acetaminophen [Hydrocodone-Acetamin 7.5-325] 1 each PO QIDPRN PRN PRN Reason: Pain Loratadine 10 mg [Claritin 10 mg] 10 mg PO DAILY Aripiprazole 10 mg [Abilify 10 MG] 5 mg PO DAILY Budesonide/Glycopyr/Formoterol [Breztri Aerosphere Inhaler] 2 puff IH BID Nintedanib Esylate [Ofev] 300 mg PO DAILY Empagliflozin/Metformin HCl [Synjardy Xr 10-1,000 mg Tablet] 1 each PO DAILY Calcium Carbonate/Vitamin D3 [Oyster Shell Calcium-Vit D Tab] 2 each PO DAILY Hydrocortisone 10 mg PO DINNER Upadacitinib [Rinvoq] 15 mg PO DAILY Furosemide 20 mg [Lasix 20 mg] 40 mg PO DAILY Potassium Chloride Tab* [Klor Con] 40 meq PO DAILY Aspirin EC 81 mg [Ecotrin 81 mg] 81 mg PO DAILY Cyclobenzaprine HCl 10 mg [Cyclobenzaprine 10 MG] 10 mg PO QIDPRN PRN PRN Reason: Pain Omeprazole Magnesium [Prilosec Otc] 40 mg PO DAILY Instructions: COVID-19 (DC) Follow up with: KYARA DAWN [Primary Care Provider] -
[2022-08-08] MEDS ORDERED: Abilify 10 MG PO SCH (10:00)
[2022-08-08] MEDS ORDERED: VITAMIN D3 T PO SCH (10:00)
[2022-08-08] MEDS ORDERED: ECOTRIN 81 MG PO SCH (10:00)
[2022-08-08] MEDS ORDERED: REMDESIVIR 200 MG in Sodium Chloride 0.9% 250 ML 250 ML IV ONE (10:00)
[2022-08-08] MEDS ORDERED: Protonix 40MG Tablet PO SCH (10:00)
[2022-08-08] MEDS ORDERED: Cymbalta 30 MG Capsule PO SCH (10:00)
[2022-08-08] MEDS ORDERED: NINTEDANIB ESYLATE 150 MG PO SCH (10:00)
[2022-08-08] MEDS ORDERED: Calcium 500MG W/Vit D Tablet PO SCH (10:00)
[2022-08-08] MEDS ORDERED: [UNRECOGNIZED DRUG - OTHER] PO SCH (10:00)
[2022-08-08] MEDS ORDERED: FOLATE 1 MG PO SCH (10:00)
[2022-08-08] MEDS ORDERED: CLARITIN 10 MG PO SCH (10:00)
[2022-08-08] MEDS ORDERED: ROCEPHIN 1 Gm-D5w 50 ml Bag** 1 G/50 ML IVPB IV SCH ×2 (10:00→22:00)
[2022-08-08] MEDS ORDERED: LASIX 20 MG PO SCH (10:00)
[2022-08-08] MEDS ORDERED: METFORMIN HCL PO SCH (10:00)
[2022-08-08] MEDS ORDERED: [UNRECOGNIZED DRUG - OTHER] PO SCH (10:00)
[2022-08-08] MEDS ORDERED: Lasix 40 MG PO SCH (10:00)
[2022-08-08] MEDS ORDERED: NON-FORMULARY ITEM (Duloxetine Hcl [Duloxetine Hcl] 60 MG Capsule.Dr) PO SCH (10:00)
[2022-08-08] MEDS ORDERED: CALCIUM CARBONATE PO SCH (10:00)
[2022-08-08] MEDS ORDERED: EMPAGLIFLOZIN PO SCH (10:00)
[2022-08-08] MEDS ORDERED: DECADRON 10MG INJ. IV SCH (10:00)
[2022-08-08] MEDS ORDERED: PROTONIX 40 MG IV IV SCH (10:00)
[2022-08-08] MEDS ORDERED: ENOXAPARIN SODIUM SQ SCH (10:00)
[2022-08-08] MEDS ORDERED: Klor Con PO SCH (10:00)
[2022-08-08] MEDS ORDERED: FLUZONE HIGH-DOSE QUAD 2022-23 IM ONE (10:00)
[2022-08-08] MEDS ORDERED: NON-FORMULARY ITEM (Omeprazole Magnesium [Prilosec Otc] 20 MG Tablet.Dr) PO SCH (10:00)
[2022-08-08 11:17] VITALS: BP 137/77; PULSE 103; O2SAT 95
[2022-08-08] MEDS ORDERED: ZOCOR 20MG PO SCH (22:00)
== END 2022-08-08 11:50 | disposition home or self-care (01) ==
LOC: ED 14:26 → MED SURG 20:12
PROVIDERS: ADMIT Family Medicine; ATTEND Family Medicine
DX: U07.1 COVID-19 (principal); R53.1 Weakness; R09.02 Hypoxemia; E27.1 Primary adrenocortical insufficiency; E11.22 Type 2 diabetes mellitus with diabetic chronic kidney disease; I12.9 Hypertensive chronic kidney disease with stage 1 through stage 4 chronic kidney disease, or unspecified chronic kidney disease; N18.30 Chronic kidney disease, stage 3 unspecified; E78.5 Hyperlipidemia, unspecified; M06.9 Rheumatoid arthritis, unspecified; Z79.899 Other long term (current) drug therapy; Z20.828 Contact with and (suspected) exposure to other viral communicable diseases; Z23 Encounter for immunization
CPT/HCPCS: 0241U; 36000; 36415; 71045; 71260; 80053; 81015; 83735; 83880; 84484; 85025; 85379; 87086; 93005; 93041; 93268; 94640; 94760; 94762; 96360; 96374; 99285; G0008; G0378; 90662; J0248; J0696; J1100; J1650; J7609; A9270-GY

== ENCOUNTER 2022-08-14 11:56 | Observation (INO) | payer MEDICARE, OTHER ==
[2022-08-14 13:02] LABS: Absolute Neutrophil Ct (ANC) 7.75 x10^3/uL (1.4-6.9); Basophil (Absolute #) 0.02 x10^3/uL (0-0.4); Eosinophil % 0.4 % (0.00-5.0); Eosinophil (Absolute #) 0.03 x10^3/uL (0-0.5); Hematocrit 40.1 % (35-47); Hemoglobin 12.6 g/dL (12.0-16.0); Lymphocyte (Absolute #) 0.32 x10^3/uL (1.0-4.6); Lymphocytes % 3.7 % (24.0-44.0); Mean Cell Volume 99.8 fL (78-100); Mean Corpuscular Hemoglobin 31.3 pg (26-32); Mean Corpuscular Hgb Concent. 31.4 g/dL (32-36); Mean Platelet Volume 9.3 fL (7.5-11.0); Monocyte (Absolute #) 0.34 x10^3/uL (0.0-1.3); Neutrophil % 90.8 % (36.0-66.0); Platelet Count 540 x10^3/uL (150-450); Red Blood Count 4.02 x10^6/uL (4.1-5.4); Red Cell Distribution Width 16.4 % (11.5-14.0); White Blood Count 8.5 x10^3/uL (4.0-10.5)
[2022-08-14 13:16] LABS: ALBUMIN 3.4 g/dL (3.5-5.0); ALKALINE PHOSPHATASE 120 U/L (38-126); ANION GAP 5.5 MEQ/L (5-15); BLOOD UREA NITROGEN 12 mg/dL (7-17); CHLORIDE 101 mmol/L (98-107); Calcium 8.8 mg/dL (8.4-10.2); Carbon Dioxide 28 mmol/L (22-30); Creatinine 1 0.97 mg/dL (0.52-1.04); EST GLOMERULAR FILTRATION RATE > 60.0 ML/MIN; Glucose 92 mg/dL (74-106); Potassium 3.7 mmol/L (3.5-5.1); SGOT/AST 37 U/L (14-36); SGPT/ALT 29 U/L (0-35); SODIUM 131 mmol/L (137-145); Total Protein 6.3 g/dL (6.3-8.2)
[2022-08-14] MEDS ORDERED: Sodium Chloride 0.9% 1000 ML 1,000 ML IV SCH (13:30)
--- NOTE | 2022-08-14 13:54 | XRAY ---
Indication: Weakness and tachycardia. Falls. Comparison: August 07, 2022 AP/lateral portable chest is limited as lateral view is suboptimal in technique. Visualized lungs unchanged again demonstrating chronic lung markings, minimal left base subsegmental atelectasis/scarring, and right costophrenic angle calcified pleural plaquing. Heart not enlarged. No new/acute abnormalities.
[2022-08-14 14:15] LABS: Slide Review 1 YES
[2022-08-14] MEDS ORDERED: HUMALOG SQ PRN (14:38)
[2022-08-14] MEDS ORDERED: TYLENOL 325 MG PO PRN (14:39)
[2022-08-14] MEDS: Dextrose 5% -0.45 NaCl 1000 ML 1,000 ML IV SCH (15:12)
[2022-08-14] MEDS ORDERED: Cyclobenzaprine 10 MG PO PRN (16:07)
[2022-08-14] MEDS ORDERED: MEDICATION INTERVENTION MC SCH (16:30)
[2022-08-14] MEDS: Abilify 10 MG PO SCH (17:47)
[2022-08-14] MEDS: Cymbalta 30 MG Capsule PO SCH (17:47)
[2022-08-14] MEDS: CLARITIN 10 MG PO SCH (17:48)
[2022-08-14] MEDS: ECOTRIN 81 MG PO SCH (17:48)
[2022-08-14] MEDS: HYDROCORTISONE PO SCH (17:48)
[2022-08-14] MEDS: FOLATE 1 MG PO SCH (17:48)
[2022-08-14] MEDS: Protonix 40MG Tablet PO SCH (17:48)
[2022-08-14] MEDS: PATIENT OWN MEDICATION PO SCH (17:49)
[2022-08-14] MEDS: NORCO 7.5/325 MG TAB PO PRN (17:55)
[2022-08-14 18:45] LABS: ANION GAP 8.3 MEQ/L (5-15); BLOOD UREA NITROGEN 12 mg/dL (7-17); CHLORIDE 102 mmol/L (98-107); Calcium 8.2 mg/dL (8.4-10.2); Carbon Dioxide 23 mmol/L (22-30); Creatinine 1 0.95 mg/dL (0.52-1.04); EST GLOMERULAR FILTRATION RATE > 60.0 ML/MIN; Glucose 127 mg/dL (74-106); Potassium 3.5 mmol/L (3.5-5.1); SODIUM 131 mmol/L (137-145)
[2022-08-14] MEDS: PATIENT OWN MEDICATION IH SCH (19:00)
[2022-08-14] MEDS: ZOCOR 20MG PO SCH (20:55)
[2022-08-14] MEDS ORDERED: NON-FORMULARY ITEM (Atorvastatin Calcium 20 MG Tab) PO SCH (22:00)
[2022-08-15 02:37] LABS: Appearance CLEAR (CLEAR); Bilirubin NEGATIVE (NEGATIVE); Dipstick done @ ? MAIN LAB; Glucose 100 mg/dL (NEGATIVE); Ketones NEGATIVE (NEGATIVE); Nitrite NEGATIVE (NEGATIVE); Protein,Urine Dip NEGATIVE (Negative); RBC NEGATIVE Ery/ul (0-5); Urine Cultured Indicated? ORDERED SEPARATELY; Urobilinogen 0.2 mg/dL (0-1)
[2022-08-15 02:38] LABS: Bacteria FEW /HPF (NEGATIVE); Epithelial Cells RARE /HPF (FEW); Mucus SLIGHT /HPF (NEGATIVE); WBC 26-50 /HPF (0-5)
[2022-08-15] MEDS: Dextrose 5% -0.45 NaCl 1000 ML 1,000 ML IV SCH ×2 (04:17→13:02)
[2022-08-15 05:24] LABS: Absolute Neutrophil Ct (ANC) 4.53 x10^3/uL (1.4-6.9); Basophil (Absolute #) 0.02 x10^3/uL (0-0.4); Eosinophil % 1.5 % (0.00-5.0); Eosinophil (Absolute #) 0.08 x10^3/uL (0-0.5); Hematocrit 34.9 % (35-47); Hemoglobin 10.7 g/dL (12.0-16.0); Lymphocyte (Absolute #) 0.25 x10^3/uL (1.0-4.6); Lymphocytes % 4.8 % (24.0-44.0); Mean Cell Volume 102.3 fL (78-100); Mean Corpuscular Hemoglobin 31.4 pg (26-32); Mean Corpuscular Hgb Concent. 30.7 g/dL (32-36); Mean Platelet Volume 9.2 fL (7.5-11.0); Monocyte (Absolute #) 0.28 x10^3/uL (0.0-1.3); Monocytes % 5.4 % (0.0-12.0); Neutrophil % 86.9 % (36.0-66.0); Platelet Count 432 x10^3/uL (150-450); Red Blood Count 3.41 x10^6/uL (4.1-5.4); Red Cell Distribution Width 16.6 % (11.5-14.0); White Blood Count 5.2 x10^3/uL (4.0-10.5)
[2022-08-15 05:36] LABS: BLOOD UREA NITROGEN 10 mg/dL (7-17); CHLORIDE 104 mmol/L (98-107); Calcium 7.8 mg/dL (8.4-10.2); Carbon Dioxide 25 mmol/L (22-30); Creatinine 1 0.84 mg/dL (0.52-1.04); EST GLOMERULAR FILTRATION RATE > 60.0 ML/MIN; Glucose 115 mg/dL (74-106); Potassium 3.4 mmol/L (3.5-5.1); SODIUM 133 mmol/L (137-145)
[2022-08-15 05:49] LABS: Slide Review 1 YES
[2022-08-15] MEDS: ROCEPHIN 1 Gm-D5w 50 ml Bag** 1 G/50 ML IVPB IV SCH ×2 (06:55→07:07)
[2022-08-15] MEDS: NORCO 7.5/325 MG TAB PO PRN (06:58)
[2022-08-15] MEDS ORDERED: Cyclobenzaprine 10 MG PO PRN (07:43)
[2022-08-15] MEDS ORDERED: NORCO 7.5/325 MG TAB PO PRN (07:44)
[2022-08-15] MEDS: PATIENT OWN MEDICATION PO SCH ×2 (07:53→15:57)
[2022-08-15] MEDS: PATIENT OWN MEDICATION IH SCH ×2 (08:07→19:02)
--- NOTE | 2022-08-15 09:13 | PCM.NOTE ---
Date and Time: 08/15/22 09 Subjective Assessment: SHe is feeling somewhat better. Awoke hungry this morning. Did have fever to >101 yesterday. UA with 26-50 wbc. - Review of Systems Constitutional: Fever, Weakness Objective Exam General Appearance: no apparent distress, alert Neurologic Exam: oriented x 3, cooperative Skin Exam: normal color, warm, dry, No rash Eye Exam: eyes nml inspection Ears, Nose, Throat Exam: moist mucous membranes Neck Exam: normal inspection Respiratory Exam: normal breath sounds, lungs clear, No crackles/rales, No rhonchi, No wheezing Cardiovascular Exam: regular rate/rhythm, normal heart sounds, No murmur Gastrointestinal/Abdomen Exam: soft, normal bowel sounds, No tenderness, No distention, No mass, No guarding, No rebound Extremity Exam: normal inspection, No pedal edema, No swelling OBJECTIVE DATA Vital Signs: Vital Signs - 24 hr Temp Pulse Resp BP Pulse Ox 08/15/22 08:07 106 H 18 97 08/15/22 07:44 97.8 F 100 H 16 115/56 92 L 08/15/22 04:00 97.7 F 104 H 17 122/66 99 08/14/22 23:16 96.8 F 114 H 18 111/55 97 08/14/22 19:10 96.2 F 116 H 18 99/50 97 08/14/22 19:06 120 H 20 97 08/14/22 16:00 98.9 F 121 H 20 113/64 100 08/14/22 13:33 101.1 F 08/14/22 13:16 132 H 20 95 08/14/22 12:21 98.2 F 127 H 18 116/57 97 08/14/22 12:19 98.2 F 127 H 17 116/57 97 Pain Assessment - Last Documented Pain Intensity 5 Pain Scale Used 0-10 Pain Scale Intake and Output: Intake & Output 08/12/22 08/13/22 08/14/22 08/15/22 11:59 11:59 11:59 11:59 Intake Total 1852 Output Total 800 Balance 1052 Weight 82.4 kg Lab Results: Lab Results-Last 24 Hours 08/14/22 08/14/22 08/14/22 Range/Units 12:27 12:30 12:44 WBC (4.0-10.5) x10^3/uL RBC (4.1-5.4) x10^6/uL Hgb (12.0-16.0) g/dL Hct (35-47) % MCV (78-100) fL MCH (26-32) pg MCHC (32-36) g/dL RDW (11.5-14.0) % Plt Count (150-450) x10^3/uL MPV (7.5-11.0) fL Gran % (36.0-66.0) % Immature Gran % (Auto) (0.00-0.4) % Nucleat RBC Rel Count (0.00-0.1) % Eos # (Auto) (0-0.5) x10^3/uL Immature Gran # (Auto) (0.00-0.03) x10^3u/L Absolute Lymphs (auto) (1.0-4.6) x10^3/uL Absolute Monos (auto) (0.0-1.3) x10^3/uL Absolute Nucleated RBC (0.00-0.01) x10^3u/L Lymphocytes % (24.0-44.0) % Monocytes % (0.0-12.0) % Eosinophils % (0.00-5.0) % Basophils % (0.0-0.4) % Absolute Granulocytes (1.4-6.9) x10^3/uL Basophils # (0-0.4) x10^3/uL Sodium (137-145) mmol/L Potassium (3.5-5.1) mmol/L Chloride (98-107) mmol/L Carbon Dioxide (22-30) mmol/L Anion Gap (5-15) MEQ/L BUN (7-17) mg/dL Creatinine (0.52-1.04) mg/dL Estimated GFR ML/MIN Glucose (74-106) mg/dL POC Glucometer 56 L 71 L (74 to 106) mg/dL Calcium (8.4-10.2) mg/dL Total Bilirubin (0.2-1.3) mg/dL AST (14-36) U/L ALT (0-35) U/L Alkaline Phosphatase (38-126) U/L Troponin I (0.000-0.034) ng/mL Serum Total Protein (6.3-8.2) g/dL Albumin (3.5-5.0) g/dL Urinalys Dipstick Clnc Urine Color (YELLOW) Urine Appearance (CLEAR) Urine pH (5-6) Ur Specific [place] (1.005-1.025) POC Urine Protein Conf (Negative) Urine Ketones (NEGATIVE) Urine Nitrite (NEGATIVE) Urine Bilirubin (NEGATIVE) Urine Urobilinogen (0-1) mg/dL Urine Leukocytes (NEGATIVE) Urine WBC (Auto) (0-5) /HPF Urine RBC (Auto) (0-2) /HPF U Epithel Cells (Auto) (FEW) /HPF Urine Bacteria (Auto) (NEGATIVE) /HPF Urine RBC (0-5) Beau/ul Urine Mucus (Auto) (NEGATIVE) /HPF Ur Culture Indicated? Urine Glucose (NEGATIVE) mg/dL SARS-CoV-2 Ag (Rapid) POSITIVE A* (NEGATIVE) Slides for Path Review 08/14/22 08/14/22 08/14/22 Range/Units 12:44 12:44 12:44 WBC 8.5 (4.0-10.5) x10^3/uL RBC 4.02 L (4.1-5.4) x10^6/uL Hgb 12.6 (12.0-16.0) g/dL Hct 40.1 (35-47) % MCV 99.8 (78-100) fL MCH 31.3 (26-32) pg MCHC 31.4 L (32-36) g/dL RDW 16.4 H (11.5-14.0) % Plt Count 540 H (150-450) x10^3/uL MPV 9.3 (7.5-11.0) fL Gran % 90.8 H (36.0-66.0) % Immature Gran % (Auto) 0.9 H (0.00-0.4) % Nucleat RBC Rel Count 0.0 (0.00-0.1) % Eos # (Auto) 0.03 (0-0.5) x10^3/uL Immature Gran # (Auto) 0.08 H (0.00-0.03) x10^3u/L Absolute Lymphs (auto) 0.32 L (1.0-4.6) x10^3/uL Absolute Monos (auto) 0.34 (0.0-1.3) x10^3/uL Absolute Nucleated RBC 0.00 (0.00-0.01) x10^3u/L Lymphocytes % 3.7 L (24.0-44.0) % Monocytes % 4.0 (0.0-12.0) % Eosinophils % 0.4 (0.00-5.0) % Basophils % 0.2 (0.0-0.4) % Absolute Granulocytes 7.75 H (1.4-6.9) x10^3/uL Basophils # 0.02 (0-0.4) x10^3/uL Sodium 131 L (137-145) mmol/L Potassium 3.7 (3.5-5.1) mmol/L Chloride 101 (98-107) mmol/L Carbon Dioxide 28 (22-30) mmol/L Anion Gap 5.5 (5-15) MEQ/L BUN 12 (7-17) mg/dL Creatinine 0.97 (0.52-1.04) mg/dL Estimated GFR > 60.0 ML/MIN Glucose 92 (74-106) mg/dL POC Glucometer (74 to 106) mg/dL Calcium 8.8 (8.4-10.2) mg/dL Total Bilirubin 0.70 (0.2-1.3) mg/dL AST 37 H (14-36) U/L ALT 29 (0-35) U/L Alkaline Phosphatase 120 (38-126) U/L Troponin I < 0.012 (0.000-0.034) ng/mL Serum Total Protein 6.3 (6.3-8.2) g/dL Albumin 3.4 L (3.5-5.0) g/dL Urinalys Dipstick Clnc Urine Color (YELLOW) Urine Appearance (CLEAR) Urine pH (5-6) Ur Specific [place] (1.005-1.025) POC Urine Protein Conf (Negative) Urine Ketones (NEGATIVE) Urine Nitrite (NEGATIVE) Urine Bilirubin (NEGATIVE) Urine Urobilinogen (0-1) mg/dL Urine Leukocytes (NEGATIVE) Urine WBC (Auto) (0-5) /HPF Urine RBC (Auto) (0-2) /HPF U Epithel Cells (Auto) (FEW) /HPF Urine Bacteria (Auto) (NEGATIVE) /HPF Urine RBC (0-5) Beau/ul Urine Mucus (Auto) (NEGATIVE) /HPF Ur Culture Indicated? Urine Glucose (NEGATIVE) mg/dL SARS-CoV-2 Ag (Rapid) (NEGATIVE) Slides for Path Review YES 08/14/22 08/14/22 08/14/22 Range/Units 16:10 18:29 20:27 WBC (4.0-10.5) x10^3/uL RBC (4.1-5.4) x10^6/uL Hgb (12.0-16.0) g/dL Hct (35-47) % MCV (78-100) fL MCH (26-32) pg MCHC (32-36) g/dL RDW (11.5-14.0) % Plt Count (150-450) x10^3/uL MPV (7.5-11.0) fL Gran % (36.0-66.0) % Immature Gran % (Auto) (0.00-0.4) % Nucleat RBC Rel Count (0.00-0.1) % Eos # (Auto) (0-0.5) x10^3/uL Immature Gran # (Auto) (0.00-0.03) x10^3u/L Absolute Lymphs (auto) (1.0-4.6) x10^3/uL Absolute Monos (auto) (0.0-1.3) x10^3/uL Absolute Nucleated RBC (0.00-0.01) x10^3u/L Lymphocytes % (24.0-44.0) % Monocytes % (0.0-12.0) % Eosinophils % (0.00-5.0) % Basophils % (0.0-0.4) % Absolute Granulocytes (1.4-6.9) x10^3/uL Basophils # (0-0.4) x10^3/uL Sodium 131 L (137-145) mmol/L Potassium 3.5 (3.5-5.1) mmol/L Chloride 102 (98-107) mmol/L Carbon Dioxide 23 (22-30) mmol/L Anion Gap 8.3 (5-15) MEQ/L BUN 12 (7-17) mg/dL Creatinine 0.95 (0.52-1.04) mg/dL Estimated GFR > 60.0 ML/MIN Glucose 127 H (74-106) mg/dL POC Glucometer 98 111 H (74 to 106) mg/dL Calcium 8.2 L (8.4-10.2) mg/dL Total Bilirubin (0.2-1.3) mg/dL AST (14-36) U/L ALT (0-35) U/L Alkaline Phosphatase (38-126) U/L Troponin I (0.000-0.034) ng/mL Serum Total Protein (6.3-8.2) g/dL Albumin (3.5-5.0) g/dL Urinalys Dipstick Clnc Urine Color (YELLOW) Urine Appearance (CLEAR) Urine pH (5-6) Ur Specific [place] (1.005-1.025) POC Urine Protein Conf (Negative) Urine Ketones (NEGATIVE) Urine Nitrite (NEGATIVE) Urine Bilirubin (NEGATIVE) Urine Urobilinogen (0-1) mg/dL Urine Leukocytes (NEGATIVE) Urine WBC (Auto) (0-5) /HPF Urine RBC (Auto) (0-2) /HPF U Epithel Cells (Auto) (FEW) /HPF Urine Bacteria (Auto) (NEGATIVE) /HPF Urine RBC (0-5) Beau/ul Urine Mucus (Auto) (NEGATIVE) /HPF Ur Culture Indicated? Urine Glucose (NEGATIVE) mg/dL SARS-CoV-2 Ag (Rapid) (NEGATIVE) Slides for Path Review 08/15/22 08/15/22 08/15/22 Range/Units 02:30 05:20 05:20 WBC 5.2 (4.0-10.5) x10^3/uL RBC 3.41 L (4.1-5.4) x10^6/uL Hgb 10.7 L (12.0-16.0) g/dL Hct 34.9 L (35-47) % MCV 102.3 H (78-100) fL MCH 31.4 (26-32) pg MCHC 30.7 L (32-36) g/dL RDW 16.6 H (11.5-14.0) % Plt Count 432 (150-450) x10^3/uL MPV 9.2 (7.5-11.0) fL Gran % 86.9 H (36.0-66.0) % Immature Gran % (Auto) 1.0 H (0.00-0.4) % Nucleat RBC Rel Count 0.0 (0.00-0.1) % Eos # (Auto) 0.08 (0-0.5) x10^3/uL Immature Gran # (Auto) 0.05 H (0.00-0.03) x10^3u/L Absolute Lymphs (auto) 0.25 L (1.0-4.6) x10^3/uL Absolute Monos (auto) 0.28 (0.0-1.3) x10^3/uL Absolute Nucleated RBC 0.00 (0.00-0.01) x10^3u/L Lymphocytes % 4.8 L (24.0-44.0) % Monocytes % 5.4 (0.0-12.0) % Eosinophils % 1.5 (0.00-5.0) % Basophils % 0.4 (0.0-0.4) % Absolute Granulocytes 4.53 (1.4-6.9) x10^3/uL Basophils # 0.02 (0-0.4) x10^3/uL Sodium 133 L (137-145) mmol/L Potassium 3.4 L (3.5-5.1) mmol/L Chloride 104 (98-107) mmol/L Carbon Dioxide 25 (22-30) mmol/L Anion Gap 7.0 (5-15) MEQ/L BUN 10 (7-17) mg/dL Creatinine 0.84 (0.52-1.04) mg/dL Estimated GFR > 60.0 ML/MIN Glucose 115 H (74-106) mg/dL POC Glucometer (74 to 106) mg/dL Calcium 7.8 L (8.4-10.2) mg/dL Total Bilirubin (0.2-1.3) mg/dL AST (14-36) U/L ALT (0-35) U/L Alkaline Phosphatase (38-126) U/L Troponin I (0.000-0.034) ng/mL Serum Total Protein (6.3-8.2) g/dL Albumin (3.5-5.0) g/dL Urinalys Dipstick Clnc MAIN LAB Urine Color YELLOW (YELLOW) Urine Appearance CLEAR (CLEAR) Urine pH 6.0 (5-6) Ur Specific [place] 1.010 (1.005-1.025) POC Urine Protein Conf NEGATIVE (Negative) Urine Ketones NEGATIVE (NEGATIVE) Urine Nitrite NEGATIVE (NEGATIVE) Urine Bilirubin NEGATIVE (NEGATIVE) Urine Urobilinogen 0.2 (0-1) mg/dL Urine Leukocytes MODERATE A (NEGATIVE) Urine WBC (Auto) 26-50 A (0-5) /HPF Urine RBC (Auto) 3-5 A (0-2) /HPF U Epithel Cells (Auto) RARE (FEW) /HPF Urine Bacteria (Auto) FEW A (NEGATIVE) /HPF Urine RBC NEGATIVE (0-5) Beau/ul Urine Mucus (Auto) SLIGHT A (NEGATIVE) /HPF Ur Culture Indicated? ORDERED SEPARATELY Urine Glucose 100 A (NEGATIVE) mg/dL SARS-CoV-2 Ag (Rapid) (NEGATIVE) Slides for Path Review YES 08/15/22 Range/Units 07:35 WBC (4.0-10.5) x10^3/uL RBC (4.1-5.4) x10^6/uL Hgb (12.0-16.0) g/dL Hct (35-47) % MCV (78-100) fL MCH (26-32) pg MCHC (32-36) g/dL RDW (11.5-14.0) % Plt Count (150-450) x10^3/uL MPV (7.5-11.0) fL Gran % (36.0-66.0) % Immature Gran % (Auto) (0.00-0.4) % Nucleat RBC Rel Count (0.00-0.1) % Eos # (Auto) (0-0.5) x10^3/uL Immature Gran # (Auto) (0.00-0.03) x10^3u/L Absolute Lymphs (auto) (1.0-4.6) x10^3/uL Absolute Monos (auto) (0.0-1.3) x10^3/uL Absolute Nucleated RBC (0.00-0.01) x10^3u/L Lymphocytes % (24.0-44.0) % Monocytes % (0.0-12.0) % Eosinophils % (0.00-5.0) % Basophils % (0.0-0.4) % Absolute Granulocytes (1.4-6.9) x10^3/uL Basophils # (0-0.4) x10^3/uL Sodium (137-145) mmol/L Potassium (3.5-5.1) mmol/L Chloride (98-107) mmol/L Carbon Dioxide (22-30) mmol/L Anion Gap (5-15) MEQ/L BUN (7-17) mg/dL Creatinine (0.52-1.04) mg/dL Estimated GFR ML/MIN Glucose (74-106) mg/dL POC Glucometer 115 H (74 to 106) mg/dL Calcium (8.4-10.2) mg/dL Total Bilirubin (0.2-1.3) mg/dL AST (14-36) U/L ALT (0-35) U/L Alkaline Phosphatase (38-126) U/L Troponin I (0.000-0.034) ng/mL Serum Total Protein (6.3-8.2) g/dL Albumin (3.5-5.0) g/dL Urinalys Dipstick Clnc Urine Color (YELLOW) Urine Appearance (CLEAR) Urine pH (5-6) Ur Specific [place] (1.005-1.025) POC Urine Protein Conf (Negative) Urine Ketones (NEGATIVE) Urine Nitrite (NEGATIVE) Urine Bilirubin (NEGATIVE) Urine Urobilinogen (0-1) mg/dL Urine Leukocytes (NEGATIVE) Urine WBC (Auto) (0-5) /HPF Urine RBC (Auto) (0-2) /HPF U Epithel Cells (Auto) (FEW) /HPF Urine Bacteria (Auto) (NEGATIVE) /HPF Urine RBC (0-5) Beau/ul Urine Mucus (Auto) (NEGATIVE) /HPF Ur Culture Indicated? Urine Glucose (NEGATIVE) mg/dL SARS-CoV-2 Ag (Rapid) (NEGATIVE) Slides for Path Review Radiology Exams: Radiology Procedures Category Date Time Status CHEST 2 VIEWS (PA AND LAT) Routine Exams 08/14/22 12:30 Completed Assessment/Plan (1) UTI (urinary tract infection) Current Visit: Yes Status: Acute Qualifiers: Urinary tract infection type: acute cystitis Hematuria presence: without hematuria Qualified Code(s): N30.00 - Acute cystitis without hematuria Assessment & Plan: WIll stay and get IV fluids and rocephin again tomorrow. Would very much like to go home after that. Code(s): N39.0 - URINARY TRACT INFECTION, SITE NOT SPECIFIED (2) Generalized weakness Current Visit: No Status: Acute Assessment & Plan: PT seeing pt. 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 Code(s): E27.1 - PRIMARY ADRENOCORTICAL INSUFFICIENCY (6) Chronic kidney disease, stage 3 Current Visit: No Status: Chronic Qualifiers: Code(s): N18.30 - CHRONIC KIDNEY DISEASE, STAGE 3 UNSPECIFIED (7) Diabetes mellitus type II, controlled Current Visit: No Status: Chronic Qualifiers: Code(s): E11.9 - TYPE 2 DIABETES MELLITUS WITHOUT COMPLICATIONS (8) Hypertension Current Visit: No Status: Chronic Qualifiers: Code(s): I10 - ESSENTIAL (PRIMARY) HYPERTENSION (9) PVD (peripheral vascular disease) Current Visit: No Status: Chronic Code(s): I73.9 - PERIPHERAL VASCULAR DISEASE, UNSPECIFIED (10) Rheumatoid arthritis Current Visit: No Status: Chronic Qualifiers: Code(s): M06.9 - RHEUMATOID ARTHRITIS, UNSPECIFIED
[2022-08-15] MEDS: FOLATE 1 MG PO SCH (09:47)
[2022-08-15] MEDS: Cyclobenzaprine 10 MG PO SCH ×3 (09:47→21:20)
[2022-08-15] MEDS: Cymbalta 30 MG Capsule PO SCH (09:47)
[2022-08-15] MEDS: Klor Con PO SCH ×4 (09:47→14:48)
[2022-08-15] MEDS: CLARITIN 10 MG PO SCH (09:47)
[2022-08-15] MEDS: Protonix 40MG Tablet PO SCH (09:47)
[2022-08-15] MEDS: Abilify 10 MG PO SCH (09:48)
[2022-08-15] MEDS: ECOTRIN 81 MG PO SCH (09:48)
[2022-08-15] MEDS: HYDROCORTISONE PO SCH ×2 (09:49→15:56)
[2022-08-15] MEDS: NORCO 7.5/325 MG TAB PO SCH ×3 (09:51→21:20)
[2022-08-15] MEDS ORDERED: NON-FORMULARY ITEM (Duloxetine Hcl [Duloxetine Hcl] 60 MG Capsule.Dr) PO SCH (10:00)
[2022-08-15] MEDS ORDERED: NON-FORMULARY ITEM (Omeprazole Magnesium [Prilosec Otc] 20 MG Tablet.Dr) PO SCH (10:00)
[2022-08-15] MEDS ORDERED: NINTEDANIB ESYLATE 150 MG PO SCH (10:00)
--- NOTE | 2022-08-15 15:23 | XRAY ---
Indication: Abnormal lung sounds. Positive Covid 19. Comparison: August 14, 2022 Portable chest demonstrates new diffuse bilateral hazy patchy groundglass airspace disease without consolidation/large effusion. Heart and mediastinal structures within normal limits again with tortuous descending aorta.
[2022-08-15] MEDS ORDERED: Lasix 40 MG/4 ML IV ONE (15:33)
[2022-08-15] MEDS: ENOXAPARIN SODIUM SQ SCH (15:56)
[2022-08-15] MEDS ORDERED: Dextrose 5% -0.45 NaCl 1000 ML 1,000 ML IV SCH (16:29)
[2022-08-15] MEDS: ZOCOR 20MG PO SCH (21:20)
[2022-08-16 05:13] LABS: Absolute Neutrophil Ct (ANC) 4.45 x10^3/uL (1.4-6.9); Basophil (Absolute #) 0.01 x10^3/uL (0-0.4); Eosinophil % 1.2 % (0.00-5.0); Eosinophil (Absolute #) 0.06 x10^3/uL (0-0.5); Hematocrit 32.6 % (35-47); Lymphocyte (Absolute #) 0.31 x10^3/uL (1.0-4.6); Mean Cell Volume 100.6 fL (78-100); Mean Corpuscular Hemoglobin 30.9 pg (26-32); Mean Corpuscular Hgb Concent. 30.7 g/dL (32-36); Mean Platelet Volume 9.1 fL (7.5-11.0); Monocyte (Absolute #) 0.31 x10^3/uL (0.0-1.3); Neutrophil % 86.2 % (36.0-66.0); Platelet Count 441 x10^3/uL (150-450); Red Blood Count 3.24 x10^6/uL (4.1-5.4); Red Cell Distribution Width 16.6 % (11.5-14.0); White Blood Count 5.2 x10^3/uL (4.0-10.5)
[2022-08-16 05:59] LABS: ANION GAP 7.7 MEQ/L (5-15); BLOOD UREA NITROGEN 9 mg/dL (7-17); CHLORIDE 108 mmol/L (98-107); Calcium 7.7 mg/dL (8.4-10.2); Carbon Dioxide 22 mmol/L (22-30); Creatinine 1 0.68 mg/dL (0.52-1.04); EST GLOMERULAR FILTRATION RATE > 60.0 ML/MIN; Glucose 127 mg/dL (74-106); MAGNESIUM 1.5 mg/dL (1.6-2.3); NT PRO BNP 110 pg/mL (0-900); Potassium 4.2 mmol/L (3.5-5.1); SODIUM 133 mmol/L (137-145)
[2022-08-16 07:11] VITALS: BP 131/64; PULSE 100; O2SAT 96
[2022-08-16 07:41] LABS: Slide Review 1 YES
[2022-08-16] MEDS: PATIENT OWN MEDICATION PO SCH ×2 (07:42→07:45)
[2022-08-16] MEDS: PATIENT OWN MEDICATION IH SCH (07:45)
--- NOTE | 2022-08-16 09:03 | XRAY ---
Indication: Positive Covid 19. Comparison: One day earlier. Portable chest unchanged again demonstrating diffuse bilateral hazy ground glass airspace disease without consolidation/large effusion. Heart not enlarged. No new cardiopulmonary abnormalities.
[2022-08-16] MEDS: Abilify 10 MG PO SCH (09:29)
[2022-08-16] MEDS: FOLATE 1 MG PO SCH (09:29)
[2022-08-16] MEDS: CLARITIN 10 MG PO SCH (09:29)
[2022-08-16] MEDS: Cyclobenzaprine 10 MG PO SCH (09:29)
[2022-08-16] MEDS: Cymbalta 30 MG Capsule PO SCH (09:30)
[2022-08-16] MEDS: Protonix 40MG Tablet PO SCH (09:30)
[2022-08-16] MEDS: ECOTRIN 81 MG PO SCH (09:30)
[2022-08-16] MEDS: NORCO 7.5/325 MG TAB PO SCH (09:31)
[2022-08-16] MEDS: ROCEPHIN 1 Gm-D5w 50 ml Bag** 1 G/50 ML IVPB IV SCH (09:31)
[2022-08-16] MEDS: ENOXAPARIN SODIUM SQ SCH (09:31)
[2022-08-16] MEDS: HYDROCORTISONE PO SCH (09:32)
--- NOTE | 2022-08-16 10:13 | PCM.DS ---
Discharge Summary Date of Admission: 08/14/22 11:56 Admitting Physician: KYARA DAWN Consults: Consults on Case 08/14/22 12:30 Nutritional Consult ROUTINE Primary Care Provider: KYARA DAWN Allergies Allergies bupropion [From Wellbutrin] Adverse Reaction (Intermediate, Verified 08/14/22 12:17) Muscle Aches infliximab [From Remicade] Adverse Reaction (Intermediate, Verified 08/14/22 12:17) MUSCLE SPASMS mycophenolate mofetil [From CellCept] Adverse Reaction (Intermediate, Verified 08/14/22 12:17) Muscle Contraction, Pain Hospital Summary - Hospital Course Hospital Course: patient with recent covid and hx of lucho's admitted by Dr Hobson with weakness and UTI, she is afebrile, urine culture negative and was treated with rocephin. feeling much better, likely residual symptoms from recent covid infection - Vitals & Intake/Output Vital Signs: Vital Signs Temperature 97.7 F 08/16/22 07:10 Pulse Rate 100 H 08/16/22 07:45 Respiratory Rate 20 08/16/22 07:45 Blood Pressure 131/64 08/16/22 07:10 O2 Sat by Pulse Oximetry 96 08/16/22 07:45 Intake & Output: Intake & Output 08/13/22 08/14/22 08/15/22 08/16/22 11:59 11:59 11:59 11:59 Intake Total 2192 4540 Output Total 800 2250 Balance 1392 2290 Weight 82.4 kg - Lab Result Diagrams: 08/16/22 05:05 08/16/22 05:05 Lab Results-Last 24 Hrs: Lab Results-Last 24 Hours 08/15/22 08/15/22 08/15/22 Range/Units 11:48 12:45 12:45 WBC (4.0-10.5) x10^3/uL RBC (4.1-5.4) x10^6/uL Hgb (12.0-16.0) g/dL Hct (35-47) % MCV (78-100) fL MCH (26-32) pg MCHC (32-36) g/dL RDW (11.5-14.0) % Plt Count (150-450) x10^3/uL MPV (7.5-11.0) fL Gran % (36.0-66.0) % Immature Gran % (Auto) (0.00-0.4) % Nucleat RBC Rel Count (0.00-0.1) % Eos # (Auto) (0-0.5) x10^3/uL Immature Gran # (Auto) (0.00-0.03) x10^3u/L Absolute Lymphs (auto) (1.0-4.6) x10^3/uL Absolute Monos (auto) (0.0-1.3) x10^3/uL Absolute Nucleated RBC (0.00-0.01) x10^3u/L Lymphocytes % (24.0-44.0) % Monocytes % (0.0-12.0) % Eosinophils % (0.00-5.0) % Basophils % (0.0-0.4) % Absolute Granulocytes (1.4-6.9) x10^3/uL Basophils # (0-0.4) x10^3/uL Sodium (137-145) mmol/L Potassium 3.3 L (3.5-5.1) mmol/L Chloride (98-107) mmol/L Carbon Dioxide (22-30) mmol/L Anion Gap (5-15) MEQ/L BUN (7-17) mg/dL Creatinine (0.52-1.04) mg/dL Estimated GFR ML/MIN Glucose (74-106) mg/dL POC Glucometer 118 H (74 to 106) mg/dL Calcium (8.4-10.2) mg/dL Magnesium (1.6-2.3) mg/dL NT-Pro-B Natriuret Pep (0-900) pg/mL Procalcitonin 0.104 H (0.030-0.080) ng/mL Slides for Path Review 08/15/22 08/15/22 08/15/22 Range/Units 16:33 16:40 20:45 WBC (4.0-10.5) x10^3/uL RBC (4.1-5.4) x10^6/uL Hgb (12.0-16.0) g/dL Hct (35-47) % MCV (78-100) fL MCH (26-32) pg MCHC (32-36) g/dL RDW (11.5-14.0) % Plt Count (150-450) x10^3/uL MPV (7.5-11.0) fL Gran % (36.0-66.0) % Immature Gran % (Auto) (0.00-0.4) % Nucleat RBC Rel Count (0.00-0.1) % Eos # (Auto) (0-0.5) x10^3/uL Immature Gran # (Auto) (0.00-0.03) x10^3u/L Absolute Lymphs (auto) (1.0-4.6) x10^3/uL Absolute Monos (auto) (0.0-1.3) x10^3/uL Absolute Nucleated RBC (0.00-0.01) x10^3u/L Lymphocytes % (24.0-44.0) % Monocytes % (0.0-12.0) % Eosinophils % (0.00-5.0) % Basophils % (0.0-0.4) % Absolute Granulocytes (1.4-6.9) x10^3/uL Basophils # (0-0.4) x10^3/uL Sodium (137-145) mmol/L Potassium 4.3 D 4.6 (3.5-5.1) mmol/L Chloride (98-107) mmol/L Carbon Dioxide (22-30) mmol/L Anion Gap (5-15) MEQ/L BUN (7-17) mg/dL Creatinine (0.52-1.04) mg/dL Estimated GFR ML/MIN Glucose (74-106) mg/dL POC Glucometer 128 H (74 to 106) mg/dL Calcium (8.4-10.2) mg/dL Magnesium (1.6-2.3) mg/dL NT-Pro-B Natriuret Pep (0-900) pg/mL Procalcitonin (0.030-0.080) ng/mL Slides for Path Review 08/15/22 08/16/22 08/16/22 Range/Units 21:09 05:05 05:05 WBC 5.2 (4.0-10.5) x10^3/uL RBC 3.24 L (4.1-5.4) x10^6/uL Hgb 10.0 L (12.0-16.0) g/dL Hct 32.6 L (35-47) % MCV 100.6 H (78-100) fL MCH 30.9 (26-32) pg MCHC 30.7 L (32-36) g/dL RDW 16.6 H (11.5-14.0) % Plt Count 441 (150-450) x10^3/uL MPV 9.1 (7.5-11.0) fL Gran % 86.2 H (36.0-66.0) % Immature Gran % (Auto) 0.4 (0.00-0.4) % Nucleat RBC Rel Count 0.0 (0.00-0.1) % Eos # (Auto) 0.06 (0-0.5) x10^3/uL Immature Gran # (Auto) 0.02 (0.00-0.03) x10^3u/L Absolute Lymphs (auto) 0.31 L (1.0-4.6) x10^3/uL Absolute Monos (auto) 0.31 (0.0-1.3) x10^3/uL Absolute Nucleated RBC 0.00 (0.00-0.01) x10^3u/L Lymphocytes % 6.0 L (24.0-44.0) % Monocytes % 6.0 (0.0-12.0) % Eosinophils % 1.2 (0.00-5.0) % Basophils % 0.2 (0.0-0.4) % Absolute Granulocytes 4.45 (1.4-6.9) x10^3/uL Basophils # 0.01 (0-0.4) x10^3/uL Sodium 133 L (137-145) mmol/L Potassium 4.2 (3.5-5.1) mmol/L Chloride 108 H (98-107) mmol/L Carbon Dioxide 22 (22-30) mmol/L Anion Gap 7.7 (5-15) MEQ/L BUN 9 (7-17) mg/dL Creatinine 0.68 (0.52-1.04) mg/dL Estimated GFR > 60.0 ML/MIN Glucose 127 H (74-106) mg/dL POC Glucometer 132 H (74 to 106) mg/dL Calcium 7.7 L (8.4-10.2) mg/dL Magnesium 1.5 L (1.6-2.3) mg/dL NT-Pro-B Natriuret Pep 110 (0-900) pg/mL Procalcitonin (0.030-0.080) ng/mL Slides for Path Review YES 08/16/22 Range/Units 07:04 WBC (4.0-10.5) x10^3/uL RBC (4.1-5.4) x10^6/uL Hgb (12.0-16.0) g/dL Hct (35-47) % MCV (78-100) fL MCH (26-32) pg MCHC (32-36) g/dL RDW (11.5-14.0) % Plt Count (150-450) x10^3/uL MPV (7.5-11.0) fL Gran % (36.0-66.0) % Immature Gran % (Auto) (0.00-0.4) % Nucleat RBC Rel Count (0.00-0.1) % Eos # (Auto) (0-0.5) x10^3/uL Immature Gran # (Auto) (0.00-0.03) x10^3u/L Absolute Lymphs (auto) (1.0-4.6) x10^3/uL Absolute Monos (auto) (0.0-1.3) x10^3/uL Absolute Nucleated RBC (0.00-0.01) x10^3u/L Lymphocytes % (24.0-44.0) % Monocytes % (0.0-12.0) % Eosinophils % (0.00-5.0) % Basophils % (0.0-0.4) % Absolute Granulocytes (1.4-6.9) x10^3/uL Basophils # (0-0.4) x10^3/uL Sodium (137-145) mmol/L Potassium (3.5-5.1) mmol/L Chloride (98-107) mmol/L Carbon Dioxide (22-30) mmol/L Anion Gap (5-15) MEQ/L BUN (7-17) mg/dL Creatinine (0.52-1.04) mg/dL Estimated GFR ML/MIN Glucose (74-106) mg/dL POC Glucometer 105 (74 to 106) mg/dL Calcium (8.4-10.2) mg/dL Magnesium (1.6-2.3) mg/dL NT-Pro-B Natriuret Pep (0-900) pg/mL Procalcitonin (0.030-0.080) ng/mL Slides for Path Review Micro Results-Entire Visit: Microbiology 08/15/22 04:35 Urine Culture - Final Urine, Void <10K NORMAL SKIN UMM PROBABLE SKIN CONTAMINANT Accuchecks Date 08/16/22 Date 08/15/22 Date 08/15/22 Time 16:30 Time 16:38 Time 11:55 - Radiology Exams Ordered Rad Exams-Entire Visit: Radiology Procedures Category Date Time Status CHEST 1 VIEW (PORTABLE) Routine Exams 08/16/22 05:00 Completed CHEST 1 VIEW (PORTABLE) Stat Exams 08/15/22 15:11 Completed CHEST 2 VIEWS (PA AND LAT) Routine Exams 08/14/22 12:30 Completed - Procedures and Test Procedures and Tests throughout Hospitalization: Therapy Orders & Screens 08/14/22 12:28 PT Eval & Treat (MD Order) ONCE Reason for Eval:: Tachycardia,weakness,falls Diagnosis: tachycardia,weakness,falls 08/14/22 12:30 EKG ROUTINE Comment: Diagnosis: tachycardia,weakness,falls 08/14/22 13:16 Respiratory Therapy Assessment DAILY Comment: Diagnosis: tachycardia,weakness,falls 08/14/22 17:34 OT Eval and Treat (MD Order) ONCE Comment: Consulting Provider: Physician Instructions: Reason For Exam: Diagnosis: tachycardia,weakness,falls 08/14/22 19:00 Respiratory MDI BID Comment: JOSETRDejuan BID Diagnosis: tachycardia,weakness,falls 08/15/22 10:54 PT Eval & Treat (MD Order) ONCE Reason for Eval:: WEAKNESS AND FALLS - S/P COVID-19 Diagnosis: tachycardia,weakness,falls Discharge Exam General Appearance: no apparent distress Neurologic Exam: alert, oriented x 3 Respiratory Exam: rhonchi Cardiovascular Exam: regular rate/rhythm, normal heart sounds Gastrointestinal/Abdomen Exam: soft, No tenderness, No mass Extremity Exam: normal inspection, normal range of motion Skin Exam: normal color, warm, dry Final Diagnosis/Problem List - Final Discharge Diagnosis/Problem (1) COVID-19 Current Visit: No Status: Acute Assessment & Plan: resolving and doing well at this time, has home oxygen and hx of pulm fibrosis Code(s): U07.1 - COVID-19 (2) UTI (urinary tract infection) Current Visit: Yes Status: Acute Assessment & Plan: culture negative Code(s): N39.0 - URINARY TRACT INFECTION, SITE NOT SPECIFIED (3) Pulmonary fibrosis Current Visit: Yes Status: Acute Code(s): J84.10 - PULMONARY FIBROSIS, UNSPECIFIED (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 Code(s): E27.1 - PRIMARY ADRENOCORTICAL INSUFFICIENCY (5) Chronic kidney disease, stage 3 Current Visit: No Status: Chronic Code(s): N18.30 - CHRONIC KIDNEY DISEASE, STAGE 3 UNSPECIFIED - Discharge Disposition: Home, Self-Care Condition: Stable Prescriptions: New Cefpodoxime Proxetil 100 mg PO BID #10 tablet Continue Folic Acid 1 mg [Folate 1 mg] 1 mg PO LUNCH Duloxetine HCl 120 mg PO LUNCH Atorvastatin Calcium [Lipitor 20MG Tablet] 20 mg PO QHS Hydrocortisone 30 mg PO QAM Hydrocodone/Acetaminophen [Hydrocodone-Acetamin 7.5-325] 1 each PO TID Loratadine 10 mg [Claritin 10 mg] 10 mg PO DAILY Aripiprazole 10 mg [Abilify 10 MG] 5 mg PO DAILY Budesonide/Glycopyr/Formoterol [Breztri Aerosphere Inhaler] 2 puff IH BID Nintedanib Esylate [Ofev] 150 mg PO BID Empagliflozin/Metformin HCl [Synjardy Xr 10-1,000 mg Tablet] 1 each PO LUNCH Calcium Carbonate/Vitamin D3 [Oyster Shell Calcium-Vit D Tab] 2 each PO 12,2200 Hydrocortisone 10 mg PO DINNER Upadacitinib [Rinvoq] 15 mg PO LUNCH Furosemide 20 mg [Lasix 20 mg] 40 mg PO DAILY Potassium Chloride Tab* [Klor Con] 10 meq PO BID Aspirin EC 81 mg [Ecotrin 81 mg] 81 mg PO DAILY Cyclobenzaprine HCl 10 mg [Cyclobenzaprine 10 MG] 10 mg PO TID Omeprazole Magnesium [Prilosec Otc] 40 mg PO DAILY Potassium Chloride 20 meq PO LUNCH Hydrocodone/Acetaminophen [Hydrocodone-Acetamin 7.5-325] 1 each PO DAILY PRN PRN Reason: Pain Cyclobenzaprine HCl 10 mg [Cyclobenzaprine 10 MG] 10 mg PO DAILY PRN PRN Reason: Pain Follow up with: KYARA DAWN [Primary Care Provider] -
== END 2022-08-16 11:59 | disposition home or self-care (01) ==
LOC: MED SURG 11:56
PROVIDERS: ADMIT Family Medicine; ATTEND Family Medicine
DX: U07.1 COVID-19 (principal); N39.0 Urinary tract infection, site not specified; J84.10 Pulmonary fibrosis, unspecified; E27.1 Primary adrenocortical insufficiency; E11.22 Type 2 diabetes mellitus with diabetic chronic kidney disease; I12.9 Hypertensive chronic kidney disease with stage 1 through stage 4 chronic kidney disease, or unspecified chronic kidney disease; N18.30 Chronic kidney disease, stage 3 unspecified; R00.0 Tachycardia, unspecified; R29.6 Repeated falls; R53.1 Weakness; E87.6 Hypokalemia; I73.9 Peripheral vascular disease, unspecified; M06.9 Rheumatoid arthritis, unspecified; Z79.899 Other long term (current) drug therapy; Z20.828 Contact with and (suspected) exposure to other viral communicable diseases
CPT/HCPCS: 36415; 71045; 71046; 80048; 80053; 81015; 82947; 83735; 83880; 84132; 84145; 84484; 85025; 87086; 87811; 93005; 93268; 94640; 94762; J0696; J1650; J1940; 97110-GP; A9270-GY; G0378

== ENCOUNTER 2022-11-10 21:51 | Observation (INO) | payer MEDICARE, OTHER ==
--- NOTE | 2022-11-10 21:59 | ERPHSYRPT ---
- History of Present Illness Time Seen by Provider: 11/10/22 21:59 Source: patient Exam Limitations: no limitations Physician History: 72yo F presents to the ED w/ tachycardia. She reports dealing w/ elevated HR in the 120s for the past few months for which her associate marketing manager Dr. Merino has been managing. Patient says that when she is exerting herself her HR gets up to 130s- 140s, but comes back down to 110s at rest. Today she has been unable to get HR to come down at rest and now has chest pressure, ADDISON, orthopnea and b/l LE swelling. She denies F/C/N/V, abd pain. Timing/Duration: week(s), worse Activities at Onset: rest Quality: pressure Location: central Chest Pain Radiation: no radiation Severity of Pain-Max: moderate Severity of Pain-Current: moderate Modifying Factors: Improves With: nothing. Worsens With: exertion, lying down, movement Nitro Today/Relief: 0.4 mg x 1, provided by ED Aspirin Treatment Today: 81 mg x 4, provided by ED Associated Symptoms: shortness of breath, chest pain, loss of appetite, weakness, No nausea, No vomiting, No abdominal pain, No cough, No fever, No syncope Prior Chest Pain/Cardiac Workup: no prior chest pain Allergies/Adverse Reactions: bupropion [From Wellbutrin] Adverse Reaction (Intermediate, Verified 08/14/22 12:17) Muscle Aches infliximab [From Remicade] Adverse Reaction (Intermediate, Verified 08/14/22 12:17) MUSCLE SPASMS mycophenolate mofetil [From CellCept] Adverse Reaction (Intermediate, Verified 08/14/22 12:17) Muscle Contraction, Pain Home Medications: Atorvastatin Calcium [Lipitor 20MG Tablet] 20 mg PO QHS 02/18/20 [History] Duloxetine HCl 120 mg PO DAILY 02/18/20 [History] Hydrocortisone 30 mg PO QAM 02/18/20 [History] Aripiprazole 10 mg [Abilify 10 MG] 5 mg PO DAILY 06/20/22 [History] Budesonide/Glycopyr/Formoterol [Breztri Aerosphere Inhaler] 2 puff IH BID 06/20/22 [History] Empagliflozin/Metformin HCl [Synjardy Xr 10-1,000 mg Tablet] 1 each PO LUNCH 06/20/22 [History] Furosemide 20 mg [Lasix 20 mg] 40 mg PO DAILY 06/20/22 [History] Hydrocodone/Acetaminophen [Hydrocodone-Acetamin 7.5-325] 1 each PO TID 06/20/22 [History] Hydrocortisone 10 mg PO DINNER 06/20/22 [History] Nintedanib Esylate [Ofev] 150 mg PO BID 06/20/22 [History] Upadacitinib [Rinvoq] 15 mg PO LUNCH 06/20/22 [History] Aspirin EC 81 mg [Ecotrin 81 mg] 81 mg PO DAILY 08/07/22 [History] Omeprazole Magnesium [Prilosec Otc] 40 mg PO BID 08/07/22 [History] Potassium Chloride Tab* [Klor Con] 10 meq PO QAM 08/07/22 [History] Cyclobenzaprine HCl 10 mg [Cyclobenzaprine 10 MG] 10 mg PO TID 08/15/22 [History] Hydrocodone/Acetaminophen [Hydrocodone-Acetamin 7.5-325] 1 each PO QID PRN PRN 08/15/22 [History] Potassium Chloride 20 meq PO LUNCH 08/15/22 [History] Calcium Carbonate [Calcium] 1 tab PO DAILY 11/10/22 [History] Metoprolol Succinate [Toprol Xl] 50 mg PO DAILY 11/10/22 [History] Potassium Chloride 10 meq PO HS 11/10/22 [History] Theophylline Anhydrous [Theophylline ER 24Hr] 400 mg PO DAILY 11/10/22 [History] Hx Tetanus, Diphtheria Vaccination/Date Given: Yes Hx Influenza Vaccination/Date Given: Yes Hx Pneumococcal Vaccination/Date Given: No Travel Risk - Vaccine Status Have you recieved a Covid-19 vaccination: Yes Nitrating Acid Mixer: Pfizer - Vaccination Dates Date of 2cond Vaccination (if applicable): 10/26/20 - Review of Systems Constitutional: Weakness, No Fever, No Chills Ears, Nose, & Throat: No Symptoms Respiratory: Dyspnea, Dyspnea on Exertion (ADDISON) Cardiac: Chest Pain, Palpitations, Orthopnea Abdominal/Gastrointestinal: No Symptoms Genitourinary Symptoms: No Symptoms Musculoskeletal: No Symptoms Skin: No Symptoms Neurological: No Symptoms Psychological: No Symptoms - Past Medical History Pertinent Past Medical History: Yes Neurological History: No Pertinent History ENT History: No Pertinent History Cardiac History: High Cholesterol, Hypertension, Peripheral Vascular Disease Respiratory History: COPD, Other Endocrine Medical History: Diabetes Type II, [place] Disease Musculoskeletal History: Fractures, Arthritis, Rheumatoid Arthritis, Osteoarth ritis, Degenerative Disk Disease GI Medical History: No Pertinent History History: No Pertinent History Psycho-Social History: No Pertinent History Female Reproductive Disorders: Other Other Medical History: OOPHORECTOMY RIGHT 1991. RIGHT HIP REPLACEMENT 2013. NERVE BLOCK FOR LUMBAR REGION 2017. LUNG BIOPSY 2019. IDIOPATHIC PULMONARY FIBROSIS - Past Surgical History Past Surgical History: Yes Neuro Surgical History: No Pertinent History Cardiac: Cardiac Catheterization Respiratory: No Pertinent History Gastrointestinal: Cholecystectomy Genitourinary: No Pertinent History Musculoskeletal: No Pertinent History, Orthopedic Surgery Female Surgical History: Other Other Surgical History: right oopherectomy, carpal tunnel surgery, and rt hip replacement, lung biopsy 2019 - Social History Smoking Status: Former smoker How long have you smoked: 5 Exposure to second hand smoke: No Drug Use: none Patient Lives Alone: No - Nursing Vital Signs Nursing Vital Signs: Initial Vital Signs Temperature 98.0 F 11/10/22 21:55 Pulse Rate 134 H 11/10/22 21:55 Respiratory Rate 21 11/10/22 21:55 Blood Pressure 136/96 11/10/22 21:55 O2 Sat by Pulse Oximetry 99 11/10/22 21:55 Pain Scale Pain Intensity 0 - Physical Exam General Appearance: no apparent distress Eye Exam: eyes nml inspection Ears, Nose, Throat Exam: normal ENT inspection Neck Exam: normal inspection, non-tender, supple, full range of motion Respiratory Exam: airway intact, crackles/rales, No respiratory distress Cardiovascular Exam: tachycardia, capillary refill <2 sec, edema Gastrointestinal/Abdomen Exam: soft, normal bowel sounds, No tenderness, No distention, No guarding Extremity Exam: normal inspection, pedal edema, swelling Neurologic Exam: alert, oriented x 3, cooperative Skin Exam: normal color, warm, dry, No rash SpO2 Interpretation: normal O2 Delivery: Nasal Cannula (2L) - Course Nursing assessment & vital signs reviewed: Yes EKG Interpreted by Me: RATE ([id number]), Sinus Tach, NORMAL AXIS, NORMAL INTERVALS, NORMAL ST-T - Radiology Exams Chest X-ray Interpretation: Interpreted by me, Negative Ordered Tests: Active Orders 24 hr Category Date Time Status Distance Education Director STAT Care 11/10/22 22:13 Active Code Status Order ROUTINE Care 11/11/22 01:52 Active EKG-ER Only STAT Care 11/10/22 22:12 Completed IV Care Q6H Care 11/11/22 01:52 Active IV Insertion STAT Care 11/10/22 22:12 Completed Oxygen-ED Only Nasal Cannula 2 lpm Care 11/10/22 22:[address] in Observation ROUTINE Care 11/11/22 01:52 Active Pulse Oximetry (ED) STAT Care 11/10/22 22:12 Active Telemetry q4h Care 11/10/22 22:45 Active Weight,Daily 0600 Care 11/11/22 01:52 Active Low Sodium (1.5-2gram Sodium) Diet 11/11/22 Breakfast Active CHEST 2 VIEWS (PA AND LAT) Stat Exams 11/10/22 22:12 Taken BLOOD CULTURE Stat Lab 11/10/22 22:50 Received BMP AM.LAB Lab 11/11/22 04:00 Ordered BNPII [NT PRO BNPII] Stat Lab 11/11/22 01:00 Completed CBC W DIFF AM.LAB Lab 11/11/22 04:00 Ordered CBC W DIFF Stat Lab 11/10/22 22:15 Completed CMP Stat Lab 11/10/22 22:15 Completed D-DIMER QUANTITATIVE Stat Lab 11/10/22 22:15 Completed LIPASE Stat Lab 11/10/22 22:15 Completed Lactic Acid Stat Lab 11/10/22 22:20 Completed Lactic Acid Stat Lab 11/11/22 00:25 Completed MAGNESIUM Stat Lab 11/10/22 22:15 Completed TROPONIN Q4H Lab 11/10/22 22:15 Completed TROPONIN Q4H Lab 11/11/22 01:00 Completed TROPONIN Q4H Lab 11/11/22 06:15 Ordered TSH [TSH, 3RD Generation] Stat Lab 11/10/22 22:15 Completed UA W/RFX UR CULTURE Stat Lab 11/11/22 01:12 Completed VENOUS BLOOD GAS Stat Lab 11/10/22 22:25 Completed Pulse Oximetry CONTINUOUS RT 11/11/22 01:52 Active Respiratory Therapy Consult ROUTINE RT 11/11/22 01:52 Completed Transfer Order Routine Transfer 11/11/22 Completed Medication Summary Generic Name Dose Route Start Last Admin Trade Name Freq PRN Reason Stop Dose Admin Enoxaparin Sodium 40 mg 11/11/22 10:00 Enoxaparin Sodium 40 Mg/0.4 Ml Syringe SQ 12/11/22 09:59 DAILY MARNI Potassium Chloride 20 meq in 100 mls @ 50 mls/hr 11/10/22 22:45 11/11/22 00:47 Potassium Chloride 20 Meq In Water 100ml IV 11/11/22 02:44 50 mls/hr Q2H MARNI Administration Diltiazem HCl 100 mls @ 5 mls/hr 11/11/22 00:10 11/11/22 00:33 Cardizem Drip 100 Mg/100 Ml D5w IV 12/11/22 00:09 5 mg/hr .Q20H PRN 5 mls/hr HEART RATE/ A-FIB Administration Protocol 5 MG/HR Sodium Chloride 1,000 mls @ 100 mls/hr 11/11/22 00:30 11/11/22 00:47 Sodium Chloride 0.9% 1000 Ml IV 12/11/22 00:29 100 mls/hr .Q10H MARNI Administration Pantoprazole Sodium 40 mg 11/11/22 10:00 Pantoprazole 40 Mg Vial IV 12/11/22 09:59 Q24H10 MARNI Fluticasone/Salmeterol 2 puff 11/11/22 07:00 Fluticasone/Salmeterol 115/21 - 120 Puff Common Canister IH 12/11/22 06:59 BIDRT MARNI Discontinued Medications Generic Name Dose Route Start Last Admin Trade Name Freq PRN Reason Stop Dose Admin Aspirin 324 mg 11/10/22 22:12 11/10/22 22:29 Aspirin 81 Mg Tab.Chew PO 11/10/22 22:13 324 mg STAT ONE Administration Aspirin Confirm 11/10/22 22:26 Aspirin 81 Mg Tab.Chew Administered 11/10/22 22:27 Dose 324 mg .ROUTE .STK-MED ONE Diltiazem HCl 15 mg 11/10/22 22:12 11/10/22 22:29 Diltiazem Hcl Iv 5 Mg/Ml Vial IV 11/10/22 22:13 15 mg STAT ONE Administration Diltiazem HCl Confirm 11/10/22 22:27 Diltiazem Hcl Iv 5 Mg/Ml Vial Administered 11/10/22 22:28 Dose 50 mg IV .STK-MED ONE Diltiazem HCl 15 mg 11/10/22 23:45 11/11/22 00:33 Diltiazem Hcl Iv 5 Mg/Ml Vial IV 11/10/22 23:46 15 mg STAT ONE Administration Diltiazem HCl Confirm 11/11/22 00:32 Diltiazem Hcl Iv 5 Mg/Ml Vial Administered 11/11/22 00:33 Dose 50 mg IV .STK-MED ONE Furosemide 80 mg 11/10/22 22:12 11/10/22 22:31 Furosemide 100 Mg/10 Ml Vial IV 11/10/22 22:13 80 mg STAT ONE Administration Furosemide Confirm 11/10/22 22:26 Furosemide 40 Mg/4 Ml Vial Administered 11/10/22 22:27 Dose 80 mg .ROUTE .STK-MED ONE Sodium Chloride 1,000 mls @ 999 mls/hr 11/10/22 22:25 11/11/22 00:22 Sodium Chloride 0.9% 1000 Ml IV 11/10/22 23:25 999 mls/hr .Q1H1M STA Administration Piperacillin Sod/Tazobactam 100 mls @ 200 mls/hr 11/10/22 22:25 11/11/22 00:22 Sod 3.375 gm/ Sodium Chloride IV 11/10/22 22:54 200 mls/hr STAT ONE Administration Vancomycin HCl 1 gm in 200 mls @ 125 mls/hr 11/10/22 22:26 11/11/22 01:07 Vancomycin 1 Gram/200 Ml Bag IV 11/11/22 00:01 125 mls/hr STAT ONE 125 mls/hr Administration Magnesium Sulfate/Dextrose 100 mls @ 100 mls/hr 11/10/22 22:45 11/11/22 01:33 Magnesium 1 Gm / 100 Ml D5w IV 11/11/22 00:44 100 mls/hr Q1H MARNI Administration Sodium Chloride Confirm 11/11/22 00:17 Sodium Chloride 0.9% 1000 Ml Administered 11/11/22 00:18 Dose 1,000 mls @ ud .ROUTE .STK-MED ONE Sodium Chloride Confirm 11/11/22 00:18 Sodium Chloride 100ml Mini-Bag Plus Administered 11/11/22 00:19 Dose 100 mls @ ud IV .STK-MED ONE Vancomycin HCl Confirm 11/11/22 01:04 Vancomycin 1 Gram/200 Ml Bag Administered 11/11/22 01:05 Dose 1 gm in 200 mls @ ud IV .STK-MED ONE Magnesium Sulfate/Dextrose Confirm 11/11/22 00:46 Magnesium 1 Gm / 100 Ml D5w Administered 11/11/22 00:47 Dose 100 mls @ ud IV .STK-MED ONE Magnesium Sulfate/Dextrose Confirm 11/11/22 01:32 Magnesium 1 Gm / 100 Ml D5w Administered 11/11/22 01:33 Dose 100 mls @ ud IV .STK-MED ONE Morphine Sulfate 2 mg 11/10/22 22:12 11/10/22 22:31 Morphine Sulfate 2 Mg/Ml Inj IV 11/10/22 22:13 2 mg STAT ONE Administration Morphine Sulfate Confirm 11/10/22 22:26 Morphine Sulfate 2 Mg/Ml Inj Administered 11/10/22 22:27 Dose 2 mg .ROUTE .STK-MED ONE Nitroglycerin 0.4 mg 11/10/22 22:12 11/10/22 22:29 Nitroglycerin 0.4 Mg (Ed) 0.4 Mg Tab.Subl SL 11/10/22 22:13 0.4 mg STAT ONE Administration Nitroglycerin Confirm 11/10/22 22:26 Nitroglycerin 0.4 Mg (Ed) 0.4 Mg Tab.Subl Administered 11/10/22 22:27 Dose 0.4 mg SL .STK-MED ONE Piperacillin Sod/Tazobactam Sod Confirm 11/11/22 00:17 Piperacillin/Tazobactam Sodium 3.375 Gm Vial Administered 11/11/22 00:18 Dose 3.375 gm IV .STK-MED ONE Lab/Rad Data: Laboratory Result Diagrams 11/10/22 22:15 11/10/22 22:15 Laboratory Results 11/11/22 11/11/22 11/11/22 Range/Units 01:12 01:00 01:00 WBC (4.0-10.5) x10^3/uL RBC (4.1-5.4) x10^6/uL Hgb (12.0-16.0) g/dL Hct (35-47) % MCV (78-100) fL MCH (26-32) pg MCHC (32-36) g/dL RDW (11.5-14.0) % Plt Count (150-450) x10^3/uL MPV (7.5-11.0) fL Gran % (36.0-66.0) % Immature Gran % (Auto) (0.00-0.4) % Nucleat RBC Rel Count (0.00-0.1) % Eos # (Auto) (0-0.5) x10^3/uL Immature Gran # (Auto) (0.00-0.03) x10^3u/L Absolute Lymphs (auto) (1.0-4.6) x10^3/uL Absolute Monos (auto) (0.0-1.3) x10^3/uL Absolute Nucleated RBC (0.00-0.01) x10^3u/L Lymphocytes % (24.0-44.0) % Monocytes % (0.0-12.0) % Eosinophils % (0.00-5.0) % Basophils % (0.0-0.4) % Absolute Granulocytes (1.4-6.9) x10^3/uL Basophils # (0-0.4) x10^3/uL D-Dimer (0.0-0.50) mg/L pO2/FiO2 Ratio % VBG pH (7.32-7.42) VBG pCO2 at Pat Temp (42-55) mm/Hg VBG pO2 at Pat Temp (25-40) mm/Hg VBG HCO3 (22-28) meq/L VBG O2 Sat (Milo) (95-100) VBG Base Excess (-2.0-2.0) VBG Hemoglobin VBG Carboxyhemoglobin (0.0-6.9) % T HGB POC Potassium (3.5-5.1) Sodium (137-145) mmol/L Potassium (3.5-5.1) mmol/L Chloride (98-107) mmol/L Carbon Dioxide (22-30) mmol/L Anion Gap (5-15) MEQ/L BUN (7-17) mg/dL Creatinine (0.52-1.04) mg/dL Estimated GFR ML/MIN Glucose (74-106) mg/dL Lactic Acid (0.4-2.0) Calcium (8.4-10.2) mg/dL Magnesium (1.6-2.3) mg/dL Total Bilirubin (0.2-1.3) mg/dL AST (14-36) U/L ALT (0-35) U/L Alkaline Phosphatase (38-126) U/L Troponin I < 0.012 (0.000-0.034) ng/mL NT-Pro-B Natriuret Pep 274 (<300) pg/mL Serum Total Protein (6.3-8.2) g/dL Albumin (3.5-5.0) g/dL Lipase (23-300) U/L Procalcitonin (0.030-0.080) ng/mL TSH 3rd Generation (0.47-4.68) mIU/L Urine Color Yellow (Yellow) Urine Appearance Clear (Clear) Urine pH 7.0 (4.6-8.0) Ur Specific [place] 1.010 (1.005-1.030) Urine Protein Negative (Negative) Urine Glucose (UA) 250 A (Negative) mg/dL Urine Ketones Negative (Negative) Urine Blood Negative (Negative) Urine Nitrite Negative (Negative) Urine Bilirubin Negative (Negative) Urine Urobilinogen 0.2 (0.2) mg/dL Ur Leukocyte Esterase Trace A (Negative) U Hyaline Cast (Auto) NONE SEEN (0-2) /LPF Urine Microscopic RBC 0-2 (0-5) /HPF Urine Microscopic WBC 3-5 (0-5) /HPF Ur Epithelial Cells None Seen (None Seen) /HPF Urine Bacteria None Seen (None Seen) /HPF Urine Culture Reflexed NO (NO) Influenza Type A Ag (NEGATIVE) Influenza Type B Ag (NEGATIVE) RSV (PCR) (NEGATIVE) SARS-CoV-2 (PCR) (NEGATIVE) 11/11/22 11/10/22 11/10/22 Range/Units 00:25 Unknown 22:25 WBC (4.0-10.5) x10^3/uL RBC (4.1-5.4) x10^6/uL Hgb (12.0-16.0) g/dL Hct (35-47) % MCV (78-100) fL MCH (26-32) pg MCHC (32-36) g/dL RDW (11.5-14.0) % Plt Count (150-450) x10^3/uL MPV (7.5-11.0) fL Gran % (36.0-66.0) % Immature Gran % (Auto) (0.00-0.4) % Nucleat RBC Rel Count (0.00-0.1) % Eos # (Auto) (0-0.5) x10^3/uL Immature Gran # (Auto) (0.00-0.03) x10^3u/L Absolute Lymphs (auto) (1.0-4.6) x10^3/uL Absolute Monos (auto) (0.0-1.3) x10^3/uL Absolute Nucleated RBC (0.00-0.01) x10^3u/L Lymphocytes % (24.0-44.0) % Monocytes % (0.0-12.0) % Eosinophils % (0.00-5.0) % Basophils % (0.0-0.4) % Absolute Granulocytes (1.4-6.9) x10^3/uL Basophils # (0-0.4) x10^3/uL D-Dimer (0.0-0.50) mg/L pO2/FiO2 Ratio 21.0 % VBG pH 7.39 (7.32-7.42) VBG pCO2 at Pat Temp 46 (42-55) mm/Hg VBG pO2 at Pat Temp 34 (25-40) mm/Hg VBG HCO3 27.8 (22-28) meq/L VBG O2 Sat (Milo) 44.1 L (95-100) VBG Base Excess 2.3 H (-2.0-2.0) VBG Hemoglobin 12.5 VBG Carboxyhemoglobin 4.2 (0.0-6.9) % T HGB POC Potassium 3.1 L (3.5-5.1) Sodium (137-145) mmol/L Potassium (3.5-5.1) mmol/L Chloride (98-107) mmol/L Carbon Dioxide (22-30) mmol/L Anion Gap (5-15) MEQ/L BUN (7-17) mg/dL Creatinine (0.52-1.04) mg/dL Estimated GFR ML/MIN Glucose (74-106) mg/dL Lactic Acid 2.5 H (0.4-2.0) Calcium (8.4-10.2) mg/dL Magnesium (1.6-2.3) mg/dL Total Bilirubin (0.2-1.3) mg/dL AST (14-36) U/L ALT (0-35) U/L Alkaline Phosphatase (38-126) U/L Troponin I (0.000-0.034) ng/mL NT-Pro-B Natriuret Pep (<300) pg/mL Serum Total Protein (6.3-8.2) g/dL Albumin (3.5-5.0) g/dL Lipase (23-300) U/L Procalcitonin 0.076 (0.030-0.080) ng/mL TSH 3rd Generation (0.47-4.68) mIU/L Urine Color (Yellow) Urine Appearance (Clear) Urine pH (4.6-8.0) Ur Specific [place] (1.005-1.030) Urine Protein (Negative) Urine Glucose (UA) (Negative) mg/dL Urine Ketones (Negative) Urine Blood (Negative) Urine Nitrite (Negative) Urine Bilirubin (Negative) Urine Urobilinogen (0.2) mg/dL Ur Leukocyte Esterase (Negative) U Hyaline Cast (Auto) (0-2) /LPF Urine Microscopic RBC (0-5) /HPF Urine Microscopic WBC (0-5) /HPF Ur Epithelial Cells (None Seen) /HPF Urine Bacteria (None Seen) /HPF Urine Culture Reflexed (NO) Influenza Type A Ag (NEGATIVE) Influenza Type B Ag (NEGATIVE) RSV (PCR) (NEGATIVE) SARS-CoV-2 (PCR) (NEGATIVE) 11/10/22 11/10/22 11/10/22 Range/Units 22:20 22:15 22:15 WBC (4.0-10.5) x10^3/uL RBC (4.1-5.4) x10^6/uL Hgb (12.0-16.0) g/dL Hct (35-47) % MCV (78-100) fL MCH (26-32) pg MCHC (32-36) g/dL RDW (11.5-14.0) % Plt Count (150-450) x10^3/uL MPV (7.5-11.0) fL Gran % (36.0-66.0) % Immature Gran % (Auto) (0.00-0.4) % Nucleat RBC Rel Count (0.00-0.1) % Eos # (Auto) (0-0.5) x10^3/uL Immature Gran # (Auto) (0.00-0.03) x10^3u/L Absolute Lymphs (auto) (1.0-4.6) x10^3/uL Absolute Monos (auto) (0.0-1.3) x10^3/uL Absolute Nucleated RBC (0.00-0.01) x10^3u/L Lymphocytes % (24.0-44.0) % Monocytes % (0.0-12.0) % Eosinophils % (0.00-5.0) % Basophils % (0.0-0.4) % Absolute Granulocytes (1.4-6.9) x10^3/uL Basophils # (0-0.4) x10^3/uL D-Dimer (0.0-0.50) mg/L pO2/FiO2 Ratio % VBG pH (7.32-7.42) VBG pCO2 at Pat Temp (42-55) mm/Hg VBG pO2 at Pat Temp (25-40) mm/Hg VBG HCO3 (22-28) meq/L VBG O2 Sat (Milo) (95-100) VBG Base Excess (-2.0-2.0) VBG Hemoglobin VBG Carboxyhemoglobin (0.0-6.9) % T HGB POC Potassium (3.5-5.1) Sodium (137-145) mmol/L Potassium (3.5-5.1) mmol/L Chloride (98-107) mmol/L Carbon Dioxide (22-30) mmol/L Anion Gap (5-15) MEQ/L BUN (7-17) mg/dL Creatinine (0.52-1.04) mg/dL Estimated GFR ML/MIN Glucose (74-106) mg/dL Lactic Acid 3.5 H (0.4-2.0) Calcium (8.4-10.2) mg/dL Magnesium (1.6-2.3) mg/dL Total Bilirubin (0.2-1.3) mg/dL AST (14-36) U/L ALT (0-35) U/L Alkaline Phosphatase (38-126) U/L Troponin I < 0.012 (0.000-0.034) ng/mL NT-Pro-B Natriuret Pep (<300) pg/mL Serum Total Protein (6.3-8.2) g/dL Albumin (3.5-5.0) g/dL Lipase (23-300) U/L Procalcitonin (0.030-0.080) ng/mL TSH 3rd Generation 2.080 (0.47-4.68) mIU/L Urine Color (Yellow) Urine Appearance (Clear) Urine pH (4.6-8.0) Ur Specific [place] (1.005-1.030) Urine Protein (Negative) Urine Glucose (UA) (Negative) mg/dL Urine Ketones (Negative) Urine Blood (Negative) Urine Nitrite (Negative) Urine Bilirubin (Negative) Urine Urobilinogen (0.2) mg/dL Ur Leukocyte Esterase (Negative) U Hyaline Cast (Auto) (0-2) /LPF Urine Microscopic RBC (0-5) /HPF Urine Microscopic WBC (0-5) /HPF Ur Epithelial Cells (None Seen) /HPF Urine Bacteria (None Seen) /HPF Urine Culture Reflexed (NO) Influenza Type A Ag (NEGATIVE) Influenza Type B Ag (NEGATIVE) RSV (PCR) (NEGATIVE) SARS-CoV-2 (PCR) (NEGATIVE) 11/10/22 11/10/22 11/10/22 Range/Units 22:15 22:15 22:15 WBC 9.8 (4.0-10.5) x10^3/uL RBC 3.89 L (4.1-5.4) x10^6/uL Hgb 12.6 (12.0-16.0) g/dL Hct 40.6 (35-47) % MCV 104.4 H (78-100) fL MCH 32.4 H (26-32) pg MCHC 31.0 L (32-36) g/dL RDW 16.8 H (11.5-14.0) % Plt Count 711 H (150-450) x10^3/uL MPV 9.3 (7.5-11.0) fL Gran % 87.5 H (36.0-66.0) % Immature Gran % (Auto) 0.4 (0.00-0.4) % Nucleat RBC Rel Count 0.0 (0.00-0.1) % Eos # (Auto) 0.05 (0-0.5) x10^3/uL Immature Gran # (Auto) 0.04 H (0.00-0.03) x10^3u/L Absolute Lymphs (auto) 0.61 L (1.0-4.6) x10^3/uL Absolute Monos (auto) 0.51 (0.0-1.3) x10^3/uL Absolute Nucleated RBC 0.00 (0.00-0.01) x10^3u/L Lymphocytes % 6.2 L (24.0-44.0) % Monocytes % 5.2 (0.0-12.0) % Eosinophils % 0.5 (0.00-5.0) % Basophils % 0.2 (0.0-0.4) % Absolute Granulocytes 8.60 H (1.4-6.9) x10^3/uL Basophils # 0.02 (0-0.4) x10^3/uL D-Dimer 0.79 H* (0.0-0.50) mg/L pO2/FiO2 Ratio % VBG pH (7.32-7.42) VBG pCO2 at Pat Temp (42-55) mm/Hg VBG pO2 at Pat Temp (25-40) mm/Hg VBG HCO3 (22-28) meq/L VBG O2 Sat (Milo) (95-100) VBG Base Excess (-2.0-2.0) VBG Hemoglobin VBG Carboxyhemoglobin (0.0-6.9) % T HGB POC Potassium (3.5-5.1) Sodium 140 (137-145) mmol/L Potassium 3.2 L (3.5-5.1) mmol/L Chloride 101 (98-107) mmol/L Carbon Dioxide 29 (22-30) mmol/L Anion Gap 13.7 (5-15) MEQ/L BUN 12 (7-17) mg/dL Creatinine 0.82 (0.52-1.04) mg/dL Estimated GFR > 60.0 ML/MIN Glucose 86 (74-106) mg/dL Lactic Acid (0.4-2.0) Calcium 7.8 L (8.4-10.2) mg/dL Magnesium 1.3 L (1.6-2.3) mg/dL Total Bilirubin 0.70 (0.2-1.3) mg/dL AST 35 (14-36) U/L ALT 33 (0-35) U/L Alkaline Phosphatase 106 (38-126) U/L Troponin I (0.000-0.034) ng/mL NT-Pro-B Natriuret Pep (<300) pg/mL Serum Total Protein 6.5 (6.3-8.2) g/dL Albumin 3.6 (3.5-5.0) g/dL Lipase 72 (23-300) U/L Procalcitonin (0.030-0.080) ng/mL TSH 3rd Generation (0.47-4.68) mIU/L Urine Color (Yellow) Urine Appearance (Clear) Urine pH (4.6-8.0) Ur Specific [place] (1.005-1.030) Urine Protein (Negative) Urine Glucose (UA) (Negative) mg/dL Urine Ketones (Negative) Urine Blood (Negative) Urine Nitrite (Negative) Urine Bilirubin (Negative) Urine Urobilinogen (0.2) mg/dL Ur Leukocyte Esterase (Negative) U Hyaline Cast (Auto) (0-2) /LPF Urine Microscopic RBC (0-5) /HPF Urine Microscopic WBC (0-5) /HPF Ur Epithelial Cells (None Seen) /HPF Urine Bacteria (None Seen) /HPF Urine Culture Reflexed (NO) Influenza Type A Ag (NEGATIVE) Influenza Type B Ag (NEGATIVE) RSV (PCR) (NEGATIVE) SARS-CoV-2 (PCR) (NEGATIVE) 11/10/22 Range/Units 00:10 WBC (4.0-10.5) x10^3/uL RBC (4.1-5.4) x10^6/uL Hgb (12.0-16.0) g/dL Hct (35-47) % MCV (78-100) fL MCH (26-32) pg MCHC (32-36) g/dL RDW (11.5-14.0) % Plt Count (150-450) x10^3/uL MPV (7.5-11.0) fL Gran % (36.0-66.0) % Immature Gran % (Auto) (0.00-0.4) % Nucleat RBC Rel Count (0.00-0.1) % Eos # (Auto) (0-0.5) x10^3/uL Immature Gran # (Auto) (0.00-0.03) x10^3u/L Absolute Lymphs (auto) (1.0-4.6) x10^3/uL Absolute Monos (auto) (0.0-1.3) x10^3/uL Absolute Nucleated RBC (0.00-0.01) x10^3u/L Lymphocytes % (24.0-44.0) % Monocytes % (0.0-12.0) % Eosinophils % (0.00-5.0) % Basophils % (0.0-0.4) % Absolute Granulocytes (1.4-6.9) x10^3/uL Basophils # (0-0.4) x10^3/uL D-Dimer (0.0-0.50) mg/L pO2/FiO2 Ratio % VBG pH (7.32-7.42) VBG pCO2 at Pat Temp (42-55) mm/Hg VBG pO2 at Pat Temp (25-40) mm/Hg VBG HCO3 (22-28) meq/L VBG O2 Sat ([place]) (95-100) VBG Base Excess (-2.0-2.0) VBG Hemoglobin VBG Carboxyhemoglobin (0.0-6.9) % T HGB POC Potassium (3.5-5.1) Sodium (137-145) mmol/L Potassium (3.5-5.1) mmol/L Chloride (98-107) mmol/L Carbon Dioxide (22-30) mmol/L Anion Gap (5-15) MEQ/L BUN (7-17) mg/dL Creatinine (0.52-1.04) mg/dL Estimated GFR ML/MIN Glucose (74-106) mg/dL Lactic Acid (0.4-2.0) Calcium (8.4-10.2) mg/dL Magnesium (1.6-2.3) mg/dL Total Bilirubin (0.2-1.3) mg/dL AST (14-36) U/L ALT (0-35) U/L Alkaline Phosphatase (38-126) U/L Troponin I (0.000-0.034) ng/mL NT-Pro-B Natriuret Pep (<300) pg/mL Serum Total Protein (6.3-8.2) g/dL Albumin (3.5-5.0) g/dL Lipase (23-300) U/L Procalcitonin (0.030-0.080) ng/mL TSH 3rd Generation (0.47-4.68) mIU/L Urine Color (Yellow) Urine Appearance (Clear) Urine pH (4.6-8.0) Ur Specific [place] (1.005-1.030) Urine Protein (Negative) Urine Glucose (UA) (Negative) mg/dL Urine Ketones (Negative) Urine Blood (Negative) Urine Nitrite (Negative) Urine Bilirubin (Negative) Urine Urobilinogen (0.2) mg/dL Ur Leukocyte Esterase (Negative) U Hyaline Cast (Auto) (0-2) /LPF Urine Microscopic RBC (0-5) /HPF Urine Microscopic WBC (0-5) /HPF Ur Epithelial Cells (None Seen) /HPF Urine Bacteria (None Seen) /HPF Urine Culture Reflexed (NO) Influenza Type A Ag NEGATIVE (NEGATIVE) Influenza Type B Ag NEGATIVE (NEGATIVE) RSV (PCR) NEGATIVE (NEGATIVE) SARS-CoV-2 (PCR) NEGATIVE (NEGATIVE) - Progress Progress: improved Air Movement: good Progress Note: Patient was initially meeting sepsis criteria so Vanc/Zosyn was initiated. Initial lactate 3.5, K 3.2, Mg 1.3. Trop and EGK neg. BNP 240. D-Dimer 0.79, VTE unlikely w/ age adjustment. Patient given Diltiazem bolus and started on gtt. HR improving, telehospitalist accepts patient for admission for observation. CXR shows no evidence of PNA and UA no UTI. 11/11/22 03:22 Blood Culture(s) Obtained: Yes Antibiotics given: Yes Discussed with : Other (Telehospitalist) Will see patient in: hospital (observation) Counseled pt/family regarding: lab results, diagnosis, rad results Medical Desision Making - Discussion of managment Care discussed with:: hospitalist Reviewed:: Test results Agreed on:: Treatment plan Will see patient: in hospital - Diagnostic Testing Diagnostic test were ordered, analyzed, and reviewed by me: Yes Radiological Interpretation: Interpreted by me - Risk of complications The pt has a high risk of morbidity or mortality based on: Decision regarding hospitilization or escalation of hosp level of care - Departure Departure Disposition: Observation Clinical Impression: Tachycardia with heart rate 141-160 beats per minute, Hypokalemia, Hypomagnesemia, Elevated lactic acid level, Elevated platelet count, Bilateral edema of lower extremity, Chest pressure, Hypertension Condition: Stable Critical Care Time: No
[2022-11-10] MEDS ORDERED: Nitrostat 0.4 MG (ED) SL ONE ×2 (22:12→22:26)
[2022-11-10] MEDS ORDERED: Cardizem IV 50 MG/10 ML IV ONE ×3 (22:12→23:45)
[2022-11-10] MEDS ORDERED: BABY ASPIRIN 81 MG CHEW PO ONE (22:12)
[2022-11-10] MEDS ORDERED: MORPHINE SULFATE 2 MG INJ IV ONE (22:12)
[2022-11-10] MEDS ORDERED: Furosemide 100mg/10 ml Vial IV ONE (22:12)
[2022-11-10 22:22] LABS: BASOPHIL % 0.2 % (0.0-0.4); Basophil (Absolute #) 0.02 x10^3/uL (0-0.4); Eosinophil % 0.5 % (0.00-5.0); Eosinophil (Absolute #) 0.05 x10^3/uL (0-0.5); Hematocrit 40.6 % (35-47); Hemoglobin 12.6 g/dL (12.0-16.0); IMMATURE GRAN # 0.04 x10^3u/L (0.00-0.03); IMMATURE GRAN % 0.4 % (0.00-0.4); Lymphocyte (Absolute #) 0.61 x10^3/uL (1.0-4.6); Lymphocytes % 6.2 % (24.0-44.0); Mean Cell Volume 104.4 fL (78-100); Mean Corpuscular Hemoglobin 32.4 pg (26-32); Mean Platelet Volume 9.3 fL (7.5-11.0); Monocyte (Absolute #) 0.51 x10^3/uL (0.0-1.3); Monocytes % 5.2 % (0.0-12.0); Neutrophil % 87.5 % (36.0-66.0); Platelet Count 711 x10^3/uL (150-450); Red Blood Count 3.89 x10^6/uL (4.1-5.4); Red Cell Distribution Width 16.8 % (11.5-14.0); White Blood Count 9.8 x10^3/uL (4.0-10.5)
[2022-11-10] MEDS ORDERED: Sodium Chloride 0.9% 1000 ML 1,000 ML IV STA (22:25)
[2022-11-10] MEDS ORDERED: PIPERACILLIN/TAZOBACTAM 3.375 GM in Sodium Chloride 100ML MINI-BAG PLUS 100 ML IV ONE (22:25)
[2022-11-10] MEDS ORDERED: Lasix 40 MG/4 ML ONE (22:26)
[2022-11-10] MEDS ORDERED: MORPHINE SULFATE 2 MG INJ ONE (22:26)
[2022-11-10] MEDS ORDERED: BABY ASPIRIN 81 MG CHEW ONE (22:26)
[2022-11-10] MEDS ORDERED: VANCOMYCIN 1 GRAM/200 ML BAG 1 GM/200 ML PIGGYBACK IV ONE (22:26)
[2022-11-10 22:30] LABS: VBG BASE EXCESS 2.3 (-2.0-2.0); VBG CARBOXYHEMOGLOBIN 4.2 % T HGB (0.0-6.9); VBG HCO3- 27.8 meq/L (22-28); VBG HEMOGLOBIN 12.5; VBG O2 SATURATION 44.1 (95-100); VBG POTASSIUM 3.1 (3.5-5.1); VBG pH 7.39 (7.32-7.42)
[2022-11-10 22:31] LABS: ALBUMIN 3.6 g/dL (3.5-5.0); ALKALINE PHOSPHATASE 106 U/L (38-126); ANION GAP 13.7 MEQ/L (5-15); BLOOD UREA NITROGEN 12 mg/dL (7-17); CHLORIDE 101 mmol/L (98-107); Calcium 7.8 mg/dL (8.4-10.2); Carbon Dioxide 29 mmol/L (22-30); Creatinine 1 0.82 mg/dL (0.52-1.04); EST GLOMERULAR FILTRATION RATE > 60.0 ML/MIN; Glucose 86 mg/dL (74-106); LIPASE 72 U/L (23-300); MAGNESIUM 1.3 mg/dL (1.6-2.3); Potassium 3.2 mmol/L (3.5-5.1); SGOT/AST 35 U/L (14-36); SGPT/ALT 33 U/L (0-35); SODIUM 140 mmol/L (137-145); Total Protein 6.5 g/dL (6.3-8.2)
[2022-11-11] MEDS ORDERED: Sodium Chloride 0.9% 1000 ML 1,000 ML ONE (00:17)
[2022-11-11] MEDS ORDERED: PIPERACILLIN/TAZOBACTAM IV ONE (00:17)
[2022-11-11] MEDS ORDERED: Sodium Chloride 100ML MINI-BAG PLUS 100 ML IV ONE (00:18)
[2022-11-11] MEDS ORDERED: Cardizem IV 50 MG/10 ML IV ONE (00:32)
[2022-11-11] MEDS: CARDIZEM DRIP 100 MG/100 ML D5W 100 ML IV PRN ×3 (00:33→17:09)
[2022-11-11] MEDS ORDERED: Magnesium 1 Gm / 100 Ml D5W*** 100 ML IV ONE ×2 (00:46→01:32)
[2022-11-11] MEDS: Magnesium 1 Gm / 100 Ml D5W*** 100 ML IV SCH ×2 (00:47→01:33)
[2022-11-11] MEDS: Sodium Chloride 0.9% 1000 ML 1,000 ML IV SCH ×3 (00:47→14:38)
[2022-11-11] MEDS: POTASSIUM CHLORIDE 20 mEq IN WATER 100ML 20 MEQ/100 ML BAG IV SCH ×2 (00:47→05:38)
[2022-11-11 00:51] LABS: INFLUENZA A NEGATIVE (NEGATIVE); INFLUENZA B NEGATIVE (NEGATIVE); RESPIRATORY SYNCTIAL VIRUS NEGATIVE (NEGATIVE); SARS-CoV-2 Xpert Express NEGATIVE (NEGATIVE)
[2022-11-11] MEDS ORDERED: VANCOMYCIN 1 GRAM/200 ML BAG 1 GM/200 ML PIGGYBACK IV ONE (01:04)
[2022-11-11 01:28] LABS: Appearance Clear (Clear); Bacteria None Seen /HPF (None Seen); Bilirubin Negative (Negative); Blood Negative (Negative); Epithelial Cells None Seen /HPF (None Seen); Glucose, Urine 250 mg/dL (Negative); Hyaline Casts NONE SEEN /LPF (0-2); Ketones Negative (Negative); Leukocyte Esterase Trace (Negative); Nitrite Negative (Negative); Protein,Urine Dip Negative (Negative); RBC 0-2 /HPF (0-5); Urobilinogen 0.2 mg/dL (0.2)
[2022-11-11 01:30] LABS: ADD URINE CULTURE? NO (NO)
[2022-11-11 06:30] LABS: Absolute Neutrophil Ct (ANC) 8.13 x10^3/uL (1.4-6.9); BASOPHIL % 0.2 % (0.0-0.4); Basophil (Absolute #) 0.02 x10^3/uL (0-0.4); Eosinophil % 0.5 % (0.00-5.0); Eosinophil (Absolute #) 0.05 x10^3/uL (0-0.5); Hematocrit 36.8 % (35-47); Hemoglobin 11.5 g/dL (12.0-16.0); IMMATURE GRAN # 0.03 x10^3u/L (0.00-0.03); IMMATURE GRAN % 0.3 % (0.00-0.4); Lymphocyte (Absolute #) 0.54 x10^3/uL (1.0-4.6); Lymphocytes % 5.9 % (24.0-44.0); Mean Cell Volume 105.1 fL (78-100); Mean Corpuscular Hemoglobin 32.9 pg (26-32); Mean Corpuscular Hgb Concent. 31.3 g/dL (32-36); Mean Platelet Volume 9.6 fL (7.5-11.0); Monocyte (Absolute #) 0.38 x10^3/uL (0.0-1.3); Monocytes % 4.2 % (0.0-12.0); Neutrophil % 88.9 % (36.0-66.0); Platelet Count 606 x10^3/uL (150-450); Red Cell Distribution Width 16.8 % (11.5-14.0); White Blood Count 9.2 x10^3/uL (4.0-10.5)
[2022-11-11 07:10] LABS: ANION GAP 7.8 MEQ/L (5-15); BLOOD UREA NITROGEN 10 mg/dL (7-17); CHLORIDE 102 mmol/L (98-107); Calcium 6.5 mg/dL (8.4-10.2); Carbon Dioxide 30 mmol/L (22-30); Creatinine 1 0.81 mg/dL (0.52-1.04); EST GLOMERULAR FILTRATION RATE > 60.0 ML/MIN; Glucose 91 mg/dL (74-106); Potassium 3.3 mmol/L (3.5-5.1); SODIUM 136 mmol/L (137-145)
[2022-11-11] MEDS: Advair Hfa 115/21 Common canister IH SCH ×2 (07:20→19:02)
--- NOTE | 2022-11-11 07:56 | XRAY ---
Indication: Short of breath. Tachycardia. Comparison: August 16, 2022 PA/lateral chest unchanged again demonstrating mild diffuse bilateral hazy interstitial alveolar opacities, right costophrenic angle suture material, tortuous arteriosclerotic descending aorta, and epidural stimulator device/leads. Remaining heart and lungs unremarkable. Bony thorax intact. No new/acute findings.
[2022-11-11] MEDS ORDERED: Toprol Xl 50 MG PO SCH (08:00)
[2022-11-11] MEDS ORDERED: MAGNESIUM SULF 2 G/50 ML BAG 2 GM/50 ML PIGGYBACK IV ONE (08:10)
[2022-11-11] MEDS: POTASSIUM CHLORIDE 20 mEq IN WATER 100ML 100 ML IV SCH ×4 (08:34→12:46)
[2022-11-11] MEDS: Cyclobenzaprine 10 MG PO PRN ×3 (09:43→23:50)
[2022-11-11] MEDS ORDERED: ENOXAPARIN SODIUM SQ SCH (10:00)
[2022-11-11] MEDS ORDERED: PROTONIX 40 MG IV IV SCH (10:00)
[2022-11-11 10:18] LABS: Slide Review 1 YES
[2022-11-11] MEDS ORDERED: TYLENOL 325 MG PO PRN (13:36)
[2022-11-11] MEDS ORDERED: TYLENOL 325 MG ONE (13:46)
[2022-11-11] MEDS: PROVENTIL 2.5 MG/3 ML NEB IH PRN (14:03)
[2022-11-11] MEDS ORDERED: Klor Con PO ONE (14:19)
[2022-11-11] MEDS ORDERED: Lasix 20 MG/2 ML IV ONE (14:30)
[2022-11-11] MEDS ORDERED: Tums EX 750 MG PO SCH (14:30)
[2022-11-11] MEDS ORDERED: MAG-OX 400 PO SCH (14:30)
[2022-11-11] MEDS ORDERED: NORCO 7.5/325 MG TAB PO PRN (15:40)
--- NOTE | 2022-11-11 15:46 | PCM.NOTE ---
Date and Time: 11/11/22 152 Subjective Assessment: Patient was admitted to ICU from ER on [facility] by Dr Recinos ,Hospitalist.Patient is comfortable with family at bedside. Heart rate up to 160 with ambulation to bathroom per Aid.Denies chest pain Objective Exam General Appearance: no apparent distress, other (O2 4L/NC) Neurologic Exam: alert, oriented x 3, cooperative Skin Exam: normal color, warm, dry Ears, Nose, Throat Exam: moist mucous membranes Neck Exam: normal inspection Respiratory Exam: wheezing (harsh expirations) Cardiovascular Exam: tachycardia (rate 120 reg) Gastrointestinal/Abdomen Exam: tenderness Extremity Exam: other (edema trace ankles) OBJECTIVE DATA Vital Signs: Vital Signs - 24 hr Temp Pulse Pulse Resp BP BP Pulse Ox 11/11/22 15:00 112 H 29 H 124/82 92 L 11/11/22 14:06 106 H 32 H 92 L 11/11/22 14:00 107 H 43 H 139/87 91 L 11/11/22 13:00 106 H 39 H 170/99 95 11/11/22 11:54 113 H 11/11/22 11:36 97.2 F 112 H 30 H 129/95 96 11/11/22 10:47 114 H 30 H 120/92 11/11/22 10:00 110 H 28 H 136/89 11/11/22 08:58 114 H 19 141/96 11/11/22 08:35 117 H 98/56 11/11/22 07:59 86/58 11/11/22 07:37 132 H 11/11/22 07:33 97.2 F 140 H 20 130/72 92 L 11/11/22 07:24 137 H 22 93 L 11/11/22 07:10 135 H 115/76 11/11/22 07:00 136 H 18 115/76 93 L 11/11/22 05:40 134 H 3 L 121/80 95 11/11/22 05:00 133 H 96/62 11/11/22 04:00 97.5 F 131 H 24 136/75 94 L 11/11/22 03:08 97.5 F 121 H 20 132/77 96 11/11/22 02:45 124 H 18 96 11/11/22 01:00 119 H 22 132/91 96 11/11/22 00:00 146 H 24 139/68 94 L 11/10/22 23:00 128 H 24 125/87 98 11/10/22 22:48 126 H 15 119/65 97 11/10/22 22:35 98 11/10/22 22:30 138 H 143/93 98 11/10/22 22:06 132 H 11/10/22 22:00 137 H 20 139/82 99 11/10/22 21:55 98.0 F 134 H 21 136/96 99 Pain Assessment - Last Documented Pain Intensity 1 Pain Scale Used 0-10 Pain Scale Intake and Output: Intake & Output 11/09/22 11/10/22 11/11/22 11/12/22 11:59 11:59 11:59 11:59 Intake Total 750 Output Total 900 Balance -150 Weight 83 kg Lab Results: Lab Results-Last 24 Hours 11/10/22 11/10/22 11/10/22 Range/Units 00:10 22:15 22:15 WBC 9.8 (4.0-10.5) x10^3/uL RBC 3.89 L (4.1-5.4) x10^6/uL Hgb 12.6 (12.0-16.0) g/dL Hct 40.6 (35-47) % MCV 104.4 H (78-100) fL MCH 32.4 H (26-32) pg MCHC 31.0 L (32-36) g/dL RDW 16.8 H (11.5-14.0) % Plt Count 711 H (150-450) x10^3/uL MPV 9.3 (7.5-11.0) fL Gran % 87.5 H (36.0-66.0) % Immature Gran % (Auto) 0.4 (0.00-0.4) % Nucleat RBC Rel Count 0.0 (0.00-0.1) % Eos # (Auto) 0.05 (0-0.5) x10^3/uL Immature Gran # (Auto) 0.04 H (0.00-0.03) x10^3u/L Absolute Lymphs (auto) 0.61 L (1.0-4.6) x10^3/uL Absolute Monos (auto) 0.51 (0.0-1.3) x10^3/uL Absolute Nucleated RBC 0.00 (0.00-0.01) x10^3u/L Lymphocytes % 6.2 L (24.0-44.0) % Monocytes % 5.2 (0.0-12.0) % Eosinophils % 0.5 (0.00-5.0) % Basophils % 0.2 (0.0-0.4) % Absolute Granulocytes 8.60 H (1.4-6.9) x10^3/uL Basophils # 0.02 (0-0.4) x10^3/uL D-Dimer (0.0-0.50) mg/L pO2/FiO2 Ratio % VBG pH (7.32-7.42) VBG pCO2 at Pat Temp (42-55) mm/Hg VBG pO2 at Pat Temp (25-40) mm/Hg VBG HCO3 (22-28) meq/L VBG O2 Sat (Milo) (95-100) VBG Base Excess (-2.0-2.0) VBG Hemoglobin VBG Carboxyhemoglobin (0.0-6.9) % T HGB POC Potassium (3.5-5.1) Sodium 140 (137-145) mmol/L Potassium 3.2 L (3.5-5.1) mmol/L Chloride 101 (98-107) mmol/L Carbon Dioxide 29 (22-30) mmol/L Anion Gap 13.7 (5-15) MEQ/L BUN 12 (7-17) mg/dL Creatinine 0.82 (0.52-1.04) mg/dL Estimated GFR > 60.0 ML/MIN Glucose 86 (74-106) mg/dL POC Glucometer (74 to 106) mg/dL Lactic Acid (0.4-2.0) Calcium 7.8 L (8.4-10.2) mg/dL Magnesium 1.3 L (1.6-2.3) mg/dL Total Bilirubin 0.70 (0.2-1.3) mg/dL AST 35 (14-36) U/L ALT 33 (0-35) U/L Alkaline Phosphatase 106 (38-126) U/L Troponin I (0.000-0.034) ng/mL NT-Pro-B Natriuret Pep (<300) pg/mL Serum Total Protein 6.5 (6.3-8.2) g/dL Albumin 3.6 (3.5-5.0) g/dL Lipase 72 (23-300) U/L Procalcitonin (0.030-0.080) ng/mL TSH 3rd Generation (0.47-4.68) mIU/L Urine Color (Yellow) Urine Appearance (Clear) Urine pH (4.6-8.0) Ur Specific [place] (1.005-1.030) Urine Protein (Negative) Urine Glucose (UA) (Negative) mg/dL Urine Ketones (Negative) Urine Blood (Negative) Urine Nitrite (Negative) Urine Bilirubin (Negative) Urine Urobilinogen (0.2) mg/dL Ur Leukocyte Esterase (Negative) U Hyaline Cast (Auto) (0-2) /LPF Urine Microscopic RBC (0-5) /HPF Urine Microscopic WBC (0-5) /HPF Ur Epithelial Cells (None Seen) /HPF Urine Bacteria (None Seen) /HPF Urine Culture Reflexed (NO) Theophylline (10-20) ug/mL Influenza Type A Ag NEGATIVE (NEGATIVE) Influenza Type B Ag NEGATIVE (NEGATIVE) RSV (PCR) NEGATIVE (NEGATIVE) SARS-CoV-2 (PCR) NEGATIVE (NEGATIVE) Slides for Path Review 11/10/22 11/10/22 11/10/22 Range/Units 22:15 22:15 22:15 WBC (4.0-10.5) x10^3/uL RBC (4.1-5.4) x10^6/uL Hgb (12.0-16.0) g/dL Hct (35-47) % MCV (78-100) fL MCH (26-32) pg MCHC (32-36) g/dL RDW (11.5-14.0) % Plt Count (150-450) x10^3/uL MPV (7.5-11.0) fL Gran % (36.0-66.0) % Immature Gran % (Auto) (0.00-0.4) % Nucleat RBC Rel Count (0.00-0.1) % Eos # (Auto) (0-0.5) x10^3/uL Immature Gran # (Auto) (0.00-0.03) x10^3u/L Absolute Lymphs (auto) (1.0-4.6) x10^3/uL Absolute Monos (auto) (0.0-1.3) x10^3/uL Absolute Nucleated RBC (0.00-0.01) x10^3u/L Lymphocytes % (24.0-44.0) % Monocytes % (0.0-12.0) % Eosinophils % (0.00-5.0) % Basophils % (0.0-0.4) % Absolute Granulocytes (1.4-6.9) x10^3/uL Basophils # (0-0.4) x10^3/uL D-Dimer 0.79 H* (0.0-0.50) mg/L pO2/FiO2 Ratio % VBG pH (7.32-7.42) VBG pCO2 at Pat Temp (42-55) mm/Hg VBG pO2 at Pat Temp (25-40) mm/Hg VBG HCO3 (22-28) meq/L VBG O2 Sat (Milo) (95-100) VBG Base Excess (-2.0-2.0) VBG Hemoglobin VBG Carboxyhemoglobin (0.0-6.9) % T HGB POC Potassium (3.5-5.1) Sodium (137-145) mmol/L Potassium (3.5-5.1) mmol/L Chloride (98-107) mmol/L Carbon Dioxide (22-30) mmol/L Anion Gap (5-15) MEQ/L BUN (7-17) mg/dL Creatinine (0.52-1.04) mg/dL Estimated GFR ML/MIN Glucose (74-106) mg/dL POC Glucometer (74 to 106) mg/dL Lactic Acid (0.4-2.0) Calcium (8.4-10.2) mg/dL Magnesium (1.6-2.3) mg/dL Total Bilirubin (0.2-1.3) mg/dL AST (14-36) U/L ALT (0-35) U/L Alkaline Phosphatase (38-126) U/L Troponin I < 0.012 (0.000-0.034) ng/mL NT-Pro-B Natriuret Pep (<300) pg/mL Serum Total Protein (6.3-8.2) g/dL Albumin (3.5-5.0) g/dL Lipase (23-300) U/L Procalcitonin (0.030-0.080) ng/mL TSH 3rd Generation 2.080 (0.47-4.68) mIU/L Urine Color (Yellow) Urine Appearance (Clear) Urine pH (4.6-8.0) Ur Specific [place] (1.005-1.030) Urine Protein (Negative) Urine Glucose (UA) (Negative) mg/dL Urine Ketones (Negative) Urine Blood (Negative) Urine Nitrite (Negative) Urine Bilirubin (Negative) Urine Urobilinogen (0.2) mg/dL Ur Leukocyte Esterase (Negative) U Hyaline Cast (Auto) (0-2) /LPF Urine Microscopic RBC (0-5) /HPF Urine Microscopic WBC (0-5) /HPF Ur Epithelial Cells (None Seen) /HPF Urine Bacteria (None Seen) /HPF Urine Culture Reflexed (NO) Theophylline (10-20) ug/mL Influenza Type A Ag (NEGATIVE) Influenza Type B Ag (NEGATIVE) RSV (PCR) (NEGATIVE) SARS-CoV-2 (PCR) (NEGATIVE) Slides for Path Review 11/10/22 11/10/22 11/10/22 Range/Units 22:20 22:25 Unknown WBC (4.0-10.5) x10^3/uL RBC (4.1-5.4) x10^6/uL Hgb (12.0-16.0) g/dL Hct (35-47) % MCV (78-100) fL MCH (26-32) pg MCHC (32-36) g/dL RDW (11.5-14.0) % Plt Count (150-450) x10^3/uL MPV (7.5-11.0) fL Gran % (36.0-66.0) % Immature Gran % (Auto) (0.00-0.4) % Nucleat RBC Rel Count (0.00-0.1) % Eos # (Auto) (0-0.5) x10^3/uL Immature Gran # (Auto) (0.00-0.03) x10^3u/L Absolute Lymphs (auto) (1.0-4.6) x10^3/uL Absolute Monos (auto) (0.0-1.3) x10^3/uL Absolute Nucleated RBC (0.00-0.01) x10^3u/L Lymphocytes % (24.0-44.0) % Monocytes % (0.0-12.0) % Eosinophils % (0.00-5.0) % Basophils % (0.0-0.4) % Absolute Granulocytes (1.4-6.9) x10^3/uL Basophils # (0-0.4) x10^3/uL D-Dimer (0.0-0.50) mg/L pO2/FiO2 Ratio 21.0 % VBG pH 7.39 (7.32-7.42) VBG pCO2 at Pat Temp 46 (42-55) mm/Hg VBG pO2 at Pat Temp 34 (25-40) mm/Hg VBG HCO3 27.8 (22-28) meq/L VBG O2 Sat (Milo) 44.1 L (95-100) VBG Base Excess 2.3 H (-2.0-2.0) VBG Hemoglobin 12.5 VBG Carboxyhemoglobin 4.2 (0.0-6.9) % T HGB POC Potassium 3.1 L (3.5-5.1) Sodium (137-145) mmol/L Potassium (3.5-5.1) mmol/L Chloride (98-107) mmol/L Carbon Dioxide (22-30) mmol/L Anion Gap (5-15) MEQ/L BUN (7-17) mg/dL Creatinine (0.52-1.04) mg/dL Estimated GFR ML/MIN Glucose (74-106) mg/dL POC Glucometer (74 to 106) mg/dL Lactic Acid 3.5 H (0.4-2.0) Calcium (8.4-10.2) mg/dL Magnesium (1.6-2.3) mg/dL Total Bilirubin (0.2-1.3) mg/dL AST (14-36) U/L ALT (0-35) U/L Alkaline Phosphatase (38-126) U/L Troponin I (0.000-0.034) ng/mL NT-Pro-B Natriuret Pep (<300) pg/mL Serum Total Protein (6.3-8.2) g/dL Albumin (3.5-5.0) g/dL Lipase (23-300) U/L Procalcitonin 0.076 (0.030-0.080) ng/mL TSH 3rd Generation (0.47-4.68) mIU/L Urine Color (Yellow) Urine Appearance (Clear) Urine pH (4.6-8.0) Ur Specific [place] (1.005-1.030) Urine Protein (Negative) Urine Glucose (UA) (Negative) mg/dL Urine Ketones (Negative) Urine Blood (Negative) Urine Nitrite (Negative) Urine Bilirubin (Negative) Urine Urobilinogen (0.2) mg/dL Ur Leukocyte Esterase (Negative) U Hyaline Cast (Auto) (0-2) /LPF Urine Microscopic RBC (0-5) /HPF Urine Microscopic WBC (0-5) /HPF Ur Epithelial Cells (None Seen) /HPF Urine Bacteria (None Seen) /HPF Urine Culture Reflexed (NO) Theophylline (10-20) ug/mL Influenza Type A Ag (NEGATIVE) Influenza Type B Ag (NEGATIVE) RSV (PCR) (NEGATIVE) SARS-CoV-2 (PCR) (NEGATIVE) Slides for Path Review 11/11/22 11/11/22 11/11/22 Range/Units 00:25 01:00 01:00 WBC (4.0-10.5) x10^3/uL RBC (4.1-5.4) x10^6/uL Hgb (12.0-16.0) g/dL Hct (35-47) % MCV (78-100) fL MCH (26-32) pg MCHC (32-36) g/dL RDW (11.5-14.0) % Plt Count (150-450) x10^3/uL MPV (7.5-11.0) fL Gran % (36.0-66.0) % Immature Gran % (Auto) (0.00-0.4) % Nucleat RBC Rel Count (0.00-0.1) % Eos # (Auto) (0-0.5) x10^3/uL Immature Gran # (Auto) (0.00-0.03) x10^3u/L Absolute Lymphs (auto) (1.0-4.6) x10^3/uL Absolute Monos (auto) (0.0-1.3) x10^3/uL Absolute Nucleated RBC (0.00-0.01) x10^3u/L Lymphocytes % (24.0-44.0) % Monocytes % (0.0-12.0) % Eosinophils % (0.00-5.0) % Basophils % (0.0-0.4) % Absolute Granulocytes (1.4-6.9) x10^3/uL Basophils # (0-0.4) x10^3/uL D-Dimer (0.0-0.50) mg/L pO2/FiO2 Ratio % VBG pH (7.32-7.42) VBG pCO2 at Pat Temp (42-55) mm/Hg VBG pO2 at Pat Temp (25-40) mm/Hg VBG HCO3 (22-28) meq/L VBG O2 Sat (Milo) (95-100) VBG Base Excess (-2.0-2.0) VBG Hemoglobin VBG Carboxyhemoglobin (0.0-6.9) % T HGB POC Potassium (3.5-5.1) Sodium (137-145) mmol/L Potassium (3.5-5.1) mmol/L Chloride (98-107) mmol/L Carbon Dioxide (22-30) mmol/L Anion Gap (5-15) MEQ/L BUN (7-17) mg/dL Creatinine (0.52-1.04) mg/dL Estimated GFR ML/MIN Glucose (74-106) mg/dL POC Glucometer (74 to 106) mg/dL Lactic Acid 2.5 H (0.4-2.0) Calcium (8.4-10.2) mg/dL Magnesium (1.6-2.3) mg/dL Total Bilirubin (0.2-1.3) mg/dL AST (14-36) U/L ALT (0-35) U/L Alkaline Phosphatase (38-126) U/L Troponin I < 0.012 (0.000-0.034) ng/mL NT-Pro-B Natriuret Pep 274 (<300) pg/mL Serum Total Protein (6.3-8.2) g/dL Albumin (3.5-5.0) g/dL Lipase (23-300) U/L Procalcitonin (0.030-0.080) ng/mL TSH 3rd Generation (0.47-4.68) mIU/L Urine Color (Yellow) Urine Appearance (Clear) Urine pH (4.6-8.0) Ur Specific [place] (1.005-1.030) Urine Protein (Negative) Urine Glucose (UA) (Negative) mg/dL Urine Ketones (Negative) Urine Blood (Negative) Urine Nitrite (Negative) Urine Bilirubin (Negative) Urine Urobilinogen (0.2) mg/dL Ur Leukocyte Esterase (Negative) U Hyaline Cast (Auto) (0-2) /LPF Urine Microscopic RBC (0-5) /HPF Urine Microscopic WBC (0-5) /HPF Ur Epithelial Cells (None Seen) /HPF Urine Bacteria (None Seen) /HPF Urine Culture Reflexed (NO) Theophylline (10-20) ug/mL Influenza Type A Ag (NEGATIVE) Influenza Type B Ag (NEGATIVE) RSV (PCR) (NEGATIVE) SARS-CoV-2 (PCR) (NEGATIVE) Slides for Path Review 11/11/22 11/11/22 11/11/22 Range/Units 01:12 05:30 05:30 WBC 9.2 (4.0-10.5) x10^3/uL RBC 3.50 L (4.1-5.4) x10^6/uL Hgb 11.5 L (12.0-16.0) g/dL Hct 36.8 (35-47) % MCV 105.1 H (78-100) fL MCH 32.9 H (26-32) pg MCHC 31.3 L (32-36) g/dL RDW 16.8 H (11.5-14.0) % Plt Count 606 H (150-450) x10^3/uL MPV 9.6 (7.5-11.0) fL Gran % 88.9 H (36.0-66.0) % Immature Gran % (Auto) 0.3 (0.00-0.4) % Nucleat RBC Rel Count 0.0 (0.00-0.1) % Eos # (Auto) 0.05 (0-0.5) x10^3/uL Immature Gran # (Auto) 0.03 (0.00-0.03) x10^3u/L Absolute Lymphs (auto) 0.54 L (1.0-4.6) x10^3/uL Absolute Monos (auto) 0.38 (0.0-1.3) x10^3/uL Absolute Nucleated RBC 0.00 (0.00-0.01) x10^3u/L Lymphocytes % 5.9 L (24.0-44.0) % Monocytes % 4.2 (0.0-12.0) % Eosinophils % 0.5 (0.00-5.0) % Basophils % 0.2 (0.0-0.4) % Absolute Granulocytes 8.13 H (1.4-6.9) x10^3/uL Basophils # 0.02 (0-0.4) x10^3/uL D-Dimer (0.0-0.50) mg/L pO2/FiO2 Ratio % VBG pH (7.32-7.42) VBG pCO2 at Pat Temp (42-55) mm/Hg VBG pO2 at Pat Temp (25-40) mm/Hg VBG HCO3 (22-28) meq/L VBG O2 Sat (Milo) (95-100) VBG Base Excess (-2.0-2.0) VBG Hemoglobin VBG Carboxyhemoglobin (0.0-6.9) % T HGB POC Potassium (3.5-5.1) Sodium (137-145) mmol/L Potassium (3.5-5.1) mmol/L Chloride (98-107) mmol/L Carbon Dioxide (22-30) mmol/L Anion Gap (5-15) MEQ/L BUN (7-17) mg/dL Creatinine (0.52-1.04) mg/dL Estimated GFR ML/MIN Glucose (74-106) mg/dL POC Glucometer (74 to 106) mg/dL Lactic Acid (0.4-2.0) Calcium (8.4-10.2) mg/dL Magnesium (1.6-2.3) mg/dL Total Bilirubin (0.2-1.3) mg/dL AST (14-36) U/L ALT (0-35) U/L Alkaline Phosphatase (38-126) U/L Troponin I 0.014 (0.000-0.034) ng/mL NT-Pro-B Natriuret Pep (<300) pg/mL Serum Total Protein (6.3-8.2) g/dL Albumin (3.5-5.0) g/dL Lipase (23-300) U/L Procalcitonin (0.030-0.080) ng/mL TSH 3rd Generation (0.47-4.68) mIU/L Urine Color Yellow (Yellow) Urine Appearance Clear (Clear) Urine pH 7.0 (4.6-8.0) Ur Specific [place] 1.010 (1.005-1.030) Urine Protein Negative (Negative) Urine Glucose (UA) 250 A (Negative) mg/dL Urine Ketones Negative (Negative) Urine Blood Negative (Negative) Urine Nitrite Negative (Negative) Urine Bilirubin Negative (Negative) Urine Urobilinogen 0.2 (0.2) mg/dL Ur Leukocyte Esterase Trace A (Negative) U Hyaline Cast (Auto) NONE SEEN (0-2) /LPF Urine Microscopic RBC 0-2 (0-5) /HPF Urine Microscopic WBC 3-5 (0-5) /HPF Ur Epithelial Cells None Seen (None Seen) /HPF Urine Bacteria None Seen (None Seen) /HPF Urine Culture Reflexed NO (NO) Theophylline (10-20) ug/mL Influenza Type A Ag (NEGATIVE) Influenza Type B Ag (NEGATIVE) RSV (PCR) (NEGATIVE) SARS-CoV-2 (PCR) (NEGATIVE) Slides for Path Review YES 11/11/22 11/11/22 11/11/22 Range/Units 05:30 05:30 06:54 WBC (4.0-10.5) x10^3/uL RBC (4.1-5.4) x10^6/uL Hgb (12.0-16.0) g/dL Hct (35-47) % MCV (78-100) fL MCH (26-32) pg MCHC (32-36) g/dL RDW (11.5-14.0) % Plt Count (150-450) x10^3/uL MPV (7.5-11.0) fL Gran % (36.0-66.0) % Immature Gran % (Auto) (0.00-0.4) % Nucleat RBC Rel Count (0.00-0.1) % Eos # (Auto) (0-0.5) x10^3/uL Immature Gran # (Auto) (0.00-0.03) x10^3u/L Absolute Lymphs (auto) (1.0-4.6) x10^3/uL Absolute Monos (auto) (0.0-1.3) x10^3/uL Absolute Nucleated RBC (0.00-0.01) x10^3u/L Lymphocytes % (24.0-44.0) % Monocytes % (0.0-12.0) % Eosinophils % (0.00-5.0) % Basophils % (0.0-0.4) % Absolute Granulocytes (1.4-6.9) x10^3/uL Basophils # (0-0.4) x10^3/uL D-Dimer (0.0-0.50) mg/L pO2/FiO2 Ratio % VBG pH (7.32-7.42) VBG pCO2 at Pat Temp (42-55) mm/Hg VBG pO2 at Pat Temp (25-40) mm/Hg VBG HCO3 (22-28) meq/L VBG O2 Sat (Milo) (95-100) VBG Base Excess (-2.0-2.0) VBG Hemoglobin VBG Carboxyhemoglobin (0.0-6.9) % T HGB POC Potassium (3.5-5.1) Sodium 136 L (137-145) mmol/L Potassium 3.3 L (3.5-5.1) mmol/L Chloride 102 (98-107) mmol/L Carbon Dioxide 30 (22-30) mmol/L Anion Gap 7.8 (5-15) MEQ/L BUN 10 (7-17) mg/dL Creatinine 0.81 (0.52-1.04) mg/dL Estimated GFR > 60.0 ML/MIN Glucose 91 (74-106) mg/dL POC Glucometer 93 (74 to 106) mg/dL Lactic Acid (0.4-2.0) Calcium 6.5 L D (8.4-10.2) mg/dL Magnesium 1.8 (1.6-2.3) mg/dL Total Bilirubin (0.2-1.3) mg/dL AST (14-36) U/L ALT (0-35) U/L Alkaline Phosphatase (38-126) U/L Troponin I (0.000-0.034) ng/mL NT-Pro-B Natriuret Pep (<300) pg/mL Serum Total Protein (6.3-8.2) g/dL Albumin (3.5-5.0) g/dL Lipase (23-300) U/L Procalcitonin (0.030-0.080) ng/mL TSH 3rd Generation (0.47-4.68) mIU/L Urine Color (Yellow) Urine Appearance (Clear) Urine pH (4.6-8.0) Ur Specific [place] (1.005-1.030) Urine Protein (Negative) Urine Glucose (UA) (Negative) mg/dL Urine Ketones (Negative) Urine Blood (Negative) Urine Nitrite (Negative) Urine Bilirubin (Negative) Urine Urobilinogen (0.2) mg/dL Ur Leukocyte Esterase (Negative) U Hyaline Cast (Auto) (0-2) /LPF Urine Microscopic RBC (0-5) /HPF Urine Microscopic WBC (0-5) /HPF Ur Epithelial Cells (None Seen) /HPF Urine Bacteria (None Seen) /HPF Urine Culture Reflexed (NO) Theophylline (10-20) ug/mL Influenza Type A Ag (NEGATIVE) Influenza Type B Ag (NEGATIVE) RSV (PCR) (NEGATIVE) SARS-CoV-2 (PCR) (NEGATIVE) Slides for Path Review 11/11/22 11/11/22 11/11/22 Range/Units 11:26 11:55 Unknown WBC (4.0-10.5) x10^3/uL RBC (4.1-5.4) x10^6/uL Hgb (12.0-16.0) g/dL Hct (35-47) % MCV (78-100) fL MCH (26-32) pg MCHC (32-36) g/dL RDW (11.5-14.0) % Plt Count (150-450) x10^3/uL MPV (7.5-11.0) fL Gran % (36.0-66.0) % Immature Gran % (Auto) (0.00-0.4) % Nucleat RBC Rel Count (0.00-0.1) % Eos # (Auto) (0-0.5) x10^3/uL Immature Gran # (Auto) (0.00-0.03) x10^3u/L Absolute Lymphs (auto) (1.0-4.6) x10^3/uL Absolute Monos (auto) (0.0-1.3) x10^3/uL Absolute Nucleated RBC (0.00-0.01) x10^3u/L Lymphocytes % (24.0-44.0) % Monocytes % (0.0-12.0) % Eosinophils % (0.00-5.0) % Basophils % (0.0-0.4) % Absolute Granulocytes (1.4-6.9) x10^3/uL Basophils # (0-0.4) x10^3/uL D-Dimer (0.0-0.50) mg/L pO2/FiO2 Ratio % VBG pH (7.32-7.42) VBG pCO2 at Pat Temp (42-55) mm/Hg VBG pO2 at Pat Temp (25-40) mm/Hg VBG HCO3 (22-28) meq/L VBG O2 Sat (Milo) (95-100) VBG Base Excess (-2.0-2.0) VBG Hemoglobin VBG Carboxyhemoglobin (0.0-6.9) % T HGB POC Potassium (3.5-5.1) Sodium (137-145) mmol/L Potassium 4.0 D (3.5-5.1) mmol/L Chloride (98-107) mmol/L Carbon Dioxide (22-30) mmol/L Anion Gap (5-15) MEQ/L BUN (7-17) mg/dL Creatinine (0.52-1.04) mg/dL Estimated GFR ML/MIN Glucose (74-106) mg/dL POC Glucometer 105 (74 to 106) mg/dL Lactic Acid (0.4-2.0) Calcium (8.4-10.2) mg/dL Magnesium (1.6-2.3) mg/dL Total Bilirubin (0.2-1.3) mg/dL AST (14-36) U/L ALT (0-35) U/L Alkaline Phosphatase (38-126) U/L Troponin I (0.000-0.034) ng/mL NT-Pro-B Natriuret Pep 222 (<300) pg/mL Serum Total Protein (6.3-8.2) g/dL Albumin (3.5-5.0) g/dL Lipase (23-300) U/L Procalcitonin (0.030-0.080) ng/mL TSH 3rd Generation (0.47-4.68) mIU/L Urine Color (Yellow) Urine Appearance (Clear) Urine pH (4.6-8.0) Ur Specific [place] (1.005-1.030) Urine Protein (Negative) Urine Glucose (UA) (Negative) mg/dL Urine Ketones (Negative) Urine Blood (Negative) Urine Nitrite (Negative) Urine Bilirubin (Negative) Urine Urobilinogen (0.2) mg/dL Ur Leukocyte Esterase (Negative) U Hyaline Cast (Auto) (0-2) /LPF Urine Microscopic RBC (0-5) /HPF Urine Microscopic WBC (0-5) /HPF Ur Epithelial Cells (None Seen) /HPF Urine Bacteria (None Seen) /HPF Urine Culture Reflexed (NO) Theophylline (10-20) ug/mL Influenza Type A Ag (NEGATIVE) Influenza Type B Ag (NEGATIVE) RSV (PCR) (NEGATIVE) SARS-CoV-2 (PCR) (NEGATIVE) Slides for Path Review 11/11/22 Range/Units Unknown WBC (4.0-10.5) x10^3/uL RBC (4.1-5.4) x10^6/uL Hgb (12.0-16.0) g/dL Hct (35-47) % MCV (78-100) fL MCH (26-32) pg MCHC (32-36) g/dL RDW (11.5-14.0) % Plt Count (150-450) x10^3/uL MPV (7.5-11.0) fL Gran % (36.0-66.0) % Immature Gran % (Auto) (0.00-0.4) % Nucleat RBC Rel Count (0.00-0.1) % Eos # (Auto) (0-0.5) x10^3/uL Immature Gran # (Auto) (0.00-0.03) x10^3u/L Absolute Lymphs (auto) (1.0-4.6) x10^3/uL Absolute Monos (auto) (0.0-1.3) x10^3/uL Absolute Nucleated RBC (0.00-0.01) x10^3u/L Lymphocytes % (24.0-44.0) % Monocytes % (0.0-12.0) % Eosinophils % (0.00-5.0) % Basophils % (0.0-0.4) % Absolute Granulocytes (1.4-6.9) x10^3/uL Basophils # (0-0.4) x10^3/uL D-Dimer (0.0-0.50) mg/L pO2/FiO2 Ratio % VBG pH (7.32-7.42) VBG pCO2 at Pat Temp (42-55) mm/Hg VBG pO2 at Pat Temp (25-40) mm/Hg VBG HCO3 (22-28) meq/L VBG O2 Sat (Milo) (95-100) VBG Base Excess (-2.0-2.0) VBG Hemoglobin VBG Carboxyhemoglobin (0.0-6.9) % T HGB POC Potassium (3.5-5.1) Sodium (137-145) mmol/L Potassium (3.5-5.1) mmol/L Chloride (98-107) mmol/L Carbon Dioxide (22-30) mmol/L Anion Gap (5-15) MEQ/L BUN (7-17) mg/dL Creatinine (0.52-1.04) mg/dL Estimated GFR ML/MIN Glucose (74-106) mg/dL POC Glucometer (74 to 106) mg/dL Lactic Acid (0.4-2.0) Calcium (8.4-10.2) mg/dL Magnesium (1.6-2.3) mg/dL Total Bilirubin (0.2-1.3) mg/dL AST (14-36) U/L ALT (0-35) U/L Alkaline Phosphatase (38-126) U/L Troponin I (0.000-0.034) ng/mL NT-Pro-B Natriuret Pep (<300) pg/mL Serum Total Protein (6.3-8.2) g/dL Albumin (3.5-5.0) g/dL Lipase (23-300) U/L Procalcitonin (0.030-0.080) ng/mL TSH 3rd Generation (0.47-4.68) mIU/L Urine Color (Yellow) Urine Appearance (Clear) Urine pH (4.6-8.0) Ur Specific [place] (1.005-1.030) Urine Protein (Negative) Urine Glucose (UA) (Negative) mg/dL Urine Ketones (Negative) Urine Blood (Negative) Urine Nitrite (Negative) Urine Bilirubin (Negative) Urine Urobilinogen (0.2) mg/dL Ur Leukocyte Esterase (Negative) U Hyaline Cast (Auto) (0-2) /LPF Urine Microscopic RBC (0-5) /HPF Urine Microscopic WBC (0-5) /HPF Ur Epithelial Cells (None Seen) /HPF Urine Bacteria (None Seen) /HPF Urine Culture Reflexed (NO) Theophylline 8.2 L (10-20) ug/mL Influenza Type A Ag (NEGATIVE) Influenza Type B Ag (NEGATIVE) RSV (PCR) (NEGATIVE) SARS-CoV-2 (PCR) (NEGATIVE) Slides for Path Review Radiology Exams: Radiology Procedures Category Date Time Status CHEST 2 VIEWS (PA AND LAT) Stat Exams 11/10/22 22:12 Completed Portable Chest [CHEST 1 VIEW (PORTABLE)] Stat Exams 11/11/22 14:17 Taken Assessment/Plan (1) SVT (supraventricular tachycardia) Current Visit: Yes Status: Acute Assessment & Plan: remains on Cardiazem drip Code(s): I47.1 - SUPRAVENTRICULAR TACHYCARDIA (2) Chest pressure Current Visit: Yes Status: Resolved Assessment & Plan: troponins not elevated Code(s): R07.89 - OTHER CHEST PAIN (3) Elevated lactic acid level Current Visit: Yes Status: Acute Assessment & Plan: was started on antibiotics in ER,afebrile Code(s): R79.89 - OTHER SPECIFIED ABNORMAL FINDINGS OF BLOOD CHEMISTRY (4) Pulmonary fibrosis Current Visit: No Status: Chronic Assessment & Plan: Dr Infante ,Assisted Living Home Director [facility] Code(s): J84.10 - PULMONARY FIBROSIS, UNSPECIFIED (5) Hypomagnesemia Current Visit: Yes Status: Resolved Assessment & Plan: monitor Code(s): E83.42 - HYPOMAGNESEMIA (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
[2022-11-11] MEDS ORDERED: Abilify 10 MG PO SCH ×2 (16:00)
[2022-11-11] MEDS ORDERED: Cymbalta 30 MG Capsule PO SCH (16:00)
[2022-11-11] MEDS ORDERED: THEOPHYLLINE ER 24HR PO SCH (16:00)
[2022-11-11] MEDS: NORCO 7.5/325 MG TAB PO SCH ×2 (16:11→21:09)
[2022-11-11] MEDS ORDERED: HYDROCORTISONE PO SCH (17:00)
[2022-11-11] MEDS ORDERED: Lasix 40 MG PO SCH (17:00)
--- NOTE | 2022-11-11 20:30 | XRAY ---
Indication: Short of breath. Comparison: November 10, 2022 Portable chest demonstrates worsening diffuse moderate bilateral CT proven airspace disease. Stable tiny left effusion with new tiny right effusion. Heart not enlarged. Stable right costophrenic angle suture material, tortuous descending aorta, and epidural stimulator device/leads. Comment: Preliminary interpretation made by [facility]. No critical discrepancy.
[2022-11-11] MEDS ORDERED: NON-FORMULARY BULK ITEM PO SCH (22:00)
[2022-11-11] MEDS ORDERED: ZOCOR 20MG PO SCH (22:00)
[2022-11-12] MEDS: Sodium Chloride 0.9% 1000 ML 1,000 ML IV SCH (00:12)
[2022-11-12] MEDS ORDERED: Ativan 2 MG/1 ML VIAL IV ONE ×2 (03:22)
[2022-11-12] MEDS ORDERED: Ativan 2 MG/1 ML VIAL ONE (03:27)
[2022-11-12] MEDS: PROVENTIL 2.5 MG/3 ML NEB IH PRN (03:30)
[2022-11-12] MEDS ORDERED: Sodium Chloride 0.9% 250 ML 0 ML IV ONE (03:35)
[2022-11-12] MEDS ORDERED: Cardizem IV 50 MG/10 ML IV ONE (03:35)
[2022-11-12] MEDS ORDERED: Sodium Chloride 0.9% 100 ML ONE (03:40)
[2022-11-12] MEDS: CARDIZEM DRIP 100 MG/100 ML D5W 100 ML IV PRN (03:49)
[2022-11-12 04:52] LABS: ANION GAP 9.7 MEQ/L (5-15); BLOOD UREA NITROGEN 12 mg/dL (7-17); CHLORIDE 107 mmol/L (98-107); Carbon Dioxide 21 mmol/L (22-30); EST GLOMERULAR FILTRATION RATE > 60.0 ML/MIN; Glucose 106 mg/dL (74-106); MAGNESIUM 1.5 mg/dL (1.6-2.3); Potassium 3.9 mmol/L (3.5-5.1); SODIUM 134 mmol/L (137-145)
[2022-11-12 06:01] LABS: A-aADO2 199; ABG HEMOGLOBIN 10.8; ABG POTASSIUM 3.7 (3.5-5.1); ARTERIAL BLD GAS O2 SATURATION 95.4 % (95-100); ARTERIAL BLOOD GAS BASE EXCESS -3.1 (-2.0-2.0); ARTERIAL BLOOD GAS FIO2 45 %; ARTERIAL BLOOD GAS PCO2 33 mmHg (35-45); ARTERIAL BLOOD GAS PO2 81 mmHg (75-100); ARTERIAL BLOOD GAS pH 7.41 (7.35-7.45); BIPAP(E) 6; BIPAP(I) 12; CARBOXYHEMOGLOBIN 0.9 % THgb (0.0-6.9); HCO3- 20.9 (22-28); HGB O2 SAT 93.8 g/dF (94-100); Methhemoglobin 0.8 % (1.4-1.5); paO2 pAO1 0.29
[2022-11-12 06:02] LABS: ABG SITE RIGHT BRACHIAL
[2022-11-12] MEDS: Advair Hfa 115/21 Common canister IH SCH (06:27)
[2022-11-12 07:12] VITALS: O2SAT 96
[2022-11-12] MEDS ORDERED: Ativan 2 MG/1 ML VIAL IV PRN (08:16)
[2022-11-12] MEDS ORDERED: MEDICATION INTERVENTION MC SCH ×3 (08:45→09:00)
[2022-11-12 09:05] LABS: Absolute Neutrophil Ct (ANC) 7.62 x10^3/uL (1.4-6.9); BASOPHIL % 0.2 % (0.0-0.4); Basophil (Absolute #) 0.02 x10^3/uL (0-0.4); Eosinophil % 1.4 % (0.00-5.0); Eosinophil (Absolute #) 0.12 x10^3/uL (0-0.5); Hematocrit 35.5 % (35-47); Hemoglobin 10.6 g/dL (12.0-16.0); IMMATURE GRAN # 0.02 x10^3u/L (0.00-0.03); IMMATURE GRAN % 0.2 % (0.00-0.4); Lymphocyte (Absolute #) 0.37 x10^3/uL (1.0-4.6); Lymphocytes % 4.4 % (24.0-44.0); Mean Cell Volume 110.9 fL (78-100); Mean Corpuscular Hemoglobin 33.1 pg (26-32); Mean Corpuscular Hgb Concent. 29.9 g/dL (32-36); Mean Platelet Volume 10.5 fL (7.5-11.0); Monocyte (Absolute #) 0.33 x10^3/uL (0.0-1.3); Monocytes % 3.9 % (0.0-12.0); Neutrophil % 89.9 % (36.0-66.0); Platelet Count 458 x10^3/uL (150-450); Red Cell Distribution Width 17.1 % (11.5-14.0); White Blood Count 8.5 x10^3/uL (4.0-10.5)
[2022-11-12 09:13] VITALS: BP 150/84; PULSE 124
--- NOTE | 2022-11-12 09:19 | PCM.NOTE ---
Date and Time: 11/12/22905 Subjective Assessment: Patient very anxious during the night required IV Ativan to remain on Bipap,not improving this morning.Nurse reports Family request transfer to [facility] where patient's Logging Crew Supervisor would be able to follow. I am in route to Hospital and asked nurse yard supervisor to call for bed availability. OBJECTIVE DATA Vital Signs: Vital Signs - 24 hr Temp Pulse Resp BP BP Pulse Ox 11/12/22 07:52 121 H 11/12/22 07:30 98.9 F 119 H 35 H 166/99 96 11/12/22 07:00 118 H 34 H 166/99 96 11/12/22 06:29 94 L 11/12/22 06:00 117 H 35 H 168/97 11/12/22 05:19 117 H 35 H 158/99 11/12/22 05:00 116 H 99 11/12/22 04:00 112 H 151/89 96 11/12/22 03:53 93 L 11/12/22 03:30 91 L 11/12/22 03:09 112 H 143/102 11/12/22 02:57 103 H 24 119/86 93 L 11/12/22 02:00 99 H 26 H 107/75 93 L 11/12/22 01:00 98.1 F 107 H 17 122/90 96 11/12/22 00:01 107 H 11/12/22 00:00 98.1 F 107 H 24 130/89 91 L 11/11/22 23:00 119 H 16 114/85 95 11/11/22 21:05 32 H 108/69 93 L 11/11/22 20:18 98.4 F 103 H 22 109/94 93 L 11/11/22 20:00 98.4 F 103 H 22 109/94 93 L 11/11/22 19:02 103 H 28 H 93 L 11/11/22 18:45 108 H 22 110/77 91 L 11/11/22 18:00 105 H 38 H 125/79 93 L 11/11/22 17:09 107 H 127/97 11/11/22 17:00 106 H 22 127/97 94 L 11/11/22 16:36 97.0 F 11/11/22 16:00 106 H 30 H 122/90 94 L 11/11/22 15:00 112 H 29 H 124/82 92 L 03/18/23 14:06 106 H 32 H 92 L 11/11/22 14:00 107 H 43 H 139/87 91 L 11/11/22 13:00 106 H 39 H 170/99 95 11/11/22 11:54 113 H 11/11/22 11:36 97.2 F 112 H 30 H 129/95 96 11/11/22 10:47 114 H 30 H 120/92 11/11/22 10:00 110 H 28 H 136/89 Pain Assessment - Last Documented Pain Intensity 3 Pain Scale Used 0-10 Pain Scale Intake and Output: Intake & Output 11/09/22 11/10/22 11/11/22 11/12/22 11:59 11:59 11:59 11:59 Intake Total 750 3063 Output Total 900 800 Balance -150 2263 Weight 83 kg Lab Results: Lab Results-Last 24 Hours 11/11/22 11/11/22 11/11/22 Range/Units 05:30 05:30 11:26 Puncture Site pCO2 (35-45) mmHg pO2 (75-100) mmHg Base Excess (-2.0-2.0) O2 Saturation (94-100) g/dF ABG pH (7.35-7.45) ABG HCO3 (22-28) ABG O2 Sat (Measured) (95-100) % René Test A-a Gradient a/A Ratio Hemoglobin Carboxyhemoglobin (0.0-6.9) % THgb Methemoglobin (1.4-1.5) % Temperature C POC O2 Flow Rate % Inspiratory BiPAP Expiratory BiPAP Sodium (137-145) mmol/L Potassium (3.5-5.1) mmol/L Chloride (98-107) mmol/L Carbon Dioxide (22-30) mmol/L Anion Gap (5-15) MEQ/L BUN (7-17) mg/dL Creatinine (0.52-1.04) mg/dL Estimated GFR ML/MIN Glucose (74-106) mg/dL POC Glucometer 105 (74 to 106) mg/dL Calcium (8.4-10.2) mg/dL Magnesium 1.8 (1.6-2.3) mg/dL NT-Pro-B Natriuret Pep (<300) pg/mL Theophylline (10-20) ug/mL Slides for Path Review YES 11/11/22 11/11/22 11/11/22 Range/Units 11:55 16:25 21:04 Puncture Site pCO2 (35-45) mmHg pO2 (75-100) mmHg Base Excess (-2.0-2.0) O2 Saturation (94-100) g/dF ABG pH (7.35-7.45) ABG HCO3 (22-28) ABG O2 Sat (Measured) (95-100) % René Test A-a Gradient a/A Ratio Hemoglobin Carboxyhemoglobin (0.0-6.9) % THgb Methemoglobin (1.4-1.5) % Temperature C POC O2 Flow Rate % Inspiratory BiPAP Expiratory BiPAP Sodium (137-145) mmol/L Potassium 4.0 D (3.5-5.1) mmol/L Chloride (98-107) mmol/L Carbon Dioxide (22-30) mmol/L Anion Gap (5-15) MEQ/L BUN (7-17) mg/dL Creatinine (0.52-1.04) mg/dL Estimated GFR ML/MIN Glucose (74-106) mg/dL POC Glucometer 122 H 151 H (74 to 106) mg/dL Calcium (8.4-10.2) mg/dL Magnesium (1.6-2.3) mg/dL NT-Pro-B Natriuret Pep (<300) pg/mL Theophylline (10-20) ug/mL Slides for Path Review 11/11/22 11/11/22 11/12/22 Range/Units Unknown Unknown 04:20 Puncture Site pCO2 (35-45) mmHg pO2 (75-100) mmHg Base Excess (-2.0-2.0) O2 Saturation (94-100) g/dF ABG pH (7.35-7.45) ABG HCO3 (22-28) ABG O2 Sat (Measured) (95-100) % René Test A-a Gradient a/A Ratio Hemoglobin Carboxyhemoglobin (0.0-6.9) % THgb Methemoglobin (1.4-1.5) % Temperature C POC O2 Flow Rate % Inspiratory BiPAP Expiratory BiPAP Sodium 134 L (137-145) mmol/L Potassium 3.9 (3.5-5.1) mmol/L Chloride 107 (98-107) mmol/L Carbon Dioxide 21 L (22-30) mmol/L Anion Gap 9.7 (5-15) MEQ/L BUN 12 (7-17) mg/dL Creatinine 0.70 (0.52-1.04) mg/dL Estimated GFR > 60.0 ML/MIN Glucose 106 (74-106) mg/dL POC Glucometer (74 to 106) mg/dL Calcium 7.0 L (8.4-10.2) mg/dL Magnesium 1.5 L (1.6-2.3) mg/dL NT-Pro-B Natriuret Pep 222 (<300) pg/mL Theophylline 8.2 L (10-20) ug/mL Slides for Path Review 11/12/22 11/12/22 Range/Units 05:50 06:41 Puncture Site RIGHT BRACHIAL pCO2 33 L (35-45) mmHg pO2 81 (75-100) mmHg Base Excess -3.1 L (-2.0-2.0) O2 Saturation 93.8 L (94-100) g/dF ABG pH 7.41 (7.35-7.45) ABG HCO3 20.9 L (22-28) ABG O2 Sat (Measured) 95.4 (95-100) % René Test NOT APPLICABLE A-a Gradient 199 a/A Ratio 0.29 Hemoglobin 10.8 Carboxyhemoglobin 0.9 (0.0-6.9) % THgb Methemoglobin 0.8 L (1.4-1.5) % Temperature 37.0 C POC O2 Flow Rate 45 % Inspiratory BiPAP 12 Expiratory BiPAP 6 Sodium (137-145) mmol/L Potassium 3.7 (3.5-5.1) mmol/L Chloride (98-107) mmol/L Carbon Dioxide (22-30) mmol/L Anion Gap (5-15) MEQ/L BUN (7-17) mg/dL Creatinine (0.52-1.04) mg/dL Estimated GFR ML/MIN Glucose (74-106) mg/dL POC Glucometer 100 (74 to 106) mg/dL Calcium (8.4-10.2) mg/dL Magnesium (1.6-2.3) mg/dL NT-Pro-B Natriuret Pep (<300) pg/mL Theophylline (10-20) ug/mL Slides for Path Review Radiology Exams: Radiology Procedures Category Date Time Status CHEST 2 VIEWS (PA AND LAT) Stat Exams 11/10/22 22:12 Completed Portable Chest [CHEST 1 VIEW (PORTABLE)] Stat Exams 11/11/22 14:17 Completed Assessment/Plan (1) Acute and chronic respiratory failure ([id number]) Status: Acute Assessment & Plan: transfer accepted to [facility] ,bed available now. Code(s): J96.20 - ACUTE AND CHR RESP FAILURE, UNSP W HYPOXIA OR HYPERCAPNIA (2) SVT (supraventricular tachycardia) Status: Acute Code(s): I47.1 - SUPRAVENTRICULAR TACHYCARDIA (3) Chest pressure Status: Resolved Code(s): R07.89 - OTHER CHEST PAIN (4) Elevated lactic acid level Status: Acute Code(s): R79.89 - OTHER SPECIFIED ABNORMAL FINDINGS OF BLOOD CHEMISTRY (5) Pulmonary fibrosis Status: Chronic Code(s): J84.10 - PULMONARY FIBROSIS, UNSPECIFIED (6) Hypomagnesemia Status: Resolved Code(s): E83.42 - HYPOMAGNESEMIA (7) Addisons disease Status: Chronic Code(s): E27.1 - PRIMARY ADRENOCORTICAL INSUFFICIENCY
[2022-11-12] MEDS ORDERED: HYDROCORTISONE PO SCH (10:00)
[2022-11-12] MEDS ORDERED: Protonix 40MG Tablet PO SCH (10:00)
[2022-11-12] MEDS ORDERED: LASIX 20 MG PO SCH (10:00)
[2022-11-12] MEDS ORDERED: PATIENT OWN MEDICATION PO SCH ×2 (10:00→12:00)
[2022-11-12] MEDS ORDERED: Cyclobenzaprine 10 MG PO SCH (10:00)
[2022-11-12] MEDS ORDERED: NON-FORMULARY ITEM (Budesonide/Glycopyr/Formoterol [Breztri Aerosphere Inhaler] 10.7 GM Hf IH SCH (10:00)
[2022-11-12] MEDS ORDERED: Toprol-Xl 25MG Tablets PO SCH (10:00)
[2022-11-12] MEDS ORDERED: Klor Con PO SCH ×2 (10:00→12:00)
[2022-11-12] MEDS ORDERED: Tums EX 750 MG PO SCH (10:00)
[2022-11-12] MEDS ORDERED: NINTEDANIB ESYLATE 150 MG PO SCH (10:00)
[2022-11-12] MEDS ORDERED: NON-FORMULARY ITEM (Omeprazole Magnesium [Prilosec Otc] 20 MG Tablet.Dr) PO SCH ×2 (10:00)
[2022-11-12] MEDS ORDERED: NON-FORMULARY ITEM (Potassium Chloride [Potassium Chloride] 10 MEQ Tablet.Er) PO SCH (12:00)
[2022-11-12] MEDS ORDERED: UPADACITINIB 15 MG PO SCH (12:00)
[2022-11-12] MEDS ORDERED: EMPAGLIFLOZIN PO SCH (12:00)
[2022-11-12] MEDS ORDERED: METFORMIN HCL PO SCH (12:00)
[2022-11-12] MEDS ORDERED: [UNRECOGNIZED DRUG - OTHER] PO SCH (12:00)
[2022-11-12 13:03] LABS: Slide Review 1 YES
[2022-11-12] MEDS ORDERED: NON-FORMULARY ITEM (Potassium Chloride [Potassium Chloride] 10 MEQ Capsule.Er) PO SCH (22:00)
== END 2022-11-12 10:01 | disposition short-term general hospital (02) ==
LOC: ED 21:51 → ICU 11-11 01:46
PROVIDERS: ADMIT Internal Medicine; ATTEND Family Medicine
DX: I47.1 Supraventricular tachycardia (principal); R07.89 Other chest pain; J84.10 Pulmonary fibrosis, unspecified; J96.20 Acute and chronic respiratory failure, unspecified whether with hypoxia or hypercapnia; E83.42 Hypomagnesemia; E87.6 Hypokalemia; E27.1 Primary adrenocortical insufficiency; I10 Essential (primary) hypertension; E78.5 Hyperlipidemia, unspecified; E11.9 Type 2 diabetes mellitus without complications; F41.9 Anxiety disorder, unspecified; R79.89 Other specified abnormal findings of blood chemistry; Z79.899 Other long term (current) drug therapy; Z20.828 Contact with and (suspected) exposure to other viral communicable diseases
CPT/HCPCS: 0241U; 36000; 36415; 36600; 71045; 71046; 80048; 80053; 80198; 81001; 82375; 82803; 82805; 82947; 83605; 83690; 83735; 83880; 84132; 84145; 84443; 84484; 85025; 85379; 87040; 93005; 93041; 93268; 94002; 94640; 94760; 96365; 96367; 96368; 96374; 96375; 99285; G0378; J1650; J1940; J2060; J2270; J3475; J3480; J7609; A9270-GY; J3370